=== PATIENT | female | born 1955 | race Two or more races ===

== ENCOUNTER 2017-12-07 13:37 | Emergency (ER) | payer MEDICARE, MEDICAID ==
[~2017-12-07] VITALS: Ht 175.3 cm; Wt 90.7 kg
[~2017-12-07 13:37] MED LIST: ADVAIR; ALBUPOW26; CLOP75TA28 PO; ENAL-3 PO; FLUO-125; GABA400C11 PO; GLIP-115 PO; IBUP800T24 PO; LEVAAER4 IN; METF-370 PO; NOR7.5T PO; PREMARIN; SIMV-8 PO; [UNRECOGNIZED DRUG - CODE] SC
[2017-12-07 13:58] VITALS: BP 126/69
[2017-12-07] MEDS ORDERED: LIDOCAINE 1% (LOCAL ANESTH.) PF 5ml SDV ONE (15:24)
[2017-12-07] MEDS ORDERED: LIDOCAINE 1% HCL (LOCAL ANESTH.) INJ 20ML MDV IJ ONE (15:30)
[2017-12-07] MEDS ORDERED: TETANUS-DIPTH-ACEL PERTUSSIS 0.5ML SYRG IM ONE (15:45)
== END 2017-12-07 16:20 | disposition home or self-care (01) ==
LOC: ER 13:37
DX: S01.81XA Laceration without foreign body of other part of head, initial encounter (principal); S00.83XA Contusion of other part of head, initial encounter; I12.9 Hypertensive chronic kidney disease with stage 1 through stage 4 chronic kidney disease, or unspecified chronic kidney disease; E11.22 Type 2 diabetes mellitus with diabetic chronic kidney disease; N18.9 Chronic kidney disease, unspecified; J44.9 Chronic obstructive pulmonary disease, unspecified; E78.5 Hyperlipidemia, unspecified; Z95.0 Presence of cardiac pacemaker; Z98.61 Coronary angioplasty status; Z79.899 Other long term (current) drug therapy; Z91.041 Radiographic dye allergy status; Z90.710 Acquired absence of both cervix and uterus; W01.0XXA Fall on same level from slipping, tripping and stumbling without subsequent striking against object, initial encounter; Y93.89 Activity, other specified; Y99.8 Other external cause status; Y92.89 Other specified places as the place of occurrence of the external cause
CPT/HCPCS: 12013; 70450; 90471; 90715

== ENCOUNTER 2019-01-08 20:41 | Emergency (ER) | payer MEDICARE, MEDICAID ==
[~2019-01-08] VITALS: Ht 175.3 cm; Wt 72.6 kg
[~2019-01-08 20:41] MED LIST changes: -ENAL-3 PO; +ENAL10TA2 PO; -GLIP-115 PO; +GLIP5TAB12 PO
[2019-01-08 21:42] LABS: Basophils # (auto) 0.1 uL; Basophils % (auto) 1.1 % (0.0-2.0); Eosinophils # (auto) 0.1 uL; Hematocrit 41.8 % (36.0-46.0); Lymphocytes # (auto) 2.6 uL; Mean Corpuscular Hgb Conc. 33.5 g/dL (32.0-36.0); Mean Corpuscular Volume 83.5 fL (80.0-100.0); Monocytes # (auto) 0.6 uL; Neutrophils # (auto) 5.2 uL; Neutrophils % (auto) 60.9 % (37.0-80.0); Platelet Count (auto) 309 10^3/uL (140-450); Red Blood Cells 5.01 10^6/uL (4.0-5.20); Red Cell Distribution Width 15.2 % (11.8-14.3); White Blood Cell 8.5 10^3/uL (4.4-10.8)
[2019-01-08 21:54] LABS: Albumin 3.8 g/dL (3.4-5.0); Calcium 9.2 mg/dL (8.5-10.1); Potassium 3.7 mmol/L (3.5-5.1)
[2019-01-08 21:57] LABS: BUN/Creatinine Ratio 11.2; Bilirubin, Total 0.4 mg/dL (0.2-1.0); Total Protein 7.5 g/dL (6.4-8.2)
[2019-01-09 06:42] LABS: Urine Bacteria MANY /hpf (None Seen); Urine Blood 1+ /uL (Negative); Urine Specific Gravity 1.013 (1.001-1.035); Urine WBC 106 /hpf (0 - 5)
[2019-01-09] MEDS ORDERED: CEFTRIAXONE SODIUM 2 GM in D5W 5% 50 ML IV ONE (07:00)
[2019-01-09] MEDS ORDERED: SODIUM CHLORIDE 0.9% 1,000 ML IV ONE (07:00)
[2019-01-09 09:32] VITALS: BP 140/77
== END 2019-01-09 09:32 | disposition home or self-care (01) ==
LOC: ER 20:44
DX: N39.0 Urinary tract infection, site not specified (principal); I12.9 Hypertensive chronic kidney disease with stage 1 through stage 4 chronic kidney disease, or unspecified chronic kidney disease; E11.22 Type 2 diabetes mellitus with diabetic chronic kidney disease; N18.9 Chronic kidney disease, unspecified; J44.9 Chronic obstructive pulmonary disease, unspecified; R41.0 Disorientation, unspecified; E78.5 Hyperlipidemia, unspecified; Z90.710 Acquired absence of both cervix and uterus; Z95.0 Presence of cardiac pacemaker; Z98.61 Coronary angioplasty status; Z79.899 Other long term (current) drug therapy
CPT/HCPCS: 36415; 70450; 80053; 81001; 84443; 85025; 93005; 96365; 99284; J0696; J7030; J7060

== ENCOUNTER 2022-07-14 10:24 | Emergency (ER) | payer MEDICARE, MEDICAID ==
[~2022-07-14] VITALS: Ht 172.7 cm; Wt 100.0 kg
[~2022-07-14 10:24] MED LIST changes: +ENAL10TA13 PO; -ENAL10TA2 PO; -IBUP800T24 PO; +IBUP800T27 PO
[2022-07-14] MEDS ORDERED: IBUP800T27 PO (13:39)
[2022-07-14] MEDS ORDERED: METH750T22 PO (13:39)
[2022-07-14] MEDS ORDERED: ACETAMINOPHEN 500 MG TAB PO ONE (13:45)
[2022-07-14 13:55] VITALS: BP 142/81
== END 2022-07-14 13:56 | disposition home or self-care (01) ==
LOC: ER 10:24
DX: S16.1XXA Strain of muscle, fascia and tendon at neck level, initial encounter (principal); S39.012A Strain of muscle, fascia and tendon of lower back, initial encounter; I12.9 Hypertensive chronic kidney disease with stage 1 through stage 4 chronic kidney disease, or unspecified chronic kidney disease; E11.22 Type 2 diabetes mellitus with diabetic chronic kidney disease; N18.9 Chronic kidney disease, unspecified; E78.5 Hyperlipidemia, unspecified; I25.10 Atherosclerotic heart disease of native coronary artery without angina pectoris; J44.9 Chronic obstructive pulmonary disease, unspecified; Z90.710 Acquired absence of both cervix and uterus; Z95.0 Presence of cardiac pacemaker; Z79.1 Long term (current) use of non-steroidal anti-inflammatories (NSAID); Z79.899 Other long term (current) drug therapy; Z79.01 Long term (current) use of anticoagulants; Z91.041 Radiographic dye allergy status; W18.39XA Other fall on same level, initial encounter; Y93.89 Activity, other specified; Y92.89 Other specified places as the place of occurrence of the external cause; Y99.8 Other external cause status
CPT/HCPCS: 72040; 72100

== ENCOUNTER 2023-01-28 14:24 | Emergency (ER) | payer MEDICARE, MEDICAID ==
[~2023-01-28] VITALS: Ht 172.7 cm; Wt 93.2 kg
[~2023-01-28 14:24] MED LIST changes: -ENAL10TA13 PO; +ENAL1TAB47 PO; +GABA-1251 PO; -GABA400C11 PO; +IBUP-1456 PO; -IBUP800T27 PO; +METH-1182 PO; -SIMV-8 PO; +SIMV20TA20 PO
[2023-01-28 15:36] LABS: Basophils # (auto) 0.1 10 ^3/uL (0-0.2); Basophils % (auto) 0.9 % (0.0-2.0); Eosinophils # (auto) 0 10 ^3/uL (0-0.8); Eosinophils % (auto) 0.2 % (0.0-7.0); Hematocrit 43.3 % (36.0-46.0); Hemoglobin 14.3 g/dL (12.2-16.2); Lymphocytes # (auto) 1.9 10 ^3/uL (0.4-5.4); Lymphocytes % (auto) 20.6 % (10.0-50.0); Mean Corpuscular Hemoglobin 28.2 pg (28.0-32.0); Mean Corpuscular Volume 85.3 fL (80.0-100.0); Monocytes # (auto) 0.5 10 ^3/uL (0-1.3); Monocytes % (auto) 5.4 % (0.0-12.0); Neutrophils # (auto) 6.8 10 ^3/uL (1.6-8.6); Neutrophils % (auto) 72.9 % (37.0-80.0); Red Blood Cells 5.08 10^6/uL (4.0-5.20); Red Cell Distribution Width 15.1 % (11.8-14.3); White Blood Cell 9.3 10^3/uL (4.4-10.8)
[2023-01-28 15:48] LABS: Albumin 4.7 g/dL (3.2-4.8); Alkaline Phosphatase 104 U/L (46-116); Anion Gap 9 (5-15); Aspartate Aminotransferase 11 U/L (13-40); BUN/Creatinine Ratio 9.5 (10.0-20.0); Bilirubin, Total 0.5 mg/dL (0.2-1.0); Blood Urea Nitrogen 10 mg/dL (9-23); Calcium 9.7 mg/dL (8.7-10.4); Carbon Dioxide 24 mmol/L (20-30); Chloride 106 mmol/L (98-107); Glucose 199 mg/dL (74-106); Potassium 3.7 mmol/L (3.5-5.1); Sodium 139 mmol/L (136-145); Total Protein 7.4 g/dL (5.7-8.2)
[2023-01-28 15:53] LABS: Alanine Aminotransferase 9 U/L (7-40)
[2023-01-28 16:34] LABS: Urine Bacteria NONE SEEN /hpf (None Seen); Urine Blood Negative /uL (Negative); Urine Clarity HAZY (Clear); Urine Color Yellow (Yellow); Urine Mucus FEW (None Seen); Urine Protein, UAD 1+ (Negative); Urine WBC 10 /hpf (0 - 5)
[2023-01-28 21:30] VITALS: PULSE 67; RESP 13; O2SAT 97
[2023-01-28] MEDS ORDERED: ONDANSETRON ODT 4 MG TAB PO ONE (23:30)
[2023-01-28] MEDS ORDERED: HYDROcodone-ACET 10/325MG TAB PO ONE (23:30)
[2023-01-29 00:30] VITALS: BP 106/64; PULSE 60; RESP 16; TEMP 98.2; O2SAT 99
[2023-01-29] MEDS ORDERED: NITR-87 PO (03:15)
== END 2023-01-29 03:41 | disposition home or self-care (01) ==
LOC: ER 14:24
DX: N39.0 Urinary tract infection, site not specified (principal); R10.12 Left upper quadrant pain; E11.65 Type 2 diabetes mellitus with hyperglycemia; I13.0 Hypertensive heart and chronic kidney disease with heart failure and stage 1 through stage 4 chronic kidney disease, or unspecified chronic kidney disease; E11.22 Type 2 diabetes mellitus with diabetic chronic kidney disease; N18.9 Chronic kidney disease, unspecified; I50.9 Heart failure, unspecified; E78.5 Hyperlipidemia, unspecified; J44.9 Chronic obstructive pulmonary disease, unspecified; I25.10 Atherosclerotic heart disease of native coronary artery without angina pectoris; Z95.0 Presence of cardiac pacemaker; Z90.710 Acquired absence of both cervix and uterus; Z79.899 Other long term (current) drug therapy; Z79.1 Long term (current) use of non-steroidal anti-inflammatories (NSAID); Z91.041 Radiographic dye allergy status
CPT/HCPCS: 36415; 74176; 80053; 81001; 83605; 83690; 85025; 93005; 99284; Q0162

== ENCOUNTER 2023-05-07 17:48 | Emergency (ER) | payer MEDICARE, MEDICAID ==
[~2023-05-07] VITALS: Ht 172.7 cm; Wt 85.8 kg
[~2023-05-07 17:48] MED LIST changes: +NITR-87 PO
[2023-05-08 01:05] LABS: Basophils # (auto) 0.1 10 ^3/uL (0-0.2); Eosinophils # (auto) 0.1 10 ^3/uL (0-0.8); Eosinophils % (auto) 1.5 % (0.0-7.0); Hemoglobin 13.4 g/dL (12.2-16.2); Lymphocytes # (auto) 2.2 10 ^3/uL (0.4-5.4); Monocytes # (auto) 0.5 10 ^3/uL (0-1.3); Nucleated Red Blood Cells % 0.1 %
[2023-05-08 01:06] LABS: Basophils % (auto) 0.8 % (0.0-2.0); Lymphocytes % (auto) 30.4 % (10.0-50.0); Mean Corpuscular Hemoglobin 26.9 pg (28.0-32.0); Mean Corpuscular Hgb Conc. 32.6 g/dL (32.0-36.0); Mean Corpuscular Volume 82.4 fL (80.0-100.0); Neutrophils # (auto) 4.4 10 ^3/uL (1.6-8.6); Neutrophils % (auto) 60.3 % (37.0-80.0); Red Blood Cells 4.98 10^6/uL (4.0-5.20); Red Cell Distribution Width 16.4 % (11.8-14.3); White Blood Cell 7.3 10^3/uL (4.4-10.8)
[2023-05-08 01:14] LABS: Chloride 106 mmol/L (98-107); Potassium 3.4 mmol/L (3.5-5.1); Sodium 138 mmol/L (136-145)
[2023-05-08 01:15] LABS: Anion Gap 9 (5-15); Carbon Dioxide 23 mmol/L (20-30)
[2023-05-08 01:16] LABS: Calcium 9.2 mg/dL (8.7-10.4)
[2023-05-08 01:20] LABS: Glucose 136 mg/dL (74-106)
[2023-05-08 01:21] LABS: BUN/Creatinine Ratio 7.9 (10.0-20.0); Blood Urea Nitrogen 8 mg/dL (9-23); Lipase 30 U/L (12-53)
[2023-05-08] MEDS ORDERED: MORPHINE SULFATE INJ 2 MG/ml SYRG IM ONE (01:45)
[2023-05-08] MEDS ORDERED: ONDANSETRON ODT 4 MG TAB PO ONE (01:45)
[2023-05-08 05:09] LABS: Albumin 4.6 g/dL (3.2-4.8); Alkaline Phosphatase 84 U/L (46-116); Aspartate Aminotransferase 24 U/L (13-40); Bilirubin, Total 0.4 mg/dL (0.2-1.0); Total Protein 7.1 g/dL (5.7-8.2)
[2023-05-08 05:10] LABS: Alanine Aminotransferase < 9 U/L (7-40)
[2023-05-08] MEDS ORDERED: MAGNSOL PO (05:32)
[2023-05-08] MEDS ORDERED: ZOFR4T PO (05:37)
[2023-05-08 07:46] VITALS: BP 129/92; PULSE 94; RESP 18; TEMP 97.9; O2SAT 97
== END 2023-05-08 07:52 | disposition home or self-care (01) ==
LOC: ER 17:48
DX: K59.00 Constipation, unspecified (principal); M54.50 Low back pain, unspecified; K43.9 Ventral hernia without obstruction or gangrene; M25.551 Pain in right hip
CPT/HCPCS: 36415; 72100; 73502; 74176; 80048; 82040; 82247; 83690; 84075; 84155; 84450; 84460; 85025; 96372; 99285; J2270; Q0162

== ENCOUNTER 2023-07-27 18:37 | Emergency (ER) | payer MEDICARE, MEDICAID ==
[~2023-07-27] VITALS: Ht 172.7 cm; Wt 86.0 kg
[~2023-07-27 18:37] MED LIST changes: -GLIP5TAB12 PO; +GLIP5TAB21 PO; +MAGNSOL PO; +ZOFR4T PO
[2023-07-27] MEDS ORDERED: ACE3T PO (21:44)
[2023-07-27 21:49] VITALS: BP 111/81; PULSE 70; RESP 16; TEMP 98.2; O2SAT 98
[2023-07-27] MEDS: KETOROLAC TROMETH 60MG/2ML VIAL IM ONE (22:00)
== END 2023-07-28 00:44 | disposition home or self-care (01) ==
LOC: ER 18:37
DX: S70.11XA Contusion of right thigh, initial encounter (principal); M54.41 Lumbago with sciatica, right side; Z91.041 Radiographic dye allergy status; W22.8XXA Striking against or struck by other objects, initial encounter; Y93.89 Activity, other specified; Y92.89 Other specified places as the place of occurrence of the external cause; Y99.8 Other external cause status
CPT/HCPCS: 72100; 73552; 96372; 99284; J1885

== ENCOUNTER 2023-08-16 13:00 | Emergency (ER) | payer MEDICARE, MEDICAID ==
[~2023-08-16] VITALS: Ht 172.7 cm; Wt 79.5 kg
[~2023-08-16 13:00] MED LIST changes: +ACE3T PO
[2023-08-16 14:17] LABS: Basophils # (auto) 0 10 ^3/uL (0-0.2); Basophils % (auto) 0.1 % (0.0-2.0); Eosinophils # (auto) 0 10 ^3/uL (0-0.8); Hematocrit 37.5 % (36.0-46.0); Hemoglobin 12.2 g/dL (12.2-16.2); Lymphocytes # (auto) 1.4 10 ^3/uL (0.4-5.4); Lymphocytes % (auto) 13.6 % (10.0-50.0); Mean Corpuscular Hemoglobin 27.2 pg (28.0-32.0); Mean Corpuscular Hgb Conc. 32.4 g/dL (32.0-36.0); Monocytes # (auto) 0.6 10 ^3/uL (0-1.3); Monocytes % (auto) 5.9 % (0.0-12.0); Neutrophils # (auto) 8.3 10 ^3/uL (1.6-8.6); Neutrophils % (auto) 80.4 % (37.0-80.0); Red Blood Cells 4.47 10^6/uL (4.0-5.20); Red Cell Distribution Width 16.8 % (11.8-14.3); White Blood Cell 10.4 10^3/uL (4.4-10.8)
[2023-08-16 14:37] LABS: Albumin 4.3 g/dL (3.2-4.8); Alkaline Phosphatase 82 U/L (46-116); Anion Gap 6 (5-15); Aspartate Aminotransferase 20 U/L (13-40); BUN/Creatinine Ratio 12.4 (10.0-20.0); Blood Urea Nitrogen 14 mg/dL (9-23); Calcium 9.7 mg/dL (8.5-10.1); Carbon Dioxide 24 mmol/L (20-30); Chloride 105 mmol/L (98-107); Glucose 140 mg/dL (74-106); Potassium 4.3 mmol/L (3.5-5.1); Sodium 135 mmol/L (136-145)
[2023-08-16 14:38] LABS: Bilirubin, Total 0.5 mg/dL (0.2-1.0); Total Protein 6.5 g/dL (5.7-8.2)
[2023-08-16 14:53] LABS: Alanine Aminotransferase < 9 U/L (7-40)
[2023-08-16 14:59] VITALS: PULSE 66; RESP 15; O2SAT 95
[2023-08-16] MEDS: ACETAMINOPHEN 325 MG TAB PO ONE (15:30)
[2023-08-16 16:24] LABS: Urine Bacteria FEW /hpf (None Seen); Urine Blood Negative /uL (Negative); Urine Clarity Clear (Clear); Urine Color Colorless (Yellow); Urine Protein, UAD Negative (Negative); Urine Specific Gravity 1.004 (1.001-1.035); Urine Urobilinogen Normal (Negative); Urine WBC <1 /hpf (0 - 5); Urine pH 6.5 (5.0-9.0)
[2023-08-16 17:06] VITALS: BP 152/85; PULSE 61; RESP 12; O2SAT 97
== END 2023-08-16 18:06 | disposition home or self-care (01) ==
LOC: ER 13:00 → EDBD 13:00 → ER 18:06
DX: R55 Syncope and collapse (principal); R07.89 Other chest pain; I11.0 Hypertensive heart disease with heart failure; I50.9 Heart failure, unspecified; I25.10 Atherosclerotic heart disease of native coronary artery without angina pectoris; J44.9 Chronic obstructive pulmonary disease, unspecified; E11.9 Type 2 diabetes mellitus without complications; Z90.710 Acquired absence of both cervix and uterus; Z95.0 Presence of cardiac pacemaker; Z79.1 Long term (current) use of non-steroidal anti-inflammatories (NSAID); Z79.01 Long term (current) use of anticoagulants; Z79.899 Other long term (current) drug therapy; Z91.041 Radiographic dye allergy status
CPT/HCPCS: 36415; 70450; 71045; 80053; 81001; 84484; 85025; 93005

== ENCOUNTER 2024-02-12 11:08 | Inpatient (IN) | payer MEDICARE, MEDICAID ==
[~2024-02-12] VITALS: Ht 172.7 cm; Wt 83.4 kg
[2024-02-12 11:46] LABS: Basophils # (auto) 0 10 ^3/uL (0-0.2); Basophils % (auto) 0.8 % (0.0-2.0); Eosinophils # (auto) 0.1 10 ^3/uL (0-0.8); Eosinophils % (auto) 2.5 % (0.0-7.0); Hematocrit 41.1 % (36.0-46.0); Hemoglobin 13.5 g/dL (12.2-16.2); Lymphocytes # (auto) 1.5 10 ^3/uL (0.4-5.4); Lymphocytes % (auto) 27.9 % (10.0-50.0); Mean Corpuscular Hemoglobin 27.7 pg (28.0-32.0); Mean Corpuscular Hgb Conc. 32.8 g/dL (32.0-36.0); Mean Corpuscular Volume 84.5 fL (80.0-100.0); Monocytes # (auto) 0.3 10 ^3/uL (0-1.3); Monocytes % (auto) 5.9 % (0.0-12.0); Neutrophils # (auto) 3.3 10 ^3/uL (1.6-8.6); Neutrophils % (auto) 62.9 % (37.0-80.0); Nucleated Red Blood Cells % 0.1 %; Platelet Count (auto) 219 10^3/uL (140-450); Red Blood Cells 4.87 10^6/uL (4.0-5.20); Red Cell Distribution Width 16.6 % (11.8-14.3); White Blood Cell 5.3 10^3/uL (4.4-10.8)
[2024-02-12 12:05] LABS: INR 1.07 (0.9-1.15); Partial Thromboplastin Time 25.5 SEC (24.5-34.5); Prothrombin Time 11.3 sec (9.3-11.8)
[2024-02-12 12:14] LABS: Alanine Aminotransferase 11 U/L (7-40); Alkaline Phosphatase 96 U/L (46-116); Anion Gap 9 (5-15); Aspartate Aminotransferase 19 U/L (13-40); BUN/Creatinine Ratio 13.2 (10.0-20.0); Blood Urea Nitrogen 14 mg/dL (9-23); Calcium 9.5 mg/dL (8.7-10.4); Carbon Dioxide 23 mmol/L (20-31); Chloride 106 mmol/L (98-107); Glucose 135 mg/dL (74-106); Magnesium 1.9 mg/dL (1.6-2.6); Potassium 3.9 mmol/L (3.5-5.1); Sodium 138 mmol/L (136-145)
[2024-02-12 12:15] LABS: Bilirubin, Total 0.5 mg/dL (0.2-1.0); Total Protein 6.2 g/dL (5.7-8.2)
[2024-02-12 17:19] LABS: Urine Bacteria FEW /hpf (None Seen); Urine Blood Negative /uL (Negative); Urine Clarity Turbid (Clear); Urine Color Yellow (Yellow); Urine Mucus FEW (None Seen); Urine Protein, UAD TRACE (Negative); Urine Specific Gravity 1.023 (1.001-1.035); Urine Urobilinogen Normal (Negative); Urine WBC 78 /hpf (0 - 5)
[2024-02-12] MEDS: cefTRIAXone 1GM/50ML D5W 50 ML IV ONE (20:46)
[2024-02-12 21:13] VITALS: RESP 16; O2SAT 96
[2024-02-12] MEDS ORDERED: MORPHINE SULFATE INJ 2 MG/ml SYRG IV PRN (22:45)
[2024-02-12] MEDS ORDERED: NITROGLYCERIN 0.4 MG SL TAB SL PRN (22:45)
[2024-02-12] MEDS: ENOXAPARIN SOD 40 MG/0.4 ML SYRINGE SC SCH (23:15)
[2024-02-12] MEDS: MORPHINE SULFATE INJ 2 MG/ml SYRG IV PRN (23:22)
[2024-02-13] VITALS (8 sets, daily range): BP systolic 101–128; BP diastolic 56–74; PULSE 12–80; RESP 12–18; TEMP 98.1–98.7; O2SAT 92–100
[2024-02-13] MEDS: MELATONIN 5 MG TAB PO ONE (02:00)
[2024-02-13 05:30] LABS: Basophils # (auto) 0 10 ^3/uL (0-0.2); Basophils % (auto) 0.6 % (0.0-2.0); Eosinophils # (auto) 0.1 10 ^3/uL (0-0.8); Eosinophils % (auto) 1.4 % (0.0-7.0); Hematocrit 40.2 % (36.0-46.0); Hemoglobin 12.9 g/dL (12.2-16.2); Lymphocytes # (auto) 2.5 10 ^3/uL (0.4-5.4); Lymphocytes % (auto) 33.3 % (10.0-50.0); Mean Corpuscular Hemoglobin 27.3 pg (28.0-32.0); Mean Corpuscular Hgb Conc. 32.1 g/dL (32.0-36.0); Mean Corpuscular Volume 84.9 fL (80.0-100.0); Monocytes # (auto) 0.5 10 ^3/uL (0-1.3); Monocytes % (auto) 6.8 % (0.0-12.0); Neutrophils # (auto) 4.3 10 ^3/uL (1.6-8.6); Neutrophils % (auto) 57.9 % (37.0-80.0); Platelet Count (auto) 239 10^3/uL (140-450); Red Blood Cells 4.73 10^6/uL (4.0-5.20); Red Cell Distribution Width 16.6 % (11.8-14.3); White Blood Cell 7.5 10^3/uL (4.4-10.8)
[2024-02-13 05:40] LABS: Alanine Aminotransferase 11 U/L (7-40); Albumin 4.4 g/dL (3.2-4.8); Alkaline Phosphatase 88 U/L (46-116); Anion Gap 7 (5-15); Aspartate Aminotransferase 18 U/L (13-40); BUN/Creatinine Ratio 15.8 (10.0-20.0); Bilirubin, Total 0.4 mg/dL (0.2-1.0); Blood Urea Nitrogen 15 mg/dL (9-23); Calcium 9.5 mg/dL (8.7-10.4); Carbon Dioxide 25 mmol/L (20-31); Chloride 105 mmol/L (98-107); Glucose 98 mg/dL (74-106); Potassium 3.8 mmol/L (3.5-5.1); Sodium 137 mmol/L (136-145); Total Protein 6.5 g/dL (5.7-8.2)
[2024-02-13 06:25] LABS: INR 1.08 (0.9-1.15); Partial Thromboplastin Time 30.4 SEC (24.5-34.5); Prothrombin Time 11.4 sec (9.3-11.8)
[2024-02-13] MEDS: SODIUM CHLOR 0.9% PF (SALINE LOCK) 10ML VIAL/SYR IV SCH (08:53)
[2024-02-13] MEDS: GABAPENTIN 400 MG CAP PO SCH (08:53)
[2024-02-13] MEDS: MAGNESIUM CITRATE SOLUTION 300 ML BTL PO SCH (10:00)
[2024-02-13] MEDS: CLOPIDOGREL BISULFATE 75 MG TAB PO SCH (10:01)
[2024-02-13] MEDS: ENALAPRIL MALEATE 10 MG TAB PO SCH (10:01)
[2024-02-13] MEDS: ONDANSETRON HCL 4 MG/2 ML VIAL IV PRN (10:59)
[2024-02-13 14:40] LABS: Triglycerides 113 mg/dL (< 150)
[2024-02-13 14:41] LABS: LDL Cholesterol 53 mg/dL (< 100)
[2024-02-13 14:42] LABS: Cholesterol 124 mg/dL (< 200); HDL Cholesterol 56 mg/dL (40-59)
[2024-02-13 15:30] LABS: Rapid Influenza A Negative (Negative); Rapid Influenza B Negative (Negative)
[2024-02-13 15:31] LABS: COVID19 ANTIGEN SOFIA FIA NEGATIVE (NEGATIVE)
[2024-02-13] MEDS: cefTRIAXone 1GM/50ML D5W 50 ML IV SCH (17:24)
[2024-02-13] MEDS: ATORVASTATIN 20 MG TAB PO SCH (21:55)
[2024-02-13] MEDS: ERGOCALCIFEROL 50,000 UNIT(1.25MG) CAP PO SCH (22:18)
[2024-02-13] MEDS: CYANOCOBALAMIN (B-12) 1000 MCG/1 ML VIAL IM ONE (22:20)
[2024-02-14] VITALS (17 sets, daily range): BP systolic 77–109; BP diastolic 43–61; PULSE 59–75; RESP 12–61; TEMP 97.9–98.4; O2SAT 92–100
[2024-02-14 07:26] LABS: Chloride 107 mmol/L (98-107); Potassium 4.4 mmol/L (3.5-5.1); Sodium 139 mmol/L (136-145)
[2024-02-14 07:27] LABS: Anion Gap 9 (5-15); Basophils # (auto) 0 10 ^3/uL (0-0.2); Basophils % (auto) 0.5 % (0.0-2.0); Calcium 9.7 mg/dL (8.7-10.4); Carbon Dioxide 23 mmol/L (20-31); Eosinophils # (auto) 0.2 10 ^3/uL (0-0.8); Eosinophils % (auto) 1.9 % (0.0-7.0); Hematocrit 40.6 % (36.0-46.0); Hemoglobin 13.1 g/dL (12.2-16.2); Lymphocytes # (auto) 1.6 10 ^3/uL (0.4-5.4); Lymphocytes % (auto) 19.7 % (10.0-50.0); Mean Corpuscular Hemoglobin 27.7 pg (28.0-32.0); Mean Corpuscular Hgb Conc. 32.2 g/dL (32.0-36.0); Monocytes # (auto) 0.7 10 ^3/uL (0-1.3); Neutrophils # (auto) 5.8 10 ^3/uL (1.6-8.6); Neutrophils % (auto) 69.9 % (37.0-80.0); Platelet Count (auto) 226 10^3/uL (140-450); Red Blood Cells 4.72 10^6/uL (4.0-5.20); Red Cell Distribution Width 16.4 % (11.8-14.3); White Blood Cell 8.3 10^3/uL (4.4-10.8)
[2024-02-14 07:32] LABS: Blood Urea Nitrogen 12 mg/dL (9-23); Glucose 107 mg/dL (74-106)
[2024-02-14 07:47] LABS: INR 1.05 (0.9-1.15); Prothrombin Time 11.1 sec (9.3-11.8)
[2024-02-14] MEDS: IODIXANOL 320MG/ML 100ML BTL IV ONE ×2 (07:51→10:32)
[2024-02-14] MEDS: ANGIOMAX 250 MG VIAL IV ONE (08:22)
[2024-02-14] MEDS: SODIUM CHL 0.9% 0 ML ONE (08:22)
[2024-02-14] MEDS: VERAPAMIL 2.5MG/ML INJ 2ML VIAL IV ONE (08:22)
[2024-02-14] MEDS: LIDOCAINE 2%HCL (LOCAL ANESTH.) INJ 20ML MDV ONE (08:22)
[2024-02-14] MEDS: HEPARIN SODIUM (PORCINE) 5000 UNITS/ML 1ML VIAL ONE ×2 (08:23→09:04)
[2024-02-14] MEDS: fentaNYL CITRATE 100 MCG/2 ML VL ONE (08:49)
[2024-02-14] MEDS: MIDAZOLAM HCL 2MG/2ML 2ml VIAL (1mg/ml) ONE (08:49)
[2024-02-14] MEDS: diphenhdrAMINE HCL 50 MG/1 ML VL ONE (08:59)
[2024-02-14] MEDS: FAMOTIDINE (10MG/ML) 2ML VL IV ONE (08:59)
[2024-02-14] MEDS: methylPREDNISolone SOD SUCC 125 MG/2 ML VL ONE (08:59)
[2024-02-14] MEDS ORDERED: PATIENTS OWN MEDICATION (Simvastatin 40 MG) PO SCH (10:00)
[2024-02-14] MEDS: ACETAMINOPHEN 325 MG TAB PO PRN (10:43)
[2024-02-14] MEDS: cefTRIAXone 1GM/50ML D5W 50 ML IV SCH (20:00)
[2024-02-15] VITALS (20 sets, daily range): BP systolic 86–120; BP diastolic 52–59; PULSE 56–82; RESP 16–20; TEMP 97.7–98.2; O2SAT 93–100
[2024-02-15] MEDS: IPRATROPIUM BROM 0.5 MG/2.5ML INH SOL NEB SCH (02:01)
[2024-02-15] MEDS: ALBUTEROL SULF 2.5 MG/0.5ML(0.5%) NEB SOLN NEB SCH (02:01)
[2024-02-15 06:56] LABS: Alanine Aminotransferase 10 U/L (7-40); Albumin 3.8 g/dL (3.2-4.8); Alkaline Phosphatase 70 U/L (46-116); Anion Gap 7 (5-15); Aspartate Aminotransferase 11 U/L (13-40); BUN/Creatinine Ratio 14.7 (10.0-20.0); Blood Urea Nitrogen 17 mg/dL (9-23); Carbon Dioxide 25 mmol/L (20-31); Chloride 108 mmol/L (98-107); Glucose 158 mg/dL (74-106); Potassium 4.9 mmol/L (3.5-5.1); Sodium 140 mmol/L (136-145)
[2024-02-15 06:57] LABS: Bilirubin, Total 0.2 mg/dL (0.2-1.0)
[2024-02-15] MEDS: SODIUM CHLORIDE 0.9% 500 ML IV ONE (13:45)
[2024-02-15] MEDS: HYDROcodone-ACET 5/325MG TAB PO PRN (14:28)
[2024-02-15] MEDS ORDERED: CEPH500C PO (15:30)
[2024-02-15] MEDS ORDERED: ATOR40TA52 PO (15:30)
[2024-02-16] VITALS (9 sets, daily range): BP systolic 96–114; BP diastolic 47–69; PULSE 60–79; RESP 16–20; TEMP 97.6–98.2; O2SAT 95–100
== END 2024-02-16 12:30 | disposition home or self-care (01) | DRG 286 ==
LOC: ER 11:08 → EDBD 11:08 → EDUNIT# 11:08 → TELE 22:33 → TELE-EAST 02-13 16:35
PROVIDERS: ADMIT Internal Medicine; ATTEND Internal Medicine
PROC: 4A023N7 Measurement of Cardiac Sampling and Pressure, Left Heart, Percutaneous Approach (ICD-10-PCS; principal; 2024-02-14)
PROC: B211YZZ Fluoroscopy of Multiple Coronary Arteries using Other Contrast (ICD-10-PCS; 2024-02-14)
PROC: 4B02XSZ Measurement of Cardiac Pacemaker, External Approach (ICD-10-PCS; 2024-02-14)
PROC: B44FZZZ Ultrasonography of Right Lower Extremity Arteries (ICD-10-PCS; 2024-02-14)
DX: I11.0 Hypertensive heart disease with heart failure (principal); I50.33 Acute on chronic diastolic (congestive) heart failure; I25.110 Atherosclerotic heart disease of native coronary artery with unstable angina pectoris; J44.9 Chronic obstructive pulmonary disease, unspecified; Z20.822 Contact with and (suspected) exposure to COVID-19; E78.5 Hyperlipidemia, unspecified; E66.9 Obesity, unspecified; N30.90 Cystitis, unspecified without hematuria; I45.10 Unspecified right bundle-branch block; E11.9 Type 2 diabetes mellitus without complications; E55.9 Vitamin D deficiency, unspecified; E53.8 Deficiency of other specified B group vitamins; R00.1 Bradycardia, unspecified; Z79.4 Long term (current) use of insulin; Z99.81 Dependence on supplemental oxygen; Z90.710 Acquired absence of both cervix and uterus; Z95.0 Presence of cardiac pacemaker; Z82.49 Family history of ischemic heart disease and other diseases of the circulatory system; Z83.3 Family history of diabetes mellitus; Z68.28 Body mass index [BMI] 28.0-28.9, adult
CPT/HCPCS: 36415; 71045; 80048; 80053; 80061; 81001; 82306; 82607; 83036; 83735; 83880; 84443; 84484; 85025; 85610; 85730; 86850; 86900; 86901; 87081; 87426; 87804; 93005; 93306; 93458; 94640; 96365; 99152; 99291; C1894; G0378; J2250; J2405; J3490; Q9967

== ENCOUNTER 2024-03-01 18:18 | Inpatient (IN) | payer MEDICARE, MEDICAID ==
[~2024-03-01] VITALS: Ht 172.7 cm; Wt 76.0 kg
[~2024-03-01 18:18] MED LIST changes: +CEPH500C PO
--- NOTE | 2024-03-01 18:54 | ED.PDOC ---
History of Present Illness HPI Comments 69 y/o F, with a Hx of CAD, CHF, COPD, DM, HLD, HTN, PTCA, pacemaker, hysterectomy, current ventral hernia, and small bowel obstruction Sx?, is BIBA for c/o abdominal pain, nausea, and constipation for 3 weeks. Patient is a poor historian and is reported to have had symptoms being constant since initial unpr ovoked onset. Patient, at time of evaluation, states on pain radiating upwards towards her sternal chest area and rates overall pain being a 10/10. Patient denies any recent stress, injuries, sick contact, travel, spoiled food, or substance use/exposure. Denies having any vomiting, diarrhea, urinary symptoms, fever, chills, or other associated symptoms or modifiers at this time. Chief Complaint: Abdominal Pain Time Seen by MD: 18:25 Primary Care Provider: nola Reviewed Notes: Nurses Notes, Third Rail Installer Notes, Medications, Allergies Allergies: Coded Allergies: Iodinated Contrast Media (Verified Allergy, Unknown, 11/24/13) Home Meds Active Scripts Cephalexin Monohydrate (Cephalexin) 500 Mg Cap, 1 CAP PO TID for 5 Days, #30 CAP Prov:SALOMÓN CARY RESIDENT 02/15/24 Acetaminophen W/ Codeine (Tylenol W/Cod #3) 1 Tab Tb, 1 TAB PO Q8HP PRN, #10 TAB Prov:GEORGETTE CHRISTINE PAC 07/27/23 Ondansetron Odt 4MG Tab (ZOFRAN PO) 4 Mg Tb, 4 MG PO Q8HPRN, #14 TAB 0 Refills ODT TAB-DISSOLVE IN MOUTH, THEN SWALLOW Prov:HUBER ANAYA 05/08/23 Magnesium Citrate (Magnesium Citrate) 1.745 Gm/30 Ml Mariela, 150 ML PO DAILY for 2 Days, #1 BOTTLE 0 Refills Prov:HUBER ANAYA 05/08/23 Nitrofurantoin Monohydrate Mac (Macrobid) 100 Mg Cap, 100 MG PO BID for 5 Days, #10 CAP Prov:FAHAD BAKER DO 01/29/23 Methocarbamol (Methocarbamol) 750 Mg Tab, 750 MG PO BID, #20 TAB Prov:CIRILO HEREDIA 07/14/22 Ibuprofen (Ibuprofen) 800 Mg Tab, 1 TAB PO TID, #30 TAB Prov:CIRILO HEREDIA 07/14/22 Reported Medications [Advair] No Conflict Check 09/22/13 Clopidogrel Bisulfate (Plavix) 75 Mg Tab, 75 MG PO, TAB 09/22/13 Simvastatin (Simvastatin) 20 Mg Tab, 40 MG PO DAILY for 30 Days 09/22/13 Metformin Hydrochloride (Metformin Hcl) 500 Mg Tab, 500 MG PO DAILY for 30 Days, MG 09/22/13 Levalbuterol Tartrate (Xopenex Hfa) Aer, 1 IN PRN 04/06/11 Exenatide (Byetta) 10 Mcg Inj, 10 MCG SC BIDAC 04/06/11 Albuterol (Albuterol) Pow 04/06/11 Fluoxetine Hcl (Fluoxetine Hcl) 20 Mg Cap, 2 CAP DAILY 04/06/11 Enalapril Maleate (Enalapril Maleate) 10 Mg Tab, 10 MG PO DAILY 04/06/11 Gabapentin (Gabapentin) 400 Mg Cap, 400 MG PO TID 04/06/11 Hydrocodone-Acetaminophen (Amberson 7.5/325MG) 1 Tab Tb, 7.5 MG PO TID 04/06/11 Glipizide (Glipizide) 5 Mg Tab, 5 MG PO DAILY 04/06/11 [Premarin] No Conflict Check, 0.3 MG DAILY 04/06/11 Information Source: Patient, Emergency Med Personnel Mode of Arrival: EMS Severity: Moderate Timing: Hours Duration: Since onset Prehospital treatment: 12 Lead EKG, Senior Unix Administrator Past Medical History PAST MEDICAL HISTORY: Asthma, CAD, CHF, COPD, DM, High Lipids, HTN Past Medical History (Other): current ventral hernia Surgical History: Hysterectomy, Pacemaker, PTCA Surgical History (Other): small bowel obstruction Sx? JEWELRY DEPARTMENT SUPERVISOR History: No Pertinent JEWELRY DEPARTMENT SUPERVISOR History Family History Family History: Unknown Social History Smoker: Non-Smoker Alcohol: Rarely Drugs: Denies Drug Use Lives In: Home Constitutional: denies: chills, diaphoresis, fatigue, fever, malaise, sweats, weakness, others EENTM: denies: blurred vision, double vision, ear bleeding, ear discharge, ear drainage, ear pain, ear ringing, eye pain, eye redness, hearing loss, mouth pain, mouth swelling, nasal discharge, nose bleeding, nose congestion, nose pain, photophobia, tearing, throat pain, throat swelling, voice changes, others Respiratory: denies: cough, hemoptysis, orthopnea, SOB at rest, shortness of breath, SOB with excertion, stridor, wheezing, others Cardiovascular: denies: chest pain, dizzy spells, diaphoresis, Dyspnea on exertion, edema, irregular heart beat, left arm pain, lightheadedness, pa lpitations, PND, syncope, others Gastrointestinal: reports: abdominal pain, constipated, nausea; denies: abdomen distended, blood streaked bowels, diarrhea, dysphagia, difficulty swallowing, hematemesis, melena, poor appetite, poor fluid intake, rectal bleeding, rectal pain, vomiting, others Genitourinary: denies: abnormal vagina bleeding, burning, dyspareunia, dysuria, flank pain, frequency, hematuria, incontinence, pain, , vagina discharge, urgency, others Neurological: denies: dizziness, fainting, headache, left sided numbness, left sided weakness, numbness, paresthesia, pre-existing deficit, right sided numbness, right sided weakness, seizure, speech problems, tingling, tremors, weakness, others Musculoskeletal: denies: back pain, gout, joint pain, joint swelling, muscle pain, muscle stiffness, neck pain, others Integumetry: denies: bruises, change in color, change in hair/nails, dryness, laceration, lesions, lumps, rash, wounds, others Allergic/Immunocompromised: denies: Difficulty Healing, Frequent Infections, Hives, Itching, others Hematologic/Lymphatic: denies: anemia, blood clots, easy bleeding, easy bruising, swollen glands, others Endocrine: denies: excessive hunger, excessive sweating, excessive thirst, excessive urination, flushing, intolerance to cold, intolerance to heat, unexplained weight gain, unexplained weight loss, others Psychiatric: denies: anxiety, bipolar disorder, depression, hopeless, panic disorder, schizophrenia, sleepless, suicidal, others All Other Systems: Reviewed and Negative Physical Exam General Appearance: Moderate Distress HEENT: Normal ENT Inspection, Pharynx Normal, TMs Normal Neck: Full Range of Motion, Non-Tender, Normal, Normal Inspection Respiratory: Chest Non-Tender, Lungs Clear, No Accessory Muscle Use, No Res piratory Distress, Normal Breath Sounds Cardiovascular: No Edema, No JVD, No Murmur, No Gallop, Normal Peripheral Pulses, Regular Rate/Rhythm Breast Exam: Deferred Gastrointestinal: No Organomegaly, No Pulsatile Mass, Normal Bowel Sounds, Soft, Other (Midline scar with massThe scar hernia) Genitalia: Deferred Pelvic: Deferred Rectal: Deferred Extremities: No calf tenderness, Normal capillary refill, Normal inspection, Normal range of motion, Non-tender, No pedal edema Musculoskeletal : Apperance: Normal Neurologic: Alert, transcribing machine operator II-XII nml as Tested, No Motor Deficits, Normal Affect, Normal Mood, No Sensory Deficits Cerebellar Function: Normal Reflexes: Normal Skin: Dry, Normal Color, Warm Peripheral Pulses: 3+ Radial (R), 3+ Radial (L) Lymphatic: No Adenopathy Was a procedure done? Was a procedure done?: No Differential Dx Considerations may include: gastritis, gastroenteritis, diverticulitis, pancreatitis, cholecystitis, cholelithiasis, ovarian cysts, incarcerated hernia vs strangulated hernia, acute abdomen X-Ray, Labs, Meds, VS Vital Signs Date Time Temp Pulse Resp B/P (MAP) Pulse Ox O2 Delivery O2 Flow Rate FiO2 03/01/24 22:00 97.9 74 18 124/57 (79) 100 97.9 03/01/24 21:30 74 18 124/57 03/01/24 21:15 97.9 81 18 96/70 (79) 100 97.9 03/01/24 21:00 78 17 126/76 03/01/24 20:35 98.1 78 17 126/76 (93) 98 98.1 03/01/24 20:30 Room Air* 0 21 03/01/24 18:29 97.3 70 20 131/73 (92) 100 Lab Test 03/01/24 19:10 Range/Units White Blood Count 5.4 4.4-10.8 10^3/uL Red Blood Count 4.48 4.0-5.20 10^6/uL Hemoglobin 12.3 12.2-16.2 g/dL Hematocrit 38.3 36.0-46.0 % Mean Corpuscular Volume 85.5 80.0-100.0 fL Mean Corpuscular Hemoglobin 27.6 L 28.0-32.0 pg Mean Corpuscular Hemoglobin Concent 32.3 32.0-36.0 g/dL Red Cell Distribution Width 16.4 H 11.8-14.3 % Platelet Count 258 140-450 10^3/uL Mean Platelet Volume 7.1 6.9-10.8 fL Neutrophils (%) (Auto) 57.5 37.0-80.0 % Lymphocytes (%) (Auto) 32.4 10.0-50.0 % Monocytes (%) (Auto) 7.8 0.0-12.0 % Eosinophils (%) (Auto) 1.7 0.0-7.0 % Basophils (%) (Auto) 0.6 0.0-2.0 % Neutrophils # (Auto) 3.1 1.6-8.6 10 ^3/uL Lymphocytes # (Auto) 1.8 0.4-5.4 10 ^3/uL Monocytes # (Auto) 0.4 0-1.3 10 ^3/uL Eosinophils # (Auto) 0.1 0-0.8 10 ^3/uL Basophils # (Auto) 0 0-0.2 10 ^3/uL Nucleated Red Blood Cells 0.1 % Sodium Level 140 136-145 mmol/L Potassium Level 3.5 3.5-5.1 mmol/L Chloride Level 108 H 98-107 mmol/L Carbon Dioxide Level 24 20-31 mmol/L Anion Gap 8 5-15 Blood Urea Nitrogen 8 L 9-23 mg/dL Creatinine 1.02 0.550-1.02 mg/dL Glomerular Filtration Rate Calc 59 >90 mL/min BUN/Creatinine Ratio 7.8 L 10.0-20.0 Serum Glucose 107 H 74-106 mg/dL Calcium Level 9.0 8.7-10.4 mg/dL Lipase 31 12-53 U/L Current Medications Medications (Trade) Dose Ordered Sig/Albert Route Start Time Stop Time Status Last Admin Ondansetron HCl (Zofran) 4 mg ONCE ONCE IV 03/01/24 18:45 03/01/24 18:46 DC 03/01/24 21:00 Sodium Chloride 1,000 ml @ 1,000 mls/hr Q1H ONCE IVB 03/01/24 18:45 03/01/24 19:44 DC 03/01/24 21:00 Morphine Sulfate 4 mg ONCE ONCE IV 03/01/24 18:45 03/01/24 18:46 DC 03/01/24 21:00 [facility] [id number] [place] [id number] Ph: [phone] DIAGNOSTIC IMAGING Diagnostic Imaging Report : [id number] Signed PATIENT: TEDDY BLACK ACCT: [id number] UNIT: [id number] : 1955 LOC: ER ROOM / BED: / AGE / SEX: 69 / F ADM STATUS: REG ER SERVICE 1831 ORDERING PHYSICIAN: JAMES BUENROSTRO MD PROCEDURE(s): ABPL - CT AB PEL WO CON-NO ORAL OR IV REASON: sbo ORDER NUMBER(s): [id number], ACCESSION NUMBER(s): [id number] Exam: CT CT AB PEL WO CON-NO ORAL OR IV History: sbo Comparison Study: None available at time of dictation. TECHNIQUE: Multidetector CT of the abdomen was performed from lung bases to pubic symphysis. Imaging was performed without IV contrast. Axial, coronal and sagittal multiplanar reformats were obtained from the axial data set by the technologist. Radiation Dose Information: CT Dose: CTDI volume is 12.59 mGy. Dose-length product is 677.56 mGy*cm FINDINGS: Evaluation of solid organs is limited due to lack of intravenous contrast use. Findings: Lung Bases: No acute or significant lung base finding. Normal heart size. No pleural or pericardial effusion. Liver: The liver is normal in size. No focal lesions. Gallbladder and Biliary Tree: Unremarkable Spleen: Unremarkable Pancreas: The pancreas is grossly normal in appearance. Adrenal Glands: Unremarkable Kidneys: Kidneys are grossly normal without calculi or hydronephrosis. Bladder: Grossly unremarkable for degree of distention. Bowel: The stomach is grossly normal in appearance. Small bowel and colon are normal in caliber and distribution. The appendix is not visualized; however, no secondary findings of acute appendicitis identified. Ascites: Absent Lymphadenopathy: No mesenteric, retroperitoneal or periportal lymphadenopathy. Abdominal Wall and Mesentery: Broad-based umbilical hernia containing bowel not significantly changed from prior CT of the abdomen and pelvis of May 08. Vasculature: The visualized abdominal aorta is normal in size and caliber. Evaluation of abdominal and pelvic vessels is limited due to lack of intravenous contrast. Pelvic Organs: Unremarkable Musculoskeletal: No aggressive focal bony lesions, acute fractures or dislocation. Soft tissues: Unremarkable IMPRESSION: 1. No findings of small-bowel obstruction. No findings to suggest colonic obstruction. 2. Stable ventral hernia unchanged from May 08, 2023 3. Stable postop changes with pedicle screws and rods in place at L4-L5 and S1 Radiation optimization: All CT scans at this facility use at least one of these dose optimization techniques: automated exposure control mA and/or kV adjustment per patient size (includes targeted exams where dose is matched to clinical indication) or iterative reconstruction. ATED BY: YOSEPH BARROSO Jr., DO DICTATED DATE/TIME: 03/01/241943 SIGNED BY: YOSEPH BARROSO Jr., SIGNED DATE/TIME: 03/01/241943 CC: Patient alert. Complaining of abdominal discomfort. Does have a mass in mid abdomen. Ventral hernia. Vitals stable. Answering questions. Establish intravenous access. Was given fluids. Was given pain medication. CT scan of the abdomen reviewed does not show any acute process. Reviewed her previous visit. Explained to the patient. Time of 1ST Reevaluation: 18:55 Reevaluation 1ST: Unchanged Patient Education/Counseling: Diagnosis, Treatment Family Education/Counseling: No Family Present Departure 1 Departure Time of Disposition: 19:00 Impression: Primary Impression: Acute abdominal pain Additional Impression: Ventral hernia Qualified Codes: K43.9 - Ventral hernia without obstruction or gangrene Disposition: ADMITTED INPATIENT Admit to: Med Surg Condition: Guarded Critical Care Note Critical Care Time?: No Stability Stability form required: No Heart Score Heart Score: Heart Score Response (Comments) Value History N/A 0 EKG N/A 0 Age N/A 0 Risk Factors N/A 0 Troponin N/A 0 Total 0 I personally scribed for JAMES BUENROSTRO MD ([email or web address]) on 03/01/24 at 18:54. Electronically submitted by Guy Agarwal ([email or web address]). I personally scribed for JAMES BUENROSTRO MD ([email or web address]) on 03/01/24 at 19:56. Electronically submitted by Guy Agarwal ([email or web address]). JAMES BUENROSTRO MD Mar 01, 2024 18:54
[2024-03-01 19:47] LABS: Basophils # (auto) 0 10 ^3/uL (0-0.2); Basophils % (auto) 0.6 % (0.0-2.0); Eosinophils # (auto) 0.1 10 ^3/uL (0-0.8); Eosinophils % (auto) 1.7 % (0.0-7.0); Hematocrit 38.3 % (36.0-46.0); Hemoglobin 12.3 g/dL (12.2-16.2); Lymphocytes # (auto) 1.8 10 ^3/uL (0.4-5.4); Lymphocytes % (auto) 32.4 % (10.0-50.0); Mean Corpuscular Hemoglobin 27.6 pg (28.0-32.0); Mean Corpuscular Hgb Conc. 32.3 g/dL (32.0-36.0); Mean Corpuscular Volume 85.5 fL (80.0-100.0); Monocytes # (auto) 0.4 10 ^3/uL (0-1.3); Monocytes % (auto) 7.8 % (0.0-12.0); Neutrophils # (auto) 3.1 10 ^3/uL (1.6-8.6); Neutrophils % (auto) 57.5 % (37.0-80.0); Nucleated Red Blood Cells % 0.1 %; Platelet Count (auto) 258 10^3/uL (140-450); Red Blood Cells 4.48 10^6/uL (4.0-5.20); Red Cell Distribution Width 16.4 % (11.8-14.3); White Blood Cell 5.4 10^3/uL (4.4-10.8)
--- NOTE | 2024-03-01 19:47 | DVH ---
Exam: CT CT AB PEL WO CON-NO ORAL OR IV History: sbo Comparison Study: None available at time of dictation. TECHNIQUE: Multidetector CT of the abdomen was performed from lung bases to pubic symphysis. Imaging was performed without IV contrast. Axial, coronal and sagittal multiplanar reformats were obtained fr om the axial data set by the technologist. Radiation Dose Information: CT Dose: CTDI volume is 12.59 mGy. Dose-length product is 677.56 mGy*cm FINDINGS: Evaluation of solid organs is limited due to lack of intravenous contrast use. Findings: Lung Bases: No acute or significant lung base finding. Normal heart size. No pleural or pericardial effusion. Liver: The liver is normal in size. No focal lesions. Gallbladder and Biliary Tree: Unremarkable Spleen: Unremarkable Pancreas: The pancreas is grossly normal in appearance. Adrenal Glands: Unremarkable Kidneys: Kidneys are grossly normal without calculi or hydronephrosis. Bladder: Grossly unremarkable for degree of distention. Bowel: The stomach is grossly normal in appearance. Small bowel and colon are normal in caliber and d istribution. The appendix is not visualized; however, no secondary findings of acute appendicitis id entified. Ascites: Absent Lymphadenopathy: No mesenteric, retroperitoneal or periportal lymphadenopathy. Abdominal Wall and Mesentery: Broad-based umbilical hernia containing bowel not significantly changed from prior CT of the abdomen and pelvis of May 08, 2023. Vasculature: The visualized abdominal aorta is normal in size and caliber. Evaluation of abdominal a nd pelvic vessels is limited due to lack of intravenous contrast. Pelvic Organs: Unremarkable Musculoskeletal: No aggressive focal bony lesions, acute fractures or dislocation. Soft tissues: Unremarkable IMPRESSION: 1. No findings of small-bowel obstruction. No findings to suggest colonic obstruction. 2. Stable ventral hernia unchanged from May 08, 2023 3. Stable postop changes with pedicle screws and rods in place at L4-L5 and S1 Radiation optimization: All CT scans at this facility use at least one of these dose optimization te chniques: automated exposure control mA and/or kV adjustment per patient size (includes targeted exa ms where dose is matched to clinical indication) or iterative reconstruction.
[2024-03-01 19:48] LABS: Anion Gap 8 (5-15); Carbon Dioxide 24 mmol/L (20-31); Chloride 108 mmol/L (98-107); Potassium 3.5 mmol/L (3.5-5.1); Sodium 140 mmol/L (136-145)
[2024-03-01 19:54] LABS: BUN/Creatinine Ratio 7.8 (10.0-20.0); Blood Urea Nitrogen 8 mg/dL (9-23); Glucose 107 mg/dL (74-106); Lipase 31 U/L (12-53)
[2024-03-01] MEDS: SODIUM CHLORIDE 0.9% 1,000 ML IVB ONE (21:00)
[2024-03-01] MEDS: ONDANSETRON HCL 4 MG/2 ML VIAL IV ONE (21:00)
[2024-03-01] MEDS: MORPHINE SULFATE 4 MG/ML SYR/VIAL IV ONE (21:00)
[2024-03-01 21:15] VITALS: BP 96/70; PULSE 81; RESP 18; TEMP 97.9; O2SAT 100
[2024-03-01 21:20] VITALS: PULSE 81; RESP 18; O2SAT 100
[2024-03-01 22:00] VITALS: BP 124/57; PULSE 74; RESP 18; TEMP 97.9; O2SAT 100
[2024-03-02] VITALS (10 sets, daily range): BP systolic 111–133; BP diastolic 52–69; PULSE 56–84; RESP 17–18; TEMP 97.8–98.7; O2SAT 94–100
[2024-03-02] MEDS: ONDANSETRON HCL 4 MG/2 ML VIAL IV ONE (00:14)
[2024-03-02] MEDS: HYDROcodone-ACET 10/325MG TAB PO ONE (02:14)
[2024-03-02] MEDS: SODIUM CHLORIDE 0.9% 1,000 ML IV ONE (04:49)
[2024-03-02] MEDS: METOCLOPRAMIDE HCL 5MG/ml INJ 2ml VIAL IV ONE (07:05)
[2024-03-02 09:39] LABS: Urine Bacteria None Seen /hpf (None Seen)
[2024-03-02 09:44] LABS: Urine Blood Negative /uL (Negative); Urine Clarity Clear (Clear); Urine Color Light-Yellow (Yellow); Urine Protein, UAD Negative (Negative); Urine Specific Gravity 1.019 (1.001-1.035); Urine Urobilinogen Normal (Negative); Urine WBC <1 /hpf (0 - 5)
[2024-03-02] MEDS ORDERED: CEPH250C PO (11:43)
[2024-03-02] MEDS ORDERED: APIX5TAB PO (11:43)
[2024-03-02] MEDS ORDERED: CETI10CA PO (11:43)
[2024-03-02] MEDS ORDERED: CHOL20007 PO (11:43)
[2024-03-02] MEDS ORDERED: FLUT1SPR5 (11:43)
[2024-03-02] MEDS ORDERED: EXEN2INJ SC (11:43)
[2024-03-02] MEDS ORDERED: ESCI20TA PO (11:43)
[2024-03-02] MEDS ORDERED: CYAN100088 PO (11:43)
[2024-03-02] MEDS ORDERED: NITROGLYCERIN 0.4 MG SL TAB SL PRN (12:00)
[2024-03-02] MEDS ORDERED: DOCUSATE SOD 100 MG CAP PO PRN (12:00)
[2024-03-02] MEDS ORDERED: LACTULOSE 20Gm/30ML SOLN PO PRN (12:00)
[2024-03-02] MEDS: InsuLIN REG 1unit/0.01ml Soln (100units/ml) SC SCH (12:00)
[2024-03-02] MEDS ORDERED: MORPHINE SULFATE INJ 2 MG/ml SYRG IV PRN (12:00)
[2024-03-02] MEDS ORDERED: DEXTROSE (50%) 50ML SYRG IV PRN (12:00)
--- NOTE | 2024-03-02 12:31 | DVHHP2 ---
History of Present Illness Reason for Visit: Abdominal Pain History of Present Illness Alejandra Baldwin is a 69-year-old female with past medical history of CAD, hypertension, CHF, COPD, and diabetes, who came in with complaints of abdominal pain. Patient states she came in because she has not had a bowel movement for 7 days. She states she went to her primary care provider who prescribed her laxatives that she took without any relief. She has a history of small bowel obstruction that required surgical intervention about 3 years ago. Patient also has a ventral hernia that she states she did not know about and has started protruding more. However the hernia is present on previous CT scans. Cardiovascular: AFIB, CAD, CHF, HTN Pulmonary: COPD Endocrine: Diabetes Past Surgical History: (x 2, pacemaker), Hysterectomy, Other (SBO) Smoke: No ALCOHOL: none Drugs: None Lives: with Family Domestic Violence: Neg Review of Systems Constitutional: No: Fever, Chills, Sweats, Weakness, Malaise, Other Eyes: No: Pain, Vision change, Conjunctivae inflammation, Eyelid inflammation, Other, Redness ENT: No: Ear pain, Ear discharge, Nose pain, Nose discharge, Nose congestion, Mouth pain, Mouth swelling, Throat pain, Throat swelling, Other Respiratory: No: Cough, Dry, Shortness of breath, SOB with excertion, Wheezing, Hemoptysis, Pleuritic Pain, Sputum, Wheezing, Other Cardiovascular: No: Chest Pain, Palpitations, Orthopnea, Paroxysmal Noc. Dyspnea, Edema, Lt Headedness, Other Gastrointestinal: Nausea, Abdominal Pain, Constipation; No: Vomiting, Diarrhea, Melena, Hematochezia, Other Genitourinary: No Dysuria, No Frequency, No Incontinence, No Hematuria, No Retention, No Other Musculoskeletal: No: other, neck pain, shoulder pain, arm pain, back pain, hand pain, leg pain, foot pain Skin: No: Rash, Lesions, Jaundice, Bruising, Other Neurological: No: Weakness, Numbness, Incoordination, Change in speech, Confusion, Seizures, Other Allergies: Coded Allergies: Iodinated Contrast Media (Verified Allergy, Unknown, 11/24/13) Medications Current Medications Medications Dose Ordered Sig/Albert Route Start Time Stop Time Status Last Admin Dose Admin Sodium Chloride 1,000 ml @ 60 mls/hr [id number] IV 03/02/24 12:00 UNV Ondansetron HCl 4 mg Q4HP PRN IV 03/02/24 12:00 UNV Docusate Sodium 100 mg BIDPRN PRN PO 03/02/24 12:00 UNV Acetaminophen 650 mg Q6HP PRN PO 03/02/24 12:00 UNV Morphine Sulfate 2 mg Q4HPRN PRN IV 03/02/24 12:00 UNV Nitroglycerin 0.4 mg Q5MINP PRN SL 03/02/24 12:00 UNV Morphine Sulfate 2 mg Q30M PRN IV 03/02/24 12:00 UNV Diagnostic Test (Pha) 1 strip Q6HR 03/02/24 12:00 UNV Insulin Human Regular Q6HR SC 03/02/24 12:00 UNV Dextrose 50 ml UD PRN IV 03/02/24 12:00 UNV Metoclopramide HCl 10 mg Q6HR IV 03/02/24 12:00 UNV Lactulose 30 ml Q6HPRN PRN PO 03/02/24 12:00 UNV Exam Vital Signs Vital Signs Date Time Temp Pulse Resp B/P (MAP) Pulse Ox O2 Delivery O2 Flow Rate FiO2 03/02/24 10:10 98.1 76 111/52 (71) 97 98.1 03/02/24 08:18 18 03/02/24 08:00 Room Air* 0 21 Labs/Xrays Labs Test 03/02/24 09:00 03/01/24 19:10 Range/Units Urine Color Light-yellow Yellow Urine Clarity Clear Clear Urine pH 6.0 5.0-9.0 Urine Specific [place] 1.019 1.001-1.035 Urine Protein Negative Negative Urine Ketones Negative Negative Urine Blood Negative Negative /uL Urine Nitrite Negative Negative Urine Bilirubin Negative Negative Urine Urobilinogen Normal Negative mg/dL Urine Leukocyte Esterase Negative Negative /uL Urine RBC None seen 0 - 4 /hpf Urine WBC <1 0 - 5 /hpf Urine Squamous Epithelial Cells None seen <5 /hpf Urine Bacteria None seen None Seen /hpf Urine Glucose Normal Normal mg/dL White Blood Count 5.4 4.4-10.8 10^3/uL Red Blood Count 4.48 4.0-5.20 10^6/uL Hemoglobin 12.3 12.2-16.2 g/dL Hematocrit 38.3 36.0-46.0 % Mean Corpuscular Volume 85.5 80.0-100.0 fL Mean Corpuscular Hemoglobin 27.6 L 28.0-32.0 pg Mean Corpuscular Hemoglobin Concent 32.3 32.0-36.0 g/dL Red Cell Distribution Width 16.4 H 11.8-14.3 % Platelet Count 258 140-450 10^3/uL Mean Platelet Volume 7.1 6.9-10.8 fL Neutrophils (%) (Auto) 57.5 37.0-80.0 % Lymphocytes (%) (Auto) 32.4 10.0-50.0 % Monocytes (%) (Auto) 7.8 0.0-12.0 % Eosinophils (%) (Auto) 1.7 0.0-7.0 % Basophils (%) (Auto) 0.6 0.0-2.0 % Neutrophils # (Auto) 3.1 1.6-8.6 10 ^3/uL Lymphocytes # (Auto) 1.8 0.4-5.4 10 ^3/uL Monocytes # (Auto) 0.4 0-1.3 10 ^3/uL Eosinophils # (Auto) 0.1 0-0.8 10 ^3/uL Basophils # (Auto) 0 0-0.2 10 ^3/uL Nucleated Red Blood Cells 0.1 % Sodium Level 140 136-145 mmol/L Potassium Level 3.5 3.5-5.1 mmol/L Chloride Level 108 H 98-107 mmol/L Carbon Dioxide Level 24 20-31 mmol/L Anion Gap 8 5-15 Blood Urea Nitrogen 8 L 9-23 mg/dL Creatinine 1.02 0.550-1.02 mg/dL Glomerular Filtration Rate Calc 59 >90 mL/min BUN/Creatinine Ratio 7.8 L 10.0-20.0 Serum Glucose 107 H 74-106 mg/dL Calcium Level 9.0 8.7-10.4 mg/dL Lipase 31 12-53 U/L Exam: CT CT AB PEL WO CON-NO ORAL OR IV FINDINGS: Evaluation of solid organs is limited due to lack of intravenous contrast use. Findings: Lung Bases: No acute or significant lung base finding. Normal heart size. No pleural or pericardial effusion. Liver: The liver is normal in size. No focal lesions. Gallbladder and Biliary Tree: Unremarkable Spleen: Unremarkable Pancreas: The pancreas is grossly normal in appearance. Adrenal Glands: Unremarkable Kidneys: Kidneys are grossly normal without calculi or hydronephrosis. Bladder: Grossly unremarkable for degree of distention. Bowel: The stomach is grossly normal in appearance. Small bowel and colon are normal in caliber and distribution. The appendix is not visualized; however, no secondary findings of acute appendicitis identified. Ascites: Absent Lymphadenopathy: No mesenteric, retroperitoneal or periportal lymphadenopathy. Abdominal Wall and Mesentery: Broad-based umbilical hernia containing bowel not significantly changed from prior CT of the abdomen and pelvis of May 08, 2023. Vasculature: The visualized abdominal aorta is normal in size and caliber. Evaluation of abdominal and pelvic vessels is limited due to lack of intravenous contrast. Pelvic Organs: Unremarkable Musculoskeletal: No aggressive focal bony lesions, acute fractures or dislocati on. Soft tissues: Unremarkable IMPRESSION: 1. No findings of small-bowel obstruction. No findings to suggest colonic obstr uction. 2. Stable ventral hernia unchanged from May 08, 2023 3. Stable postop changes with pedicle screws and rods in place at L4-L5 and S1 Assessment/Plan Assessment/Plan Assessment: Constipation, acute, Ventral Hernia, Diabetes, COPD, CHF, CAD, Plan: Admit to Tele, GI Consult, NPO except medications, IV hydration, IV antiemetics, Fleets enema, PO Lactulose, Pain management, Home medications reconciled, Plan discussed with: Patient My Orders Orders - JUVENCIO ESTEVEZ SALES SERVICE PROMOTER Procedure Category Date Status Time Admit ADMIT 03/02/24 Transmitted 11:53 Code Status CODE 03/02/24 Transmitted 11:53 Sodium Chloride 0.9% PHA 03/02/24 Logged 12:00 Ondansetron Hcl PHA 03/02/24 Logged (Zofran) 12:00 Docusate Sodium PHA 03/02/24 Logged Capsule (Colace 12:00 Complete Blood Count LAB 03/03/24 Verified 04:00 Comprehensive LAB 03/03/24 Verified Metabolic Panel 04:00 Npo (Nothing By DIET 03/02/24 Transmitted Mouth) Diet Lunch Condition: Serious GONZALES 03/02/24 In Process 11:53 Acetaminophen Tablet PHA 03/02/24 Logged (Tylenol Tablet) 12:00 Morphine Sulfate PHA 03/02/24 Logged Injection 12:00 Nitroglycerin PHA 03/02/24 Logged Sublingual (Ntrostat 12:00 Morphine Sulfate PHA 03/02/24 Logged Injection 12:00 Stat Ekg For Chest [facility] 03/02/24 In Process Pain 11:53 Notify Of Changes [facility] 03/02/24 In Process From Base 11:53 Rating Specialist For [facility] 03/02/24 In Process 24 Hours 11:53 Emergency Dysrhythmia [facility] 03/02/24 In Process Protocol 11:53 Rhythm Strips Once [facility] 03/02/24 In Process Every Shift 11:53 Oxygen By Nasal RT 03/02/24 Transmitted Cannula 11:53 Glucose Blood PHA 03/02/24 Logged (Accu-Chek Comfort 12:00 Insulin R (Human) PHA 03/02/24 Logged (Insulin R) 12:00 Dextrose 50% Syringe PHA 03/02/24 Logged 12:00 Metoclopramide PHA 03/02/24 Logged Injection (Reglan 12:00 Lactulose Oral PHA 03/02/24 Logged 12:00 Lactulose Oral PHA 03/02/24 Logged 12:00 Fleet Enema Adult PHA 03/02/24 Logged 12:00 * Gi Dvh Stock Car Driver CONS 03/02/24 Transmitted 11:53 Date of Service: Mar 02, 2024 Billing Provider: JUVENCIO ESTEVEZ Common Visit Codes: [id number] INP/OBS CARE (MOD) JUVENCIO ESTEVEZ Mar 02, 2024 12:31
[2024-03-02] MEDS: SODIUM CHLORIDE 0.9% 1,000 ML IV SCH (12:34)
[2024-03-02] MEDS: ONDANSETRON HCL 4 MG/2 ML VIAL IV PRN (12:35)
[2024-03-02] MEDS: LACTULOSE 20Gm/30ML SOLN PO ONE (12:36)
[2024-03-02] MEDS: ACCU-CHEK COMFORT CURVE STRIP VI SCH (12:36)
[2024-03-02] MEDS: MORPHINE SULFATE INJ 2 MG/ml SYRG IV PRN (12:36)
[2024-03-02] MEDS: METOCLOPRAMIDE HCL 5MG/ml INJ 2ml VIAL IV SCH (13:30)
[2024-03-02] MEDS: FLEET ENEMA(ADULT) 135 ML PR ONE (15:21)
[2024-03-03] VITALS (8 sets, daily range): BP systolic 99–135; BP diastolic 55–71; PULSE 58–80; RESP 17–19; TEMP 98–99.1; O2SAT 92–100
[2024-03-03 06:46] LABS: Basophils # (auto) 0 10 ^3/uL (0-0.2); Basophils % (auto) 0.7 % (0.0-2.0); Eosinophils # (auto) 0.1 10 ^3/uL (0-0.8); Eosinophils % (auto) 2.9 % (0.0-7.0); Hematocrit 35.8 % (36.0-46.0); Lymphocytes # (auto) 1.6 10 ^3/uL (0.4-5.4); Lymphocytes % (auto) 32.6 % (10.0-50.0); Mean Corpuscular Hemoglobin 28.3 pg (28.0-32.0); Mean Corpuscular Hgb Conc. 33.6 g/dL (32.0-36.0); Mean Corpuscular Volume 84.4 fL (80.0-100.0); Monocytes # (auto) 0.3 10 ^3/uL (0-1.3); Monocytes % (auto) 6.8 % (0.0-12.0); Neutrophils # (auto) 2.8 10 ^3/uL (1.6-8.6); Nucleated Red Blood Cells % 0.2 %; Platelet Count (auto) 232 10^3/uL (140-450); Red Blood Cells 4.24 10^6/uL (4.0-5.20); Red Cell Distribution Width 16.2 % (11.8-14.3)
[2024-03-03 07:20] LABS: Alanine Aminotransferase 11 U/L (7-40); Alkaline Phosphatase 73 U/L (46-116); Anion Gap 8 (5-15); BUN/Creatinine Ratio 5.6 (10.0-20.0); Blood Urea Nitrogen < 5 mg/dL (9-23); Carbon Dioxide 21 mmol/L (20-31); Chloride 110 mmol/L (98-107); Glucose 94 mg/dL (74-106); Potassium 3.9 mmol/L (3.5-5.1); Sodium 139 mmol/L (136-145)
[2024-03-03 07:21] LABS: Albumin 3.5 g/dL (3.2-4.8); Aspartate Aminotransferase 14 U/L (13-40)
[2024-03-03 07:22] LABS: Bilirubin, Total 0.6 mg/dL (0.2-1.0); Total Protein 5.3 g/dL (5.7-8.2)
[2024-03-03] MEDS ORDERED: SENNA 8.6 MG TAB PO PRN (15:00)
--- NOTE | 2024-03-03 15:04 | DVHPN2 ---
Assessment/Plan Assessment/Plan Progress note Subjective 69-year-old female with ventral hernia admitted for severe constipation. Patient was taking Dulcolax and MiraLax as outpatient by her primary care however still have no bowel movements. Patient had to do manual disimpaction on last bowel movement 7 days ago. Objective Physical exam Alert, oriented x3 PERRLA No JVD Clear breath sounds bilaterally S1-S2 regular rate and rhythm no murmur Abdomen slightly distended, mildly tender, no guarding no rebound Moving all four extremities No lower extremity edema Lab Within normal limits Imaging CT abdomen no SBO, ventral hernia stable Assessment and plan Severe constipation COPD CAD CHF Ventral hernia AFib on Eliquis We will give Fleet enema Continue with MiraLax and senna after bowel movements If remain constipated, might need GI to evaluate for colon obstruction Pain management Continue with Eliquis Continue home medication Albuterol and ipratropium nebulizer p.r.n. Delirium precaution Diet liquid DVT prophylaxis on Eliquis Plan discussed with: Patient My Orders Orders - ESTUARDO LY MD Procedure Category Date Status Time Fleet Enema If In ORDERS 03/03/24 Transmitted Early Labor 14:24 Date of Service: Mar 03, 2024 Billing Provider: ESTUARDO LY MD Common Visit Codes: [id number] INP/OBS CARE(HIGH) ESTUARDO LY MD Mar 03, 2024 15:04
--- NOTE | 2024-03-03 17:33 | DVHINCON2 ---
Date of service: Mar 03, [address] Boyer Reason for Consultation Abdominal pain constipation History of Present Illness This 69-year-old female with a history of coronary artery disease hypertension congestive heart failure COPD diabetes etc. came to the emergency room with complaints of abdominal pain in both lower quadrants of the lesser epigastrium. Patient also has got complaints of constipation. He was prescribed some laxatives but without any relief patient has history of small-bowel obstruction for which he had surgery by Dr. Moraes about three years ago. Patient also has got complaints of hence hernia. No gross GI bleeding Past Medical History Coronary artery disease hypertension atrial fibrillation congestive Past Surgical History History of hysterectomy small-bowel obstruction surgery Family History: Family history: Cardiovascular disease G8 MOTHER G8 FATHER Family history: Diabetes mellitus G8 MOTHER G8 FATHER Family History Unremarkable Social History Denies smoking or drinking Allergies: Coded Allergies: Iodinated Contrast Media (Verified Allergy, Unknown, 11/24/13) Home Meds Active Scripts Cephalexin Monohydrate (Cephalexin) 500 Mg Cap, 1 CAP PO TID for 5 Days, #30 CAP Prov:SALOMÓN CARY 02/15/24 Magnesium Citrate (Magnesium Citrate) 1.745 Gm/30 Ml Mariela, 150 ML PO DAILY for 2 Days, #1 BOTTLE 0 Refills Prov:HUBER ANAYA 05/08/23 Methocarbamol (Methocarbamol) 750 Mg Tab, 750 MG PO BID, #20 TAB Prov:CIRILO HEREDIA 07/14/22 Ibuprofen (Ibuprofen) 800 Mg Tab, 1 TAB PO TID, #30 TAB Prov:CIRILO HEREDIA 07/14/22 Reported Medications Escitalopram Oxalate (Lexapro) 20 Mg Tab, 1 TAB PO DAILY, TAB 03/02/24 Cetirizine Hcl (Zyrtec Allergy) 10 Mg Cap, 10 MG PO DAILY, CAP 03/02/24 Exenatide (Bydureon Bcise) 2 Mg/0.85 Ml Inj, 2 MG SC, INJ 03/02/24 Apixaban Base (ELIQUIS) 5 Mg Tab, 5 MG PO BID, TAB 03/02/24 Cholecalciferol (VITAMIN D3) 2,000 Unit Tab, 1 TAB PO DAILY, TAB 03/02/24 Cyanocobalamin (Vitamin B-12) 1,000 Mcg Tab, 1000 MCG PO DAILY, TAB 03/02/24 Fluticasone Propionate (Nasal) (Flonase Allergy Relief) 50 Mcg/Act Spr, 50 MCG NA DAILY, SPRAY 03/02/24 Cephalexin (KEFLEX CAPSULE) 250 Mg Cp, 500 MG PO DAILY, CAP 03/02/24 [Advair] No Conflict Check 09/22/13 Clopidogrel Bisulfate (Plavix) 75 Mg Tab, 75 MG PO, TAB 09/22/13 Simvastatin (Simvastatin) 20 Mg Tab, 40 MG PO DAILY for 30 Days 09/22/13 Metformin Hydrochloride (Metformin Hcl) 500 Mg Tab, 500 MG PO DAILY for 30 Days, MG 09/22/13 Levalbuterol Tartrate (Xopenex Hfa) Aer, 1 IN PRN 04/06/11 Exenatide (Byetta) 10 Mcg Inj, 10 MCG SC BIDAC 04/06/11 Albuterol (Albuterol) Pow 04/06/11 Fluoxetine Hcl (Fluoxetine Hcl) 20 Mg Cap, 2 CAP DAILY 04/06/11 Enalapril Maleate (Enalapril Maleate) 10 Mg Tab, 10 MG PO DAILY 04/06/11 Gabapentin (Gabapentin) 400 Mg Cap, 400 MG PO TID 04/06/11 Hydrocodone-Acetaminophen ([place] 7.5/325MG) 1 Tab Tb, 7.5 MG PO TID 04/06/11 Glipizide (Glipizide) 5 Mg Tab, 5 MG PO DAILY 04/06/11 [Premarin] No Conflict Check, 0.3 MG DAILY 04/06/11 Discontinued Scripts Acetaminophen W/ Codeine (Tylenol W/Cod #3) 1 Tab Tb, 1 TAB PO Q8HP PRN, #10 TAB Prov:GEORGETTE CHRISTINE PAC 07/27/23 Ondansetron Odt 4MG Tab (ZOFRAN PO) 4 Mg Tb, 4 MG PO Q8HPRN, #14 TAB 0 Refills ODT TAB-DISSOLVE IN MOUTH, THEN SWALLOW Prov:HUBER ANAYA 05/08/23 Nitrofurantoin Monohydrate Mac (Macrobid) 100 Mg Cap, 100 MG PO BID for 5 Days, #10 CAP Prov:FAHAD BAKER DO 01/29/23 Current Medications Current Medications Medications (Trade) Dose Ordered Sig/Albert Route PRN Reason Start Time Stop Time Status Last Admin Sennosides (Senokot Tablet) 17.2 mg QHSP PRN PO FOR CONSTIPATION 03/03/24 15:00 Polyethylene Glycol (Miralax 17GM Powder) 17 gm DAILY PO 03/04/24 10:00 Review of Systems Noncontributory Vital Signs Vital Signs Date Time Temp Pulse Resp B/P (MAP) Pulse Ox O2 Delivery O2 Flow Rate FiO2 03/03/24 13:51 70 16 114/70 03/03/24 13:00 98.3 98 98.3 03/03/24 08:00 Room Air* 0 21 Physical Exam Originally built and nourished female in no acute distress vital stable HEENT examination no pallor no icterus neck was supple no lymphadenopathy no thyromegaly chest was bilaterally symmetrical lungs are clear abdomen is soft has some fullness in the epigastrium there is a ventral hernia no rigidity no guarding no masses bowel sounds are normal extremities reveal no edema no varicosities no clubbing labs were essentially all four CT scan showed small ventral hernia unchanged from May 04, 2023 no evidence of any small-bowel obstruction Labs/Diagnostic Data Labs Test 03/03/24 13:24 03/03/24 05:43 03/02/24 09:00 03/01/24 19:10 Range/Units POC Glucose 92 70-106 mg/dl White Blood Count 5.0 4.4-10.8 10^3/uL Red Blood Count 4.24 4.0-5.20 10^6/uL Hemoglobin 12.0 L 12.2-16.2 g/dL Hematocrit 35.8 L 36.0-46.0 % Mean Corpuscular Volume 84.4 80.0-100.0 fL Mean Corpuscular Hemoglobin 28.3 28.0-32.0 pg Mean Corpuscular Hemoglobin Concent 33.6 32.0-36.0 g/dL Red Cell Distribution Width 16.2 H 11.8-14.3 % Platelet Count 232 140-450 10^3/uL Mean Platelet Volume 7.0 6.9-10.8 fL Neutrophils (%) (Auto) 57.0 37.0-80.0 % Lymphocytes (%) (Auto) 32.6 10.0-50.0 % Monocytes (%) (Auto) 6.8 0.0-12.0 % Eosinophils (%) (Auto) 2.9 0.0-7.0 % Basophils (%) (Auto) 0.7 0.0-2.0 % Neutrophils # (Auto) 2.8 1.6-8.6 10 ^3/uL Lymphocytes # (Auto) 1.6 0.4-5.4 10 ^3/uL Monocytes # (Auto) 0.3 0-1.3 10 ^3/uL Eosinophils # (Auto) 0.1 0-0.8 10 ^3/uL Basophils # (Auto) 0 0-0.2 10 ^3/uL Nucleated Red Blood Cells 0.2 % Sodium Level 139 136-145 mmol/L Potassium Level 3.9 3.5-5.1 mmol/L Chloride Level 110 H 98-107 mmol/L Carbon Dioxide Level 21 20-31 mmol/L Anion Gap 8 5-15 Blood Urea Nitrogen < 5 L 9-23 mg/dL Creatinine 0.90 0.550-1.02 mg/dL Glomerular Filtration Rate Calc 69 >90 mL/min BUN/Creatinine Ratio 5.6 L 10.0-20.0 Serum Glucose 94 74-106 mg/dL Calcium Level 9.0 8.7-10.4 mg/dL Total Bilirubin 0.6 0.2-1.0 mg/dL Aspartate Amino Transferase (AST) 14 13-40 U/L Alanine Aminotransferase (ALT) 11 7-40 U/L Alkaline Phosphatase 73 46-116 U/L Total Protein 5.3 L 5.7-8.2 g/dL Albumin 3.5 3.2-4.8 g/dL Urine Color Light-yellow Yellow Urine Clarity Clear Clear Urine pH 6.0 5.0-9.0 Urine Specific [place] 1.019 1.001-1.035 Urine Protein Negative Negative Urine Ketones Negative Negative Urine Blood Negative Negative /uL Urine Nitrite Negative Negative Urine Bilirubin Negative Negative Urine Urobilinogen Normal Negative mg/dL Urine Leukocyte Esterase Negative Negative /uL Urine RBC None seen 0 - 4 /hpf Urine WBC <1 0 - 5 /hpf Urine Squamous Epithelial Cells None seen <5 /hpf Urine Bacteria None seen None Seen /hpf Urine Glucose Normal Normal mg/dL Lipase 31 12-53 U/L Assessment 69-year-old feeds history of surrounding artery disease hypertension congestive heart failure COPD with a history of hysterectomy and small bowel obstruction admitted with the complaints of abdominal pain in the midabdomen in the epigastric area pushing has history of small-bowel obstruction that required surgery. CT scan showed no for small-bowel obstruction. Physical examination is unremarkable except for some internal hernia and some mild Nonspecific tenderness in the epigastrium labs are unremarkable Decompression as possible adhesions possible IBS with constipation Plan/Recommendation We will recommend treat symptomatically stool softeners small frequent meals and PPIs and see the response Symptoms persist may need further evaluations including endoscopic evaluation and other workup as necessary Thank you Dr. Lee Plan discussed with: Patient ADIA LEE MD Mar 03, 2024 17:33
[2024-03-03] MEDS: ONDANSETRON HCL 4 MG/2 ML VIAL IV PRN (21:42)
[2024-03-04] VITALS (8 sets, daily range): BP systolic 101–129; BP diastolic 52–69; PULSE 60–85; RESP 17–20; TEMP 98.4–100.9; O2SAT 94–99
[2024-03-04] MEDS: ACETAMINOPHEN 325 MG TAB PO PRN (00:50)
[2024-03-04 06:10] LABS: Chloride 112 mmol/L (98-107); Potassium 3.7 mmol/L (3.5-5.1); Sodium 142 mmol/L (136-145)
[2024-03-04 06:11] LABS: Anion Gap 6 (5-15); Carbon Dioxide 24 mmol/L (20-31)
[2024-03-04 06:12] LABS: Calcium 8.7 mg/dL (8.7-10.4)
[2024-03-04 06:16] LABS: BUN/Creatinine Ratio 5.6 (10.0-20.0); Blood Urea Nitrogen 5 mg/dL (9-23); Glucose 100 mg/dL (74-106)
[2024-03-04] MEDS: POLYETHYLENE GLYCOL 17 GM PWDR PO SCH (10:06)
--- NOTE | 2024-03-04 11:40 | CONS ---
Pharmacy Clinical Information: From CQM Application Heart Failure Fallout Report, BaldwinAlejandra rosenberg is a 69 year old female with PMH of CAD, HTN, CHF, COPD, DM, Afib. Her home medications include simvastatin 20 mg PO QD. Consider restarting home simvastatin if patient is able to tolerate PO meds since LFTs are WNL. ALEX GOLDEN PHARMACIST Mar 04, 2024 11:40
[2024-03-04] MEDS: GOLYTELY 4L KIT PO ONE (17:00)
--- NOTE | 2024-03-04 19:40 | DVHPN2 ---
Assessment/Plan Assessment/Plan Progress note Subjective 69-year-old female with ventral hernia admitted for severe constipation. Patient was taking Dulcolax and MiraLax as outpatient by her primary care however still have no bowel movements. Patient had to do manual disimpaction on last bowel movement 7 days ago. Patient is seen by me during rounds Still no BM after senna, miralax and fleet enema. Seen by GI, will discuss need for scope if golytely does not work Objective Physical exam Alert, oriented x3 PERRLA No JVD Clear breath sounds bilaterally S1-S2 regular rate and rhythm no murmur Abdomen slightly distended, mildly tender, no guarding no rebound Moving all four extremities No lower extremity edema Lab Within normal limits Imaging CT abdomen no SBO, ventral hernia stable Assessment and plan Severe constipation COPD CAD CHF Ventral hernia AFib on Eliquis given enema will add golytely Continue with MiraLax and senna after bowel movements If remain constipated, might need GI to evaluate for colon obstruction Pain management Continue with Eliquis Continue home medication Albuterol and ipratropium nebulizer p.r.n. GI consult appreciated Delirium precaution Diet liquid DVT prophylaxis on Eliquis Plan discussed with: Patient Date of Service: Mar 04, 2024 Billing Provider: ESTUARDO LY MD Common Visit Codes: [id number] INP/OBS CARE(HIGH) ESTUARDO LY MD Mar 04, 2024 19:40
--- NOTE | 2024-03-04 21:38 | DVHPN2 ---
Progress Note - Dictate Date Seen: Mar 04, 2024 Medical Necessity Reason Pt with a Central, PICC or Fol: No Subjective Patient with complaints of abdominal pain hernias constipation not responding to stool softeners vital signs Vital Sign Date Time Temp Pulse Resp B/P (MAP) Pulse Ox O2 Delivery O2 Flow Rate FiO2 03/04/24 21:00 100.9 84 20 129/65 (86) 94 100.9 03/04/24 08:00 Room Air* 0 21 Total Intake and Output 03/03/24 03/03/24 03/04/24 15:00 23:00 07:00 Intake Total 120 ml 400 ml Balance 120 ml 400 ml medications Current Medications Medications Dose Ordered Sig/Albert Route Start Time Stop Time Status Last Admin Dose Admin Sodium Chloride 1,000 ml @ 60 mls/hr [id number] IV 03/02/24 12:00 03/04/24 14:08 60 MLS/HR Docusate Sodium 100 mg BIDPRN PRN PO 03/02/24 12:00 Acetaminophen 650 mg Q6HP PRN PO 03/02/24 12:00 03/04/24 00:50 650 MG Morphine Sulfate 2 mg Q4HPRN PRN IV 03/02/24 12:00 03/04/24 14:07 2 MG Diagnostic Test (Pha) 1 strip Q6HR 03/02/24 12:00 03/04/24 17:38 1 STRIP Insulin Human Regular Q6HR SC 03/02/24 12:00 Dextrose 50 ml UD PRN IV 03/02/24 12:00 Metoclopramide HCl 10 mg Q6HR IV 03/02/24 12:00 03/04/24 14:07 10 MG Sennosides 17.2 mg QHSP PRN PO 03/03/24 15:00 Polyethylene Glycol 17 gm DAILY PO 03/04/24 10:00 03/04/24 10:06 17 GM Ondansetron HCl 4 mg Q4HPRN PRN IV 03/03/24 21:30 03/04/24 10:05 4 MG objective Abdomen is soft but fullness in the epigastrium and both lower quadrants no rigidity or guarding mild tenderness laboratory and microbiology Laboratory Tests 03/04/24 05:35 03/03/24 05:43 Test 03/04/24 05:35 Range/Units Serum Glucose 100 74-106 mg/dL Problem List Abdominal pain constipation Assessment/Plan 69-year-old feeds history of surrounding artery disease hypertension congestive heart failure COPD with a history of hysterectomy and small bowel obstruction admitted with the complaints of abdominal pain in the midabdomen in the epigastric area pushing has history of small-bowel obstruction that required surgery. CT scan showed no for small-bowel obstruction. Physical examination is unremarkable except for some internal hernia and some mild Nonspecific tenderness in the epigastrium labs are unremarkable Decompression as possible adhesions possible IBS with constipation Patient had a colon is of quite a few years ago which was apparently unremarkable but nothing recently Because of the persistent abdominal discomfort as well as constipation we will recommend to try with GoLYTELY and possibly a colonoscopy to ensure there is no other pathology to worry about for the symptoms Thank you Dr. Lee Plan discussed with: Patient ADIA LEE MD Mar 04, 2024 21:38
[2024-03-05] VITALS (9 sets, daily range): BP systolic 69–126; BP diastolic 43–61; PULSE 58–90; RESP 16–19; TEMP 98.4–102.2; O2SAT 92–98
--- NOTE | 2024-03-05 14:46 | DVHPN2 ---
Assessment/Plan Assessment/Plan Progress note Subjective 69-year-old female with ventral hernia admitted for severe constipation. Patient was taking Dulcolax and MiraLax as outpatient by her primary care however still have no bowel movements. Patient had to do manual disimpaction on last bowel movement 7 days ago. Patient is seen by me during rounds Small volume of bowel movement after GoLYTELY, discussed with GI, patient had breakfast today so we will do colonoscopy tomorrow Objective Physical exam Alert, oriented x3 PERRLA No JVD Clear breath sounds bilaterally S1-S2 regular rate and rhythm no murmur Abdomen slightly distended, mildly tender, no guarding no rebound Moving all four extremities No lower extremity edema Lab Within normal limits Imaging CT abdomen no SBO, ventral hernia stable Assessment and plan Severe constipation COPD CAD CHF Ventral hernia AFib on Eliquis given enema Small volume of bowel movement after GoLYTELY, still with abdominal discomfort Continue with MiraLax and senna after bowel movements Plan with GI for colonoscopy tomorrow Pain management Continue with Eliquis Continue home medication Albuterol and ipratropium nebulizer p.r.n. GI consult appreciated Delirium precaution Diet NPO midnight DVT prophylaxis on Eliquis Plan discussed with: Patient Date of Service: Mar 05, 2024 Billing Provider: ESTUARDO LY MD Common Visit Codes: [id number] INP/OBS CARE(HIGH) ESTUARDO LY MD Mar 05, 2024 14:46
[2024-03-05] MEDS: GOLYTELY 4L KIT PO ONE (17:07)
[2024-03-05] MEDS: FLEET ENEMA(ADULT) 135 ML PR ONE (20:30)
--- NOTE | 2024-03-05 21:51 | DVHPN2 ---
Progress Note - Dictate Date Seen: Mar 05, 2024 Medical Necessity Reason Pt with a Central, PICC or Fol: No Subjective Patient with complaints of abdominal pain hernias constipation not responding to stool softeners No nausea no vomiting GoLYTELY last night did not have much effect for some mild stools but not clear yet We will need further cleaning before colonoscopy can be done because of the severe constipation vital signs Vital Sign Date Time Temp Pulse Resp B/P (MAP) Pulse Ox O2 Delivery O2 Flow Rate FiO2 03/05/24 21:00 100.1 58 16 69/43 (52) 92 100.1 03/05/24 08:00 Room Air* 0 21 Total Intake and Output 03/04/24 03/04/24 03/05/24 14:59 22:59 06:59 Intake Total 325 ml 965 ml Balance 325 ml 965 ml medications Current Medications Medications Dose Ordered Sig/Albert Route Start Time Stop Time Status Last Admin Dose Admin Sodium Chloride 1,000 ml @ 60 mls/hr [id number] IV 03/02/24 12:00 03/05/24 06:10 60 MLS/HR Docusate Sodium 100 mg BIDPRN PRN PO 03/02/24 12:00 Acetaminophen 650 mg Q6HP PRN PO 03/02/24 12:00 03/05/24 18:34 650 MG Morphine Sulfate 2 mg Q4HPRN PRN IV 03/02/24 12:00 03/05/24 16:47 2 MG Diagnostic Test (Pha) 1 strip Q6HR 03/02/24 12:00 03/05/24 17:02 1 STRIP Insulin Human Regular Q6HR SC 03/02/24 12:00 Dextrose 50 ml UD PRN IV 03/02/24 12:00 Metoclopramide HCl 10 mg Q6HR IV 03/02/24 12:00 03/05/24 18:34 10 MG Sennosides 17.2 mg QHSP PRN PO 03/03/24 15:00 Polyethylene Glycol 17 gm DAILY PO 03/04/24 10:00 03/04/24 10:06 17 GM Ondansetron HCl 4 mg Q4HPRN PRN IV 03/03/24 21:30 03/04/24 10:05 4 MG objective Abdomen is soft but fullness in the epigastrium and both lower quadrants no rigidity or guarding mild tenderness Getting GoLYTELY for further cleaning stains patient has got severe constipation and difficult to clean laboratory and microbiology Laboratory Tests 03/04/24 05:35 03/03/24 05:43 Test 03/04/24 05:35 Range/Units Serum Glucose 100 74-106 mg/dL Problem List Abdominal pain constipation Assessment/Plan 69-year-old feeds history of surrounding artery disease hypertension congestive heart failure COPD with a history of hysterectomy and small bowel obstruction admitted with the complaints of abdominal pain in the midabdomen in the epigastric area pushing has history of small-bowel obstruction that required surgery. CT scan showed no for small-bowel obstruction. Physical examination is unremarkable except for some internal hernia and some mild Nonspecific tenderness in the epigastrium labs are unremarkable Decompression as possible adhesions possible IBS with constipation Patient had a colon is of quite a few years ago which was apparently unremarkable but nothing recently Because of the persistent abdominal discomfort as well as constipation we will recommend to try with GoLYTELY and possibly a colonoscopy to ensure there is no other pathology to worry about for the symptoms Patient could not be cleaned properly with 1 gal of GoLYTELY last night We will continue with clear liquids and further cleaning today and then arrange to have the colonoscopy done tomorrow if the bowel prep is successful Plan discussed with: Patient ADIA SCHWARTZ MD Mar 05, 2024 21:51
[2024-03-06] VITALS (9 sets, daily range): BP systolic 104–175; BP diastolic 48–79; PULSE 60–82; RESP 16–21; TEMP 97.7–100.5; O2SAT 93–100
[2024-03-06] MEDS: FLEET ENEMA(ADULT) 135 ML PR ONE ×2 (06:15→09:33)
[2024-03-06] MEDS ORDERED: MIDAZOLAM HCL 5 MG/ML-1ML VIAL ONE (09:40)
[2024-03-06] MEDS ORDERED: fentaNYL CITRATE 100 MCG/2 ML VL ONE (09:41)
[2024-03-06 10:14] LABS: Basophils # (auto) 0 10 ^3/uL (0-0.2); Basophils % (auto) 0.9 % (0.0-2.0); Eosinophils # (auto) 0 10 ^3/uL (0-0.8); Hematocrit 36.5 % (36.0-46.0); Lymphocytes # (auto) 0.7 10 ^3/uL (0.4-5.4); Lymphocytes % (auto) 21.9 % (10.0-50.0); Mean Corpuscular Hemoglobin 27.5 pg (28.0-32.0); Mean Corpuscular Hgb Conc. 32.8 g/dL (32.0-36.0); Mean Corpuscular Volume 83.8 fL (80.0-100.0); Monocytes # (auto) 0.5 10 ^3/uL (0-1.3); Monocytes % (auto) 14.6 % (0.0-12.0); Neutrophils # (auto) 1.9 10 ^3/uL (1.6-8.6); Neutrophils % (auto) 62.6 % (37.0-80.0); Platelet Count (auto) 194 10^3/uL (140-450); Red Blood Cells 4.35 10^6/uL (4.0-5.20); Red Cell Distribution Width 16.3 % (11.8-14.3); White Blood Cell 3.1 10^3/uL (4.4-10.8)
--- NOTE | 2024-03-06 10:20 | ECG ---
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
--- NOTE | 2024-03-06 10:20 | DVH ---
CHEST RADIOGRAPH Indication: PRE OP, pain Technique: Single frontal view of the chest was obtained Comparison: XY CHEST PORTABLE on DOS: 02/12/24, XY CHEST PORTABLE on DOS: 08/16/23 FINDINGS: Lines and Tubes: Left sided pacemaker. Lungs: No focal consolidation. Pleura: No effusion. No pneumothorax. Cardiomediastinal contours: Unremarkable Bones: No acute osseous abnormality. IMPRESSION: No acute cardiopulmonary disease.
[2024-03-06 10:47] LABS: INR 1.15 (0.9-1.15); Partial Thromboplastin Time 33.9 SEC (24.5-34.5); Prothrombin Time 12.1 sec (9.3-11.8)
[2024-03-06] MEDS: MIDAZOLAM HCL 5 MG/ML-1ML VIAL IV ONE (14:07)
--- NOTE | 2024-03-06 14:54 | DVHOP2 ---
Operative Report DATE OF PROCEDURE: 03/06/24 INDICATIONS FOR THE PROCEDURE: Abdominal pain severe constipation history of multiple surgeries in the stomach with hernias of the abdominal wall PROCEDURE PERFORMED: Colonoscopy and biopsy POSTOPERATIVE DIAGNOSIS: Extremely tortuous colon with a redundant sigmoid and severe tortuosity of the right colon especially the hepatic flexure and splenic flexure and sigmoid INFORMED CONSENT: The risks and benefits and alternatives were explained to the patient and informed consent was obtained. PROCEDURE IN DETAIL: The patient was kept NPO after midnight. Sedation was given with 75 mcg of fentanyl 5 mg Versed and 25 mg of Benadryl Olympus colonoscope was passed through the rectum all the way up to cecum. Cecum, ascending colon, hepatic flexure, transverse colon, splenic flexure, descending colon, and sigmoid colon were all visualized and the findings were as follows: Findings: The colon was extremely tortuous especially the sigmoid and splenic flexure and and hepatic flexure and ascending colon Very redundant sigmoid colon This some scattered stool particles which were cleaned out as much as possible and grossly no big lesions seen No strictures or mass lesions seen Mild erythematous streaks in the sigmoid suggestive of mild sigmoiditis No ulcers no mass lesions no evidence of any colitis In the rectum the internal hemorrhoids seen without any gross bleeding Patient tolerated the procedure extremely well post vital signs stable ENDOSCOPIC IMPRESSION: Extremely tortuous colon with a redundant sigmoid colon Mild sigmoiditis Internal hemorrhoids SUGGESTIONS: Aggressive treatment with fiber diet fiber supplements If problems with constipation etc. persist may have to look into surgical intervention as necessary to help with the redundancy and tortuosity of the colon Thank you ADIA Conti MD Mar 06, 2024 14:54
--- NOTE | 2024-03-06 20:55 | DVHPN2 ---
Assessment/Plan Assessment/Plan Progress note Subjective 69-year-old female with ventral hernia admitted for severe constipation. Patient was taking Dulcolax and MiraLax as outpatient by her primary care however still have no bowel movements. Patient had to do manual disimpaction on last bowel movement 7 days ago. Patient is seen by me during rounds Per GI more bowelprep and for colonoscopy today Objective Physical exam Alert, oriented x3 PERRLA No JVD Clear breath sounds bilaterally S1-S2 regular rate and rhythm no murmur Abdomen slightly distended, mildly tender, no guarding no rebound Moving all four extremities No lower extremity edema Lab Within normal limits Imaging CT abdomen no SBO, ventral hernia stable Assessment and plan Severe constipation COPD CAD CHF Ventral hernia AFib on Eliquis given enema Small volume of bowel movement after GoLYTELY, still with abdominal discomfort Continue with MiraLax and senna after bowel movements Plan with GI for colonoscopy tomorrow Pain management Continue with Eliquis Continue home medication Albuterol and ipratropium nebulizer p.r.n. GI consult appreciated Delirium precaution Diet NPO midnight DVT prophylaxis on Eliquis Plan discussed with: Patient My Orders Orders - ESTUARDO LY MD Procedure Category Date Status Time Chest Xray 1 View XY 03/06/24 Resulted 08:55 Date of Service: Mar 06, 2024 Billing Provider: ESTUARDO LY MD Common Visit Codes: [id number] INP/OBS CARE(HIGH) ESTUARDO LY MD Mar 06, 2024 20:55
[2024-03-07] VITALS (9 sets, daily range): BP systolic 98–140; BP diastolic 51–82; PULSE 58–85; RESP 14–20; TEMP 97.5–97.9; O2SAT 14–98
[2024-03-07] MEDS ORDERED: POLY335015 PO (09:25)
[2024-03-07] MEDS ORDERED: SENN-105 PO (09:25)
[2024-03-07] MEDS ORDERED: PSYL58.632 PO (09:25)
[2024-03-07] MEDS ORDERED: [UNRECOGNIZED DRUG - CODE] XX (09:29)
[2024-03-07] MEDS: HYDROcodone-ACET 7.5/325MG TAB PO PRN (12:41)
== END 2024-03-07 19:10 | disposition home or self-care (01) | DRG 392 ==
LOC: EDUNIT# 18:18 → ER 18:18 → EDBD 18:18 → TELE 03-02 11:53 → TELE-E-ADS 03-02 14:22
PROVIDERS: ADMIT Nurse Practitioner Family; ATTEND Student in an Organized Health Care Education/Training Program
PROC: 0DBE8ZX Excision of Large Intestine, Via Natural or Artificial Opening Endoscopic, Diagnostic (ICD-10-PCS; principal; 2024-03-06 13:59)
DX: K58.1 Irritable bowel syndrome with constipation (principal); K43.9 Ventral hernia without obstruction or gangrene; I25.10 Atherosclerotic heart disease of native coronary artery without angina pectoris; I11.0 Hypertensive heart disease with heart failure; E11.9 Type 2 diabetes mellitus without complications; I50.9 Heart failure, unspecified; J44.89 Other specified chronic obstructive pulmonary disease; I48.91 Unspecified atrial fibrillation; K64.8 Other hemorrhoids; E78.5 Hyperlipidemia, unspecified; Z91.041 Radiographic dye allergy status; Z90.710 Acquired absence of both cervix and uterus; Z79.01 Long term (current) use of anticoagulants; Z83.3 Family history of diabetes mellitus; Z82.49 Family history of ischemic heart disease and other diseases of the circulatory system; Z79.84 Long term (current) use of oral hypoglycemic drugs; Z79.899 Other long term (current) drug therapy
CPT/HCPCS: 36415; 45380; 71045; 74176; 80048; 80053; 81001; 82962; 83690; 85025; 85610; 85730; 93005; 96361; 96374; 96375; G0378; J2250; J2405

== ENCOUNTER 2024-04-24 09:59 | Emergency (ER) | payer MEDICARE, MEDICAID ==
[~2024-04-24] VITALS: Ht 172.7 cm; Wt 80.0 kg
[~2024-04-24 09:59] MED LIST changes: -ACE3T PO; +APIX5TAB PO; -CEPH500C PO; +CETI10CA PO; +CHOL20007 PO; +CYAN100088 PO; +ESCI20TA PO; +EXEN2INJ SC; +FLUT1SPR5; -NITR-87 PO; +POLY335015 PO; +PSYL58.632 PO; +SENN-105 PO; -ZOFR4T PO; +[UNRECOGNIZED DRUG - CODE] XX
[2024-04-24 10:28] VITALS: TEMP 98.1
[2024-04-24] MEDS: ONDANSETRON HCL 4 MG/2 ML VIAL IV ONE (10:30)
[2024-04-24] MEDS: MORPHINE SULFATE INJ 2 MG/ml SYRG IV ONE (10:33)
[2024-04-24 10:36] VITALS: PULSE 77; RESP 20; O2SAT 100
--- NOTE | 2024-04-24 10:47 | ED.PDOC ---
History of Present Illness HPI Comments 69F BIBA w/ prior Hx of ventral hernia, which al may be associated to the c/c of ABD pain. Pt reports that last night she was having ABD pain and N/ before she went to bed and when she woke up this morning, she looked down to see a Ventral Hernia. PMHx of Asthma, CAD, CHF, COPD, DM, High Lipids and HTN. SHx of Pacemaker, Hysterectomy and PTCA. Denies chills, fever, /V, SOB, CP or other associated symptom's, modifiers, or recent injuries or sick contact at this time. Chief Complaint: Abdominal Pain Time Seen by MD: 10:15 Primary Care Provider: LICHA Reviewed Notes: Nurses Notes, Mexican Food Cook Notes, Medications, Allergies Allergies: Coded Allergies: Iodinated Contrast Media (Verified Allergy, Unknown, 11/24/13) Home Meds Active Scripts Elastic Bandages & Supports (ABDOMINAL BINDER/ELASTIC/) Elast Sm Mis, SM XX ONCE, #1 Prov:ESTUARDO LY MD 03/07/24 Psyllium (Metamucil Fiber) 51.7 % Jack, 51.7 % PO BID for 30 Days, #60 PACK Prov:ESTUARDO LY MD 03/07/24 Polyethylene Glycol 3350 (Miralax) 17 Gm Pow, 17 GM PO DAILY PRN for 30 Days, #30 POW Prov:ESTUARDO LY MD 03/07/24 Senna (Senna) 8.6 Mg Tab, 8.6 MG PO HS for 30 Days, #30 TAB Prov:ESTUARDO LY MD 03/07/24 Magnesium Citrate (Magnesium Citrate) 1.745 Gm/30 Ml Mariela, 150 ML PO DAILY for 2 Days, #1 BOTTLE 0 Refills Prov:HUBER ANAYA 05/08/23 Methocarbamol (Methocarbamol) 750 Mg Tab, 750 MG PO BID, #20 TAB Prov:CIRILO HEREDIA 07/14/22 Ibuprofen (Ibuprofen) 800 Mg Tab, 1 TAB PO TID, #30 TAB Prov:CIRILO HEREDIA 07/14/22 Reported Medications Escitalopram Oxalate (Lexapro) 20 Mg Tab, 1 TAB PO DAILY, TAB 03/02/24 Cetirizine Hcl (Zyrtec Allergy) 10 Mg Cap, 10 MG PO DAILY, CAP 03/02/24 Exenatide (Bydureon Bcise) 2 Mg/0.85 Ml Inj, 2 MG SC, INJ 03/02/24 Apixaban Base (ELIQUIS) 5 Mg Tab, 5 MG PO BID, TAB 03/02/24 Cholecalciferol (VITAMIN D3) 2,000 Unit Tab, 1 TAB PO DAILY, TAB 03/02/24 Cyanocobalamin (Vitamin B-12) 1,000 Mcg Tab, 1000 MCG PO DAILY, TAB 03/02/24 Fluticasone Propionate (Nasal) (Flonase Allergy Relief) 50 Mcg/Act Spr, 50 MCG NA DAILY, SPRAY 03/02/24 [Advair] No Conflict Check 09/22/13 Clopidogrel Bisulfate (Plavix) 75 Mg Tab, 75 MG PO, TAB 09/22/13 Simvastatin (Simvastatin) 20 Mg Tab, 40 MG PO DAILY for 30 Days 09/22/13 Metformin Hydrochloride (Metformin Hcl) 500 Mg Tab, 500 MG PO DAILY for 30 Days, MG 09/22/13 Levalbuterol Tartrate (Xopenex Hfa) Aer, 1 IN PRN 04/06/11 Exenatide (Byetta) 10 Mcg Inj, 10 MCG SC BIDAC 04/06/11 Albuterol (Albuterol) Pow 04/06/11 Fluoxetine Hcl (Fluoxetine Hcl) 20 Mg Cap, 2 CAP DAILY 04/06/11 Enalapril Maleate (Enalapril Maleate) 10 Mg Tab, 10 MG PO DAILY 04/06/11 Gabapentin (Gabapentin) 400 Mg Cap, 400 MG PO TID 04/06/11 Hydrocodone-Acetaminophen (Equality 7.5/325MG) 1 Tab Tb, 7.5 MG PO TID 04/06/11 Glipizide (Glipizide) 5 Mg Tab, 5 MG PO DAILY 04/06/11 [Premarin] No Conflict Check, 0.3 MG DAILY 04/06/11 Information Source: Patient, Emergency Med Personnel Mode of Arrival: EMS Severity: Moderate Timing: Hours Duration: Since onset, Hours Prehospital treatment: None Past Medical History PAST MEDICAL HISTORY: Asthma, CAD, CHF, COPD, DM, High Lipids, HTN Past Medical History (Other): Current Ventral Hernia Surgical History: Hysterectomy, Pacemaker, PTCA ABRASIVE BAND WINDER History: No Pertinent ABRASIVE BAND WINDER History Family History Family History: Unknown Social History Smoker: Non-Smoker Alcohol: Denies ETOH Use Drugs: Denies Drug Use Lives In: Home Constitutional: reports: others (Ventral Hernia); denies: chills, diaphoresis, fatigue, fever, malaise, sweats, weakness EENTM: denies: blurred vision, double vision, ear bleeding, ear discharge, ear drainage, ear pain, ear ringing, eye pain, eye redness, hearing loss, mouth pain, mouth swelling, nasal discharge, nose bleeding, nose congestion, nose pain, photophobia, tearing, throat pain, throat swelling, voice changes, others Respiratory: denies: cough, hemoptysis, orthopnea, SOB at rest, shortness of breath, SOB with excertion, stridor, wheezing, others Cardiovascular: denies: chest pain, dizzy spells, diaphoresis, Dyspnea on exertion, edema, irregular heart beat, left arm pain, lightheadedness, palpitations, PND, syncope, others Gastrointestinal: denies: abdomen distended, abdominal pain, blood streaked bowels, constipated, diarrhea, dysphagia, difficulty swallowing, hematemesis, melena, nausea, poor appetite, poor fluid intake, rectal bleeding, rectal pain, vomiting, others Genitourinary: denies: abnormal vagina bleeding, burning, dyspareunia, dysuria, flank pain, frequency, hematuria, incontinence, pain, , vagina discharge, urgency, others Neurological: denies: dizziness, fainting, headache, left sided numbness, left sided weakness, numbness, paresthesia, pre-existing deficit, right sided numbness, right sided weakness, seizure, speech problems, tingling, tremors, weakness, others Musculoskeletal: denies: back pain, gout, joint pain, joint swelling, muscle pain, muscle stiffness, neck pain, others Integumetry: denies: bruises, change in color, change in hair/nails, dryness, laceration, lesions, lumps, rash, wounds, others Allergic/Immunocompromised: denies: Difficulty Healing, Frequent Infections, Hives, Itching, others Hematologic/Lymphatic: denies: anemia, blood clots, easy bleeding, easy bruising, swollen glands, others Endocrine: denies: excessive hunger, excessive sweating, excessive thirst, excessive urination, flushing, intolerance to cold, intolerance to heat, unexplained weight gain, unexplained weight loss, others Psychiatric: denies: anxiety, bipolar disorder, depression, hopeless, panic disorder, schizophrenia, sleepless, suicidal, others All Other Systems: Reviewed and Negative Physical Exam Exam Comments No discoloration and tenderness to the ventral hernia General Appearance: No Apparent Distress, Normal HEENT: Normal ENT Inspection, Pharynx Normal, TMs Normal Neck: Full Range of Motion, Non-Tender, Normal, Normal Inspection Respiratory: Chest Non-Tender, Lungs Clear, No Accessory Muscle Use, No Respi ratory Distress, Normal Breath Sounds Cardiovascular: No Edema, No JVD, No Murmur, No Gallop, Normal Peripheral Pulses, Regular Rate/Rhythm Breast Exam: Deferred Gastrointestinal: No Organomegaly, Non Tender, No Pulsatile Mass, Normal Bowel Sounds, Soft Genitalia: Deferred Pelvic: Deferred Rectal: Deferred Extremities: No calf tenderness, Normal capillary refill, Normal inspection, Normal range of motion, Non-tender, No pedal edema Musculoskeletal : Apperance: Normal Neurologic: Alert, automatic bandsaw tender II-XII nml as Tested, No Motor Deficits, Normal Affect, Normal Mood, No Sensory Deficits Cerebellar Function: Normal Reflexes: Normal Skin: Dry, Normal Color, Warm Lymphatic: No Adenopathy Was a procedure done? Was a procedure done?: No Differential Dx Considerations may include: sbo, incarcerated abdominal hernia, strangulated hernia, colitis, gastritis, constipation, ischemic colitis X-Ray, Labs, Meds, VS Vital Signs Date Time Temp Pulse Resp B/P (MAP) Pulse Ox O2 Delivery O2 Flow Rate FiO2 04/24/24 11:25 75 15 103/66 (78) 97 04/24/24 11:24 75 15 103/66 04/24/24 10:36 77 20 100 Room Air* 0 21 04/24/24 10:33 78 17 125/75 04/24/24 10:28 98.1 78 16 125/75 (92) 99 98.1 04/24/24 10:15 98.2 98 18 106/73 (84) 99 04/24/24 10:08 72 Lab Test 04/24/24 10:44 Range/Units White Blood Count 6.3 4.4-10.8 10^3/uL Red Blood Count 4.82 4.0-5.20 10^6/uL Hemoglobin 13.6 12.2-16.2 g/dL Hematocrit 39.9 36.0-46.0 % Mean Corpuscular Volume 82.8 80.0-100.0 fL Mean Corpuscular Hemoglobin 28.2 28.0-32.0 pg Mean Corpuscular Hemoglobin Concent 34.1 32.0-36.0 g/dL Red Cell Distribution Width 16.9 H 11.8-14.3 % Platelet Count 323 140-450 10^3/uL Mean Platelet Volume 7.0 6.9-10.8 fL Neutrophils (%) (Auto) 64.7 37.0-80.0 % Lymphocytes (%) (Auto) 25.6 10.0-50.0 % Monocytes (%) (Auto) 8.0 0.0-12.0 % Eosinophils (%) (Auto) 0.8 0.0-7.0 % Basophils (%) (Auto) 0.9 0.0-2.0 % Neutrophils # (Auto) 4.1 1.6-8.6 10 ^3/uL Lymphocytes # (Auto) 1.6 0.4-5.4 10 ^3/uL Monocytes # (Auto) 0.5 0-1.3 10 ^3/uL Eosinophils # (Auto) 0.1 0-0.8 10 ^3/uL Basophils # (Auto) 0.1 0-0.2 10 ^3/uL Nucleated Red Blood Cells 0.0 % Sodium Level 138 136-145 mmol/L Potassium Level 4.3 3.5-5.1 mmol/L Chloride Level 106 98-107 mmol/L Carbon Dioxide Level 24 20-31 mmol/L Anion Gap 8 5-15 Blood Urea Nitrogen 12 9-23 mg/dL Creatinine 1.12 H 0.550-1.02 mg/dL Glomerular Filtration Rate Calc 53 >90 mL/min BUN/Creatinine Ratio 10.7 10.0-20.0 Serum Glucose 134 H 74-106 mg/dL Calcium Level 10.1 8.7-10.4 mg/dL Current Medications Medications (Trade) Dose Ordered Sig/Albert Route Start Time Stop Time Status Last Admin Morphine Sulfate 2 mg ONCE ONCE IV 04/24/24 10:30 04/24/24 10:31 DC 04/24/24 10:33 Ondansetron HCl (Zofran) 4 mg ONCE ONCE IV 04/24/24 10:30 04/24/24 10:31 DC 04/24/24 10:30 Time of 1ST Reevaluation: 10:45 Reevaluation 1ST: Unchanged Time of 2ND Reevaluation: 12:03 Reevaluation 2ND: Improved Patient Education/Counseling: Diagnosis, Treatment, Prognosis, Need For Follow Up Family Education/Counseling: No Family Present Additional Information - I reviewed the following notes from patient's past medical encounters:03/02/24 - The following tests were ordered, and results were reviewed by me: Labs, PHA, CT - Additional information was gathered from interviewing the following independent Historian: EMT - I reviewed and agreed with the following test results read by other provider: CT - I discussed treatments and results with medical personnel pt does not have sbo or incarcerated or strangulated herniation, nor any acute process. she has a ventral hernia with fatty tissue within only. she is stable for discharge Departure 1 Departure Time of Disposition: 12:05 Impression: Primary Impression: Ventral hernia Disposition: 01 HOME / SELF CARE / HOMELESS Condition: Good e-Prescriptions Docusate Sodium (Colace) 100 Mg Cap 1 CAP PO BID for 3 Days, #30 CAP Prov: VILLA FROST MD 04/24/24 Hydrocodone-Acetaminophen (Hydrocodone Bitartrate/AC 5-325 mg) 1 Tab Tab 1 TAB PO Q12HP PRN for 2 Days, #4 TAB Prov: VILLA FROST MD 04/24/24 Discharged With: Self Critical Care Note Critical Care Time?: No Stability Stability form required: No I personally scribed for VILLA FROST MD ([email or web address]) on 04/24/24 at 10:47. Electronically submitted by Valeriy Machuca ([email or web address]). VILLA FROST MD Apr 24, 2024 10:47
--- NOTE | 2024-04-24 11:17 | DVH ---
CT ABDOMEN AND PELVIS WITHOUT CONTRAST CLINICAL HISTORY: VENTRAL HERNIA- R/O INCARCERATION TECHNIQUE: Multiple contiguous axial images of the abdomen and pelvis without intravenous contrast. The images were reformatted degenerate coronal and sagittal reconstructions. All CT scans at this medical facility are performed using dose modulation techniques as appropriate t o a performed exam including the following:Automated exposure control was utilized; adjustment of the MA and/or KV according to patient size; and use of iterative reconstruction technique. Radiation Dose Information: CT Dose: CTDI volume is 14 mGy. Dose-length product is 70 11 mGy*cm Comparison: CT CT AB PEL WO CON-NO ORAL OR IV on DOS: 03/01/24, CT CT AB PEL WO CON-NO ORAL OR IV on DOS: 05/08/23 FINDINGS: Evaluation of the abdomen and pelvis is limited without intravenous contrast. The right kidney is surgically absent. The left kidney appears within normal limits without evidence of nephrolithiasis or hydronephrosis. There is a 1.4 cm hypodense nodule in the superior spleen whic h may represent a cyst or hemangioma. The gallbladder is distended without obvious gallstones. There are gastric postsurgical changes. The liver, pancreas, adrenal glands, appear within normal limits. There is no gross evidence of abdominal lymphadenopathy. There is no free fluid or free air. There is redemonstration of a broad neck ventral hernia containing intra-abdominal fat and large magda l loops. The small and large bowel loops demonstrate normal caliber without evidence of bowel obstruc tion. There is moderate amount of stool in the colon. There are small bowel anastomotic sutures seen in the lower abdomen. The abdominal aorta and IVC appear within normal limits. The bladder appears unremarkable for the degree of distention. Uterus is surgically absent.. There i s no gross evidence of a pelvic mass. There is no free fluid collection. Lung bases are clear. There is no acute osseous abnormality. There are postsurgical changes in the lower lumbar spine with hardware fusion from the L4 to the S1 level. IMPRESSION: 1. There is no acute process in the abdomen and pelvis. There is no evidence of bowel obstruction. 2. Redemonstration of a broad neck ventral hernia containing intra-abdominal fat and large bowel loop s. 3. 1.4 cm hypodense nodule in the superior spleen may represent a cyst or hemangioma. 4. Distended gallbladder without obvious gallstones. 5. Right nephrectomy. HS:Y
[2024-04-24 11:25] VITALS: BP 103/66; PULSE 75; RESP 15; O2SAT 97
[2024-04-24 11:27] LABS: Basophils # (auto) 0.1 10 ^3/uL (0-0.2); Basophils % (auto) 0.9 % (0.0-2.0); Eosinophils # (auto) 0.1 10 ^3/uL (0-0.8); Eosinophils % (auto) 0.8 % (0.0-7.0); Hematocrit 39.9 % (36.0-46.0); Hemoglobin 13.6 g/dL (12.2-16.2); Lymphocytes # (auto) 1.6 10 ^3/uL (0.4-5.4); Lymphocytes % (auto) 25.6 % (10.0-50.0); Mean Corpuscular Hemoglobin 28.2 pg (28.0-32.0); Mean Corpuscular Hgb Conc. 34.1 g/dL (32.0-36.0); Mean Corpuscular Volume 82.8 fL (80.0-100.0); Monocytes # (auto) 0.5 10 ^3/uL (0-1.3); Neutrophils # (auto) 4.1 10 ^3/uL (1.6-8.6); Neutrophils % (auto) 64.7 % (37.0-80.0); Platelet Count (auto) 323 10^3/uL (140-450); Red Blood Cells 4.82 10^6/uL (4.0-5.20); Red Cell Distribution Width 16.9 % (11.8-14.3); White Blood Cell 6.3 10^3/uL (4.4-10.8)
[2024-04-24 11:31] LABS: Chloride 106 mmol/L (98-107); Potassium 4.3 mmol/L (3.5-5.1); Sodium 138 mmol/L (136-145)
[2024-04-24 11:32] LABS: Anion Gap 8 (5-15); Calcium 10.1 mg/dL (8.7-10.4); Carbon Dioxide 24 mmol/L (20-31)
[2024-04-24 11:37] LABS: BUN/Creatinine Ratio 10.7 (10.0-20.0); Blood Urea Nitrogen 12 mg/dL (9-23)
[2024-04-24 11:45] LABS: Glucose 134 mg/dL (74-106)
[2024-04-24] MEDS ORDERED: HYDR-4902 PO (12:06)
[2024-04-24] MEDS ORDERED: DOCU-94 PO (12:06)
--- NOTE | 2024-04-24 18:49 | ECG ---
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
== END 2024-04-24 10:15 | disposition home or self-care (01) ==
LOC: EDBD 09:59 → ER 09:59
DX: K43.9 Ventral hernia without obstruction or gangrene (principal); I11.0 Hypertensive heart disease with heart failure; I50.9 Heart failure, unspecified; E11.9 Type 2 diabetes mellitus without complications; I25.10 Atherosclerotic heart disease of native coronary artery without angina pectoris; I45.10 Unspecified right bundle-branch block; J44.9 Chronic obstructive pulmonary disease, unspecified; Z90.710 Acquired absence of both cervix and uterus; Z95.0 Presence of cardiac pacemaker; Z79.01 Long term (current) use of anticoagulants; Z79.1 Long term (current) use of non-steroidal anti-inflammatories (NSAID); Z79.51 Long term (current) use of inhaled steroids; Z79.84 Long term (current) use of oral hypoglycemic drugs; Z79.85 Long-term (current) use of injectable non-insulin antidiabetic drugs; Z79.899 Other long term (current) drug therapy; Z90.5 Acquired absence of kidney; Z91.041 Radiographic dye allergy status
CPT/HCPCS: 36415; 74176; 80048; 85025; 93005; 96374; 96375; 99285; J2270; J2405

== ENCOUNTER 2024-06-24 14:12 | Inpatient (IN) | payer MEDICARE, MEDICAID ==
[~2024-06-24] VITALS: Ht 172.7 cm; Wt 80.4 kg
[~2024-06-24 14:12] MED LIST changes: +DOCU-94 PO; +HYDR-4902 PO
[2024-06-24 14:39] LABS: Basophils # (auto) 0 10 ^3/uL (0-0.2); Eosinophils # (auto) 0.1 10 ^3/uL (0-0.8); Hemoglobin 12.3 g/dL (12.2-16.2); Lymphocytes # (auto) 1.5 10 ^3/uL (0.4-5.4); Monocytes # (auto) 0.4 10 ^3/uL (0-1.3); White Blood Cell 6.1 10^3/uL (4.4-10.8)
[2024-06-24 14:40] LABS: Basophils % (auto) 0.8 % (0.0-2.0); Eosinophils % (auto) 1.4 % (0.0-7.0); Hematocrit 37.9 % (36.0-46.0); Lymphocytes % (auto) 25.2 % (10.0-50.0); Mean Corpuscular Hemoglobin 26.9 pg (28.0-32.0); Mean Corpuscular Hgb Conc. 32.4 g/dL (32.0-36.0); Monocytes % (auto) 5.9 % (0.0-12.0); Neutrophils # (auto) 4.1 10 ^3/uL (1.6-8.6); Neutrophils % (auto) 66.7 % (37.0-80.0); Platelet Count (auto) 284 10^3/uL (140-450); Red Blood Cells 4.57 10^6/uL (4.0-5.20); Red Cell Distribution Width 15.9 % (11.8-14.3)
[2024-06-24 14:43] LABS: Anion Gap 7 (5-15); Carbon Dioxide 25 mmol/L (20-31); Chloride 105 mmol/L (98-107); Potassium 4.4 mmol/L (3.5-5.1); Sodium 137 mmol/L (136-145)
[2024-06-24 14:44] LABS: Calcium 9.4 mg/dL (8.7-10.4)
--- NOTE | 2024-06-24 14:48 | ED.PDOC ---
History of Present Illness HPI Comments 69-year-old female presents with a chief complaint of chest pain since 0700 this morning with associated abdomen pain, nausea, and vomiting. Patient reports that her pain is localized to her left chest wall, radiates down into her abdomen, describes as sharp/stabbing pain. Patient reports that she has had a bowel blockage before in the past and that she is worried it may be another one. Patient denies passing gas or stool. Patient denies SOB, headache, or rectal bleeding. No other symptoms or modifying factors present at this time. Chief Complaint: Chest Pain Time Seen by MD: 14:41 Primary Care Provider: LICHA Reviewed Notes: Medications, Allergies Allergies: Coded Allergies: Iodinated Contrast Media (Verified Allergy, Unknown, 11/24/13) Home Meds Active Scripts Docusate Sodium (Colace) 100 Mg Cap, 1 CAP PO BID for 3 Days, #30 CAP Prov:VILLA FROST MD 04/24/24 Hydrocodone-Acetaminophen (Hydrocodone Bitartrate/AC 5-325 mg) 1 Tab Tab, 1 TAB PO Q12HP PRN for 2 Days, #4 TAB Prov:VILLA FROST MD 04/24/24 Elastic Bandages & Supports (ABDOMINAL BINDER/ELASTIC/) Elast Sm Mis, SM XX ONCE, #1 Prov:ESTUARDO LY MD 03/07/24 Psyllium (Metamucil Fiber) 51.7 % Jack, 51.7 % PO BID for 30 Days, #60 PACK Prov:ESTUARDO LY MD 03/07/24 Polyethylene Glycol 3350 (Miralax) 17 Gm Pow, 17 GM PO DAILY PRN for 30 Days, #30 POW Prov:ESTUARDO LY MD 03/07/24 Senna (Senna) 8.6 Mg Tab, 8.6 MG PO HS for 30 Days, #30 TAB Prov:ESTUARDO LY MD 03/07/24 Magnesium Citrate (Magnesium Citrate) 1.745 Gm/30 Ml Mariela, 150 ML PO DAILY for 2 Days, #1 BOTTLE 0 Refills Prov:HUBER ANAYA 05/08/23 Methocarbamol (Methocarbamol) 750 Mg Tab, 750 MG PO BID, #20 TAB Prov:CIRILO HEREDIA 07/14/22 Ibuprofen (Ibuprofen) 800 Mg Tab, 1 TAB PO TID, #30 TAB Prov:YANCIRILO Olvera 07/14/22 Reported Medications Escitalopram Oxalate (Lexapro) 20 Mg Tab, 1 TAB PO DAILY, TAB 03/02/24 Cetirizine Hcl (Zyrtec Allergy) 10 Mg Cap, 10 MG PO DAILY, CAP 03/02/24 Exenatide (Bydureon Bcise) 2 Mg/0.85 Ml Inj, 2 MG SC, INJ 03/02/24 Apixaban Base (ELIQUIS) 5 Mg Tab, 5 MG PO BID, TAB 03/02/24 Cholecalciferol (VITAMIN D3) 2,000 Unit Tab, 1 TAB PO DAILY, TAB 03/02/24 Cyanocobalamin (Vitamin B-12) 1,000 Mcg Tab, 1000 MCG PO DAILY, TAB 03/02/24 Fluticasone Propionate (Nasal) (Flonase Allergy Relief) 50 Mcg/Act Spr, 50 MCG NA DAILY, SPRAY 03/02/24 [Advair] No Conflict Check 09/22/13 Clopidogrel Bisulfate (Plavix) 75 Mg Tab, 75 MG PO, TAB 09/22/13 Simvastatin (Simvastatin) 20 Mg Tab, 40 MG PO DAILY for 30 Days 09/22/13 Metformin Hydrochloride (Metformin Hcl) 500 Mg Tab, 500 MG PO DAILY for 30 Days, MG 09/22/13 Levalbuterol Tartrate (Xopenex Hfa) Aer, 1 IN PRN 04/06/11 Exenatide (Byetta) 10 Mcg Inj, 10 MCG SC BIDAC 04/06/11 Albuterol (Albuterol) Pow 04/06/11 Fluoxetine Hcl (Fluoxetine Hcl) 20 Mg Cap, 2 CAP DAILY 04/06/11 Enalapril Maleate (Enalapril Maleate) 10 Mg Tab, 10 MG PO DAILY 04/06/11 Gabapentin (Gabapentin) 400 Mg Cap, 400 MG PO TID 04/06/11 Hydrocodone-Acetaminophen ([place] 7.5/325MG) 1 Tab Tb, 7.5 MG PO TID 04/06/11 Glipizide (Glipizide) 5 Mg Tab, 5 MG PO DAILY 04/06/11 [Premarin] No Conflict Check, 0.3 MG DAILY 04/06/11 Information Source: Patient Mode of Arrival: Ambulatory Severity: Moderate Timing: Hours Duration: Since onset Prehospital treatment: None Past Medical History PAST MEDICAL HISTORY: Asthma, CAD, CHF, COPD, DM, High Lipids, HTN Surgical History: Hysterectomy, Pacemaker, PTCA 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 History Family History Family History: Unknown Social History Smoker: Non-Smoker Alcohol: Denies ETOH Use Drugs: Denies Drug Use Lives In: Home Constitutional: denies: chills, diaphoresis, fatigue, fever, malaise, sweats, weakness, others EENTM: denies: blurred vision, double vision, ear bleeding, ear discharge, ear drainage, ear pain, ear ringing, eye pain, eye redness, hearing loss, mouth pain, mouth swelling, nasal discharge, nose bleeding, nose congestion, nose pain, photophobia, tearing, throat pain, throat swelling, voice changes, others Respiratory: denies: cough, hemoptysis, orthopnea, SOB at rest, shortness of breath, SOB with excertion, stridor, wheezing, others Cardiovascular: reports: chest pain; denies: dizzy spells, diaphoresis, Dyspnea on exertion, edema, irregular heart beat, left arm pain, lightheadedness, palpitations, PND, syncope, others Gastrointestinal: reports: abdominal pain, nausea, vomiting; denies: abdomen distended, blood streaked bowels, constipated, diarrhea, dysphagia, difficulty swallowing, hematemesis, melena, poor appetite, poor fluid intake, rectal bleeding, rectal pain, others Genitourinary: denies: abnormal vagina bleeding, burning, dyspareunia, dysuria, flank pain, frequency, hematuria, incontinence, pain, , vagina discharge, urgency, others Neurological: denies: dizziness, fainting, headache, left sided numbness, left sided weakness, numbness, paresthesia, pre-existing deficit, right sided numbness, right sided weakness, seizure, speech problems, tingling, tremors, weakness, others Musculoskeletal: denies: back pain, gout, joint pain, joint swelling, muscle pain, muscle stiffness, neck pain, others Integumetry: denies: bruises, change in color, change in hair/nails, dryness, laceration, lesions, lumps, rash, wounds, others Allergic/Immunocompromised: denies: Difficulty Healing, Frequent Infections, Hives, Itching, others Hematologic/Lymphatic: denies: anemia, blood clots, easy bleeding, easy bruising, swollen glands, others Endocrine: denies: excessive hunger, excessive sweating, excessive thirst, excessive urination, flushing, intolerance to cold, intolerance to heat, unexplained weight gain, unexplained weight loss, others Psychiatric: denies: anxiety, bipolar disorder, depression, hopeless, panic disorder, schizophrenia, sleepless, suicidal, others All Other Systems: Reviewed and Negative Physical Exam General Appearance: No Apparent Distress, Normal HEENT: Normal ENT Inspection, Pharynx Normal, TMs Normal Neck: Full Range of Motion, Non-Tender, Normal, Normal Inspection Respiratory: Chest Non-Tender, Lungs Clear, No Accessory Muscle Use, No Respiratory Distress, Normal Breath Sounds Cardiovascular: No Edema, No JVD, No Murmur, No Gallop, Normal Peripheral Pulses, Regular Rate/Rhythm Breast Exam: Deferred Gastrointestinal: No Organomegaly, Non Tender, No Pulsatile Mass, Normal Bowel Sounds, Soft, Other (WELL HEALED SCAR FROM PRIOR ABDOMEN SURGERY) Genitalia: Deferred Pelvic: Deferred Rectal: Deferred Extremities: No calf tenderness, Normal capillary refill, Normal inspection, Normal range of motion, Non-tender, No pedal edema Musculoskeletal : Apperance: Normal Neurologic: Alert, burglar alarm installer II-XII nml as Tested, No Motor Deficits, Normal Affect, Normal Mood, No Sensory Deficits Cerebellar Function: Normal Reflexes: Normal Skin: Dry, Normal Color, Warm Lymphatic: No Adenopathy Was a procedure done? Was a procedure done?: No Differential Dx Considerations may include: ACS, CVA, viral syndrome, pneumonia X-Ray, Labs, Meds, VS Vital Signs Date Time Temp Pulse Resp B/P (MAP) Pulse Ox O2 Delivery O2 Flow Rate FiO2 06/24/24 15:20 64 06/24/24 15:16 74 20 98 Room Air* 0 21 06/24/24 14:20 78 06/24/24 14:15 97.4 77 18 136/65 (88) 97 Lab Test 06/24/24 15:38 06/24/24 14:23 Range/Units Troponin I High Sensitivity 5 6 </=34 ng/L White Blood Count 6.1 4.4-10.8 10^3/uL Red Blood Count 4.57 4.0-5.20 10^6/uL Hemoglobin 12.3 12.2-16.2 g/dL Hematocrit 37.9 36.0-46.0 % Mean Corpuscular Volume 83.0 80.0-100.0 fL Mean Corpuscular Hemoglobin 26.9 L 28.0-32.0 pg Mean Corpuscular Hemoglobin Concent 32.4 32.0-36.0 g/dL Red Cell Distribution Width 15.9 H 11.8-14.3 % Platelet Count 284 140-450 10^3/uL Mean Platelet Volume 6.7 L 6.9-10.8 fL Neutrophils (%) (Auto) 66.7 37.0-80.0 % Lymphocytes (%) (Auto) 25.2 10.0-50.0 % Monocytes (%) (Auto) 5.9 0.0-12.0 % Eosinophils (%) (Auto) 1.4 0.0-7.0 % Basophils (%) (Auto) 0.8 0.0-2.0 % Neutrophils # (Auto) 4.1 1.6-8.6 10 ^3/uL Lymphocytes # (Auto) 1.5 0.4-5.4 10 ^3/uL Monocytes # (Auto) 0.4 0-1.3 10 ^3/uL Eosinophils # (Auto) 0.1 0-0.8 10 ^3/uL Basophils # (Auto) 0 0-0.2 10 ^3/uL Nucleated Red Blood Cells 0.0 % Sodium Level 137 136-145 mmol/L Potassium Level 4.4 3.5-5.1 mmol/L Chloride Level 105 98-107 mmol/L Carbon Dioxide Level 25 20-31 mmol/L Anion Gap 7 5-15 Blood Urea Nitrogen 10 9-23 mg/dL Creatinine 1.10 H 0.550-1.02 mg/dL Glomerular Filtration Rate Calc 54 >90 mL/min BUN/Creatinine Ratio 9.1 L 10.0-20.0 Serum Glucose 178 H 74-106 mg/dL Calcium Level 9.4 8.7-10.4 mg/dL Time of 1ST Reevaluation: 15:11 Reevaluation 1ST: Unchanged Patient Education/Counseling: Diagnosis, Treatment Family Education/Counseling: Diagnosis, Treatment Departure 1 Departure Time of Disposition: 16:26 (Patient presented with chest pain that was concerning for possible STEMI, ACS, PE, Pneumonia, Muscle Strain, COPD, Dissection. Data: 1. I ordered and reviewed the result of at least 3 labs including a CBC, BMP, and Troponin. 2. I independently interpreted the following tests: EKG which shows sinus arrhythmia and Chest X-ray which shows benign chest.Risk:This patient has a high risk of morbidity due to further diagnostic testing or treatment and may suffer from an acute cardiac or respiratory disorder. Workup reveals concern for ACS and patient should be admitted for further workup and possible expert consultation. ) Impression: Primary Impression: Acute chest pain Additional Impression: Constipation Qualified Codes: K59.00 - Constipation, unspecified Disposition: ADMITTED INPATIENT Admit to: Med Surg Condition: Serious Critical Care Note Critical Care Time?: Yes Critical care comment: Acute chest pain Authorized and Performed by: Brittaney Nolasco MD Total critical care time: Approximately 38 minutes Due to a high probability of clinically significant, life threatening de terioration, the patient required my highest level of preparedness to intervene emergently and I personally spent this critical care time directly and personally managing the patient. This critical care time included obtaining a history; examining the patient; pulse oximetry; ordering and review of studies; arranging urgent treatment with development of a management plan; evaluation of patient's response to treatment; frequent reassessment; and, discussions with other providers. This critical care time was performed to assess and manage the high probability of imminent, life-threatening deterioration that could result in multi-organ failure. It was exclusive of separately billable procedures and treating other patients and teaching time. Please see my other sections and the rest of the note for further information on patient assessment and treatment. Stability Stability form required: No I personally scribed for BRITTANEY NOLASCO MD ([email or web address]) on 06/24/24 at 14:48. Electronically submitted by Joshua Taylor ([email or web address]). BRITTANEY NOLASCO MD Jun 24, 2024 14:48
[2024-06-24 14:49] LABS: BUN/Creatinine Ratio 9.1 (10.0-20.0); Blood Urea Nitrogen 10 mg/dL (9-23); Glucose 178 mg/dL (74-106)
--- NOTE | 2024-06-24 15:04 | DVH ---
EXAM: XY CHEST PORTABLE Indication: cp Technique: Single frontal view of the chest was obtained Comparison: XY CHEST XRAY 1 VIEW on DOS: 03/06/24, XY CHEST PORTABLE on DOS: 02/12/24, XY CHEST BALBIR BLE on DOS: 08/16/23 FINDINGS: Lines and Tubes: Cardiac pacemaker projects over left chest wall. Lungs: No focal consolidation. Pleura: No effusion. No pneumothorax. Cardiomediastinal contours: Unremarkable Bones: No acute osseous abnormality. IMPRESSION: No acute cardiopulmonary disease.
[2024-06-24 15:16] VITALS: PULSE 74; RESP 20; O2SAT 98
--- NOTE | 2024-06-24 15:25 | DVH ---
CT ABDOMEN AND PELVIS WITHOUT CONTRAST CLINICAL HISTORY: abdominal pain TECHNIQUE: Multiple contiguous axial images of the abdomen and pelvis without intravenous contrast. T he images were reformatted degenerate coronal and sagittal reconstructions. All CT scans at this medical facility are performed using dose modulation techniques as appropriate t o a performed exam including the following:Automated exposure control was utilized; adjustment of the MA and/or KV according to patient size; and use of iterative reconstruction technique. Radiation Dose Information: CT Dose: CTDI volume is 10.42 mGy. Dose-length product is 531.1 mGy*cm Comparison: CT CT AB PEL WO CON-NO ORAL OR IV on DOS: 04/24/24, CT CT AB PEL WO CON-NO ORAL OR IV on D OS: 03/01/24 FINDINGS: Evaluation of the abdomen and pelvis is limited without intravenous contrast. Right kidney is surgically absent. Left kidney appears within normal limits without evidence of neph rolithiasis or hydronephrosis. There is a 0.8 cm hypodense nodule in the spleen which appears smaller in size in comparison prior st udy and probably represents a cyst. The gallbladder is distended without evidence of gallstone. The liver, delete the pancreas, adrenal glands, appear within normal limits. There is no gross evidence of abdominal lymphadenopathy. There is no free fluid or free air. There is redemonstration of a broad neck ventral hernia containing fat and large bowel loops. Redemonstrated are gastric postsurgical changes. Also again seen are small bowel anastomotic sutures in the lower abdomen. The small and large bowel loops demonstrate normal caliber. There is moderate amount of stool intermixed with barium in the colon. The abdominal aorta and IVC appear within normal limits. The bladder appears unremarkable for the degree of distention. Uterus is surgically absent.. There i s no gross evidence of a pelvic mass. There is no free fluid collection. Lung bases are clear. There is no acute osseous abnormality. There is again fusion hardware in the lower lumbar spine. IMPRESSION: 1. There is no acute process in the abdomen and pelvis. 2. There is moderate amount of stool intermixed with barium in the colon. 3. Redemonstration of a broad neck ventral hernia containing intra-abdominal fat and large bowel loop s. There is no evidence of bowel obstruction. 4. 0.8 cm hypodense nodule in the spleen is smaller in size in comparison prior study and likely repr esents a cyst. 5. Right nephrectomy. HS:Y
[2024-06-24] MEDS: ONDANSETRON HCL 4 MG/2 ML VIAL IV ONE (16:50)
[2024-06-24] MEDS: MORPHINE SULFATE 4 MG/ML SYR/VIAL IV ONE (16:50)
[2024-06-24] MEDS: SODIUM CHLORIDE 0.9% 1,000 ML IV ONE (16:55)
--- NOTE | 2024-06-24 18:26 | ECG ---
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
[2024-06-24] MEDS ORDERED: ONDANSETRON HCL 4 MG/2 ML VIAL IV PRN (18:30)
[2024-06-24] MEDS ORDERED: NITROGLYCERIN 0.4 MG SL TAB SL PRN (18:30)
--- NOTE | 2024-06-24 18:34 | DVHHP2 ---
Admitting Diagnosis: Chest pain History of Present Illness 69-year-old female presents with a chief complaint of chest pain since 0700 this morning with associated abdomen pain, nausea, and vomiting. Patient reports that her pain is localized to her left chest wall, radiates down into her abdomen, describes as sharp/stabbing pain. Patient reports that she has had a bowel blockage before in the past and that she is worried it may be another one. Patient denies passing gas or stool. Patient denies SOB, headache, or rectal bleeding. No other symptoms or modifying factors present at this time. 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 History Family History Family History: Unknown Social History Smoker: Non-Smoker Alcohol: Denies ETOH Use Drugs: Denies Drug Use Lives In: Home Patient Family History: Family history: Cardiovascular disease G8 MOTHER G8 FATHER Family history: Diabetes mellitus G8 MOTHER G8 FATHER Allergies: Coded Allergies: Iodinated Contrast Media (Verified Allergy, Unknown, 11/24/13) Home Meds Active Scripts Docusate Sodium (Colace) 100 Mg Cap, 1 CAP PO BID for 3 Days, #30 CAP Prov:VILLA FROST MD 04/24/24 Hydrocodone-Acetaminophen (Hydrocodone Bitartrate/AC 5-325 mg) 1 Tab Tab, 1 TAB PO Q12HP PRN for 2 Days, #4 TAB Prov:VILLA FROST MD 04/24/24 Elastic Bandages & Supports (ABDOMINAL BINDER/ELASTIC/) Elast Sm Mis, SM XX ON CE, #1 Prov:ESTUARDO LY MD 03/07/24 Psyllium (Metamucil Fiber) 51.7 % Jack, 51.7 % PO BID for 30 Days, #60 PACK Prov:ESTUARDO LY MD 03/07/24 Polyethylene Glycol 3350 (Miralax) 17 Gm Pow, 17 GM PO DAILY PRN for 30 Days, #30 POW Prov:ESTUARDO LY MD 03/07/24 Senna (Senna) 8.6 Mg Tab, 8.6 MG PO HS for 30 Days, #30 TAB Prov:ESTUARDO LY MD 03/07/24 Magnesium Citrate (Magnesium Citrate) 1.745 Gm/30 Ml Mariela, 150 ML PO DAILY for 2 Days, #1 BOTTLE 0 Refills Prov:HUBER ANAYA PA 05/08/23 Methocarbamol (Methocarbamol) 750 Mg Tab, 750 MG PO BID, #20 TAB Prov:CIRILO HEREDIA PA 07/14/22 Ibuprofen (Ibuprofen) 800 Mg Tab, 1 TAB PO TID, #30 TAB Prov:CIRILO HEREDIA 07/14/22 Reported Medications Escitalopram Oxalate (Lexapro) 20 Mg Tab, 1 TAB PO DAILY, TAB 03/02/24 Cetirizine Hcl (Zyrtec Allergy) 10 Mg Cap, 10 MG PO DAILY, CAP 03/02/24 Exenatide (Bydureon Bcise) 2 Mg/0.85 Ml Inj, 2 MG SC, INJ 03/02/24 Apixaban Base (ELIQUIS) 5 Mg Tab, 5 MG PO BID, TAB 03/02/24 Cholecalciferol (VITAMIN D3) 2,000 Unit Tab, 1 TAB PO DAILY, TAB 03/02/24 Cyanocobalamin (Vitamin B-12) 1,000 Mcg Tab, 1000 MCG PO DAILY, TAB 03/02/24 Fluticasone Propionate (Nasal) (Flonase Allergy Relief) 50 Mcg/Act Spr, 50 MCG NA DAILY, SPRAY 03/02/24 [Advair] No Conflict Check 09/22/13 Clopidogrel Bisulfate (Plavix) 75 Mg Tab, 75 MG PO, TAB 09/22/13 Simvastatin (Simvastatin) 20 Mg Tab, 40 MG PO DAILY for 30 Days 09/22/13 Metformin Hydrochloride (Metformin Hcl) 500 Mg Tab, 500 MG PO DAILY for 30 Days, MG 09/22/13 Levalbuterol Tartrate (Xopenex Hfa) Aer, 1 IN PRN 04/06/11 Exenatide (Byetta) 10 Mcg Inj, 10 MCG SC BIDAC 04/06/11 Albuterol (Albuterol) Pow 04/06/11 Fluoxetine Hcl (Fluoxetine Hcl) 20 Mg Cap, 2 CAP DAILY 04/06/11 Enalapril Maleate (Enalapril Maleate) 10 Mg Tab, 10 MG PO DAILY 04/06/11 Gabapentin (Gabapentin) 400 Mg Cap, 400 MG PO TID 04/06/11 Hydrocodone-Acetaminophen ([place] 7.5/325MG) 1 Tab Tb, 7.5 MG PO TID 04/06/11 Glipizide (Glipizide) 5 Mg Tab, 5 MG PO DAILY 04/06/11 [Premarin] No Conflict Check, 0.3 MG DAILY 04/06/11 Vital Signs Vital Signs Date Time Temp Pulse Resp B/P (MAP) Pulse Ox O2 Delivery O2 Flow Rate FiO2 06/24/24 16:56 98.2 81 18 137/81 (99) 99 98.2 06/24/24 15:16 Room Air* 0 21 Physical Exam Generally 69 years old woman, well nourished well developed. No apparent distress HEENT-atraumatic normocephalic Heart-regular rate and rhythm Lungs clear to auscultate Abdomen soft nontender nondistended Musculoskeletal-no edema cyanosis Neuro-AO x3, no focal deficits Results Labs Test 06/24/24 17:15 06/24/24 14:23 Range/Units Troponin I High Sensitivity 5 </=34 ng/L White Blood Count 6.1 4.4-10.8 10^3/uL Red Blood Count 4.57 4.0-5.20 10^6/uL Hemoglobin 12.3 12.2-16.2 g/dL Hematocrit 37.9 36.0-46.0 % Mean Corpuscular Volume 83.0 80.0-100.0 fL Mean Corpuscular Hemoglobin 26.9 L 28.0-32.0 pg Mean Corpuscular Hemoglobin Concent 32.4 32.0-36.0 g/dL Red Cell Distribution Width 15.9 H 11.8-14.3 % Platelet Count 284 140-450 10^3/uL Mean Platelet Volume 6.7 L 6.9-10.8 fL Neutrophils (%) (Auto) 66.7 37.0-80.0 % Lymphocytes (%) (Auto) 25.2 10.0-50.0 % Monocytes (%) (Auto) 5.9 0.0-12.0 % Eosinophils (%) (Auto) 1.4 0.0-7.0 % Basophils (%) (Auto) 0.8 0.0-2.0 % Neutrophils # (Auto) 4.1 1.6-8.6 10 ^3/uL Lymphocytes # (Auto) 1.5 0.4-5.4 10 ^3/uL Monocytes # (Auto) 0.4 0-1.3 10 ^3/uL Eosinophils # (Auto) 0.1 0-0.8 10 ^3/uL Basophils # (Auto) 0 0-0.2 10 ^3/uL Nucleated Red Blood Cells 0.0 % Sodium Level 137 136-145 mmol/L Potassium Level 4.4 3.5-5.1 mmol/L Chloride Level 105 98-107 mmol/L Carbon Dioxide Level 25 20-31 mmol/L Anion Gap 7 5-15 Blood Urea Nitrogen 10 9-23 mg/dL Creatinine 1.10 H 0.550-1.02 mg/dL Glomerular Filtration Rate Calc 54 >90 mL/min BUN/Creatinine Ratio 9.1 L 10.0-20.0 Serum Glucose 178 H 74-106 mg/dL Calcium Level 9.4 8.7-10.4 mg/dL Primary Diagnosis Chest pain rule out ACS Constipation Plan Troponin negative x3 EKG shows Sinus rhythm Intermittent chest pain Check echo of the heart Cardiology consult Resume home meds Full code Lovenox for DVT prophylaxis PPI for GI prophylaxis Cardiac diet Plan discussed with: Patient Problems List: (1) Acute chest pain Status: Acute Date of Service: Jun 24, 2024 Billing Provider: DARRON ALVAREZ MD Common Visit Codes: [id number] INP/OBS CARE (HIGH) DARRON ALVAREZ MD Jun 24, 2024 18:33
--- NOTE | 2024-06-24 18:52 | ECG ---
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
[2024-06-24] MEDS: SENNA 8.6 MG TAB PO SCH (19:58)
[2024-06-24] MEDS: DOCUSATE SOD 100 MG CAP PO SCH (19:59)
[2024-06-24] MEDS: POLYETHYLENE GLYCOL 17 GM PWDR PO SCH (19:59)
[2024-06-24 20:09] LABS: Urine Bacteria None Seen /hpf (None Seen)
[2024-06-24 20:14] LABS: Urine Blood Negative /uL (Negative); Urine Clarity Clear (Clear); Urine Color Light-Yellow (Yellow); Urine Protein, UAD Negative (Negative); Urine Specific Gravity 1.015 (1.001-1.035); Urine Squamous Epithelial Cell FEW /hpf (<5); Urine Urobilinogen Normal (Negative); Urine WBC 1 /HPF (0-5)
[2024-06-24] MEDS: ACETAMINOPHEN 325 MG TAB PO PRN (20:23)
[2024-06-24] MEDS ORDERED: APIXABAN 5 MG TAB PO SCH (22:00)
[2024-06-24] MEDS: SODIUM CHLOR 0.9% PF (SALINE LOCK) 10ML VIAL/SYR IV SCH (22:06)
[2024-06-24] MEDS: ATORVASTATIN 20 MG TAB PO SCH (22:15)
[2024-06-24] MEDS: GABAPENTIN 400 MG CAP PO SCH (22:15)
[2024-06-24] MEDS: APIXABAN 5 MG TAB PO ONE (22:37)
[2024-06-24 23:53] VITALS: PULSE 61; RESP 18; O2SAT 97
[2024-06-25] VITALS (10 sets, daily range): BP systolic 99–133; BP diastolic 53–72; PULSE 56–71; RESP 15–19; TEMP 87.7–99; O2SAT 96–100
[2024-06-25] MEDS: MORPHINE SULFATE INJ 2 MG/ml SYRG IV PRN ×2 (02:11→08:46)
[2024-06-25 08:13] LABS: Basophils # (auto) 0.1 10 ^3/uL (0-0.2); Basophils % (auto) 1.2 % (0.0-2.0); Eosinophils # (auto) 0.2 10 ^3/uL (0-0.8); Eosinophils % (auto) 3.7 % (0.0-7.0); Hematocrit 32.1 % (36.0-46.0); Hemoglobin 10.7 g/dL (12.2-16.2); Lymphocytes # (auto) 1.6 10 ^3/uL (0.4-5.4); Lymphocytes % (auto) 27.4 % (10.0-50.0); Mean Corpuscular Hemoglobin 27.6 pg (28.0-32.0); Mean Corpuscular Hgb Conc. 33.3 g/dL (32.0-36.0); Mean Corpuscular Volume 82.8 fL (80.0-100.0); Monocytes # (auto) 0.5 10 ^3/uL (0-1.3); Monocytes % (auto) 8.4 % (0.0-12.0); Neutrophils # (auto) 3.5 10 ^3/uL (1.6-8.6); Neutrophils % (auto) 59.3 % (37.0-80.0); Nucleated Red Blood Cells % 0.1 %; Platelet Count (auto) 260 10^3/uL (140-450); Red Blood Cells 3.88 10^6/uL (4.0-5.20); Red Cell Distribution Width 15.7 % (11.8-14.3); White Blood Cell 5.9 10^3/uL (4.4-10.8)
[2024-06-25 08:38] LABS: Alkaline Phosphatase 97 U/L (46-116); Anion Gap 8 (5-15); BUN/Creatinine Ratio 8.5 (10.0-20.0); Calcium 9.2 mg/dL (8.7-10.4); Carbon Dioxide 22 mmol/L (20-31); Chloride 106 mmol/L (98-107); Potassium 4.4 mmol/L (3.5-5.1); Sodium 136 mmol/L (136-145)
[2024-06-25 08:39] LABS: Albumin 3.9 g/dL (3.2-4.8); Aspartate Aminotransferase 14 U/L (13-40)
[2024-06-25 08:44] LABS: Alanine Aminotransferase < 9 U/L (7-40); Bilirubin, Total 0.2 mg/dL (0.2-1.0); Blood Urea Nitrogen 8 mg/dL (9-23); Glucose 110 mg/dL (74-106)
[2024-06-25] MEDS: CLOPIDOGREL BISULFATE 75 MG TAB PO SCH (08:44)
[2024-06-25] MEDS: FLUoxetine HCL 20 MG CAP PO SCH (08:44)
[2024-06-25] MEDS: ENALAPRIL MALEATE 10 MG TAB PO SCH (08:45)
[2024-06-25] MEDS: FLUTICASONE PROP NASAL SPR 0.05 % (50MCG) 16GM SCH (08:45)
[2024-06-25] MEDS ORDERED: ENOXAPARIN SOD 40 MG/0.4 ML SYRINGE SC SCH (10:00)
--- NOTE | 2024-06-25 10:43 | DVHINCON2 ---
ROB CHOUDHARY [facility] 06/25/24 1043: Date Seen: Jun 25, 2024 Referring Physician MD Cipriano Reason for Consultation Chest pain, rule out ACS History of Present Illness This is a 69-year-old female patient who presents to emergency room with chief complaint of chest pain. The patient reports that the chest pain began approximately three days ago. She describes it as unprovoked, intermittent, pressure-like in nature, midsternal with radiation to epigastic area. Associated symptoms include lightheadedness. She denies any aggravating or alleviating factors. Initial twelve lead electrocardiogram reveals an atrial paced rhythm with underlying sinus rhythm and associated right bundle branch block. Significant past medical history includes symptomatic bradycardia status post dual-chamber pacemaker implantation in 2010 status post ventricular lead replacement in 2019, hypertension, dyslipidemia, type 2 diabetes mellitus, peripheral neuropathy, history of CVA (on Plavix), COPD, and obesity. 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 Of note, the patient underwent a coronary angiogram with left heart catheterization on 02/14/2024 in which no significant coronary artery disease was noted at that time. Past Medical History Past medical history reviewed. No other significant than mentioned above. Past Surgical History Dual-chamber pacemaker implantation, 2010 Pacemaker left ventricular lead replacement, 2019 Back surgery Unspecified stomach surgery Hysterectomy Family History: Family history: Cardiovascular disease G8 MOTHER G8 FATHER Family history: Diabetes mellitus G8 MOTHER G8 FATHER Family History Family history reviewed. Social History Denies the use of tobacco, alcohol or illicit drugs. Allergies: Coded Allergies: Iodinated Contrast Media (Verified Allergy, Unknown, 11/24/13) Home Meds Active Scripts Docusate Sodium (Colace) 100 Mg Cap, 1 CAP PO BID for 3 Days, #30 CAP Prov:VILLA FROST MD 04/24/24 Hydrocodone-Acetaminophen (Hydrocodone Bitartrate/AC 5-325 mg) 1 Tab Tab, 1 TAB PO Q12HP PRN for 2 Days, #4 TAB Prov:VILLA FROST MD 04/24/24 Elastic Bandages & Supports (ABDOMINAL BINDER/ELASTIC/) Elast Sm Mis, SM XX ONCE, #1 Prov:ESTUARDO LY MD 03/07/24 Psyllium (Metamucil Fiber) 51.7 % Jack, 51.7 % PO BID for 30 Days, #60 PACK Prov:ESTUARDO LY MD 03/07/24 Polyethylene Glycol 3350 (Miralax) 17 Gm Pow, 17 GM PO DAILY PRN for 30 Days, #30 POW Prov:ESTUARDO LY MD 03/07/24 Senna (Senna) 8.6 Mg Tab, 8.6 MG PO HS for 30 Days, #30 TAB Prov:ESTUARDO LY MD 03/07/24 Magnesium Citrate (Magnesium Citrate) 1.745 Gm/30 Ml Mariela, 150 ML PO DAILY for 2 Days, #1 BOTTLE 0 Refills Prov:HUBER ANAYA 05/08/23 Methocarbamol (Methocarbamol) 750 Mg Tab, 750 MG PO BID, #20 TAB Prov:CIRILO HEREDIA 07/14/22 Ibuprofen (Ibuprofen) 800 Mg Tab, 1 TAB PO TID, #30 TAB Prov:CIRILO HEREDIA 07/14/22 Reported Medications Escitalopram Oxalate (Lexapro) 20 Mg Tab, 1 TAB PO DAILY, TAB 03/02/24 Cetirizine Hcl (Zyrtec Allergy) 10 Mg Cap, 10 MG PO DAILY, CAP 03/02/24 Exenatide (Bydureon Bcise) 2 Mg/0.85 Ml Inj, 2 MG SC, INJ 03/02/24 Apixaban Base (ELIQUIS) 5 Mg Tab, 5 MG PO BID, TAB 03/02/24 Cholecalciferol (VITAMIN D3) 2,000 Unit Tab, 1 TAB PO DAILY, TAB 03/02/24 Cyanocobalamin (Vitamin B-12) 1,000 Mcg Tab, 1000 MCG PO DAILY, TAB 03/02/24 Fluticasone Propionate (Nasal) (Flonase Allergy Relief) 50 Mcg/Act Spr, 50 MCG NA DAILY, SPRAY 03/02/24 [Advair] No Conflict Check 09/22/13 Clopidogrel Bisulfate (Plavix) 75 Mg Tab, 75 MG PO, TAB 09/22/13 Simvastatin (Simvastatin) 20 Mg Tab, 40 MG PO DAILY for 30 Days 09/22/13 Metformin Hydrochloride (Metformin Hcl) 500 Mg Tab, 500 MG PO DAILY for 30 Days, MG 09/22/13 Levalbuterol Tartrate (Xopenex Hfa) Aer, 1 IN PRN 12/23/11 Exenatide (Byetta) 10 Mcg Inj, 10 MCG SC BIDAC 04/06/11 Albuterol (Albuterol) Pow 04/06/11 Fluoxetine Hcl (Fluoxetine Hcl) 20 Mg Cap, 2 CAP DAILY 04/06/11 Enalapril Maleate (Enalapril Maleate) 10 Mg Tab, 10 MG PO DAILY 04/06/11 Gabapentin (Gabapentin) 400 Mg Cap, 400 MG PO TID 04/06/11 Hydrocodone-Acetaminophen ([place]ull 7.5/325MG) 1 Tab Tb, 7.5 MG PO TID 04/06/11 Glipizide (Glipizide) 5 Mg Tab, 5 MG PO DAILY 04/06/11 [Premarin] No Conflict Check, 0.3 MG DAILY 04/06/11 Home Meds Home medications reviewed. Current Medications Current Medications Medications (Trade) Dose Ordered Sig/Albert Route PRN Reason Start Time Stop Time Status Last Admin Sennosides (Senokot Tablet) 17.2 mg DAILY PO 06/24/24 18:30 06/25/24 08:43 Docusate Sodium (Colace Capsule) 100 mg DAILY PO 06/24/24 18:30 06/25/24 08:43 Polyethylene Glycol (Miralax 17GM Powder) 17 gm DAILY PO 06/24/24 18:30 06/24/24 19:59 Sodium Chloride (Saline Lock Ns) 10 ml Q8HR IV 06/24/24 22:00 06/25/24 06:19 Acetaminophen (Tylenol Tablet) 650 mg Q6HP PRN PO PAIN SCALE 1-3 OR TEMP>100.4 06/24/24 18:30 06/24/24 20:23 Ondansetron HCl (Zofran) 4 mg Q4HP PRN IV NAUSEA / VOMITING 06/24/24 18:30 Morphine Sulfate 2 mg Q4HPRN PRN IV SEVERE PAIN (7-10 PAIN SCALE) 06/24/24 18:30 06/25/24 08:46 Enoxaparin Sodium (Lovenox) 40 mg DAILY SC 06/25/24 10:00 06/24/24 22:35 DC Nitroglycerin (Ntrostat Sublingual) 0.4 mg Q5MINP PRN SL FOR CHEST PAIN 06/24/24 18:30 Morphine Sulfate 2 mg Q30M PRN IV FOR CHEST PAIN 06/24/24 18:30 06/25/24 02:11 Apixaban (Eliquis) 5 mg BID PO 06/24/24 22:00 Hold Clopidogrel Bisulfate (Plavix) 75 mg DAILY PO 06/25/24 10:00 06/25/24 08:44 Enalapril Maleate (Vasotec Tablet) 10 mg DAILY PO 06/25/24 10:00 06/25/24 08:45 Fluoxetine HCl (PROzac CAPSULE) 20 mg DAILY PO 06/25/24 10:00 06/25/24 08:44 Fluticasone Propionate (Flonase Barton) 50 mcg DAILY NA 06/25/24 10:00 Gabapentin (Neurontin Capsule) 400 mg TID PO 06/24/24 22:00 06/25/24 05:51 Atorvastatin Calcium (Lipitor) 20 mg HS PO 06/24/24 22:00 06/24/24 22:15 Review of Systems Constitutional: No symptom reported Ears, Nose, & Throat: No symptom reported Eyes: No symptom reported Neurological: No symptoms reported Pulmonary/Respiratory: No symptoms reported Cardiovascular: Chest pain Gastrointestinal: No symptom reported Genitourinary: No symptom reported Musculoskeletal: No symptom reported Skin: No symptom reported Psychiatric: No symptom reported Endocrine: No symptom reported Hematologic/Lymphatic: No symptom reported Vital Signs Vital Signs Date Time Temp Pulse Resp B/P (MAP) Pulse Ox O2 Delivery O2 Flow Rate FiO2 06/25/24 09:16 68 16 110/66 06/25/24 09:00 98.6 100 98.6 06/25/24 08:00 Room Air* 0 21 Physical Exam General Appearance: Cooperative. Well-developed. Well-nourished. No acute distress. Pulmonary/Respiratory: Clear, bilateral breaths sounds. Cardiovascular/Chest: Regular rate and rhythm. Peripheral Pulses: 2+ Radial (R). 2+ Radial (L). 2+ Pedal (R). 2+ Pedal (L) Abdominal Exam: Normal bowel sounds. Ankle Exam: Negative ankle edema Lower extremities: Negative lower extremity edema Neuro/Mental Status: A/OX4, coherent. Thoughts/Psych: Normal thought pattern. Appropriate mood and affect. Good judgment and insight. Appearance: No acute distress. Skin Exam: Normal inspection. Normal color. Warm and dry. Labs/Diagnostic Data Labs Test 06/25/24 07:54 06/24/24 20:00 06/24/24 17:15 Range/Units White Blood Count 5.9 4.4-10.8 10^3/uL Red Blood Count 3.88 L 4.0-5.20 10^6/uL Hemoglobin 10.7 L 12.2-16.2 g/dL Hematocrit 32.1 #L 36.0-46.0 % Mean Corpuscular Volume 82.8 80.0-100.0 fL Mean Corpuscular Hemoglobin 27.6 L 28.0-32.0 pg Mean Corpuscular Hemoglobin Concent 33.3 32.0-36.0 g/dL Red Cell Distribution Width 15.7 H 11.8-14.3 % Platelet Count 260 140-450 10^3/uL Mean Platelet Volume 6.8 L 6.9-10.8 fL Neutrophils (%) (Auto) 59.3 37.0-80.0 % Lymphocytes (%) (Auto) 27.4 10.0-50.0 % Monocytes (%) (Auto) 8.4 0.0-12.0 % Eosinophils (%) (Auto) 3.7 0.0-7.0 % Basophils (%) (Auto) 1.2 0.0-2.0 % Neutrophils # (Auto) 3.5 1.6-8.6 10 ^3/uL Lymphocytes # (Auto) 1.6 0.4-5.4 10 ^3/uL Monocytes # (Auto) 0.5 0-1.3 10 ^3/uL Eosinophils # (Auto) 0.2 0-0.8 10 ^3/uL Basophils # (Auto) 0.1 0-0.2 10 ^3/uL Nucleated Red Blood Cells 0.1 % Sodium Level 136 136-145 mmol/L Potassium Level 4.4 3.5-5.1 mmol/L Chloride Level 106 98-107 mmol/L Carbon Dioxide Level 22 20-31 mmol/L Anion Gap 8 5-15 Blood Urea Nitrogen 8 L 9-23 mg/dL Creatinine 0.94 0.550-1.02 mg/dL Glomerular Filtration Rate Calc 65 >90 mL/min BUN/Creatinine Ratio 8.5 L 10.0-20.0 Serum Glucose 110 H 74-106 mg/dL Calcium Level 9.2 8.7-10.4 mg/dL Total Bilirubin 0.2 0.2-1.0 mg/dL Aspartate Amino Transferase (AST) 14 13-40 U/L Alanine Aminotransferase (ALT) < 9 7-40 U/L Alkaline Phosphatase 97 46-116 U/L Total Protein 6.0 5.7-8.2 g/dL Albumin 3.9 3.2-4.8 g/dL Urine Color Light-yellow Yellow Urine Clarity Clear Clear Urine pH 6.0 5.0-9.0 Urine Specific [place] 1.015 1.001-1.035 Urine Protein Negative Negative Urine Ketones Negative Negative Urine Blood Negative Negative /uL Urine Nitrite Negative Negative Urine Bilirubin Negative Negative Urine Urobilinogen Normal Negative mg/dL Urine Leukocyte Esterase 1+ Negative /uL Urine RBC 1 0 - 4 /hpf Urine Microscopic WBC 1 0-5 /HPF Urine Squamous Epithelial Cells Few <5 /hpf Urine Bacteria None seen None Seen /hpf Urine Glucose Normal Normal mg/dL Troponin I High Sensitivity 5 </=34 ng/L Assessment Chest pain, possibly microvascular versus noncardiac Preprocedural cardiovascular examination Presence of dual-chamber pacemaker (Biotronik) Insulin-dependent diabetes mellitus Hypertension Dyslipidemia History of CVA (on Plavix) COPD Obesity Plan/Recommendation We will continue with the following plan/recommendations (Dr. Gallegos): Patient seen and examined at bedside with . A transthoracic echocardiogram reveals EF 65-70% with normal wall motion. The patient recently underwent a coronary angiogram with left heart catheterization on 02/14/2024 in which no significant coronary artery disease was noted. Patient's presentation likely microvascular versus noncardiac. We will initiate the patient on Imdur. The patient has also been noted to have a ventral hernia at this time for which the surgical team is planning to do a hernia repair. Revised cardiac risk index (Cipriano criteria): 1 point (6.0% risk of major cardiac event). There is no underlying history of congestive heart failure or coronary artery disease. The patient has a good functional capacity. Per Cardiology standpoint, the patient is at an acceptable risk for moderate risk surgery. There is no additional cardiac workup indicated prior to surgery. Thank you for allowing us to care for this patient. Please call with any questions or concerns. Critical care time spent: 42 minutes This medical document was created using an electronic medical record system with voice recognition software and computerized dictation system. Although this document has been carefully reviewed, there might still be some phonetic and typographical errors. Occasional wrong-word or ``sound-alike substitutions may have occurred due to the inherent limitations of voice recognition software. These areas are purely typographical due to imperfections of the software programs and do not reflect any compromise in the patient's medical care. Please read the chart carefully and recognize, using context, where these substitutions have occurred. Plan discussed with: Patient NYHA Physical activity limitations: NA Date of Service: Jun 25, 2024 Billing Provider: ROB CHOUDHARY Cardiology Common Codes: 64775-[id number] INP/OBS CARE (High) Cardiology Consultation Codes: [id number] CONSULT <45MIN NOÉ GALLEGOS 06/25/242152: Date Seen: Jun 25, 2024 Family History: Family history: Cardiovascular disease G8 MOTHER G8 FATHER Family history: Diabetes mellitus G8 MOTHER G8 FATHER Allergies: Coded Allergies: Iodinated Contrast Media (Verified Allergy, Unknown, 11/24/13) Home Meds Active Scripts Docusate Sodium (Colace) 100 Mg Cap, 1 CAP PO BID for 3 Days, #30 CAP Prov:VILLA FROST MD 04/24/24 Hydrocodone-Acetaminophen (Hydrocodone Bitartrate/AC 5-325 mg) 1 Tab Tab, 1 TAB PO Q12HP PRN for 2 Days, #4 TAB Prov:VILLA FROST MD 04/24/24 Elastic Bandages & Supports (ABDOMINAL BINDER/ELASTIC/) Elast Sm Mis, SM XX ONCE, #1 Prov:ESTUARDO LY MD 03/07/24 Psyllium (Metamucil Fiber) 51.7 % Jack, 51.7 % PO BID for 30 Days, #60 PACK Prov:ESTUARDO LY MD 03/07/24 Polyethylene Glycol 3350 (Miralax) 17 Gm Pow, 17 GM PO DAILY PRN for 30 Days, #30 POW Prov:ESTUARDO LY MD 03/07/24 Senna (Senna) 8.6 Mg Tab, 8.6 MG PO HS for 30 Days, #30 TAB Prov:ESTUARDO LY MD 03/07/24 Magnesium Citrate (Magnesium Citrate) 1.745 Gm/30 Ml Mariela, 150 ML PO DAILY for 2 Days, #1 BOTTLE 0 Refills Prov:HUBER ANAYA 05/08/23 Methocarbamol (Methocarbamol) 750 Mg Tab, 750 MG PO BID, #20 TAB Prov:CIRILO HEREDIA PA 07/14/22 Ibuprofen (Ibuprofen) 800 Mg Tab, 1 TAB PO TID, #30 TAB Prov:CIRILO HEREDIA PA 07/14/22 Reported Medications Escitalopram Oxalate (Lexapro) 20 Mg Tab, 1 TAB PO DAILY, TAB 03/02/24 Cetirizine Hcl (Zyrtec Allergy) 10 Mg Cap, 10 MG PO DAILY, CAP 03/02/24 Exenatide (Bydureon Bcise) 2 Mg/0.85 Ml Inj, 2 MG SC, INJ 03/02/24 Apixaban Base (ELIQUIS) 5 Mg Tab, 5 MG PO BID, TAB 03/02/24 Cholecalciferol (VITAMIN D3) 2,000 Unit Tab, 1 TAB PO DAILY, TAB 03/02/24 Cyanocobalamin (Vitamin B-12) 1,000 Mcg Tab, 1000 MCG PO DAILY, TAB 03/02/24 Fluticasone Propionate (Nasal) (Flonase Allergy Relief) 50 Mcg/Act Spr, 50 MCG NA DAILY, SPRAY 03/02/24 [Advair] No Conflict Check 09/22/13 Clopidogrel Bisulfate (Plavix) 75 Mg Tab, 75 MG PO, TAB 09/22/13 Simvastatin (Simvastatin) 20 Mg Tab, 40 MG PO DAILY for 30 Days 09/22/13 Metformin Hydrochloride (Metformin Hcl) 500 Mg Tab, 500 MG PO DAILY for 30 Days, MG 09/22/13 Levalbuterol Tartrate (Xopenex Hfa) Aer, 1 IN PRN 04/06/11 Exenatide (Byetta) 10 Mcg Inj, 10 MCG SC BIDAC 04/06/11 Albuterol (Albuterol) Pow 04/06/11 Fluoxetine Hcl (Fluoxetine Hcl) 20 Mg Cap, 2 CAP DAILY 04/06/11 Enalapril Maleate (Enalapril Maleate) 10 Mg Tab, 10 MG PO DAILY 04/06/11 Gabapentin (Gabapentin) 400 Mg Cap, 400 MG PO TID 04/06/11 Hydrocodone-Acetaminophen (Hull 7.5/325MG) 1 Tab Tb, 7.5 MG PO TID 04/06/11 Glipizide (Glipizide) 5 Mg Tab, 5 MG PO DAILY 04/06/11 [Premarin] No Conflict Check, 0.3 MG DAILY 04/06/11 Plan/Recommendation The patient was seen and examined with Rob Choudhary NP. I agree with her Assessment and Plan which was formulated with me. Plan discussed with: Patient Date of Service: Jun 25, 2024 Billing Provider: NOÉ GALLEGOS DO Cardiology Common Codes: [id number] INP/OBS CARE (High) ROB CHOUDHARY Jun 25, 2024 10:43 NOÉ GALLEGOS DO Jun 25, 2024 21:53
--- NOTE | 2024-06-25 12:18 | DVHPN2 ---
Reviewed: Care Plan, H&P, Labs, Medications, Previous Orders, Radiology Changes from previous H/P or p: No Changes Objective Vitals Vital Signs Date Time Temp Pulse Resp B/P (MAP) Pulse Ox O2 Delivery O2 Flow Rate FiO2 06/25/24 09:16 68 16 110/66 06/25/24 09:00 98.6 100 98.6 06/25/24 08:00 Room Air* 0 21 Medications Current Medications Medications Dose Ordered Sig/Albert Route Start Time Stop Time Status Last Admin Dose Admin Sennosides 17.2 mg DAILY PO 06/24/24 18:30 06/25/24 08:43 17.2 MG Docusate Sodium 100 mg DAILY PO 06/24/24 18:30 06/25/24 08:43 100 MG Polyethylene Glycol 17 gm DAILY PO 06/24/24 18:30 06/24/24 19:59 17 GM Sodium Chloride 10 ml Q8HR IV 06/24/24 22:00 06/25/24 06:19 10 ML Acetaminophen 650 mg Q6HP PRN PO 06/24/24 18:30 06/24/24 20:23 650 MG Ondansetron HCl 4 mg Q4HP PRN IV 06/24/24 18:30 Morphine Sulfate 2 mg Q4HPRN PRN IV 06/24/24 18:30 06/25/24 08:46 2 MG Nitroglycerin 0.4 mg Q5MINP PRN SL 06/24/24 18:30 Morphine Sulfate 2 mg Q30M PRN IV 06/24/24 18:30 06/25/24 02:11 2 MG Apixaban 5 mg BID PO 06/24/24 22:00 Hold Clopidogrel Bisulfate 75 mg DAILY PO 06/25/24 10:00 06/25/24 08:44 75 MG Enalapril Maleate 10 mg DAILY PO 06/25/24 10:00 06/25/24 08:45 10 MG Fluoxetine HCl 20 mg DAILY PO 06/25/24 10:00 06/25/24 08:44 20 MG Fluticasone Propionate 50 mcg DAILY NA 06/25/24 10:00 Gabapentin 400 mg TID PO 06/24/24 22:00 06/25/24 05:51 400 MG Atorvastatin Calcium 20 mg HS PO 06/24/24 22:00 06/24/24 22:15 20 MG Laboratory Results Laboratory Tests 06/25/24 07:54 Chemistry Test 06/24/24 14:23 06/25/24 07:54 Calcium Level 9.4 mg/dL (8.7-10.4) 9.2 mg/dL (8.7-10.4) Albumin 3.9 g/dL (3.2-4.8) Total Protein 6.0 g/dL (5.7-8.2) LFT Test 06/25/24 07:54 Alanine Aminotransferase (ALT) < 9 U/L (7-40) Alkaline Phosphatase 97 U/L (46-116) Aspartate Amino Transferase (AST) 14 U/L (13-40) Total Bilirubin 0.2 mg/dL (0.2-1.0) Urinalysis Test 06/24/24 20:00 Urine Color Light-yellow (Yellow) Urine Clarity Clear (Clear) Urine pH 6.0 (5.0-9.0) Urine Specific [place] 1.015 (1.001-1.035) Urine Protein Negative (Negative) Urine Ketones Negative (Negative) Urine Blood Negative /uL (Negative) Urine Nitrite Negative (Negative) Urine Bilirubin Negative (Negative) Urine Urobilinogen Normal mg/dL (Negative) Urine Leukocyte Esterase 1+ /uL (Negative) Urine RBC 1 /hpf (0 - 4) Urine Microscopic WBC 1 /HPF (0-5) Urine Squamous Epithelial Cells Few /hpf (<5) Urine Bacteria None seen /hpf (None Seen) Urine Glucose Normal mg/dL (Normal) Labs and/or images reviewed: Labs reviewed by me, Image(s) reviewed by me Assessment/Plan Assessment/Plan Chest pain Rule out structural heart disease Presence of dual-chamber pacemaker for symptomatic bradycardia 2010 Insulin-dependent diabetes mellitus Hypertension Dyslipidemia COPD Obesity Abdominal pain with the Ventral hernia: Consult For Surgeon Dr. Espinoza Peripheral neuropathy Plan discussed with: Patient Date of Service: Jun 25, 2024 Billing Provider: ISAMAR ANDERSON MD Common Visit Codes: [id number] INP/OBS CARE(HIGH) ISAMAR ANDERSON MD Jun 25, 2024 12:18
--- NOTE | 2024-06-25 14:19 | DVHINCON2 ---
Date of service: Jun 25, 2024 History of Present Illness 69-year-old female with a history of COPD, coronary artery disease, bradycardia status post pacemaker admitted secondary to chest pain and abdominal pain associated with nausea and vomiting. Past Medical History Asthma, CAD, CHF, COPD, DM, High Lipids, HTN Past Surgical History Expiratory laparotomy with bowel resection secondary to small bowel obstruction proximally five years ago. Hysterectomy. Pacemaker placement. Family History: Family history: Cardiovascular disease G8 MOTHER G8 FATHER Family history: Diabetes mellitus G8 MOTHER G8 FATHER Family History Noncontributory Social History Denies alcohol, tobacco, IV drug use Allergies: Coded Allergies: Iodinated Contrast Media (Verified Allergy, Unknown, 11/24/13) Home Meds Active Scripts Docusate Sodium (Colace) 100 Mg Cap, 1 CAP PO BID for 3 Days, #30 CAP Prov:VILLA FROST MD 04/24/24 Hydrocodone-Acetaminophen (Hydrocodone Bitartrate/AC 5-325 mg) 1 Tab Tab, 1 TAB PO Q12HP PRN for 2 Days, #4 TAB Prov:VILLA FROST MD 04/24/24 Elastic Bandages & Supports (ABDOMINAL BINDER/ELASTIC/) Elast Sm Mis, SM XX ONCE, #1 Prov:ESTUARDO LY MD 03/07/24 Psyllium (Metamucil Fiber) 51.7 % Jack, 51.7 % PO BID for 30 Days, #60 PACK Prov:ESTUARDO LY MD 03/07/24 Polyethylene Glycol 3350 (Miralax) 17 Gm Pow, 17 GM PO DAILY PRN for 30 Days, #30 POW Prov:ESTUARDO LY MD 03/07/24 Senna (Senna) 8.6 Mg Tab, 8.6 MG PO HS for 30 Days, #30 TAB Prov:ESTUARDO LY MD 03/07/24 Magnesium Citrate (Magnesium Citrate) 1.745 Gm/30 Ml Mariela, 150 ML PO DAILY for 2 Days, #1 BOTTLE 0 Refills Prov:HUBER ANAYA 05/08/23 Methocarbamol (Methocarbamol) 750 Mg Tab, 750 MG PO BID, #20 TAB Prov:CIRILO HEREDIA 07/14/22 Ibuprofen (Ibuprofen) 800 Mg Tab, 1 TAB PO TID, #30 TAB Prov:CIRILO HEREDIA 07/14/22 Reported Medications Escitalopram Oxalate (Lexapro) 20 Mg Tab, 1 TAB PO DAILY, TAB 03/02/24 Cetirizine Hcl (Zyrtec Allergy) 10 Mg Cap, 10 MG PO DAILY, CAP 03/02/24 Exenatide (Bydureon Bcise) 2 Mg/0.85 Ml Inj, 2 MG SC, INJ 03/02/24 Apixaban Base (ELIQUIS) 5 Mg Tab, 5 MG PO BID, TAB 03/02/24 Cholecalciferol (VITAMIN D3) 2,000 Unit Tab, 1 TAB PO DAILY, TAB 03/02/24 Cyanocobalamin (Vitamin B-12) 1,000 Mcg Tab, 1000 MCG PO DAILY, TAB 03/02/24 Fluticasone Propionate (Nasal) (Flonase Allergy Relief) 50 Mcg/Act Spr, 50 MCG NA DAILY, SPRAY 03/02/24 [Advair] No Conflict Check 09/22/13 Clopidogrel Bisulfate (Plavix) 75 Mg Tab, 75 MG PO, TAB 09/22/13 Simvastatin (Simvastatin) 20 Mg Tab, 40 MG PO DAILY for 30 Days 09/22/13 Metformin Hydrochloride (Metformin Hcl) 500 Mg Tab, 500 MG PO DAILY for 30 Days, MG 09/22/13 Levalbuterol Tartrate (Xopenex Hfa) Aer, 1 IN PRN 04/06/11 Exenatide (Byetta) 10 Mcg Inj, 10 MCG SC BIDAC 04/06/11 Albuterol (Albuterol) Pow 04/06/11 Fluoxetine Hcl (Fluoxetine Hcl) 20 Mg Cap, 2 CAP DAILY 04/06/11 Enalapril Maleate (Enalapril Maleate) 10 Mg Tab, 10 MG PO DAILY 04/06/11 Gabapentin (Gabapentin) 400 Mg Cap, 400 MG PO TID 04/06/11 Hydrocodone-Acetaminophen ([place] 7.5/325MG) 1 Tab Tb, 7.5 MG PO TID 04/06/11 Glipizide (Glipizide) 5 Mg Tab, 5 MG PO DAILY 04/06/11 [Premarin] No Conflict Check, 0.3 MG DAILY 04/06/11 Current Medications Current Medications Medications (Trade) Dose Ordered Sig/Albert Route PRN Reason Start Time Stop Time Status Last Admin Sennosides (Senokot Tablet) 17.2 mg DAILY PO 3/12/25 18:30 06/25/24 08:43 Docusate Sodium (Colace Capsule) 100 mg DAILY PO 06/24/24 18:30 06/25/24 08:43 Polyethylene Glycol (Miralax 17GM Powder) 17 gm DAILY PO 06/24/24 18:30 06/24/24 19:59 Sodium Chloride (Saline Lock Ns) 10 ml Q8HR IV 06/24/24 22:00 06/25/24 13:49 Acetaminophen (Tylenol Tablet) 650 mg Q6HP PRN PO PAIN SCALE 1-3 OR TEMP>100.4 06/24/24 18:30 06/24/24 20:23 Ondansetron HCl (Zofran) 4 mg Q4HP PRN IV NAUSEA / VOMITING 06/24/24 18:30 Morphine Sulfate 2 mg Q4HPRN PRN IV SEVERE PAIN (7-10 PAIN SCALE) 06/24/24 18:30 06/25/24 14:06 Enoxaparin Sodium (Lovenox) 40 mg DAILY SC 06/25/24 10:00 06/24/24 22:35 DC Nitroglycerin (Ntrostat Sublingual) 0.4 mg Q5MINP PRN SL FOR CHEST PAIN 06/24/24 18:30 Morphine Sulfate 2 mg Q30M PRN IV FOR CHEST PAIN 06/24/24 18:30 06/25/24 02:11 Apixaban (Eliquis) 5 mg BID PO 06/24/24 22:00 Hold Clopidogrel Bisulfate (Plavix) 75 mg DAILY PO 06/25/24 10:00 06/25/24 08:44 Enalapril Maleate (Vasotec Tablet) 10 mg DAILY PO 06/25/24 10:00 06/25/24 08:45 Fluoxetine HCl (PROzac CAPSULE) 20 mg DAILY PO 06/25/24 10:00 06/25/24 08:44 Fluticasone Propionate (Flonase [place]) 50 mcg DAILY NA 06/25/24 10:00 Gabapentin (Neurontin Capsule) 400 mg TID PO 06/24/24 22:00 06/25/24 05:51 Atorvastatin Calcium (Lipitor) 20 mg HS PO 06/24/24 22:00 06/24/24 22:15 Vital Signs Vital Signs Date Time Temp Pulse Resp B/P (MAP) Pulse Ox O2 Delivery O2 Flow Rate FiO2 06/25/24 14:06 78 18 128/68 06/25/24 13:00 98.2 100 98.2 06/25/24 08:00 Room Air* 0 21 Physical Exam GEN: Age-appropriate female in no acute distress. Alert. HEENT: Normocephalic atraumatic. Moist mucous membranes. Anicteric sclerae. CV: RRR Respiratory: CTAB ABD: There is a large midline incisional scar with an incarcerated incisional hernia with minimal diffuse tenderness to palpation. Nondistended. CT of the abdomen and pelvis: There is a broad neck ventral hernia containing intra-abdominal fat and large bowel loops without evidence of bowel obstruction. Labs/Diagnostic Data Labs Test 06/25/24 07:54 06/24/24 20:00 06/24/24 17:15 Range/Units White Blood Count 5.9 4.4-10.8 10^3/uL Red Blood Count 3.88 L 4.0-5.20 10^6/uL Hemoglobin 10.7 L 12.2-16.2 g/dL Hematocrit 32.1 #L 36.0-46.0 % Mean Corpuscular Volume 82.8 80.0-100.0 fL Mean Corpuscular Hemoglobin 27.6 L 28.0-32.0 pg Mean Corpuscular Hemoglobin Concent 33.3 32.0-36.0 g/dL Red Cell Distribution Width 15.7 H 11.8-14.3 % Platelet Count 260 140-450 10^3/uL Mean Platelet Volume 6.8 L 6.9-10.8 fL Neutrophils (%) (Auto) 59.3 37.0-80.0 % Lymphocytes (%) (Auto) 27.4 10.0-50.0 % Monocytes (%) (Auto) 8.4 0.0-12.0 % Eosinophils (%) (Auto) 3.7 0.0-7.0 % Basophils (%) (Auto) 1.2 0.0-2.0 % Neutrophils # (Auto) 3.5 1.6-8.6 10 ^3/uL Lymphocytes # (Auto) 1.6 0.4-5.4 10 ^3/uL Monocytes # (Auto) 0.5 0-1.3 10 ^3/uL Eosinophils # (Auto) 0.2 0-0.8 10 ^3/uL Basophils # (Auto) 0.1 0-0.2 10 ^3/uL Nucleated Red Blood Cells 0.1 % Sodium Level 136 136-145 mmol/L Potassium Level 4.4 3.5-5.1 mmol/L Chloride Level 106 98-107 mmol/L Carbon Dioxide Level 22 20-31 mmol/L Anion Gap 8 5-15 Blood Urea Nitrogen 8 L 9-23 mg/dL Creatinine 0.94 0.550-1.02 mg/dL Glomerular Filtration Rate Calc 65 >90 mL/min BUN/Creatinine Ratio 8.5 L 10.0-20.0 Serum Glucose 110 H 74-106 mg/dL Calcium Level 9.2 8.7-10.4 mg/dL Total Bilirubin 0.2 0.2-1.0 mg/dL Aspartate Amino Transferase (AST) 14 13-40 U/L Alanine Aminotransferase (ALT) < 9 7-40 U/L Alkaline Phosphatase 97 46-116 U/L Total Protein 6.0 5.7-8.2 g/dL Albumin 3.9 3.2-4.8 g/dL Urine Color Light-yellow Yellow Urine Clarity Clear Clear Urine pH 6.0 5.0-9.0 Urine Specific [place] 1.015 1.001-1.035 Urine Protein Negative Negative Urine Ketones Negative Negative Urine Blood Negative Negative /uL Urine Nitrite Negative Negative Urine Bilirubin Negative Negative Urine Urobilinogen Normal Negative mg/dL Urine Leukocyte Esterase 1+ Negative /uL Urine RBC 1 0 - 4 /hpf Urine Microscopic WBC 1 0-5 /HPF Urine Squamous Epithelial Cells Few <5 /hpf Urine Bacteria None seen None Seen /hpf Urine Glucose Normal Normal mg/dL Troponin I High Sensitivity 5 </=34 ng/L Assessment 1. Incisional ventral hernia without bowel obstruction 2. Significant cardiac history Plan/Recommendation 1. Discussed patient's diagnosis of a ventral hernia repair that may be causing the pain. However this does not explain her symptoms of nausea and vomiting as it does not show any signs of bowel obstruction. If the patient wishes to proceed with the hernia repair, she will need a cardiac clearance and Plavix and Eliquis needs to be held for possible surgery on Saturday if the patient wishes to proceed with it. Informed consent: The surgery and its risks including but not limited to infection, bleeding requiring possible blood transfusion with the risk of hepatitis or HIV infection, possible perioperative ID or stroke, possibility that the nausea and vomiting may still persist even after the hernia repair were explained to the patient and her . All questions were answered to their satisfaction. They expressed verbal understanding and wished to think about the surgery prior to making their final decision. Plan discussed with: Patient, Spouse VIVIEN STARKEY MD Jun 25, 2024 14:19
--- NOTE | 2024-06-25 18:17 | DVHSR ---
APPROVED REPORT EXAM: LIMITED Two-dimensional and M-mode echocardiogram. Blood Pressure: 122/57 mmHg INDICATION Evaluate Cardiac function RISK FACTORS Height: 5'8", Weight: 150 DIMENSIONS LVDd4.7 (3.8-5.7cm)LA (2D) (1.9-4.0cm)Aortic Root (2.0-3.7cm) LVDs2.8 (2.5-4.0cm)LA (MM) (1.9-4.0cm)Aortic Cusp Exc (1.5-2.0cm) EF (%) 72.0 (55-70%)Rt. Atrium (1.9-4.0cm)Asc. Aorta cm IVSd0.7 (0.7-1.1cm)RV (D) (1.8-2.4cm) PWd0.9 (0.7-1.1cm) Mitral Valve MitralMitral Stenosis E/A ratio0.02D MVAcm2 Conclusion Normal LV size and systolic function. LVEF 65-70%. Normal wall motion.
[2024-06-26] VITALS (8 sets, daily range): BP systolic 91–110; BP diastolic 52–63; PULSE 58–77; RESP 15–18; TEMP 98.2–98.8; O2SAT 95–100
[2024-06-26 06:22] LABS: Basophils # (auto) 0 10 ^3/uL (0-0.2); Basophils % (auto) 0.7 % (0.0-2.0); Eosinophils # (auto) 0.1 10 ^3/uL (0-0.8); Eosinophils % (auto) 2.2 % (0.0-7.0); Hematocrit 33.5 % (36.0-46.0); Hemoglobin 11.1 g/dL (12.2-16.2); Lymphocytes # (auto) 1.8 10 ^3/uL (0.4-5.4); Lymphocytes % (auto) 27.8 % (10.0-50.0); Mean Corpuscular Hgb Conc. 33.1 g/dL (32.0-36.0); Mean Corpuscular Volume 81.7 fL (80.0-100.0); Monocytes # (auto) 0.5 10 ^3/uL (0-1.3); Monocytes % (auto) 7.6 % (0.0-12.0); Neutrophils # (auto) 4.1 10 ^3/uL (1.6-8.6); Neutrophils % (auto) 61.7 % (37.0-80.0); Platelet Count (auto) 284 10^3/uL (140-450); Red Cell Distribution Width 15.6 % (11.8-14.3); White Blood Cell 6.6 10^3/uL (4.4-10.8)
[2024-06-26 06:37] LABS: Albumin 3.8 g/dL (3.2-4.8); Alkaline Phosphatase 87 U/L (46-116); Anion Gap 5 (5-15); Aspartate Aminotransferase 16 U/L (13-40); BUN/Creatinine Ratio 8.3 (10.0-20.0); Blood Urea Nitrogen 9 mg/dL (9-23); Calcium 9.2 mg/dL (8.7-10.4); Carbon Dioxide 26 mmol/L (20-31); Chloride 105 mmol/L (98-107); Potassium 4.6 mmol/L (3.5-5.1); Sodium 136 mmol/L (136-145); Total Protein 5.9 g/dL (5.7-8.2)
[2024-06-26 06:38] LABS: Bilirubin, Total 0.5 mg/dL (0.2-1.0)
[2024-06-26 06:40] LABS: Alanine Aminotransferase < 9 U/L (7-40); Glucose 113 mg/dL (74-106)
[2024-06-26] MEDS: ISOSORBIDE MONONITRATE ER 60 MG TAB PO SCH (09:45)
--- NOTE | 2024-06-26 11:41 | DVHPN2 ---
Reviewed: Care Plan, H&P, Labs, Medications, Previous Orders, Radiology Changes from previous H/P or p: No Changes Objective Vitals Vital Signs Date Time Temp Pulse Resp B/P (MAP) Pulse Ox O2 Delivery O2 Flow Rate FiO2 06/26/24 09:45 96/52 06/26/24 08:50 98.4 63 16 100 98.4 06/25/24 20:00 Room Air* 0 21 Intake/Output Intake and Output 06/26/24 07:00 Intake Total 1350 ml Balance 1350 ml Intake Oral 1350 ml # Voids 7 # Bowel Movements 2 Medications Current Medications Medications Dose Ordered Sig/Albert Route Start Time Stop Time Status Last Admin Dose Admin Sennosides 17.2 mg DAILY PO 06/24/24 18:30 06/26/24 09:47 17.2 MG Docusate Sodium 100 mg DAILY PO 06/24/24 18:30 06/26/24 09:47 100 MG Polyethylene Glycol 17 gm DAILY PO 06/24/24 18:30 06/24/24 19:59 17 GM Sodium Chloride 10 ml Q8HR IV 06/24/24 22:00 06/26/24 09:48 10 ML Acetaminophen 650 mg Q6HP PRN PO 06/24/24 18:30 06/25/24 21:33 650 MG Ondansetron HCl 4 mg Q4HP PRN IV 06/24/24 18:30 Morphine Sulfate 2 mg Q4HPRN PRN IV 06/24/24 18:30 06/25/24 14:06 2 MG Nitroglycerin 0.4 mg Q5MINP PRN SL 06/24/24 18:30 Morphine Sulfate 2 mg Q30M PRN IV 06/24/24 18:30 06/25/24 02:11 2 MG Apixaban 5 mg BID PO 06/24/24 22:00 Hold Fluoxetine HCl 20 mg DAILY PO 06/25/24 10:00 06/26/24 09:47 20 MG Fluticasone Propionate 50 mcg DAILY NA 06/25/24 10:00 Gabapentin 400 mg TID PO 06/24/24 22:00 06/26/24 06:49 400 MG Atorvastatin Calcium 20 mg HS PO 06/24/24 22:00 06/25/24 21:24 20 MG Isosorbide Mononitrate 30 mg DAILY PO 06/26/24 10:00 Laboratory Results Laboratory Tests 06/26/24 06:05 Chemistry Test 06/26/24 06:05 Albumin 3.8 g/dL (3.2-4.8) Calcium Level 9.2 mg/dL (8.7-10.4) Total Protein 5.9 g/dL (5.7-8.2) LFT Test 06/26/24 06:05 Alanine Aminotransferase (ALT) < 9 U/L (7-40) Alkaline Phosphatase 87 U/L (46-116) Aspartate Amino Transferase (AST) 16 U/L (13-40) Total Bilirubin 0.5 mg/dL (0.2-1.0) Urinalysis Test 06/24/24 20:00 Urine Color Light-yellow (Yellow) Urine Clarity Clear (Clear) Urine pH 6.0 (5.0-9.0) Urine Specific [place] 1.015 (1.001-1.035) Urine Protein Negative (Negative) Urine Ketones Negative (Negative) Urine Blood Negative /uL (Negative) Urine Nitrite Negative (Negative) Urine Bilirubin Negative (Negative) Urine Urobilinogen Normal mg/dL (Negative) Urine Leukocyte Esterase 1+ /uL (Negative) Urine RBC 1 /hpf (0 - 4) Urine Microscopic WBC 1 /HPF (0-5) Urine Squamous Epithelial Cells Few /hpf (<5) Urine Bacteria None seen /hpf (None Seen) Urine Glucose Normal mg/dL (Normal) Labs and/or images reviewed: Labs reviewed by me, Image(s) reviewed by me Assessment/Plan Assessment/Plan Chest pain possibly microvascular disease, cardiology cleared for ventral hernia surgery Rule out structural heart disease Presence of dual-chamber pacemaker for symptomatic bradycardia 2010 Insulin-dependent diabetes mellitus Hypertension Dyslipidemia History of CVA on Plavix COPD Obesity Abdominal pain with the Ventral hernia: Consult For Surgeon Dr. Espinoza Peripheral neuropathy Will DC Plavix in preparation for surgery Plan discussed with: Patient My Orders Orders - ISAMAR ANDERSON MD Procedure Category Date Status Time * Surgical Consult CONS 06/25/24 Transmitted Date of Service: Jun 26, 2024 Billing Provider: ISAMAR ANDERSON MD Common Visit Codes: [id number] INP/OBS CARE(HIGH) ISAMRA ANDERSON MD Jun 26, 2024 11:41
--- NOTE | 2024-06-26 13:41 | DVHPN2 ---
Progress Note - Dictate Date Seen: Jun 26, 2024 Medical Necessity Reason Pt with a Central, PICC or Fol: No Subjective E: no major events o/n. still c/o abd pain. now wants surgery. vital signs Vital Sign Date Time Temp Pulse Resp B/P (MAP) Pulse Ox O2 Delivery O2 Flow Rate FiO2 06/26/24 13:29 66 16 97/53 06/26/24 08:50 98.4 100 98.4 06/25/24 20:00 Room Air* 0 21 Total Intake and Output 06/25/24 06/25/24 06/26/24 15:00 23:00 07:00 Intake Total 950 ml 400 ml Balance 950 ml 400 ml medications Current Medications Medications Dose Ordered Sig/Albert Route Start Time Stop Time Status Last Admin Dose Admin Sennosides 17.2 mg DAILY PO 06/24/24 18:30 06/26/24 09:47 17.2 MG Docusate Sodium 100 mg DAILY PO 06/24/24 18:30 06/26/24 09:47 100 MG Polyethylene Glycol 17 gm DAILY PO 06/24/24 18:30 06/24/24 19:59 17 GM Sodium Chloride 10 ml Q8HR IV 06/24/24 22:00 06/26/24 09:48 10 ML Acetaminophen 650 mg Q6HP PRN PO 06/24/24 18:30 06/25/24 21:33 650 MG Ondansetron HCl 4 mg Q4HP PRN IV 06/24/24 18:30 Morphine Sulfate 2 mg Q4HPRN PRN IV 06/24/24 18:30 06/26/24 13:29 2 MG Nitroglycerin 0.4 mg Q5MINP PRN SL 06/24/24 18:30 Morphine Sulfate 2 mg Q30M PRN IV 06/24/24 18:30 06/25/24 02:11 2 MG Fluoxetine HCl 20 mg DAILY PO 06/25/24 10:00 06/26/24 09:47 20 MG Fluticasone Propionate 50 mcg DAILY NA 06/25/24 10:00 Gabapentin 400 mg TID PO 06/24/24 22:00 06/26/24 06:49 400 MG Atorvastatin Calcium 20 mg HS PO 06/24/24 22:00 06/25/24 21:24 20 MG Isosorbide Mononitrate 30 mg DAILY PO 06/26/24 10:00 objective GEN: NAD ABD: hernia unchanged. TTP. laboratory and microbiology Laboratory Tests 06/26/24 06:05 Test 06/26/24 06:05 Range/Units Serum Glucose 113 H 74-106 mg/dL Assessment/Plan A: 1. Incisional incarcerated ventral hernia without bowel obstruction 2. Significant cardiac history P: 1. hold eliquis/plavix. 2. hernia repair on Sat. 3. needs cardiac clearance. Plan discussed with: Patient VIVIEN STARKEY MD Jun 26, 2024 13:41
[2024-06-27] VITALS (8 sets, daily range): BP systolic 92–97; BP diastolic 45–58; PULSE 60–68; RESP 16–20; TEMP 97.4–98.6; O2SAT 94–100
[2024-06-27 06:54] LABS: Eosinophils # (auto) 0.1 10 ^3/uL (0-0.8); Eosinophils % (auto) 1.2 % (0.0-7.0); Hematocrit 35.2 % (36.0-46.0); Hemoglobin 11.5 g/dL (12.2-16.2); Mean Corpuscular Hemoglobin 26.9 pg (28.0-32.0); Monocytes # (auto) 0.5 10 ^3/uL (0-1.3); White Blood Cell 6.5 10^3/uL (4.4-10.8)
[2024-06-27 06:56] LABS: Basophils # (auto) 0 10 ^3/uL (0-0.2); Basophils % (auto) 0.7 % (0.0-2.0); Lymphocytes # (auto) 2.3 10 ^3/uL (0.4-5.4); Mean Corpuscular Hgb Conc. 32.8 g/dL (32.0-36.0); Monocytes % (auto) 8.4 % (0.0-12.0); Neutrophils # (auto) 3.5 10 ^3/uL (1.6-8.6); Neutrophils % (auto) 54.7 % (37.0-80.0); Platelet Count (auto) 288 10^3/uL (140-450); Red Blood Cells 4.29 10^6/uL (4.0-5.20); Red Cell Distribution Width 15.2 % (11.8-14.3)
[2024-06-27 07:15] LABS: Alkaline Phosphatase 88 U/L (46-116); Anion Gap 7 (5-15); BUN/Creatinine Ratio 10.7 (10.0-20.0); Blood Urea Nitrogen 11 mg/dL (9-23); Calcium 9.3 mg/dL (8.7-10.4); Carbon Dioxide 25 mmol/L (20-31); Chloride 104 mmol/L (98-107); Glucose 103 mg/dL (74-106); Potassium 4.1 mmol/L (3.5-5.1); Sodium 136 mmol/L (136-145); Total Protein 6.2 g/dL (5.7-8.2)
[2024-06-27 07:16] LABS: Aspartate Aminotransferase 15 U/L (13-40); Bilirubin, Total 0.5 mg/dL (0.2-1.0)
[2024-06-27 07:21] LABS: Alanine Aminotransferase < 9 U/L (7-40)
--- NOTE | 2024-06-27 10:47 | DVHPN2 ---
Reviewed: Care Plan, H&P, Labs, Medications, Previous Orders, Radiology Changes from previous H/P or p: No Changes Objective Vitals Vital Signs Date Time Temp Pulse Resp B/P (MAP) Pulse Ox O2 Delivery O2 Flow Rate FiO2 06/27/24 10:21 100/51 06/27/24 09:00 97.5 68 20 98 97.5 06/26/24 20:00 Room Air* 0 21 Intake/Output Intake and Output 06/27/24 07:00 Intake Total 1852 ml Balance 1852 ml Intake Oral 1852 ml # Voids 8 Medications Current Medications Medications Dose Ordered Sig/Albert Route Start Time Stop Time Status Last Admin Dose Admin Sennosides 17.2 mg DAILY PO 06/24/24 18:30 06/27/24 10:20 17.2 MG Docusate Sodium 100 mg DAILY PO 06/24/24 18:30 06/27/24 10:21 100 MG Polyethylene Glycol 17 gm DAILY PO 06/24/24 18:30 06/27/24 10:20 17 GM Sodium Chloride 10 ml Q8HR IV 06/24/24 22:00 06/27/24 05:27 10 ML Acetaminophen 650 mg Q6HP PRN PO 06/24/24 18:30 06/27/24 10:20 650 MG Ondansetron HCl 4 mg Q4HP PRN IV 06/24/24 18:30 Morphine Sulfate 2 mg Q4HPRN PRN IV 06/24/24 18:30 06/27/24 05:29 2 MG Nitroglycerin 0.4 mg Q5MINP PRN SL 06/24/24 18:30 Morphine Sulfate 2 mg Q30M PRN IV 06/24/24 18:30 06/25/24 02:11 2 MG Fluoxetine HCl 20 mg DAILY PO 06/25/24 10:00 06/27/24 10:21 20 MG Fluticasone Propionate 50 mcg DAILY NA 06/25/24 10:00 Gabapentin 400 mg TID PO 06/24/24 22:00 06/27/24 05:16 400 MG Atorvastatin Calcium 20 mg HS PO 06/24/24 22:00 06/26/24 21:03 20 MG Isosorbide Mononitrate 30 mg DAILY PO 06/26/24 10:00 06/27/24 10:21 30 MG Laboratory Results Laboratory Tests 06/27/24 05:14 Chemistry Test 06/27/24 05:14 Albumin 4.0 g/dL (3.2-4.8) Calcium Level 9.3 mg/dL (8.7-10.4) Total Protein 6.2 g/dL (5.7-8.2) LFT Test 06/27/24 05:14 Alanine Aminotransferase (ALT) < 9 U/L (7-40) Alkaline Phosphatase 88 U/L (46-116) Aspartate Amino Transferase (AST) 15 U/L (13-40) Total Bilirubin 0.5 mg/dL (0.2-1.0) Urinalysis Test 06/24/24 20:00 Urine Color Light-yellow (Yellow) Urine Clarity Clear (Clear) Urine pH 6.0 (5.0-9.0) Urine Specific [place] 1.015 (1.001-1.035) Urine Protein Negative (Negative) Urine Ketones Negative (Negative) Urine Blood Negative /uL (Negative) Urine Nitrite Negative (Negative) Urine Bilirubin Negative (Negative) Urine Urobilinogen Normal mg/dL (Negative) Urine Leukocyte Esterase 1+ /uL (Negative) Urine RBC 1 /hpf (0 - 4) Urine Microscopic WBC 1 /HPF (0-5) Urine Squamous Epithelial Cells Few /hpf (<5) Urine Bacteria None seen /hpf (None Seen) Urine Glucose Normal mg/dL (Normal) Labs and/or images reviewed: Labs reviewed by me, Image(s) reviewed by me Assessment/Plan Assessment/Plan Chest pain possibly microvascular disease, cardiology cleared for ventral hernia surgery Rule out structural heart disease Presence of dual-chamber pacemaker for symptomatic bradycardia 2010 Insulin-dependent diabetes mellitus Hypertension Dyslipidemia History of CVA on Plavix COPD Obesity Abdominal pain with the Ventral hernia: Consult For Surgeon Dr. Espinoza patient getting surgery Saturday Peripheral neuropathy Will DC Plavix in preparation for surgery Plan discussed with: Patient Date of Service: Jun 27, 2024 Billing Provider: ISAMAR ANDERSON MD Common Visit Codes: [id number] INP/OBS CARE(HIGH) ISAMAR ANDERSON MD Jun 27, 2024 10:47
[2024-06-27] MEDS: HYDROcodone-ACET 5/325MG TAB PO PRN (13:32)
[2024-06-27] MEDS: SODIUM CHLORIDE 0.9% 1,000 ML IV SCH (14:11)
--- NOTE | 2024-06-27 18:29 | DVHPN2 ---
Progress Note - Dictate Date Seen: Jun 27, 2024 Medical Necessity Reason Pt with a Central, PICC or Fol: No Subjective E: no major events o/n. still c/o abd pain. still wants surgery. vital signs Vital Sign Date Time Temp Pulse Resp B/P (MAP) Pulse Ox O2 Delivery O2 Flow Rate FiO2 06/27/24 17:00 97.4 63 20 92/51 (65) 96 97.4 06/27/24 08:00 Nasal Cannula* 2 28 Total Intake and Output 06/26/24 06/26/24 06/27/24 15:00 23:00 07:00 Intake Total 1252 ml 600 ml Balance 1252 ml 600 ml medications Current Medications Medications Dose Ordered Sig/Albert Route Start Time Stop Time Status Last Admin Dose Admin Sennosides 17.2 mg DAILY PO 06/24/24 18:30 06/27/24 10:20 17.2 MG Docusate Sodium 100 mg DAILY PO 06/24/24 18:30 06/27/24 10:21 100 MG Polyethylene Glycol 17 gm DAILY PO 06/24/24 18:30 06/27/24 10:20 17 GM Sodium Chloride 10 ml Q8HR IV 06/24/24 22:00 06/27/24 14:11 10 ML Acetaminophen 650 mg Q6HP PRN PO 06/24/24 18:30 06/27/24 10:20 650 MG Ondansetron HCl 4 mg Q4HP PRN IV 06/24/24 18:30 Nitroglycerin 0.4 mg Q5MINP PRN SL 06/24/24 18:30 Morphine Sulfate 2 mg Q30M PRN IV 06/24/24 18:30 06/25/24 02:11 2 MG Fluoxetine HCl 20 mg DAILY PO 06/25/24 10:00 06/27/24 10:21 20 MG Fluticasone Propionate 50 mcg DAILY NA 06/25/24 10:00 Gabapentin 400 mg TID PO 06/24/24 22:00 06/27/24 14:11 400 MG Atorvastatin Calcium 20 mg HS PO 06/24/24 22:00 06/26/24 21:03 20 MG Isosorbide Mononitrate 30 mg DAILY PO 06/26/24 10:00 06/27/24 10:21 30 MG Sodium Chloride 1,000 ml @ 100 mls/hr Q10H IV 06/27/24 11:00 06/27/24 14:11 100 MLS/HR Acetaminophen/ Hydrocodone Bitart 1 tab Q4HPRN PRN PO 06/27/24 11:00 06/27/24 17:19 1 TAB objective GEN: NAD ABD: hernia unchanged. TTP. laboratory and microbiology Laboratory Tests 06/27/24 05:14 Test 06/27/24 05:14 Range/Units Serum Glucose 103 74-106 mg/dL Assessment/Plan A: 1. Incisional incarcerated ventral hernia without bowel obstruction 2. cleared by cardiology. mod risk P: 1. hold eliquis/plavix. 2. hernia repair on Sat. Plan discussed with: Patient, Spouse VIVIEN STARKEY MD Jun 27, 2024 18:29
[2024-06-28] VITALS (7 sets, daily range): BP systolic 97–149; BP diastolic 7–69; PULSE 57–70; RESP 16–18; TEMP 97.3–98.4; O2SAT 95–100
[2024-06-28 07:54] LABS: Basophils # (auto) 0 10 ^3/uL (0-0.2); Basophils % (auto) 0.8 % (0.0-2.0); Eosinophils # (auto) 0.1 10 ^3/uL (0-0.8); Hemoglobin 10.7 g/dL (12.2-16.2); Lymphocytes # (auto) 1.8 10 ^3/uL (0.4-5.4); Monocytes # (auto) 0.5 10 ^3/uL (0-1.3); Neutrophils # (auto) 3.1 10 ^3/uL (1.6-8.6); Nucleated Red Blood Cells % 0.1 %
[2024-06-28 07:57] LABS: Eosinophils % (auto) 1.8 % (0.0-7.0); Lymphocytes % (auto) 32.3 % (10.0-50.0); Mean Corpuscular Hemoglobin 26.7 pg (28.0-32.0); Mean Corpuscular Hgb Conc. 32.3 g/dL (32.0-36.0); Mean Corpuscular Volume 82.7 fL (80.0-100.0); Monocytes % (auto) 8.9 % (0.0-12.0); Neutrophils % (auto) 56.2 % (37.0-80.0); Platelet Count (auto) 261 10^3/uL (140-450); Red Blood Cells 3.99 10^6/uL (4.0-5.20); White Blood Cell 5.4 10^3/uL (4.4-10.8)
[2024-06-28 08:39] LABS: Albumin 3.7 g/dL (3.2-4.8); Alkaline Phosphatase 77 U/L (46-116); Anion Gap 5 (5-15); BUN/Creatinine Ratio 9.7 (10.0-20.0); Blood Urea Nitrogen 9 mg/dL (9-23); Calcium 9.1 mg/dL (8.7-10.4); Carbon Dioxide 26 mmol/L (20-31); Chloride 107 mmol/L (98-107); Potassium 4.6 mmol/L (3.5-5.1); Sodium 138 mmol/L (136-145)
[2024-06-28 08:42] LABS: Alanine Aminotransferase < 9 U/L (7-40); Aspartate Aminotransferase 11 U/L (13-40); Bilirubin, Total 0.3 mg/dL (0.2-1.0); Glucose 114 mg/dL (74-106); Total Protein 5.6 g/dL (5.7-8.2)
--- NOTE | 2024-06-28 12:01 | DVHPN2 ---
Reviewed: Care Plan, H&P, Labs, Medications, Previous Orders, Radiology Changes from previous H/P or p: No Changes Objective Vitals Vital Signs Date Time Temp Pulse Resp B/P (MAP) Pulse Ox O2 Delivery O2 Flow Rate FiO2 06/28/24 09:44 96/49 06/28/24 08:00 97.8 61 18 96 97.8 06/27/24 20:00 Room Air* 0 21 Intake/Output Intake and Output 06/28/24 07:00 Intake Total 1600 ml Output Total 0 ml Balance 1600 ml Intake Oral 1600 ml Output Stool Total 0 ml # Voids 8 # Bowel Movements 1 Medications Current Medications Medications Dose Ordered Sig/Albert Route Start Time Stop Time Status Last Admin Dose Admin Sennosides 17.2 mg DAILY PO 06/24/24 18:30 06/28/24 09:30 17.2 MG Docusate Sodium 100 mg DAILY PO 06/24/24 18:30 06/28/24 09:34 100 MG Polyethylene Glycol 17 gm DAILY PO 06/24/24 18:30 06/28/24 09:30 17 GM Sodium Chloride 10 ml Q8HR IV 06/24/24 22:00 06/28/24 05:27 10 ML Acetaminophen 650 mg Q6HP PRN PO 06/24/24 18:30 06/27/24 10:20 650 MG Ondansetron HCl 4 mg Q4HP PRN IV 06/24/24 18:30 Nitroglycerin 0.4 mg Q5MINP PRN SL 06/24/24 18:30 Morphine Sulfate 2 mg Q30M PRN IV 06/24/24 18:30 06/25/24 02:11 2 MG Fluoxetine HCl 20 mg DAILY PO 06/25/24 10:00 06/28/24 09:34 20 MG Fluticasone Propionate 50 mcg DAILY NA 06/25/24 10:00 Gabapentin 400 mg TID PO 06/24/24 22:00 06/28/24 05:35 400 MG Atorvastatin Calcium 20 mg HS PO 06/24/24 22:00 06/27/24 21:08 20 MG Isosorbide Mononitrate 30 mg DAILY PO 06/26/24 10:00 06/27/24 10:21 30 MG Sodium Chloride 1,000 ml @ 100 mls/hr Q10H IV 06/27/24 11:00 06/28/24 07:09 100 MLS/HR Acetaminophen/ Hydrocodone Bitart 1 tab Q4HPRN PRN PO 06/27/24 11:00 06/28/24 09:34 1 TAB Laboratory Results Laboratory Tests 06/28/24 06:55 Chemistry Test 06/28/24 06:55 Albumin 3.7 g/dL (3.2-4.8) Calcium Level 9.1 mg/dL (8.7-10.4) Total Protein 5.6 g/dL (5.7-8.2) L LFT Test 06/28/24 06:55 Alanine Aminotransferase (ALT) < 9 U/L (7-40) Alkaline Phosphatase 77 U/L (46-116) Aspartate Amino Transferase (AST) 11 U/L (13-40) L Total Bilirubin 0.3 mg/dL (0.2-1.0) Urinalysis Test 06/24/24 20:00 Urine Color Light-yellow (Yellow) Urine Clarity Clear (Clear) Urine pH 6.0 (5.0-9.0) Urine Specific [place] 1.015 (1.001-1.035) Urine Protein Negative (Negative) Urine Ketones Negative (Negative) Urine Blood Negative /uL (Negative) Urine Nitrite Negative (Negative) Urine Bilirubin Negative (Negative) Urine Urobilinogen Normal mg/dL (Negative) Urine Leukocyte Esterase 1+ /uL (Negative) Urine RBC 1 /hpf (0 - 4) Urine Microscopic WBC 1 /HPF (0-5) Urine Squamous Epithelial Cells Few /hpf (<5) Urine Bacteria None seen /hpf (None Seen) Urine Glucose Normal mg/dL (Normal) Labs and/or images reviewed: Labs reviewed by me, Image(s) reviewed by me Assessment/Plan Assessment/Plan Chest pain possibly microvascular disease, cardiology cleared for ventral hernia surgery Rule out structural heart disease Presence of dual-chamber pacemaker for symptomatic bradycardia 2010 Insulin-dependent diabetes mellitus Hypertension Dyslipidemia History of CVA on Plavix COPD Obesity Abdominal pain with the Ventral hernia: Consult For Surgeon Dr. Espinoza patient getting surgery Saturday Peripheral neuropathy Will DC Plavix in preparation for surgery Plan discussed with: Patient Date of Service: Jun 28, 2024 Billing Provider: ISAMAR ANDERSON MD Common Visit Codes: [id number] INP/OBS CARE(HIGH) ISAMAR ANDERSON MD Jun 28, 2024 12:01
[2024-06-29] VITALS (7 sets, daily range): BP systolic 95–117; BP diastolic 52–65; PULSE 60–64; RESP 13–19; TEMP 97.8–98.5; O2SAT 96–100
[2024-06-29] MEDS ORDERED: PROPOFOL 10 MG/ML 20 ML IV ONE (06:35)
[2024-06-29] MEDS ORDERED: ROCURONIUM 10MG/ML 10ML VIAL IV ONE (06:35)
[2024-06-29] MEDS ORDERED: LIDOCAINE 2%HCL (LOCAL ANESTH.) INJ 20ML MDV ONE (06:35)
[2024-06-29] MEDS ORDERED: PHENYLEPHRINE HCL 10 MG/ML VL ONE (06:35)
[2024-06-29 07:14] LABS: Basophils # (auto) 0.1 10 ^3/uL (0-0.2); Basophils % (auto) 0.9 % (0.0-2.0); Eosinophils # (auto) 0.1 10 ^3/uL (0-0.8); Eosinophils % (auto) 1.5 % (0.0-7.0); Hematocrit 33.4 % (36.0-46.0); INR 1.03 (0.9-1.15); Lymphocytes # (auto) 1.6 10 ^3/uL (0.4-5.4); Lymphocytes % (auto) 26.5 % (10.0-50.0); Mean Corpuscular Hemoglobin 27.3 pg (28.0-32.0); Mean Corpuscular Volume 82.7 fL (80.0-100.0); Monocytes # (auto) 0.5 10 ^3/uL (0-1.3); Monocytes % (auto) 8.1 % (0.0-12.0); Neutrophils # (auto) 3.9 10 ^3/uL (1.6-8.6); Partial Thromboplastin Time 28.3 SEC (24.5-34.5); Platelet Count (auto) 292 10^3/uL (140-450); Prothrombin Time 10.9 sec (9.3-11.8); Red Blood Cells 4.04 10^6/uL (4.0-5.20); Red Cell Distribution Width 15.1 % (11.8-14.3); White Blood Cell 6.2 10^3/uL (4.4-10.8)
[2024-06-29] MEDS ORDERED: ESMOLOL HCL 10 ML IV ONE (07:25)
[2024-06-29 07:28] LABS: Alanine Aminotransferase < 9 U/L (7-40); Albumin 3.8 g/dL (3.2-4.8); Alkaline Phosphatase 79 U/L (46-116); Anion Gap 8 (5-15); Aspartate Aminotransferase 13 U/L (13-40); BUN/Creatinine Ratio 7.8 (10.0-20.0); Bilirubin, Total 0.4 mg/dL (0.2-1.0); Blood Urea Nitrogen 7 mg/dL (9-23); Calcium 9.4 mg/dL (8.7-10.4); Carbon Dioxide 24 mmol/L (20-31); Chloride 107 mmol/L (98-107); Glucose 110 mg/dL (74-106); Potassium 3.9 mmol/L (3.5-5.1); Sodium 139 mmol/L (136-145)
[2024-06-29] MEDS ORDERED: MORPHINE SULFATE 4 MG/ML SYR/VIAL IV PRN (08:15)
[2024-06-29] MEDS ORDERED: hydrALAZINE HCL 20 MG/ML VL IV PRN (08:15)
[2024-06-29] MEDS: METOCLOPRAMIDE HCL 5MG/ml INJ 2ml VIAL IV ONE (08:15)
[2024-06-29] MEDS ORDERED: ePHEDrine SULFATE 50 MG/ML AMP IV PRN (08:15)
[2024-06-29] MEDS: ONDANSETRON HCL 4 MG/2 ML VIAL IV ONE (08:15)
[2024-06-29] MEDS ORDERED: fentaNYL CITRATE 100 MCG/2 ML VL IV PRN (08:15)
[2024-06-29] MEDS ORDERED: fentaNYL CITRATE 100 MCG/2 ML VL ONE (08:19)
[2024-06-29] MEDS ORDERED: MIDAZOLAM HCL 2MG/2ML 2ml VIAL (1mg/ml) ONE (08:19)
[2024-06-29] MEDS ORDERED: DexAMETHasone SOD PHOS 10MG/1ML VIAL INJ ONE ×3 (08:47→09:06)
[2024-06-29] MEDS: ceFAZolin 1GM/50ML 100 ML IV ONE (09:04)
[2024-06-29] MEDS ORDERED: ONDANSETRON HCL 4 MG/2 ML VIAL ONE (09:06)
[2024-06-29] MEDS ORDERED: KETOROLAC TROMETH 30 MG/ML 1ML VIAL ONE (10:10)
[2024-06-29] MEDS ORDERED: SUGAMMADEX 200mg/2ml Vial (100MG/ML) IV ONE (10:11)
[2024-06-29] MEDS ORDERED: HYDROmorphone HCL 2 MG/ML VL/or syr ONE (10:38)
[2024-06-29] MEDS: LIDOCAINE W/ EPINEPHRINE 1% 20ML VIAL ONE (11:00)
[2024-06-29] MEDS: HYDROmorphone HCL 2 MG/ML VL/or syr ONE (11:11)
[2024-06-29] MEDS: ROPIVACAINE 0.5% (5MG/ML) 20ML AMPULE IJ ONE (11:25)
--- NOTE | 2024-06-29 11:46 | DVH ---
Date: 06/29/2024 11:25 AM Examination: XY KUB ABDOMEN SINGLE VIEW History: SURGERY, pain Comparison: None TECHNIQUE: Frontal views of the abdomen was obtained. FINDINGS/IMPRESSION: Bowel gas pattern is unremarkable. No radiopaque surgical instruments visualized. Surgical drain is visualized in the abdomen. Surgical skin cecy are visualized. Partially visualized enteric tube tip projects over the expected region of the stomach. Lung base is collimated from field of view.
[2024-06-29] MEDS: HYDROmorphone HCL 2 MG/ML VL/or syr IV PRN ×2 (12:09→17:35)
[2024-06-29] MEDS: ACCU-CHEK COMFORT CURVE STRIP VI ONE (12:57)
--- NOTE | 2024-06-29 13:07 | DVHPN2 ---
Reviewed: Care Plan, H&P, Labs, Medications, Previous Orders, Radiology Changes from previous H/P or p: No Changes Objective Vitals Vital Signs Date Time Temp Pulse Resp B/P (MAP) Pulse Ox O2 Delivery O2 Flow Rate FiO2 06/29/24 12:50 Nasal Cannula 2.0 06/29/24 12:40 60 11 108/49 (68) 99 06/29/24 11:55 97.6 97.6 06/29/24 08:00 21 Intake/Output Intake and Output 06/29/24 07:00 Intake Total 2370 ml Balance 2370 ml Intake Oral 1370 ml IV Total 1000 ml # Voids 6 # Bowel Movements 5 Medications Current Medications Medications Dose Ordered Sig/Albert Route Start Time Stop Time Status Last Admin Dose Admin Sennosides 17.2 mg DAILY PO 06/24/24 18:30 06/28/24 09:30 17.2 MG Docusate Sodium 100 mg DAILY PO 06/24/24 18:30 06/28/24 09:34 100 MG Polyethylene Glycol 17 gm DAILY PO 06/24/24 18:30 06/28/24 09:30 17 GM Sodium Chloride 10 ml Q8HR IV 06/24/24 22:00 06/29/24 05:42 10 ML Acetaminophen 650 mg Q6HP PRN PO 06/24/24 18:30 06/27/24 10:20 650 MG Ondansetron HCl 4 mg Q4HP PRN IV 06/24/24 18:30 Nitroglycerin 0.4 mg Q5MINP PRN SL 06/24/24 18:30 Morphine Sulfate 2 mg Q30M PRN IV 06/24/24 18:30 06/25/24 02:11 2 MG Fluoxetine HCl 20 mg DAILY PO 06/25/24 10:00 06/28/24 09:34 20 MG Fluticasone Propionate 50 mcg DAILY NA 06/25/24 10:00 Gabapentin 400 mg TID PO 06/24/24 22:00 06/28/24 21:55 400 MG Atorvastatin Calcium 20 mg HS PO 06/24/24 22:00 06/28/24 21:55 20 MG Isosorbide Mononitrate 30 mg DAILY PO 06/26/24 10:00 06/27/24 10:21 30 MG Sodium Chloride 1,000 ml @ 100 mls/hr Q10H IV 06/27/24 11:00 06/29/24 04:58 100 MLS/HR Acetaminophen/ Hydrocodone Bitart 1 tab Q4HPRN PRN PO 06/27/24 11:00 06/29/24 04:56 1 TAB Laboratory Results Laboratory Tests 06/29/24 05:33 Chemistry Test 06/29/24 05:33 Albumin 3.8 g/dL (3.2-4.8) Calcium Level 9.4 mg/dL (8.7-10.4) Total Protein 6.0 g/dL (5.7-8.2) Coagulation Test 06/29/24 05:33 Prothrombin Time 10.9 sec (9.3-11.8) Prothrombin Time INR 1.03 (0.9-1.15) Activated Partial Thromboplast Time 28.3 SEC (24.5-34.5) LFT Test 06/29/24 05:33 Alanine Aminotransferase (ALT) < 9 U/L (7-40) Alkaline Phosphatase 79 U/L (46-116) Aspartate Amino Transferase (AST) 13 U/L (13-40) Total Bilirubin 0.4 mg/dL (0.2-1.0) Urinalysis Test 06/24/24 20:00 Urine Color Light-yellow (Yellow) Urine Clarity Clear (Clear) Urine pH 6.0 (5.0-9.0) Urine Specific [place] 1.015 (1.001-1.035) Urine Protein Negative (Negative) Urine Ketones Negative (Negative) Urine Blood Negative /uL (Negative) Urine Nitrite Negative (Negative) Urine Bilirubin Negative (Negative) Urine Urobilinogen Normal mg/dL (Negative) Urine Leukocyte Esterase 1+ /uL (Negative) Urine RBC 1 /hpf (0 - 4) Urine Microscopic WBC 1 /HPF (0-5) Urine Squamous Epithelial Cells Few /hpf (<5) Urine Bacteria None seen /hpf (None Seen) Urine Glucose Normal mg/dL (Normal) Labs and/or images reviewed: Labs reviewed by me, Image(s) reviewed by me Assessment/Plan Assessment/Plan Chest pain possibly microvascular disease, cardiology cleared for ventral hernia surgery Rule out structural heart disease Presence of dual-chamber pacemaker for symptomatic bradycardia 2010 Insulin-dependent diabetes mellitus Hypertension Dyslipidemia History of CVA on Plavix COPD Obesity Abdominal pain with the Ventral hernia: Status post hernia repair by Dr. Espinoza on 06/29/2024 Plan discussed with: Patient Date of Service: Jun 29, 2024 Billing Provider: ISAMAR ANDERSON MD Common Visit Codes: [id number] INP/OBS CARE(HIGH) ISAMAR ANDERSON MD Jun 29, 2024 13:07
--- NOTE | 2024-06-29 14:40 | ECG ---
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
--- NOTE | 2024-06-29 14:44 | DVHOP2 ---
Operative Report - 2 Report Details Date: 06/29/24 Preop Diagnosis: 1. Incarcerated incisional hernia with bowel involvement. Postop Diagnosis: 1. Same Surgeon: Vivien Espinoza MD E Commerce Manager: None Anesthesiologist: Ismael Garza CRNA Anesthesia: General, Local Drains: 15 Dutch Earnest drain Implant: Symbotex 15 cm mesh Consent: The surgery and its risks including but not limited to infection, bleeding requiring possible blood transfusion with the risk of hepatitis or HIV infection, possible hernia recurrence, possible bowel injury, possible MN or CVA were explained to the patient and her . All questions were answered to their satisfaction. The patient expressed verbal understanding and wished to proceed with the surgery. Complications: None Estimated Blood Loss: 100 mL Fluids: 1200 mL Findings: Rectus diastasis in the superior edge with a 10 cm fascial defect with very retracted fascial edges. Name of Procedure Performed Incision hernia repair with mesh Procedure Details Procedure Details: After induction of general anesthesia, a Acuna catheter was placed by the OR nursing staff. Patient's abdomen was then prepped and draped in standard surgical fashion. A midline incision was made over the previous incisional scar where the hernia was relocated. Incision extended through the soft tissue immediately down to the hernia sac which was opened revealing portion of the colon in the hernia sac. This was released from the fascial edges and reduced back into the abdominal cavity. The hernia sac was then excised sent off to pathology. The fascial defect measuring roughly 10 cm in size. The inferior edge was then loosen up the the fascial edges were brought together making the fascial defect slightly smaller using interrupted 1. Ethibond sutures. Patient had a moderate-sized diastasis recti of the upper portion of the fascial defect. A 15 cm Symbotex mesh which was the largest mesh to be had at at the time of surgery was used for the repair. This was 1st soaked in Ancef irrigation placing underneath the fascia and secured to the underside of the fascia using 1. Ethibond sutures circumferentially. A 2nd layer of 0 Vicryl sutures were used to reinforce the edge of the fascia to the mesh circumferentially as well. Surgical site was irrigated with Ancef irrigation and a 15 Dutch Earnest drain was placed on top of the mesh and brought out through a separate stab incision in the right lower quadrant and secured to the skin using 3-0 nylon sutures. Overlying soft tissue was reapproximated using interrupted 2-0 Vicryl sutures and skin incision was then closed using cecy. Surgical sites were cleaned and dried dressings were applied. Sponge, needle, instrument count at the end of the case were reported to be correct by the nursing staff. The patient ronda ated procedure well and was awakened, extubated and transferred to recovery in stable condition. Specimen: Hernia sac Condition Stable Disposition Still a Patient VIVIEN ESPINOZA MD Jun 29, 2024 14:44
[2024-06-29] MEDS: ceFAZolin 1GM/50ML 50 ML IV SCH (21:43)
[2024-06-30] VITALS (8 sets, daily range): BP systolic 102–135; BP diastolic 46–62; PULSE 50–74; RESP 16–20; TEMP 98–98.9; O2SAT 92–98
[2024-06-30 06:24] LABS: Basophils # (auto) 0 10 ^3/uL (0-0.2); Basophils % (auto) 0.2 % (0.0-2.0); Eosinophils # (auto) 0 10 ^3/uL (0-0.8); Hemoglobin 10.6 g/dL (12.2-16.2); Lymphocytes # (auto) 1.4 10 ^3/uL (0.4-5.4); Mean Corpuscular Hemoglobin 26.5 pg (28.0-32.0); Mean Corpuscular Hgb Conc. 32.2 g/dL (32.0-36.0); Mean Corpuscular Volume 82.5 fL (80.0-100.0)
[2024-06-30 06:28] LABS: Lymphocytes % (auto) 11.5 % (10.0-50.0); Neutrophils # (auto) 9.6 10 ^3/uL (1.6-8.6); Neutrophils % (auto) 80.3 % (37.0-80.0); Platelet Count (auto) 291 10^3/uL (140-450); Red Cell Distribution Width 15.1 % (11.8-14.3); White Blood Cell 11.9 10^3/uL (4.4-10.8)
[2024-06-30 06:31] LABS: Anion Gap 10 (5-15); Calcium 9.3 mg/dL (8.7-10.4); Carbon Dioxide 23 mmol/L (20-31); Chloride 106 mmol/L (98-107); Potassium 3.8 mmol/L (3.5-5.1); Sodium 139 mmol/L (136-145)
[2024-06-30 06:37] LABS: BUN/Creatinine Ratio 12.5 (10.0-20.0); Blood Urea Nitrogen 12 mg/dL (9-23)
[2024-06-30 06:38] LABS: Glucose 122 mg/dL (74-106)
--- NOTE | 2024-06-30 07:47 | DVHPN2 ---
Progress Note - Dictate Date Seen: Jun 30, 2024 Medical Necessity Reason Pt with a Central, PICC or Fol: No Subjective E: no major events o/n. c/o abd pain. vital signs Vital Sign Date Time Temp Pulse Resp B/P (MAP) Pulse Ox O2 Delivery O2 Flow Rate FiO2 06/30/24 05:00 98.4 65 16 107/46 (66) 98.4 06/30/24 01:00 98 06/29/24 20:00 Room Air* 0 21 Total Intake and Output 06/29/24 06/29/24 06/30/24 15:00 23:00 07:00 Intake Total 200 ml 300 ml 100 ml Output Total 340 ml 375 ml Balance -140 ml 300 ml -275 ml medications Current Medications Medications Dose Ordered Sig/Albert Route Start Time Stop Time Status Last Admin Dose Admin Sennosides 17.2 mg DAILY PO 06/24/24 18:30 06/28/24 09:30 17.2 MG Docusate Sodium 100 mg DAILY PO 06/24/24 18:30 06/28/24 09:34 100 MG Polyethylene Glycol 17 gm DAILY PO 06/24/24 18:30 06/28/24 09:30 17 GM Sodium Chloride 10 ml Q8HR IV 06/24/24 22:00 06/30/24 05:46 10 ML Acetaminophen 650 mg Q6HP PRN PO 06/24/24 18:30 06/27/24 10:20 650 MG Ondansetron HCl 4 mg Q4HP PRN IV 06/24/24 18:30 Nitroglycerin 0.4 mg Q5MINP PRN SL 06/24/24 18:30 Morphine Sulfate 2 mg Q30M PRN IV 06/24/24 18:30 06/25/24 02:11 2 MG Fluoxetine HCl 20 mg DAILY PO 06/25/24 10:00 06/28/24 09:34 20 MG Fluticasone Propionate 50 mcg DAILY NA 06/25/24 10:00 Gabapentin 400 mg TID PO 06/24/24 22:00 06/28/24 21:55 400 MG Atorvastatin Calcium 20 mg HS PO 06/24/24 22:00 06/28/24 21:55 20 MG Isosorbide Mononitrate 30 mg DAILY PO 06/26/24 10:00 06/27/24 10:21 30 MG Sodium Chloride 1,000 ml @ 100 mls/hr Q10H IV 06/27/24 11:00 06/30/24 02:00 100 MLS/HR Cefazolin Sodium 50 ml @ 100 mls/hr Q8HR IV 06/29/24 22:00 06/30/24 05:45 100 MLS/HR Hydromorphone HCl 1 mg Q4HPRN PRN IV 06/29/24 17:00 06/30/24 02:24 1 MG objective GEN: NAD ABD: surgical dressing clean and dry. SIERRA 20 mL laboratory and microbiology Laboratory Tests 06/30/24 05:31 Test 06/30/24 05:31 Range/Units Serum Glucose 122 H 74-106 mg/dL Assessment/Plan A: 1. s/p incisional hernia repair with mesh POD #1 P: 1. cont curr tx 2. PT eval tomorrow. Dietary Evaluation Review Comments: 1) Add 60g CCHO restriction to cardiac diet order 2) Continue to promote adequate PO intake 3) Collect HbA1c 4) F/u with cardiology Expected Outcomes/Goals: 1) appetite and labs to improve 2) f/u in 3-5 days Plan discussed with: Patient VIVIEN STARKEY MD Jun 30, 2024 07:47
--- NOTE | 2024-06-30 13:01 | DVHPN2 ---
Reviewed: Care Plan, H&P, Labs, Medications, Previous Orders, Radiology Changes from previous H/P or p: No Changes Objective Vitals Vital Signs Date Time Temp Pulse Resp B/P (MAP) Pulse Ox O2 Delivery O2 Flow Rate FiO2 06/30/24 09:00 98.1 74 20 124/62 (82) 94 98.1 06/29/24 20:00 Room Air* 0 21 Intake/Output Intake and Output 06/30/24 07:00 Intake Total 600 ml Output Total 740 ml Balance -140 ml Intake Oral 200 ml IV Total 400 ml Output Urine Total 675 ml Drainage Total 65 ml Medications Current Medications Medications Dose Ordered Sig/Albert Route Start Time Stop Time Status Last Admin Dose Admin Sennosides 17.2 mg DAILY PO 06/24/24 18:30 06/28/24 09:30 17.2 MG Docusate Sodium 100 mg DAILY PO 06/24/24 18:30 06/28/24 09:34 100 MG Polyethylene Glycol 17 gm DAILY PO 06/24/24 18:30 06/28/24 09:30 17 GM Sodium Chloride 10 ml Q8HR IV 06/24/24 22:00 06/30/24 05:46 10 ML Acetaminophen 650 mg Q6HP PRN PO 06/24/24 18:30 06/27/24 10:20 650 MG Ondansetron HCl 4 mg Q4HP PRN IV 06/24/24 18:30 Nitroglycerin 0.4 mg Q5MINP PRN SL 06/24/24 18:30 Morphine Sulfate 2 mg Q30M PRN IV 06/24/24 18:30 06/25/24 02:11 2 MG Fluoxetine HCl 20 mg DAILY PO 06/25/24 10:00 06/28/24 09:34 20 MG Fluticasone Propionate 50 mcg DAILY NA 06/25/24 10:00 Gabapentin 400 mg TID PO 06/24/24 22:00 06/28/24 21:55 400 MG Atorvastatin Calcium 20 mg HS PO 06/24/24 22:00 06/28/24 21:55 20 MG Isosorbide Mononitrate 30 mg DAILY PO 06/26/24 10:00 06/27/24 10:21 30 MG Sodium Chloride 1,000 ml @ 100 mls/hr Q10H IV 06/27/24 11:00 06/30/24 02:00 100 MLS/HR Cefazolin Sodium 50 ml @ 100 mls/hr Q8HR IV 06/29/24 22:00 06/30/24 05:45 100 MLS/HR Hydromorphone HCl 1 mg Q4HPRN PRN IV 06/29/24 17:00 06/30/24 07:48 1 MG Laboratory Results Laboratory Tests 06/30/24 05:31 Chemistry Test 06/30/24 05:31 Calcium Level 9.3 mg/dL (8.7-10.4) Urinalysis Test 06/24/24 20:00 Urine Color Light-yellow (Yellow) Urine Clarity Clear (Clear) Urine pH 6.0 (5.0-9.0) Urine Specific [place] 1.015 (1.001-1.035) Urine Protein Negative (Negative) Urine Ketones Negative (Negative) Urine Blood Negative /uL (Negative) Urine Nitrite Negative (Negative) Urine Bilirubin Negative (Negative) Urine Urobilinogen Normal mg/dL (Negative) Urine Leukocyte Esterase 1+ /uL (Negative) Urine RBC 1 /hpf (0 - 4) Urine Microscopic WBC 1 /HPF (0-5) Urine Squamous Epithelial Cells Few /hpf (<5) Urine Bacteria None seen /hpf (None Seen) Urine Glucose Normal mg/dL (Normal) Labs and/or images reviewed: Labs reviewed by me, Image(s) reviewed by me Assessment/Plan Assessment/Plan Incision hernia status post repair with mesh by Dr Espinoza Chest pain possibly microvascular disease, Rule out structural heart disease Presence of dual-chamber pacemaker for symptomatic bradycardia 2010 Insulin-dependent diabetes mellitus Hypertension Dyslipidemia History of CVA on Plavix COPD Obesity Harish [phone] at bedside Plan discussed with: Patient My Orders Orders - ISAMAR ANDERSON MD Procedure Category Date Status Time Hydromorphone PHA 06/29/24 In Process Injection (Dilaudid 17:00 Date of Service: Jun 30, 2024 Billing Provider: ISAMAR ANDERSON MD Common Visit Codes: [id number] INP/OBS CARE(HIGH) ISAMAR ANDERSON MD Jun 30, 2024 13:01
--- NOTE | 2024-06-30 14:12 | DVH ---
EXAM: XY CHEST XRAY 1 VIEW Indication: NG tube placement Technique: Single frontal view of the chest was obtained Comparison: XY CHEST PORTABLE on DOS: 06/24/24, XY CHEST XRAY 1 VIEW on DOS: 03/06/24, XY CHEST PORTAB LE on DOS: 02/12/24, XY CHEST PORTABLE on DOS: 08/16/23 FINDINGS: Lines and Tubes: Cardiac pacemaker projects over left chest wall. Enteric tube tip projects over the expected region of the stomach. Lungs: No focal consolidation. Pleura: No effusion. No pneumothorax. Cardiomediastinal contours: The upper thorax is collimated from field of view. Bones: No acute osseous abnormality. IMPRESSION: Enteric tube in appropriate position.
[2024-07-01] VITALS (7 sets, daily range): BP systolic 111–148; BP diastolic 48–72; PULSE 60–68; RESP 16–18; TEMP 98–98.4; O2SAT 95–100
--- NOTE | 2024-07-01 03:14 | DVH ---
Examination: HWOCT CLINICAL INDICATION: ALOC. COMPARISON: None. CONTRAST USED: None. TECHNIQUE: The examination was performed obtaining 5 mm slices without contrast. CT scan done accor ding to ALARA (As Low as Reasonably Achievable). Multiplanar reconstructions were obtained. FINDINGS: SUPRATENTORIAL BRAIN: Cerebral Hemispheres: Mild age-related degenerative change with prominent sulci and basilar cisterns. Diffuse hypoattenuation in the deep periventricular white matter and in the jang radiata sequela of chronic microvascular ischemic disease. There is no midline shift or mass effect, intra or extra-axial fluid collections or hemorrhage. No acute abnormality in the basal ganglia. POSTERIOR FOSSA: The brainstem is normal and the visualized cerebellar hemispheres are unremarkable. VENTRICULAR SYSTEM: The ventricular system is normal in size. There is no evidence of hydrocephalus o r transependymal flow of cerebrospinal fluid. SKULL BASE AND PARASELLAR REGION: The skull base is normal with no parasellar masses or abnormalities identified. Atherosclerotic calcification of the vertebral arteries and cavernous portion of bilate ral internal carotid arteries. CALVARIUM AND SCALP REGION: No abnormality is seen. PARANASAL SINUSES: Deviated nasal septum towards left. Partially visualized mucosal polyp in the le ft maxillary sinus. Remainder of the paranasal sinuses and mastoid air cells are clear. Nasogastric tube is identified in the nasopharynx. IMPRESSION: 1. Age-related degenerative change. Changes of chronic microvascular ischemic disease. 2. No acute intracranial abnormality or mass lesion. Early changes of stroke may not be detected on CT scan, if strong clinical suspicion then suggest MRI with diffusion-weighted imaging. Electronically Signed 07/01/2024 03:13 Ace King
[2024-07-01 08:11] LABS: Basophils # (auto) 0 10 ^3/uL (0-0.2); Basophils % (auto) 0.5 % (0.0-2.0); Eosinophils # (auto) 0 10 ^3/uL (0-0.8); Eosinophils % (auto) 0.3 % (0.0-7.0); Hematocrit 30.2 % (36.0-46.0); Hemoglobin 9.9 g/dL (12.2-16.2); Lymphocytes # (auto) 1.3 10 ^3/uL (0.4-5.4); Lymphocytes % (auto) 15.3 % (10.0-50.0); Mean Corpuscular Hgb Conc. 32.9 g/dL (32.0-36.0); Mean Corpuscular Volume 82.3 fL (80.0-100.0); Monocytes # (auto) 0.6 10 ^3/uL (0-1.3); Monocytes % (auto) 7.5 % (0.0-12.0); Neutrophils # (auto) 6.5 10 ^3/uL (1.6-8.6); Neutrophils % (auto) 76.4 % (37.0-80.0); Platelet Count (auto) 289 10^3/uL (140-450); Red Blood Cells 3.68 10^6/uL (4.0-5.20); Red Cell Distribution Width 15.3 % (11.8-14.3); White Blood Cell 8.5 10^3/uL (4.4-10.8)
[2024-07-01 08:12] LABS: Anion Gap 9 (5-15); Carbon Dioxide 22 mmol/L (20-31); Chloride 106 mmol/L (98-107); Potassium 4.1 mmol/L (3.5-5.1); Sodium 137 mmol/L (136-145)
[2024-07-01 08:13] LABS: Calcium 9.1 mg/dL (8.7-10.4)
[2024-07-01 08:18] LABS: BUN/Creatinine Ratio 12.2 (10.0-20.0); Blood Urea Nitrogen 10 mg/dL (9-23)
[2024-07-01 08:32] LABS: Glucose 128 mg/dL (74-106)
--- NOTE | 2024-07-01 11:34 | DVHPN2 ---
Reviewed: Care Plan, H&P, Labs, Medications, Previous Orders, Radiology Changes from previous H/P or p: No Changes Objective Vitals Vital Signs Date Time Temp Pulse Resp B/P (MAP) Pulse Ox O2 Delivery O2 Flow Rate FiO2 07/01/24 05:38 63 17 132/66 07/01/24 05:00 98.0 97 98.0 06/30/24 20:00 Room Air* 0 21 Intake/Output Intake and Output 07/01/24 07:00 Intake Total 250 ml Output Total 1350 ml Balance -1100 ml Intake Oral 0 ml IV Total 250 ml Output Urine Total 1350 ml Medications Current Medications Medications Dose Ordered Sig/Albert Route Start Time Stop Time Status Last Admin Dose Admin Sennosides 17.2 mg DAILY PO 06/24/24 18:30 06/28/24 09:30 17.2 MG Docusate Sodium 100 mg DAILY PO 06/24/24 18:30 06/28/24 09:34 100 MG Polyethylene Glycol 17 gm DAILY PO 06/24/24 18:30 06/28/24 09:30 17 GM Sodium Chloride 10 ml Q8HR IV 06/24/24 22:00 07/01/24 05:08 10 ML Acetaminophen 650 mg Q6HP PRN PO 06/24/24 18:30 06/27/24 10:20 650 MG Ondansetron HCl 4 mg Q4HP PRN IV 06/24/24 18:30 Nitroglycerin 0.4 mg Q5MINP PRN SL 06/24/24 18:30 Morphine Sulfate 2 mg Q30M PRN IV 06/24/24 18:30 06/25/24 02:11 2 MG Fluoxetine HCl 20 mg DAILY PO 06/25/24 10:00 06/28/24 09:34 20 MG Fluticasone Propionate 50 mcg DAILY NA 06/25/24 10:00 Gabapentin 400 mg TID PO 06/24/24 22:00 06/28/24 21:55 400 MG Atorvastatin Calcium 20 mg HS PO 06/24/24 22:00 06/28/24 21:55 20 MG Isosorbide Mononitrate 30 mg DAILY PO 06/26/24 10:00 06/27/24 10:21 30 MG Sodium Chloride 1,000 ml @ 100 mls/hr Q10H IV 06/27/24 11:00 07/01/24 04:47 100 MLS/HR Cefazolin Sodium 50 ml @ 100 mls/hr Q8HR IV 06/29/24 22:00 07/01/24 05:07 100 MLS/HR Hydromorphone HCl 1 mg Q4HPRN PRN IV 06/29/24 17:00 07/01/24 05:08 1 MG Laboratory Results Laboratory Tests 07/01/24 07:19 Chemistry Test 07/01/24 07:19 Calcium Level 9.1 mg/dL (8.7-10.4) Urinalysis Test 06/24/24 20:00 Urine Color Light-yellow (Yellow) Urine Clarity Clear (Clear) Urine pH 6.0 (5.0-9.0) Urine Specific [place] 1.015 (1.001-1.035) Urine Protein Negative (Negative) Urine Ketones Negative (Negative) Urine Blood Negative /uL (Negative) Urine Nitrite Negative (Negative) Urine Bilirubin Negative (Negative) Urine Urobilinogen Normal mg/dL (Negative) Urine Leukocyte Esterase 1+ /uL (Negative) Urine RBC 1 /hpf (0 - 4) Urine Microscopic WBC 1 /HPF (0-5) Urine Squamous Epithelial Cells Few /hpf (<5) Urine Bacteria None seen /hpf (None Seen) Urine Glucose Normal mg/dL (Normal) Labs and/or images reviewed: Labs reviewed by me, Image(s) reviewed by me Assessment/Plan Assessment/Plan Incisional hernia status post repair with mesh by Dr Espinoza Chest pain possibly microvascular disease, Rule out structural heart disease Presence of dual-chamber pacemaker for symptomatic bradycardia 2010 Insulin-dependent diabetes mellitus Hypertension Depression On Prozac and Lexapro Dyslipidemia History of CVA on Plavix COPD Obesity Harish [phone] at bedside Patient is agitated confused and aggressive and making accusations paranoid, non cooperative with the medication management: Tele psych consult placed MICHELLE Mari at bed side. Plan discussed with: Patient My Orders Orders - ISAMAR ANDERSON MD Procedure Category Date Status Time Chest Xray 1 View XY 06/30/24 Resulted 13:39 Date of Service: Jul 01, 2024 Billing Provider: ISAMAR ANDERSON MD Common Visit Codes: [id number] INP/OBS CARE(HIGH) ISAMAR ANDERSON MD Jul 01, 2024 11:34
[2024-07-02] VITALS (9 sets, daily range): BP systolic 91–141; BP diastolic 50–81; PULSE 62–74; RESP 17–19; TEMP 97.7–98.4; O2SAT 95–98
--- NOTE | 2024-07-02 12:52 | DVHPN2 ---
Progress Note - Dictate Date Seen: Jul 02, 2024 Medical Necessity Reason Pt with a Central, PICC or Fol: No Subjective E: no major events o/n. no complaints. denies abd pain. reports flatus. NGT has been off suction o/n. vital signs Vital Sign Date Time Temp Pulse Resp B/P (MAP) Pulse Ox O2 Delivery O2 Flow Rate FiO2 07/02/24 10:00 141/76 07/02/24 05:02 98.4 64 17 98 98.4 07/01/24 20:00 Room Air* 0 21 Total Intake and Output 07/01/24 07/01/24 07/02/24 14:59 22:59 06:59 Intake Total 0 ml 100 ml Output Total 1200 ml 950 ml Balance -1200 ml -850 ml medications Current Medications Medications Dose Ordered Sig/Albert Route Start Time Stop Time Status Last Admin Dose Admin Sennosides 17.2 mg DAILY PO 06/24/24 18:30 06/28/24 09:30 17.2 MG Docusate Sodium 100 mg DAILY PO 06/24/24 18:30 06/28/24 09:34 100 MG Polyethylene Glycol 17 gm DAILY PO 06/24/24 18:30 06/28/24 09:30 17 GM Sodium Chloride 10 ml Q8HR IV 06/24/24 22:00 07/02/24 06:31 10 ML Acetaminophen 650 mg Q6HP PRN PO 06/24/24 18:30 06/27/24 10:20 650 MG Ondansetron HCl 4 mg Q4HP PRN IV 06/24/24 18:30 Nitroglycerin 0.4 mg Q5MINP PRN SL 06/24/24 18:30 Morphine Sulfate 2 mg Q30M PRN IV 06/24/24 18:30 06/25/24 02:11 2 MG Fluoxetine HCl 20 mg DAILY PO 06/25/24 10:00 07/02/24 09:59 20 MG Fluticasone Propionate 50 mcg DAILY NA 06/25/24 10:00 Gabapentin 400 mg TID PO 06/24/24 22:00 06/28/24 21:55 400 MG Atorvastatin Calcium 20 mg HS PO 06/24/24 22:00 06/28/24 21:55 20 MG Isosorbide Mononitrate 30 mg DAILY PO 06/26/24 10:00 07/02/24 10:00 30 MG Sodium Chloride 1,000 ml @ 100 mls/hr Q10H IV 06/27/24 11:00 07/02/24 01:00 100 MLS/HR Cefazolin Sodium 50 ml @ 100 mls/hr Q8HR IV 06/29/24 22:00 07/02/24 06:00 100 MLS/HR Hydromorphone HCl 1 mg Q4HPRN PRN IV 06/29/24 17:00 07/01/24 23:26 1 MG objective GEN: NAD ABD: surgical incision clean and dry. SIERRA scant output. laboratory and microbiology Laboratory Tests 07/01/24 07:19 Test 07/01/24 07:19 Range/Units Serum Glucose 128 H 74-106 mg/dL Assessment/Plan A: 1. s/p incisional hernia repair with mesh POD #3 doing well. P: 1. dc NGT and guzman 2. clear liquid diet 3. PT eval. Dietary Evaluation Review Comments: 1) Add 60g CCHO restriction to cardiac diet order 2) Continue to promote adequate PO intake 3) Collect HbA1c 4) F/u with cardiology Expected Outcomes/Goals: 1) appetite and labs to improve 2) f/u in 3-5 days Plan discussed with: Patient VIVIEN STARKEY MD Jul 02, 2024 12:52
--- NOTE | 2024-07-02 13:02 | DVHPN2 ---
Reviewed: Care Plan, H&P, Labs, Medications, Previous Orders, Radiology Changes from previous H/P or p: No Changes Objective Vitals Vital Signs Date Time Temp Pulse Resp B/P (MAP) Pulse Ox O2 Delivery O2 Flow Rate FiO2 07/02/24 10:00 141/76 07/02/24 05:02 98.4 64 17 98 98.4 07/01/24 20:00 Room Air* 0 21 Intake/Output Intake and Output 07/02/24 07:00 Intake Total 100 ml Output Total 2150 ml Balance -2050 ml Intake Oral 0 ml IV Total 100 ml Output Urine Total 2150 ml Medications Current Medications Medications Dose Ordered Sig/Albert Route Start Time Stop Time Status Last Admin Dose Admin Sennosides 17.2 mg DAILY PO 06/24/24 18:30 06/28/24 09:30 17.2 MG Docusate Sodium 100 mg DAILY PO 06/24/24 18:30 06/28/24 09:34 100 MG Polyethylene Glycol 17 gm DAILY PO 06/24/24 18:30 06/28/24 09:30 17 GM Sodium Chloride 10 ml Q8HR IV 06/24/24 22:00 07/02/24 06:31 10 ML Acetaminophen 650 mg Q6HP PRN PO 06/24/24 18:30 06/27/24 10:20 650 MG Ondansetron HCl 4 mg Q4HP PRN IV 06/24/24 18:30 Nitroglycerin 0.4 mg Q5MINP PRN SL 06/24/24 18:30 Morphine Sulfate 2 mg Q30M PRN IV 06/24/24 18:30 06/25/24 02:11 2 MG Fluoxetine HCl 20 mg DAILY PO 06/25/24 10:00 07/02/24 09:59 20 MG Fluticasone Propionate 50 mcg DAILY NA 06/25/24 10:00 Gabapentin 400 mg TID PO 06/24/24 22:00 06/28/24 21:55 400 MG Atorvastatin Calcium 20 mg HS PO 06/24/24 22:00 06/28/24 21:55 20 MG Isosorbide Mononitrate 30 mg DAILY PO 06/26/24 10:00 07/02/24 10:00 30 MG Hydromorphone HCl 1 mg Q4HPRN PRN IV 06/29/24 17:00 07/01/24 23:26 1 MG Sodium Chloride 1,000 ml @ 50 mls/hr Q20H IV 07/02/24 13:00 UNV Laboratory Results Laboratory Tests 07/01/24 07:19 Urinalysis Test 06/24/24 20:00 Urine Color Light-yellow (Yellow) Urine Clarity Clear (Clear) Urine pH 6.0 (5.0-9.0) Urine Specific [place] 1.015 (1.001-1.035) Urine Protein Negative (Negative) Urine Ketones Negative (Negative) Urine Blood Negative /uL (Negative) Urine Nitrite Negative (Negative) Urine Bilirubin Negative (Negative) Urine Urobilinogen Normal mg/dL (Negative) Urine Leukocyte Esterase 1+ /uL (Negative) Urine RBC 1 /hpf (0 - 4) Urine Microscopic WBC 1 /HPF (0-5) Urine Squamous Epithelial Cells Few /hpf (<5) Urine Bacteria None seen /hpf (None Seen) Urine Glucose Normal mg/dL (Normal) Labs and/or images reviewed: Labs reviewed by me, Image(s) reviewed by me Assessment/Plan Assessment/Plan Incisional hernia status post repair with mesh by Dr Olga Espinoza advised to remove the Acuna and NG liquid diet and physical therapy Chest pain possibly microvascular disease, Rule out structural heart disease Presence of dual-chamber pacemaker for symptomatic bradycardia 2010 Insulin-dependent diabetes mellitus Hypertension Depression On Prozac and Lexapro Dyslipidemia History of CVA on Plavix COPD Obesity Harish [phone] at bedside Patient is behaving normally today, tele psych consult canceled MICHELLE Escobar at bed side. Plan discussed with: Patient Date of Service: Jul 02, 2024 Billing Provider: ISAMAR ANDERSON MD Common Visit Codes: [id number] INP/OBS CARE(HIGH) ISAMAR ANDERSON MD Jul 02, 2024 13:02
[2024-07-02] MEDS: SODIUM CHLORIDE 0.9% 1,000 ML IV SCH (14:49)
[2024-07-03] VITALS (8 sets, daily range): BP systolic 92–131; BP diastolic 45–64; PULSE 60–69; RESP 18–19; TEMP 97.3–98.2; O2SAT 93–100
--- NOTE | 2024-07-03 11:15 | DVHPN2 ---
Reviewed: Care Plan, H&P, Labs, Medications, Previous Orders, Radiology Changes from previous H/P or p: No Changes Objective Vitals Vital Signs Date Time Temp Pulse Resp B/P (MAP) Pulse Ox O2 Delivery O2 Flow Rate FiO2 07/03/24 09:45 68 18 110/56 07/03/24 08:55 97.3 100 97.3 07/03/24 08:00 Room Air* 0 21 Intake/Output Intake and Output 07/03/24 07:00 Intake Total 830 ml Output Total 500 ml Balance 330 ml Intake Oral 580 ml IV Total 250 ml Output Urine Total 500 ml # Voids 3 Medications Current Medications Medications Dose Ordered Sig/Albert Route Start Time Stop Time Status Last Admin Dose Admin Sennosides 17.2 mg DAILY PO 06/24/24 18:30 07/03/24 08:58 17.2 MG Docusate Sodium 100 mg DAILY PO 06/24/24 18:30 07/03/24 08:58 100 MG Polyethylene Glycol 17 gm DAILY PO 06/24/24 18:30 07/03/24 08:57 17 GM Sodium Chloride 10 ml Q8HR IV 06/24/24 22:00 07/03/24 06:23 10 ML Acetaminophen 650 mg Q6HP PRN PO 06/24/24 18:30 06/27/24 10:20 650 MG Ondansetron HCl 4 mg Q4HP PRN IV 06/24/24 18:30 Nitroglycerin 0.4 mg Q5MINP PRN SL 06/24/24 18:30 Morphine Sulfate 2 mg Q30M PRN IV 06/24/24 18:30 06/25/24 02:11 2 MG Fluoxetine HCl 20 mg DAILY PO 06/25/24 10:00 07/03/24 08:58 20 MG Fluticasone Propionate 50 mcg DAILY NA 06/25/24 10:00 Gabapentin 400 mg TID PO 06/24/24 22:00 07/03/24 06:23 400 MG Atorvastatin Calcium 20 mg HS PO 06/24/24 22:00 07/02/24 21:45 20 MG Isosorbide Mononitrate 30 mg DAILY PO 06/26/24 10:00 07/03/24 08:58 30 MG Hydromorphone HCl 1 mg Q4HPRN PRN IV 06/29/24 17:00 07/03/24 09:00 1 MG Sodium Chloride 1,000 ml @ 50 mls/hr Q20H IV 07/02/24 13:00 07/03/24 09:04 50 MLS/HR Laboratory Results Laboratory Tests 07/01/24 07:19 Urinalysis Test 06/24/24 20:00 Urine Color Light-yellow (Yellow) Urine Clarity Clear (Clear) Urine pH 6.0 (5.0-9.0) Urine Specific [place] 1.015 (1.001-1.035) Urine Protein Negative (Negative) Urine Ketones Negative (Negative) Urine Blood Negative /uL (Negative) Urine Nitrite Negative (Negative) Urine Bilirubin Negative (Negative) Urine Urobilinogen Normal mg/dL (Negative) Urine Leukocyte Esterase 1+ /uL (Negative) Urine RBC 1 /hpf (0 - 4) Urine Microscopic WBC 1 /HPF (0-5) Urine Squamous Epithelial Cells Few /hpf (<5) Urine Bacteria None seen /hpf (None Seen) Urine Glucose Normal mg/dL (Normal) Labs and/or images reviewed: Labs reviewed by me, Image(s) reviewed by me Assessment/Plan Assessment/Plan Incisional hernia status post repair with mesh by Dr Olga Espinoza advised to remove the Acuna and NG liquid diet and physical therapy Chest pain possibly microvascular disease, Postop psychosis resolved Rule out structural heart disease Presence of dual-chamber pacemaker for symptomatic bradycardia 2010 Insulin-dependent diabetes mellitus Hypertension Depression On Prozac and Lexapro Dyslipidemia History of CVA on Plavix COPD Obesity Harish [phone] at bedside Patient does not have bowel movement yet, lactulose Physical therapy ordered MICHELLE Merritt at bed side. Plan discussed with: Patient My Orders Orders - ISAMAR ANDERSON MD Procedure Category Date Status Time Pt Request For Service PT 07/02/24 Logged 13:02 Complete Blood Count LAB 07/03/24 Logged 11:03 Comprehensive LAB 07/03/24 Logged Metabolic Panel 11:03 Date of Service: Jul 03, 2024 Billing Provider: ISAMAR ANDERSON MD Common Visit Codes: [id number] INP/OBS CARE(HIGH) ISAMAR ANDERSON MD Jul 03, 2024 11:15
[2024-07-03 12:14] LABS: Basophils # (auto) 0 10 ^3/uL (0-0.2); Basophils % (auto) 0.7 % (0.0-2.0); Eosinophils # (auto) 0.3 10 ^3/uL (0-0.8); Eosinophils % (auto) 4.3 % (0.0-7.0); Hematocrit 31.9 % (36.0-46.0); Hemoglobin 10.5 g/dL (12.2-16.2); Lymphocytes # (auto) 1.6 10 ^3/uL (0.4-5.4); Lymphocytes % (auto) 22.9 % (10.0-50.0); Mean Corpuscular Hgb Conc. 32.8 g/dL (32.0-36.0); Mean Corpuscular Volume 82.1 fL (80.0-100.0); Monocytes # (auto) 0.5 10 ^3/uL (0-1.3); Monocytes % (auto) 7.5 % (0.0-12.0); Neutrophils # (auto) 4.5 10 ^3/uL (1.6-8.6); Neutrophils % (auto) 64.6 % (37.0-80.0); Nucleated Red Blood Cells % 0.1 %; Platelet Count (auto) 305 10^3/uL (140-450); Red Blood Cells 3.88 10^6/uL (4.0-5.20); Red Cell Distribution Width 15.1 % (11.8-14.3)
[2024-07-03 12:32] LABS: Albumin 3.9 g/dL (3.2-4.8); Alkaline Phosphatase 68 U/L (46-116); Anion Gap 7 (5-15); Aspartate Aminotransferase 15 U/L (13-40); BUN/Creatinine Ratio 7.4 (10.0-20.0); Bilirubin, Total 0.4 mg/dL (0.2-1.0); Calcium 9.2 mg/dL (8.7-10.4); Carbon Dioxide 25 mmol/L (20-31); Chloride 103 mmol/L (98-107); Potassium 3.9 mmol/L (3.5-5.1); Total Protein 5.9 g/dL (5.7-8.2)
[2024-07-03 12:35] LABS: Alanine Aminotransferase < 9 U/L (7-40); Blood Urea Nitrogen 6 mg/dL (9-23); Glucose 153 mg/dL (74-106); Sodium 135 mmol/L (136-145)
[2024-07-03] MEDS: LACTULOSE 20Gm/30ML SOLN PO ONE (13:02)
[2024-07-03] MEDS: ZOLPIDEM TARTRATE 5 MG TAB PO PRN (21:30)
[2024-07-04 01:00] VITALS: BP 98/56; PULSE 62; RESP 18; TEMP 97.8; O2SAT 97
[2024-07-04 04:47] VITALS: BP 101/59; PULSE 60; RESP 16; TEMP 97.6; O2SAT 98
[2024-07-04 08:00] VITALS: PULSE 60; PULSE 62; RESP 18
[2024-07-04 09:00] VITALS: BP 107/57; PULSE 62; RESP 16; TEMP 97.7; O2SAT 97
--- NOTE | 2024-07-04 10:31 | DVHPN2 ---
Reviewed: Care Plan, H&P, Labs, Medications, Previous Orders, Radiology Changes from previous H/P or p: No Changes Objective Vitals Vital Signs Date Time Temp Pulse Resp B/P (MAP) Pulse Ox O2 Delivery O2 Flow Rate FiO2 07/04/24 09:54 107/62 07/04/24 04:47 97.6 60 16 98 97.6 07/03/24 20:00 Room Air* 0 21 Intake/Output Intake and Output 07/04/24 07:00 Intake Total 1850 ml Output Total 1 ml Balance 1849 ml Intake Oral 500 ml IV Total 1350 ml Stool Total 1 ml # Voids 3 Medications Current Medications Medications Dose Ordered Sig/Albert Route Start Time Stop Time Status Last Admin Dose Admin Sennosides 17.2 mg DAILY PO 06/24/24 18:30 07/04/24 09:54 17.2 MG Docusate Sodium 100 mg DAILY PO 06/24/24 18:30 07/04/24 09:54 100 MG Polyethylene Glycol 17 gm DAILY PO 06/24/24 18:30 07/04/24 09:52 17 GM Sodium Chloride 10 ml Q8HR IV 06/24/24 22:00 07/04/24 05:46 10 ML Acetaminophen 650 mg Q6HP PRN PO 06/24/24 18:30 07/03/24 21:29 650 MG Ondansetron HCl 4 mg Q4HP PRN IV 06/24/24 18:30 Nitroglycerin 0.4 mg Q5MINP PRN SL 06/24/24 18:30 Morphine Sulfate 2 mg Q30M PRN IV 06/24/24 18:30 06/25/24 02:11 2 MG Fluoxetine HCl 20 mg DAILY PO 06/25/24 10:00 07/04/24 09:55 20 MG Fluticasone Propionate 50 mcg DAILY NA 06/25/24 10:00 Gabapentin 400 mg TID PO 06/24/24 22:00 07/04/24 05:46 400 MG Atorvastatin Calcium 20 mg HS PO 06/24/24 22:00 07/03/24 21:28 20 MG Isosorbide Mononitrate 30 mg DAILY PO 06/26/24 10:00 07/04/24 09:54 30 MG Hydromorphone HCl 1 mg Q4HPRN PRN IV 06/29/24 17:00 07/03/24 22:21 1 MG Sodium Chloride 1,000 ml @ 50 mls/hr Q20H IV 07/02/24 13:00 07/04/24 05:47 50 MLS/HR Zolpidem Tartrate 10 mg HSPRN PRN PO 07/03/24 11:30 07/03/24 21:30 10 MG Laboratory Results Laboratory Tests 07/03/24 11:55 Chemistry Test 07/03/24 11:55 Albumin 3.9 g/dL (3.2-4.8) Calcium Level 9.2 mg/dL (8.7-10.4) Total Protein 5.9 g/dL (5.7-8.2) LFT Test 07/03/24 11:55 Alanine Aminotransferase (ALT) < 9 U/L (7-40) Alkaline Phosphatase 68 U/L (46-116) Aspartate Amino Transferase (AST) 15 U/L (13-40) Total Bilirubin 0.4 mg/dL (0.2-1.0) Urinalysis Test 06/24/24 20:00 Urine Color Light-yellow (Yellow) Urine Clarity Clear (Clear) Urine pH 6.0 (5.0-9.0) Urine Specific [place] 1.015 (1.001-1.035) Urine Protein Negative (Negative) Urine Ketones Negative (Negative) Urine Blood Negative /uL (Negative) Urine Nitrite Negative (Negative) Urine Bilirubin Negative (Negative) Urine Urobilinogen Normal mg/dL (Negative) Urine Leukocyte Esterase 1+ /uL (Negative) Urine RBC 1 /hpf (0 - 4) Urine Microscopic WBC 1 /HPF (0-5) Urine Squamous Epithelial Cells Few /hpf (<5) Urine Bacteria None seen /hpf (None Seen) Urine Glucose Normal mg/dL (Normal) Labs and/or images reviewed: Labs reviewed by me, Image(s) reviewed by me Assessment/Plan Assessment/Plan Incisional hernia status post repair with mesh by Dr Olga Espinoza Chest pain possibly microvascular disease, Postop psychosis resolved Rule out structural heart disease Presence of dual-chamber pacemaker for symptomatic bradycardia placed in 2010 Insulin-dependent diabetes mellitus Hypertension Depression On Prozac and Lexapro Dyslipidemia History of CVA on Plavix COPD Obesity Harish [phone] at bedside Patient being discharged to senior living facility for rehab Plan discussed with: Patient My Orders Orders - ISAMAR ANDERSON MD Procedure Category Date Status Time Zolpidem Tartrate PHA 07[facility]03[facility]24 [facility] 11:30 Date of Service: Jul 04, 2024 Billing Provider: ISAMAR ANDERSON MD Common Visit Codes: [id number] INP/OBS CARE(HIGH) ISAMAR ANDERSON MD Jul 04, 2024 10:31
--- NOTE | 2024-07-04 10:41 | DVHDS2 ---
Discharge Summary Date of Admission Jun 24, 2024 at 18:17 Date of Discharge: Jul 04, 2024 Admitting Diagnosis Abdominal pain Wounds: Incisional hernia repair Labs/Diagnostic Data: Laboratory Results Test 07/03/24 11:55 06/29/24 12:57 06/29/24 05:33 06/24/24 20:00 White Blood Count 7.0 10^3/uL (4.4-10.8) Red Blood Count 3.88 10^6/uL (4.0-5.20) Hemoglobin 10.5 g/dL (12.2-16.2) Hematocrit 31.9 % (36.0-46.0) Mean Corpuscular Volume 82.1 fL (80.0-100.0) Mean Corpuscular Hemoglobin 27.0 pg (28.0-32.0) Mean Corpuscular Hemoglobin Concent 32.8 g/dL (32.0-36.0) Red Cell Distribution Width 15.1 % (11.8-14.3) Platelet Count 305 10^3/uL (140-450) Mean Platelet Volume 6.8 fL (6.9-10.8) Neutrophils (%) (Auto) 64.6 % (37.0-80.0) Lymphocytes (%) (Auto) 22.9 % (10.0-50.0) Monocytes (%) (Auto) 7.5 % (0.0-12.0) Eosinophils (%) (Auto) 4.3 % (0.0-7.0) Basophils (%) (Auto) 0.7 % (0.0-2.0) Neutrophils # (Auto) 4.5 10 ^3/uL (1.6-8.6) Lymphocytes # (Auto) 1.6 10 ^3/uL (0.4-5.4) Monocytes # (Auto) 0.5 10 ^3/uL (0-1.3) Eosinophils # (Auto) 0.3 10 ^3/uL (0-0.8) Basophils # (Auto) 0 10 ^3/uL (0-0.2) Nucleated Red Blood Cells 0.1 % Sodium Level 135 mmol/L (136-145) Potassium Level 3.9 mmol/L (3.5-5.1) Chloride Level 103 mmol/L (98-107) Carbon Dioxide Level 25 mmol/L (20-31) Anion Gap 7 (5-15) Blood Urea Nitrogen 6 mg/dL (9-23) Creatinine 0.81 mg/dL (0.550-1.02) Glomerular Filtration Rate Calc 78 mL/min (>90) BUN/Creatinine Ratio 7.4 (10.0-20.0) Serum Glucose 153 mg/dL (74-106) Calcium Level 9.2 mg/dL (8.7-10.4) Total Bilirubin 0.4 mg/dL (0.2-1.0) Aspartate Amino Transferase (AST) 15 U/L (13-40) Alanine Aminotransferase (ALT) < 9 U/L (7-40) Alkaline Phosphatase 68 U/L (46-116) Total Protein 5.9 g/dL (5.7-8.2) Albumin 3.9 g/dL (3.2-4.8) POC Glucose 148 mg/dl (70-106) Prothrombin Time 10.9 sec (9.3-11.8) Prothrombin Time INR 1.03 (0.9-1.15) Activated Partial Thromboplast Time 28.3 SEC (24.5-34.5) Urine Color Light-yellow (Yellow) Urine Clarity Clear (Clear) Urine pH 6.0 (5.0-9.0) Urine Specific [place] 1.015 (1.001-1.035) Urine Protein Negative (Negative) Urine Ketones Negative (Negative) Urine Blood Negative /uL (Negative) Urine Nitrite Negative (Negative) Urine Bilirubin Negative (Negative) Urine Urobilinogen Normal mg/dL (Negative) Urine Leukocyte Esterase 1+ /uL (Negative) Urine RBC 1 /hpf (0 - 4) Urine Microscopic WBC 1 /HPF (0-5) Urine Squamous Epithelial Cells Few /hpf (<5) Urine Bacteria None seen /hpf (None Seen) Urine Glucose Normal mg/dL (Normal) Test 06/24/24 17:15 Troponin I High Sensitivity 5 ng/L (</=34) Other Laboratory Tests 07/03/24 11:55 Brief Hx & Hospital Course: Year-old female with a history of diabetes hypertension depression hypercholesterolemia CVA COPD obesity came in for abdominal pain with nausea found to have incisional hernia underwent repair with a mesh by Dr. Espinoza. Postop course showed patient has had postop psychosis on postop day two which has since resolved. Comorbid conditions appropriately managed. Patient is being [facility] for rehab and physical therapy plan is acceptable to the patient and her melanie patient had constipation which has been relieved with lactulose. Patient is tolerating regular diet. Discharge NG tube was removed Acuna was removed she was SIER[place] done with the approximately less than 10 mL of fluid draining which will be removed as an outpatient cleared for discharge by surgeon Dr. Espinoza. Consults/Reason for consult Surgeon Dr. Espinoza Operations or Procedures Repair of incisional hernia with mesh Condition at Discharge: Fair Final Diagnosis/Problems List Incisional hernia status post repair with mesh by Dr Olga Espinoza Chest pain possibly microvascular disease, Postop psychosis resolved Rule out structural heart disease Presence of dual-chamber pacemaker for symptomatic bradycardia placed in 2010 Insulin-dependent diabetes mellitus Hypertension Depression On Prozac and Lexapro Dyslipidemia History of CVA on Plavix COPD Obesity Discharge Disposition: [facility] Facility Discharge Instruct/Medications Diet: Cardiac 2g Na,low cholest Activity: Light activity Follow Up/Referral: Follow up With the retirement Medications: see list 39 (Time taken for discharge summary 39 minutes) Discharge Statement: "Patient was advised to return to the ER or call 911 if any headaches, dizziness, shortness of breath, chest pain, abdominal pain, bleeding, fevers, or worsening of medical condition. Patient was counseled about treatment plan, medications, possible side effects, patientverbalized understanding. All questions were answered to the best of my ability. This discharge took greater then 30 minutes in planning, reviewing documentation, counseling the patient, and discussing with other team members." ASSESSMENT ASSESSMENT Hospital Course Improved Assessment Incisional hernia status post repair with mesh by Dr Olga Espinoza Chest pain possibly microvascular disease, Postop psychosis resolved Rule out structural heart disease Presence of dual-chamber pacemaker for symptomatic bradycardia placed in 2010 Insulin-dependent diabetes mellitus Hypertension Depression On Prozac and Lexapro Dyslipidemia History of CVA on Plavix COPD Obesity Date of Service: Jul 04, 2024 Billing Provider: ISAMAR ANDERSON MD Common Visit Codes: [id number] DISCH DAY >30min ISAMAR ANDERSON MD Jul 04, 2024 10:41
[2024-07-04 13:00] VITALS: BP 110/60; PULSE 60; RESP 18; TEMP 97.5; O2SAT 98
== END 2024-07-04 14:25 | DRG 354 ==
LOC: ER 14:12 → OVERFLOW 18:17 → TELE-WESTW 18:32
PROVIDERS: ADMIT Family Medicine; ATTEND Family Medicine
PROC: 0DH67UZ Insertion of Feeding Device into Stomach, Via Natural or Artificial Opening (ICD-10-PCS; 2024-06-29)
PROC: 0WUF0JZ Supplement Abdominal Wall with Synthetic Substitute, Open Approach (ICD-10-PCS; principal; 2024-06-29 09:04)
PROC: 05HB33Z Insertion of Infusion Device into Right Basilic Vein, Percutaneous Approach (ICD-10-PCS; 2024-06-30)
PROC: B54MZZA Ultrasonography of Right Upper Extremity Veins, Guidance (ICD-10-PCS; 2024-06-30)
DX: K43.2 Incisional hernia without obstruction or gangrene (principal); K43.6 Other and unspecified ventral hernia with obstruction, without gangrene; K59.00 Constipation, unspecified; E66.9 Obesity, unspecified; E78.5 Hyperlipidemia, unspecified; E11.40 Type 2 diabetes mellitus with diabetic neuropathy, unspecified; J44.9 Chronic obstructive pulmonary disease, unspecified; M62.08 Separation of muscle (nontraumatic), other site; I45.10 Unspecified right bundle-branch block; F29 Unspecified psychosis not due to a substance or known physiological condition; F32.A Depression, unspecified; R00.1 Bradycardia, unspecified; I50.9 Heart failure, unspecified; I11.0 Hypertensive heart disease with heart failure; I25.10 Atherosclerotic heart disease of native coronary artery without angina pectoris; E78.00 Pure hypercholesterolemia, unspecified; Z91.041 Radiographic dye allergy status; Z79.1 Long term (current) use of non-steroidal anti-inflammatories (NSAID); Z79.891 Long term (current) use of opiate analgesic; Z79.899 Other long term (current) drug therapy; Z79.01 Long term (current) use of anticoagulants; Z79.84 Long term (current) use of oral hypoglycemic drugs; Z90.710 Acquired absence of both cervix and uterus; Z95.0 Presence of cardiac pacemaker; Z83.3 Family history of diabetes mellitus; Z82.49 Family history of ischemic heart disease and other diseases of the circulatory system; Z86.73 Personal history of transient ischemic attack (TIA), and cerebral infarction without residual deficits; Z79.4 Long term (current) use of insulin; Z68.22 Body mass index [BMI] 22.0-22.9, adult
CPT/HCPCS: 36415; 70450; 71045; 74018; 74176; 80048; 80053; 81001; 82962; 84484; 85025; 85610; 85730; 86850; 86900; 86901; 93005; 93306; 96361; 96374; 96375; 97110; 97116; 97163; 99291; G0378; J1100; J1885; J2250; J2405; J2704

== ENCOUNTER 2024-10-06 21:30 | Emergency (ER) | payer MEDICARE, MEDICAID ==
[~2024-10-06] VITALS: Ht 172.7 cm; Wt 70.3 kg
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
[2024-10-07] MEDS: ONDANSETRON HCL 4 MG/2 ML VIAL IV ONE (00:54)
[2024-10-07] MEDS: MORPHINE SULFATE 4 MG/ML SYR/VIAL IV ONE (00:55)
[2024-10-07 01:32] VITALS: BP 135/62; PULSE 60; RESP 18; TEMP 98.2; O2SAT 99
== END 2024-10-07 02:18 | disposition home or self-care (01) ==
LOC: EDBD 21:30 → ER 21:30
DX: S50.12XA Contusion of left forearm, initial encounter (principal); S50.811A Abrasion of right forearm, initial encounter; R10.31 Right lower quadrant pain; M25.511 Pain in right shoulder; E11.9 Type 2 diabetes mellitus without complications; I11.0 Hypertensive heart disease with heart failure; I50.9 Heart failure, unspecified; J44.9 Chronic obstructive pulmonary disease, unspecified; I25.10 Atherosclerotic heart disease of native coronary artery without angina pectoris; E78.5 Hyperlipidemia, unspecified; Z79.01 Long term (current) use of anticoagulants; Z79.1 Long term (current) use of non-steroidal anti-inflammatories (NSAID); Z79.51 Long term (current) use of inhaled steroids; Z79.84 Long term (current) use of oral hypoglycemic drugs; Z79.85 Long-term (current) use of injectable non-insulin antidiabetic drugs; Z79.899 Other long term (current) drug therapy; Z90.710 Acquired absence of both cervix and uterus; Z91.041 Radiographic dye allergy status; Z95.0 Presence of cardiac pacemaker; Y04.8XXA Assault by other bodily force, initial encounter; Y93.89 Activity, other specified; Y92.89 Other specified places as the place of occurrence of the external cause; Y99.8 Other external cause status
CPT/HCPCS: 73030; 74176; 96374; 96375; 99285; J2270; J2405

== ENCOUNTER 2024-10-14 19:09 | Emergency (ER) | payer MEDICARE, MEDICAID ==
[~2024-10-14] VITALS: Ht 172.7 cm; Wt 78.4 kg
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
[2024-10-14 23:29] VITALS: BP 107/55; TEMP 97.7
[2024-10-15 00:57] VITALS: PULSE 63; RESP 20; O2SAT 99
[2024-10-15] MEDS: KETOROLAC TROMETH 30 MG/ML 1ML VIAL IM ONE (01:00)
== END 2024-10-15 00:58 | disposition home or self-care (01) ==
LOC: ER 19:09
DX: R10.31 Right lower quadrant pain (principal); M25.511 Pain in right shoulder; M79.651 Pain in right thigh; M79.18 Myalgia, other site; I11.0 Hypertensive heart disease with heart failure; I50.9 Heart failure, unspecified; I25.10 Atherosclerotic heart disease of native coronary artery without angina pectoris; E11.9 Type 2 diabetes mellitus without complications; Z79.84 Long term (current) use of oral hypoglycemic drugs; Z79.899 Other long term (current) drug therapy; Z90.710 Acquired absence of both cervix and uterus; Z91.041 Radiographic dye allergy status; Z95.0 Presence of cardiac pacemaker; Z98.890 Other specified postprocedural states; Y08.89XA Assault by other specified means, initial encounter; Y93.89 Activity, other specified; Y92.89 Other specified places as the place of occurrence of the external cause; Y99.8 Other external cause status
CPT/HCPCS: 73552; 74176; 96372; 99285; J1885

== ENCOUNTER 2024-10-22 11:29 | Inpatient (IN) | payer MEDICARE, MEDICAID ==
[~2024-10-22] VITALS: Ht 172.7 cm; Wt 61.3 kg
[2024-10-22] VITALS (7 sets, daily range): BP systolic 109–136; BP diastolic 67–77; PULSE 61–65; RESP 15–18; TEMP 97.9–98.9; O2SAT 96–98
--- NOTE | 2024-10-22 11:53 | ED.PDOC ---
HPI (NEURO) HPI Comments HPI: This is a 69 year old female presenting to the ED with chief complaint of left sided twitching. Patient reports that she started to experience twitching to the left side of her face, chest, arm, and leg last night before bed with associated tingling and "pain" to her chest. Patient relays that she took a dose of Nitroglycerin with no relief in her symptoms noted. Patient states that she is currently on Eliquis. Patient is noted to have some slurred speech and mild left sided facial droop. Patient denies any SOB, dizziness, headache, N/V, syncope, or numbness. Initial Vitals BP: HR: 66 RR: O2 Sat: Temp: Past Medical history: HLD, CAD, COPD, DM, CVA, Depression Past Surgical history: Pacemaker, PTCA, Hernia Repair, Hysterectomy Medications: Plavix, Aspirin, Nitroglycerin Social History: Denies smoking, ETOH, and drug use. Allergies: Iodine contrast HPI: Poor Historian. REVIEW OF SYSTEMS: CONSTITUTIONAL: Denies acute: fever, diaphoresis, chills, HEAD: Denies acute: headache, photophobia Eyes: Denies acute: Double vision, vision loss, eye pain, eye discharge. EARS: Denies acute: tinnitus, hearing loss, ear discharge, ear pain, THROAT: Denies acute: sore throat, swelling, difficulty swallowing , pain with swallowing, change in voice. NECK: Denies acute: neck pain, neck swelling, stiff neck. HEART: Denies acute : palpitations, LUNGS: Denies acute: SOB, wheezing, cough, hemoptysis ABDOMEN: Denies acute: abdominal pain, Nausea, Vomiting, diarrhea, melena , hematemesis, hematochezia SKIN: Denies acute: rash, redness, lesions, itchiness. EXTREMITIES: Denies acute: calf pain, tingling, denies pain in extremity. Denies acute: Low back pain. Neuro: Denies acute: focal neurological deficit, motor or sensory focal neurological deficit, seizure like activity, dizziness, change in mental status, loss of bowel or bladder function, cauda equina like symptoms. : Denies acute: dysuria, hematuria, flank pain, increase in urinary frequency. PSYCH: Denies acute: hallucination, suicidal ideation, homicidal ideation. FEMALE: Denies acute: abnormal vaginal bleeding, foul odor, unusual discharge. PHYSICAL EXAM: General: -----mild---acute distress, awake and alert. Head: normocephalic, atraumatic. Neck: supple, trachea is midline, no swelling. Throat: Normal phonation. Eyes:, no erythema, no purulent discharge, no proptosis, no icterus. Heart: regular rate, regular rhythm, no significant murmur appreciated. Lungs: no apparent respiratory distress, Able to speak in full sentences. No wheezing, no rhonchi, no crackles. No stridors Clear to auscultation bilaterally. Abdomen: non tender to palpation, non distended, soft, no guarding, no rebound, + bowel sounds. Neuro: Awake, Alert, oriented to name, self, situation, follows commands GCS=15. Speech is normal. Skin: no petechia, no purpura, no cyanosis, non-pale, not jaundice. Lower extremities: --no - Pitting edema no deformity, no focal swelling, no calf TTP. Makes eye contact. moves all four extremities. Face: no apparent facial droop. Stroke: No pronator drift. 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 CN 2-12 are grossly intact, Pedal pulses are palpable. No nuchal rigidity, Kernig's sign, Brudzinski's sign, no meningeal signs. ED COURSE: DISCLAIMER: This medical document was created using an electronic medical record system with voice recognition software and computerized dictation system. Although this document has been carefully reviewed, there might still be some phonetic and typographical errors. Occasional wrong-word or "sound-alike" substitutions may have occurred due to the inherent limitations of voice recognition software. These areas are purely typographical due to imperfections of the software programs and do not reflect any compromise in the patient's medical care. Please read the chart carefully and recognize, using context, where these substitutions have occurred. Chief Complaint: Chest Pain Time Seen by MD: 11:50 Primary Care Provider: LICHA Reviewed Notes: Medications, Allergies Information Source: Patient Mode of Arrival: Ambulatory Was a procedure done? Was a procedure done?: No X-Ray, Labs, Meds, VS Vital Signs Date Time Temp Pulse Resp B/P (MAP) Pulse Ox O2 Delivery O2 Flow Rate FiO2 10/22/24 12:45 61 10/22/24 12:20 61 15 98 Room Air* 0 21 10/22/24 12:20 98.2 61 15 116/67 (83) 98 98.2 10/22/24 11:30 98.1 70 20 113/86 (95) 99 98.1 Lab Test 10/22/24 12:40 10/22/24 11:52 10/22/24 11:48 Range/Units Troponin I High Sensitivity 5 6 </=34 ng/L White Blood Count 6.6 4.4-10.8 10^3/uL Red Blood Count 5.14 4.0-5.20 10^6/uL Hemoglobin 13.2 12.2-16.2 g/dL Hematocrit 40.3 36.0-46.0 % Mean Corpuscular Volume 78.3 L 80.0-100.0 fL Mean Corpuscular Hemoglobin 25.6 L 28.0-32.0 pg Mean Corpuscular Hemoglobin Concent 32.7 32.0-36.0 g/dL Red Cell Distribution Width 22.3 H 11.8-14.3 % Platelet Count 287 140-450 10^3/uL Mean Platelet Volume 6.9 6.9-10.8 fL Neutrophils (%) (Auto) 63.3 37.0-80.0 % Lymphocytes (%) (Auto) 27.7 10.0-50.0 % Monocytes (%) (Auto) 6.9 0.0-12.0 % Eosinophils (%) (Auto) 1.2 0.0-7.0 % Basophils (%) (Auto) 0.9 0.0-2.0 % Neutrophils # (Auto) 4.2 1.6-8.6 10 ^3/uL Lymphocytes # (Auto) 1.8 0.4-5.4 10 ^3/uL Monocytes # (Auto) 0.5 0-1.3 10 ^3/uL Eosinophils # (Auto) 0.1 0-0.8 10 ^3/uL Basophils # (Auto) 0.1 0-0.2 10 ^3/uL Nucleated Red Blood Cells 0.1 % Prothrombin Time 11.0 9.3-11.8 sec Prothrombin Time INR 1.04 0.9-1.15 Activated Partial Thromboplast Time 21.4 L 24.5-34.5 SEC Sodium Level 141 136-145 mmol/L Potassium Level 3.7 3.5-5.1 mmol/L Chloride Level 109 H 98-107 mmol/L Carbon Dioxide Level 22 20-31 mmol/L Anion Gap 10 5-15 Blood Urea Nitrogen 10 9-23 mg/dL Creatinine 1.17 H 0.550-1.02 mg/dL Glomerular Filtration Rate Calc 50 >90 mL/min BUN/Creatinine Ratio 8.5 L 10.0-20.0 Serum Glucose 209 H 74-106 mg/dL Calcium Level 10.0 8.7-10.4 mg/dL Magnesium Level 1.8 1.6-2.6 mg/dL Total Bilirubin 0.7 0.2-1.0 mg/dL Aspartate Amino Transferase (AST) 22 13-40 U/L Alanine Aminotransferase (ALT) 11 7-40 U/L Alkaline Phosphatase 89 46-116 U/L B-Type Natriuretic Peptide 42.74 0-100 pg/mL Total Protein 6.6 5.7-8.2 g/dL Albumin 4.4 3.2-4.8 g/dL POC Glucose 194 H 70-106 mg/dl Time of 1ST Reevaluation: 12:50 Reevaluation 1ST: Unchanged Time of 2ND Reevaluation: 13:29 (The case was discussed with the neurologist on-call team (HPI, physical exam, labs and diagnostic tests that were available at the time of disposition, ED course, treatment plan) on the phone. They evaluate the patient on tele neuro. They recommended CT a of head and neck and MRI and stroke workup. However patient is allergic to iodine contrast. Dr. Kate. ) Patient Education/Counseling: Diagnosis, Treatment Family Education/Counseling: No Family Present Departure 1 Departure Time of Disposition: 12:10 Impression: Primary Impression: Chest pain Additional Impression: Stroke-like symptoms Discharged With: Self Critical Care Note Critical Care Time?: No Heart Score Heart Score: Heart Score Response (Comments) Value History Moderate Suspicious 1 EKG Normal 0 Age >65 2 Risk Factors >3 or Hx ASHD 2 Total 5 I personally scribed for NAHED STALLWORTH DO ([email or web address]) on 10/22/24 at 11:53. Elect ronically submitted by Demar Carr ([email or web address]). I personally scribed for NAHED STALLWORTH DO ([email or web address]) on 10/22/24 at 11:55. Electr onically submitted by Demar Carr ([email or web address]). NAHED STALLWORTH DO Oct 22, 2024 11:53
--- NOTE | 2024-10-22 12:13 | DVH ---
CHEST RADIOGRAPH Indication: CP Technique: Single frontal view of the chest was obtained COMPARISON: XY CHEST XRAY 1 VIEW on DOS: 06/30/24, XY CHEST PORTABLE on DOS: 06/24/24, XY CHEST XRAY 1 VIEW on DOS: 03/06/24, XY CHEST PORTABLE on DOS: 02/12/24, XY CHEST PORTABLE on DOS: 08/16/23 FINDINGS: Lines and Tubes: Left chest wall pacemaker Lungs: Clear Pleura: No effusion. No pneumothorax. Cardiomediastinal contours: Unremarkable Bones: Unremarkable IMPRESSION: No acute disease.
[2024-10-22 12:14] LABS: Hematocrit 40.3 % (36.0-46.0); Hemoglobin 13.2 g/dL (12.2-16.2); Mean Corpuscular Hemoglobin 25.6 pg (28.0-32.0); Mean Corpuscular Volume 78.3 fL (80.0-100.0); Nucleated Red Blood Cells % 0.1 %
--- NOTE | 2024-10-22 12:14 | DVH ---
CT STROKE CTH INDICATION: L SIDED TWITCHING, CP COMPARISON: CT HEAD WITHOUT CONTRAST on DOS: 07/01/24, CT HEAD WITHOUT CONTRAST on DOS: 08/16/23, HEAD W ITHOUT CONTRAST on DOS: 01/09/19 TECHNIQUE: CT of the head without intravenous contrast. RADIATION DOSE: CTDIvol: 60 mGy, DLP: 1059 mGy*cm FINDINGS: There is no evidence of acute intracranial hemorrhage, extra-axial collection, mass effect, midline s hift, herniation or hydrocephalus. The ventricles, sulci and cisterns are age appropriate. The jaimes -white differentiation is intact. The visualized paranasal sinuses and mastoid air cells are clear. The surrounding soft tissues and osseous structures are unremarkable. IMPRESSION: 1. No evidence of acute intracranial hemorrhage, mass effect or hydrocephalus.
[2024-10-22 12:22] LABS: INR 1.04 (0.9-1.15); Partial Thromboplastin Time 21.4 SEC (24.5-34.5); Prothrombin Time 11.0 sec (9.3-11.8)
[2024-10-22 12:27] LABS: Alanine Aminotransferase 11 U/L (7-40); Albumin 4.4 g/dL (3.2-4.8); Alkaline Phosphatase 89 U/L (46-116); Anion Gap 10 (5-15); BUN/Creatinine Ratio 8.5 (10.0-20.0); Blood Urea Nitrogen 10 mg/dL (9-23); Calcium 10.0 mg/dL (8.7-10.4); Carbon Dioxide 22 mmol/L (20-31); Magnesium 1.8 mg/dL (1.6-2.6); Potassium 3.7 mmol/L (3.5-5.1); Sodium 141 mmol/L (136-145); Total Protein 6.6 g/dL (5.7-8.2)
[2024-10-22 12:28] LABS: Bilirubin, Total 0.7 mg/dL (0.2-1.0)
[2024-10-22 12:29] LABS: Chloride 109 mmol/L (98-107); Glucose 209 mg/dL (74-106)
--- NOTE | 2024-10-22 13:27 | BSKYNEURO ---
[facility] Note # Demographics Consult Type: Acute Stroke Level 2 (4.5-24 hrs) Patient Location: Emergency Room First Name: Alejandra Last Name: Denny Date of : 1955 Age: 69 Gender: Female Facility: [facility] Time of Initial Page (): 10/22/2024 11:57 Time of Return Call (): 10/22/2024 11:57 # HPI History: 69y F who presented with L hemibody symptoms, she is a poor historian and unable to provide further history Last Known Normal: evening prior to arrival # Scores Time of exam and NIHSS (): 10/22/2024 12:27 Level of Consciousness 1a: [0] = Alert; keenly responsive LOC Questions 1b: [1] = Answers one correctly LOC Commands 1c: [0] = Performs both tasks correctly Best Gaze 2: [0] = Normal Visual 3: [0] = No visual loss Facial Palsy 4: [1] = Minor paralysis Motor Arm Left 5a: [1] = Drift Motor Arm Right 5b: [0] = No drift Motor Leg Left 6a: [1] = Drift Motor Leg Right 6b: [0] = No drift Limb Ataxia 7: [0] = Absent Sensory 8: [1] = [id number] sensory loss Best Language 9: [0] = No aphasia Dysarthria 10: [1] = [id number] dysarthria Extinction and Inattention 11: [0] = No abnormality NIHSS Total: 6 # Exam Vitals: vital signs reviewed # Data Time Head CT personally read by me (): 10/22/2024 13:[address]: - per radiologist read # Assessment Impression: L hemibody weakness and numbness # Plan Thrombolytic/Intervention: Possible IA candidate Thrombolytic Exclusion: > 4.5 hours Possible IA Candidate: - CTA pending Modified Calvert Scale (mRS) pre-stroke: [1] = No significant disability despite symptoms; able to carry out all usual duties and activities. Blood Pressure Management: - nicardipine - labetalol Target Blood Pressure: - SBP < 220 - DBP < 120 - Permissive HTN for 24 hrs followed by slowly lowering to normotension with senior care goal of SBP <130 Labs: - hemoglobin A1c - lipid panel - TSH Imaging: (urgency: STAT): - CT Angiogram Head and CT Angiogram Neck AND call back with results if abnormal Imaging: (urgency: routine): - MRI Brain without contrast Diagnostic Test: - echo without bubble study Therapy/Evaluation: - PT/OT evaluation - speech/swallow consultation Medication: - aspirin 81 mg daily - start statin with goal of LDL < 70 DVT Prophylaxis: - SCD - chemical DVT prophylaxis Other: - If patient has any neurological deterioration please call me back immediately - telemetry monitoring - will need event monitor or loop recorder as outpatient if atrial fibrillation not found as inpatient - I have discussed my recommendations with the referring provider Disposition: admit # Logistics Attestation of consult completion: The patient is located at: [facility]. Facility staff participated in the visit. I performed this telemedicine visit from my offsite office utilizing interactive 2 way audio and visual telecommunication technology. Consent: Verbal consent was obtained from the patient and/or family for this encounter. Total time spent in telemedicine encounter: I spent 18 minutes reviewing clinical data and/or imaging, obtaining history, examining the patient, communicating with the onsite care team, and in preparation of this report. # Demographics First Name: Alejandra Last Name: Baldwin Facility: [facility] Electronically signed at 10/22/2024 13:26 ([place] Time) by Trice Devine DO Yes (ER consult) TRICE DEVINE DO Oct 22, 2024 13:27
[2024-10-22] MEDS ORDERED: NITROGLYCERIN 0.4 MG SL TAB SL PRN ×2 (14:45)
[2024-10-22] MEDS ORDERED: ACETAMINOPHEN 325 MG TAB PO PRN (14:45)
[2024-10-22] MEDS ORDERED: DEXTROSE (50%) 50ML SYRG IV PRN (14:45)
[2024-10-22] MEDS ORDERED: MORPHINE SULFATE 4 MG/ML SYR/VIAL IV PRN (14:45)
[2024-10-22] MEDS ORDERED: FERR325T20 PO (14:47)
[2024-10-22] MEDS ORDERED: FURO40TA4 PO (14:47)
--- NOTE | 2024-10-22 14:51 | DVHHP2 ---
History of Present Illness Reason for Visit: Chest pain History of Present Illness Alejandra Baldwin is a 69-year-old female with past medical history of CAD, hypertension, hyperlipidemia, diabetes, COPD, asthma, CHF, hysterectomy, pacemaker, PTCA, neck surgery, back surgery, and abdominal surgery who presents to the ED with chest pain and left-sided tingling. Patient reports that the chest pain is 9/10 stabbing like and intermittent nature. She states that there are no triggering or alleviating factors. Patient also reports yror-[id number]-[id number]-right tingling throughout her body. Upon examination patient is A&O x3, for a moment she forgot where she was at. Patient denies any alcohol use, illicit drug use, and tobacco use. She denies any recent trauma or injury, recent sick contacts, recent travels, recent ingestion of spoiled food, shortness of breath, fever, chills, lightheadedness, weakness, dizziness, urinary symptoms, abdominal pain, nausea, vomiting, or diarrhea. Cardiovascular: CAD, CHF, HTN, hyperipidemia Pulmonary: Asthma, COPD Endocrine: Diabetes Past Surgical History: Hysterectomy, Other (Pacemaker, PTCA, neck surgery, back surgery, and abdominal surgery) Family History: DM, Other (Mom and dad with cardiovascular disease and diabetes) Smoke: No ALCOHOL: none Drugs: None Lives: Alone Domestic Violence: Neg Review of Systems Cardiovascular: Chest Pain Allergies: Coded Allergies: Iodinated Contrast Media (Verified Allergy, Unknown, 11/24/13) Medications Current Medications Medications Dose Ordered Sig/Albert Route Start Time Stop Time Status Last Admin Dose Admin Atorvastatin Calcium 40 mg HS PO 10/22/24 22:00 UNV Morphine Sulfate 2 mg Q30MP PRN IV 10/22/24 14:45 UNV Acetaminophen 650 mg Q6HP PRN PO 10/22/24 14:45 UNV Nitroglycerin 0.4 mg Q5MINP PRN SL 10/22/24 14:45 UNV Ondansetron HCl 4 mg Q4HP PRN IV 10/22/24 14:45 UNV Nitroglycerin 0.4 mg Q5MINP PRN SL 10/22/24 14:45 UNV Morphine Sulfate 2 mg Q30M PRN IV 10/22/24 14:45 UNV Diagnostic Test (Pha) 1 strip ACHS 10/22/24 17:00 UNV Insulin Human Regular ACHS SC 10/22/24 17:00 UNV Dextrose 50 ml UD PRN IV 10/22/24 14:45 UNV Enalapril Maleate 10 mg DAILY PO 10/23/24 10:00 UNV Patient Own Medication 1 tab DAILY PO 10/23/24 10:00 UNV Patient Own Medication 1,000 mcg DAILY PO 10/23/24 10:00 UNV Exam Vital Signs Vital Signs Date Time Temp Pulse Resp B/P (MAP) Pulse Ox O2 Delivery O2 Flow Rate FiO2 10/22/24 14:35 64 10/22/24 12:20 15 98 Room Air* 0 21 10/22/24 12:20 98.2 116/67 (83) 98.2 General Appearance: Alert, Oriented X3, Cooperative, No acute distress HEENT: Atraumatic, PERRLA, EOMI, Mucous membr. moist/pink Respiratory: Clear to auscultation, Normal air movement Cardiovascular: Regular rate, Normal S1, Normal S2, No murmurs Abdominal: Normal bowel sounds, Soft Extremities: No clubbing, No cyanosis, No edema, Normal pulses, No tenderness/swelling Skin: No significant lesion Neuro: Normal speech, Strength at 5/5 X4 ext, Normal tone, Sensation intact Psych/Mental Status: Mental status NL, Mood NL Labs/Xrays Labs Test 10/22/24 14:30 10/22/24 11:52 10/22/24 11:48 Range/Units White Blood Count 6.6 4.4-10.8 10^3/uL Red Blood Count 5.14 4.0-5.20 10^6/uL Hemoglobin 13.2 12.2-16.2 g/dL Hematocrit 40.3 36.0-46.0 % Mean Corpuscular Volume 78.3 L 80.0-100.0 fL Mean Corpuscular Hemoglobin 25.6 L 28.0-32.0 pg Mean Corpuscular Hemoglobin Concent 32.7 32.0-36.0 g/dL Red Cell Distribution Width 22.3 H 11.8-14.3 % Platelet Count 287 140-450 10^3/uL Mean Platelet Volume 6.9 6.9-10.8 fL Neutrophils (%) (Auto) 63.3 37.0-80.0 % Lymphocytes (%) (Auto) 27.7 10.0-50.0 % Monocytes (%) (Auto) 6.9 0.0-12.0 % Eosinophils (%) (Auto) 1.2 0.0-7.0 % Basophils (%) (Auto) 0.9 0.0-2.0 % Neutrophils # (Auto) 4.2 1.6-8.6 10 ^3/uL Lymphocytes # (Auto) 1.8 0.4-5.4 10 ^3/uL Monocytes # (Auto) 0.5 0-1.3 10 ^3/uL Eosinophils # (Auto) 0.1 0-0.8 10 ^3/uL Basophils # (Auto) 0.1 0-0.2 10 ^3/uL Nucleated Red Blood Cells 0.1 % Prothrombin Time 11.0 9.3-11.8 sec Prothrombin Time INR 1.04 0.9-1.15 Activated Partial Thromboplast Time 21.4 L 24.5-34.5 SEC Sodium Level 141 136-145 mmol/L Potassium Level 3.7 3.5-5.1 mmol/L Chloride Level 109 H 98-107 mmol/L Carbon Dioxide Level 22 20-31 mmol/L Anion Gap 10 5-15 Blood Urea Nitrogen 10 9-23 mg/dL Creatinine 1.17 H 0.550-1.02 mg/dL Glomerular Filtration Rate Calc 50 >90 mL/min BUN/Creatinine Ratio 8.5 L 10.0-20.0 Serum Glucose 209 H 74-106 mg/dL Calcium Level 10.0 8.7-10.4 mg/dL Magnesium Level 1.8 1.6-2.6 mg/dL Total Bilirubin 0.7 0.2-1.0 mg/dL Aspartate Amino Transferase (AST) 22 13-40 U/L Alanine Aminotransferase (ALT) 11 7-40 U/L Alkaline Phosphatase 89 46-116 U/L B-Type Natriuretic Peptide 42.74 0-100 pg/mL Total Protein 6.6 5.7-8.2 g/dL Albumin 4.4 3.2-4.8 g/dL POC Glucose 194 H 70-106 mg/dl CT STROKE CTH INDICATION: L SIDED TWITCHING, CP COMPARISON: CT HEAD WITHOUT CONTRAST on DOS: 07/01/24, CT HEAD WITHOUT CONTRAST on DOS: 08/16/23, HEAD WITHOUT CONTRAST on DOS: 01/09/19 TECHNIQUE: CT of the head without intravenous contrast. RADIATION DOSE: CTDIvol: 60 mGy, DLP: 1059 mGy*cm FINDINGS: There is no evidence of acute intracranial hemorrhage, extra-axial collection, mass effect, midline shift, herniation or hydrocephalus. The ventricles, sulci and cisterns are age appropriate. The jaimes-white differentiation is intact. The visualized paranasal sinuses and mastoid air cells are clear. The surrounding soft tissues and osseous structures are unremarkable. IMPRESSION: 1. No evidence of acute intracranial hemorrhage, mass effect or hydrocephalus. CHEST RADIOGRAPH Indication: CP Technique: Single frontal view of the chest was obtained COMPARISON: XY CHEST XRAY 1 VIEW on DOS: 06/30/24, XY CHEST PORTABLE on DOS: 06/24/24, XY CHEST XRAY 1 VIEW on DOS: 03/06/24, XY CHEST PORTABLE on DOS: 02/12/24, XY CHEST PORTABLE on DOS: 08/16/23 FINDINGS: Lines and Tubes: Left chest wall pacemaker Lungs: Clear Pleura: No effusion. No pneumothorax. Cardiomediastinal contours: Unremarkable Bones: Unremarkable IMPRESSION: No acute disease. SEPSIS Sepsis Screen Date sepsis recognized/suspect: Oct 22, 2024 Time Sepsis recognized/suspect: 0 Recent Procedure: No On Antibiotic Therapy: No Respiratory Rate >20: No Heart Rate >90: No Temp<36 C (96.8 F) or >38.3 C: No SBP <90 or MAP <65 mmHG: No New Acute Mental Status Change: No Is the patient on CPAP, BIPAP,: No Physician Orders Electrocardigram (10/22/24 11:43) Electrocardigram (10/22/24 12:43) Electrocardigram (10/22/24 14:43) Rn Placement (10/22/24 ) Stroke Assessment (10/22/24 11:47) Vital Signs .PER UNIT PROTOCOL (10/22/24 11:47) Rn Placement (10/22/24 11:47) Accurate Weight In Kg (10/22/24 11:47) Accucheck (10/22/24 11:47) Ct Head Cva (10/22/24 11:47) Chest Xray 1 View (10/22/24 11:47) * Neurology Consult (10/22/24 11:47) 2 Large Bore Ivs (20mg Or Larg (10/22/24 11:47) Nursing Dysphagia Screen (10/22/24 11:47) Neuro Checks Per Unit Protocol (10/22/24 11:47) Troponin-I Hs (10/22/24 14:47) Accurate Weight In Kg (10/22/24 11:48) Accucheck (10/22/24 11:48) Nursing Dysphagia Screen (10/22/24 11:48) Neuro Checks Per Unit Protocol (10/22/24 11:48) Admit (10/22/24 14:39) Code Status (10/22/24 14:39) Cardiac Diet-2gna,Lofat,Lochol (10/22/24 Dinner) Atorvastatin (Lipitor) (10/22/24 22:00) Morphine Sulfate Injection (10/22/24 14:45) Acetaminophen Tablet (Tylenol Tablet) (10/22/24 14:45) Complete Blood Count (10/23/24 04:00) Basic Metabolic Panel (10/23/24 04:00) Magnesium (10/23/24 04:00) Lipid Panel (10/23/24 04:00) Echo 2d Mode Cardiac Dop (10/22/24 14:39) Nitroglycerin Sublingual (Ntrostat Subli (10/22/24 14:45) Ondansetron Hcl (Zofran) (10/22/24 14:45) Electrocardigram (10/23/24 04:00) Troponin-I Hs (10/22/24 14:39) Cardiac Rehabilitation - Outpa (10/22/24 ) Nitroglycerin Sublingual (Ntrostat Subli (10/22/24 14:45) Morphine Sulfate Injection (10/22/24 14:45) Stat Ekg For Chest Pain (10/22/24 14:39) Notify Md Of Changes From Base (10/22/24 14:39) Oil Spraying Machine Operator For 24 Hours (10/22/24 14:39) Emergency Dysrhythmia Protocol (10/22/24 14:39) Rhythm Strips Once Every Shift (10/22/24 14:39) Oxygen By Nasal Cannula (10/22/24 14:39) Thyroid Stimulating Hormone (10/22/24 14:39) Free T4 (Free Thyroxine) (10/22/24 14:39) Glucose Blood (Accu-Chek Comfort Curve T (10/22/24 17:00) Insulin R (Human) (Insulin R) (10/22/24 17:00) Dextrose 50% Syringe (10/22/24 14:45) Hemoglobin A1c (10/22/24 14:44) Enalapril Tablet (Vasotec Tablet) (10/23/24 10:00) (Nf) Cholecalciferol (Vitamin D3) (10/23/24 10:00) (Nf) Cyanocobalamin (Vitamin B-12) (10/23/24 10:00) Urinalysis (10/22/24 14:47) Drug Screen (10/22/24 14:47) Vital Signs Date Time Temp Pulse Resp B/P (MAP) Pulse Ox O2 Delivery O2 Flow Rate FiO2 10/22/24 14:35 64 10/22/24 12:45 61 10/22/24 12:20 61 15 98 Room Air* 0 21 10/22/24 12:20 98.2 61 15 116/67 (83) 98 98.2 10/22/24 11:30 98.1 70 20 113/86 (95) 99 98.1 Laboratory Tests Test 10/22/24 11:52 White Blood Count 6.6 10^3/uL (4.4-10.8) Assessment/Plan Assessment/Plan Assessment Chest pain rule out ACS Left-sided tingling rule out stroke GERTRUDIS likely due to heart failure Hyperglycemia with diabetes type 2 History of neck surgery History abdominal surgery History of pacemaker History of CAD status post PTCA History of hypertension History of hyperlipidemia History of diabetes History of COPD History of asthma History of CHF Plan Admit to telemetry Strict I&Os Daily weight Chest x-ray noted CT head noted Hemoglobin A1c ISS and Accu-Cheks Neuro checks Troponin noted EKG UA UDS Echo ordered Aspirin + statin TSH Free T4 Lipid panel Diet Home medications reconciled DVT prophylaxis-not indicated patient ambulates PUD prophylaxis-not indicated no history of GERD or GI bleed Discussed plan of care with patient and nurse Rounding team to restart Eliquis and Plavix when Neurology clears [place] [id number] Advanced care planning discussed [id number] Preventive counseling healthy eating habits, physical activity, and regular checkups Plan discussed with: Patient My Orders Orders - HARSHIL RATLIFF FLAT FINISHER Procedure Category Date Status Time Admit ADMIT 10/22/24 Transmitted 14:39 Code Status CODE 10/22/24 Transmitted 14:39 Cardiac DIET 10/22/24 Transmitted Diet-2gna,Lofat,Lochol Dinner Atorvastatin (Lipitor) PHA 10/22/24 Logged 22:00 Morphine Sulfate PHA 10/22/24 Logged Injection 14:45 Acetaminophen Tablet PHA 10/22/24 Logged (Tylenol Tablet) 14:45 Complete Blood Count LAB 10/23/24 Verified 04:00 Basic Metabolic Panel LAB 10/23/24 Verified 04:00 Magnesium LAB 10/23/24 Verified 04:00 Lipid Panel LAB 10/23/24 Verified 04:00 Echo 2d Mode Cardiac US 10/22/24 Logged DOP 14:39 Nitroglycerin PHA 10/22/24 Logged Sublingual (Ntrostat 14:45 Ondansetron Hcl PHA 10/22/24 Logged (Zofran) 14:45 Electrocardigram EKG 10/23/24 Logged 04:00 Troponin-I Hs LAB 10/22/24 Logged 14:39 Cardiac GONZALES 10/22/24 In Process Rehabilitation - Outpa Nitroglycerin PHA 10/22/24 Logged Sublingual (Ntrostat 14:45 Morphine Sulfate PHA 10/22/24 Logged Injection 14:45 Stat Ekg For Chest GONZALES 10/22/24 In Process Pain 14:39 Notify Of Changes [facility] 10/22/24 In Process From Base 14:39 Oil Spraying Machine Operator For GONZALES 10/22/24 In Process 24 Hours 14:39 Emergency Dysrhythmia G[facility]ALES 10/22/24 In Process Protocol 14:39 Rhythm Strips Once [facility] 10/22/24 In Process Every Shift 14:39 Oxygen By Nasal RT 10/22/24 Transmitted Cannula 14:39 Thyroid Stimulating LAB 10/22/24 Logged Hormone 14:39 Free T4 (Free LAB 10/22/24 Logged Thyroxine) 14:39 Glucose Blood PHA 10/22/24 Logged (Accu-Chek Comfort 17:00 Insulin R (Human) PHA 10/22/24 Logged (Insulin R) 17:00 Dextrose 50% Syringe PHA 10/22/24 Logged 14:45 Hemoglobin A1c LAB 10/22/24 Logged 14:44 Enalapril Tablet PHA 10/23/24 Logged (Vasotec Tablet) 10:00 (Nf) Cholecalciferol PHA 10/23/24 Logged (Vitamin D3) 10:00 (Nf) Cyanocobalamin PHA 10/23/24 Logged (Vitamin B-12) 10:00 Urinalysis LAB 10/22/24 Logged 14:47 Drug Screen LAB 10/22/24 Logged 14:47 Date of Service: Oct 22, 2024 Billing Provider: HARSHIL RATLIFF Common Visit Codes: [id number] INP/OBS CARE (HIGH) Secondary Visit Codes: [id number] COUNSELING IND, [id number] CARE PLAN 30 MINUTES HARSHIL RATLIFF Oct 22, 2024 14:51
[2024-10-22] MEDS ORDERED: ALBUTEROL SULF 2.5 MG/0.5ML(0.5%) NEB SOLN NEB PRN (15:15)
[2024-10-22] MEDS ORDERED: IPRATROPIUM BROM 0.5 MG/2.5ML INH SOL NEB PRN (15:15)
[2024-10-22] MEDS: ONDANSETRON HCL 4 MG/2 ML VIAL IV PRN (17:02)
[2024-10-22] MEDS: MORPHINE SULFATE INJ 2 MG/ml SYRG IV PRN (17:03)
[2024-10-22] MEDS: InsuLIN REG 1unit/0.01ml Soln (100units/ml) SC SCH (17:17)
[2024-10-22] MEDS: ACCU-CHEK COMFORT CURVE STRIP VI SCH (17:19)
--- NOTE | 2024-10-22 18:54 | ECG ---
[facility] Test Date: 2024-10-22 Test Time: 11:35:24 Pat Name: TEDDY BLACK Department: ER Room: [facility]1T B Gender: F Draw Tender: ER : 1955 Requested By: NAHED STALLWORTH Order Number: [id number] Reading MD: Ricky Lepe Measurements Intervals [place] Rate: 66 P: 43 [place]: 174 QRS: 9 QRSD: 136 T: 33 QT: 419 QTc: 439 Interpretive Statements Pacemaker spikes or artifacts Sinus rhythm Atrial premature complex Right bundle branch block Electronically Signed On 10-22-2024 19:09:33 PDT by Ricky Lepe Please click the below link to view image of tracing.
[2024-10-22] MEDS: ATORVASTATIN 20 MG TAB PO SCH (21:58)
[2024-10-23] VITALS (8 sets, daily range): BP systolic 102–144; BP diastolic 53–80; PULSE 57–73; RESP 15–20; TEMP 97.7–98.6; O2SAT 98–100
--- NOTE | 2024-10-23 04:23 | ECG ---
[facility] Test Date: 2024-10-22 Test Time: 14:35:17 Pat Name: TEDDY BLACK [facility] F Chuck Wagon Driver: jeanne : 1955 Requested By: NAHED STALLWORTH Order Number: [id number] Reading MD: Ricky Lepe Measurements Intervals [place] Rate: 64 P: 0 [place]: 159 QRS: 16 QRSD: 133 T: 44 QT: 426 QTc: 440 Interpretive Statements Atrial-paced complexes Right bundle branch block Baseline wander in lead(s) III Electronically Signed On 10-26-2024 18:30:47 PDT by Ricky Lepe Please click the below link to view image of tracing.
--- NOTE | 2024-10-23 04:23 | ECG ---
[facility] Test Date: 2024-10-22 Test Time: 12:45:43 Pat Name: TEDDY BLACK Department: ED Room: [facility]1T B Gender: F Baccarat Manager: WAN : 1955 Requested By: NAHED STALLWORTH Order Number: [id number] Reading MD: Ricky Lepe Measurements Intervals [place] Rate: 61 P: 0 PA: 190 QRS: 43 QRSD: 134 T: 26 QT: 426 QTc: 429 Interpretive Statements Atrial-paced rhythm Right bundle branch block Electronically Signed On 10-26-2024 18:30:29 PDT by Ricky Lepe Please click the below link to view image of tracing.
[2024-10-23 08:05] LABS: Anion Gap 7 (5-15); Carbon Dioxide 25 mmol/L (20-31); Potassium 4.3 mmol/L (3.5-5.1); Sodium 141 mmol/L (136-145)
[2024-10-23 08:06] LABS: Calcium 9.7 mg/dL (8.7-10.4)
[2024-10-23 08:10] LABS: Hematocrit 37.7 % (36.0-46.0); Hemoglobin 12.2 g/dL (12.2-16.2); Mean Corpuscular Hemoglobin 25.3 pg (28.0-32.0); Mean Corpuscular Volume 77.9 fL (80.0-100.0); Nucleated Red Blood Cells % 0.0 %
[2024-10-23 08:11] LABS: BUN/Creatinine Ratio 12.1 (10.0-20.0); Blood Urea Nitrogen 13 mg/dL (9-23); Triglycerides 122 mg/dL (< 150)
[2024-10-23 08:12] LABS: Chloride 109 mmol/L (98-107); Glucose 138 mg/dL (74-106); Magnesium 1.8 mg/dL (1.6-2.6)
[2024-10-23 08:13] LABS: Cholesterol 126 mg/dL (< 200); HDL Cholesterol 54 mg/dL (40-59)
[2024-10-23] MEDS: CHOLECALCIFEROL (VITD3) 1,000UNIT=25mCg TAB PO SCH (09:59)
[2024-10-23] MEDS ORDERED: PATIENTS OWN MEDICATION (Cholecalciferol (Vitamin D3) 1 TAB) PO SCH (10:00)
[2024-10-23] MEDS: ENALAPRIL MALEATE 10 MG TAB PO SCH (10:00)
[2024-10-23] MEDS ORDERED: CYANOCOBALAMIN 1000 MCG PO SCH (10:00)
[2024-10-23] MEDS: CYANOCOBALAMIN 500 MCG TAB PO SCH (10:00)
--- NOTE | 2024-10-23 15:41 | DVHPN2 ---
Cardiovascular: Chest Pain Objective Vitals Vital Signs Date Time Temp Pulse Resp B/P (MAP) Pulse Ox O2 Delivery O2 Flow Rate FiO2 10/23/24 13:00 98.6 62 15 114/58 (76) 100 98.6 10/23/24 08:00 Room Air* 0 21 Intake/Output Intake and Output 10/23/24 07:00 Intake Total 1400 ml Output Total 1600 ml Balance -200 ml Intake Oral 1400 ml Output Urine Total 1600 ml Medications Current Medications Medications Dose Ordered Sig/Albert Route Start Time Stop Time Status Last Admin Dose Admin Atorvastatin Calcium 40 mg HS PO 10/22/24 22:00 10/22/24 21:58 40 MG Morphine Sulfate 2 mg Q30MP PRN IV 10/22/24 14:45 Acetaminophen 650 mg Q6HP PRN PO 10/22/24 14:45 Nitroglycerin 0.4 mg Q5MINP PRN SL 10/22/24 14:45 Ondansetron HCl 4 mg Q4HP PRN IV 10/22/24 14:45 Nitroglycerin 0.4 mg Q5MINP PRN SL 10/22/24 14:45 Morphine Sulfate 2 mg Q30M PRN IV 10/22/24 14:45 Diagnostic Test (Pha) 1 strip ACHS 10/22/24 17:00 10/23/24 11:37 1 STRIP Insulin Human Regular ACHS SC 10/22/24 17:00 10/23/24 11:30 2 UNITS Dextrose 50 ml UD PRN IV 10/22/24 14:45 Enalapril Maleate 10 mg DAILY PO 10/23/24 10:00 10/23/24 10:00 10 MG Patient Own Medication 1,000 mcg DAILY PO 10/23/24 10:00 UNV Aspirin 81 mg DAILY PO 10/22/24 15:00 10/23/24 09:59 81 MG Albuterol 2.5 mg Q4HPRN PRN NEB 10/22/24 15:15 Ipratropium [place] 0.5 mg Q4HPRN PRN NEB 10/22/24 15:15 Cholecalciferol 2,000 unit DAILY PO 10/23/24 10:00 10/23/24 09:59 2,000 UNIT Cyanocobalamin 1,000 mcg DAILY PO 10/23/24 10:00 10/23/24 10:00 1,000 MCG Morphine Sulfate 1 mg Q6HP PRN IV 10/22/24 16:15 10/23/24 10:32 1 MG Ondansetron HCl 4 mg Q6HPRN PRN IV 10/22/24 16:15 10/22/24 23:17 4 MG Laboratory Results Laboratory Tests 10/23/24 07:30 Chemistry Test 10/23/24 07:30 Calcium Level 9.7 mg/dL (8.7-10.4) Magnesium Level 1.8 mg/dL (1.6-2.6) Lipid panel Test 10/23/24 07:30 Cholesterol Level 126 mg/dL (< 200) HDL Cholesterol 54 mg/dL (40-59) Triglycerides Level 122 mg/dL (< 150) SUDHA NEUMANN ARBOREAL SCIENTIST Oct 23, 2024 15:41
--- NOTE | 2024-10-23 16:40 | DVH ---
Carotid Duplex Date: 10/23/2024 04:00 PM Clinical History: rule out cva Comparison: None Technique: Duplex Doppler evaluation of the extracranial carotid and vertebral arteries including col or Doppler and spectral/pulsed waveform analysis was performed. Findings: PSV in the right CCA measures 76 cm/s. PSV in the right ICA measures 66 cm/s. The right ICA/CCA ratio is 1.4. PSV in the left CCA measures 90 cm/s. PSV in the left ICA measures 85 cm/s. The left ICA/CCA ratio is 1.0 Both vertebral arteries demonstrate antegrade flow within normal limits. IMPRESSION: 1. No hemodynamically significant stenosis.
[2024-10-23] MEDS: ONDANSETRON HCL 4 MG/2 ML VIAL IV PRN (17:14)
[2024-10-23] MEDS: MORPHINE SULFATE INJ 2 MG/ml SYRG IV PRN (17:16)
--- NOTE | 2024-10-23 18:44 | DVHINCON2 ---
Date of service: Oct 23, [address] Dash Reason for Consultation Left-sided twitching, weakness? History of Present Illness Mr. Baldwin is a 69-year-old right-handed female with a past medical history of diabetes, coronary artery disease, and overweight. She came to the hospital because of left-sided paresthesia and muscle twitching I saw her in 08/2011 for new onset short-living headache, 09/23/13 for headache, 10/05/2015 for stroke She reports that she developed tingling, numbness and muscle twitching in the left face, arm, leg, weakness in the left arm than leg before she came to the hospital, she is doing better now She also had pain in the chest, otherwise she denies chills, fever, coughing or other acute illness His home medication included and she confirmed Eliquis but he does not remember having heart trouble/AFib, blood clot in the leg or lungs I saw on 10/05/15 for left-sided facial weakness and numbness, mild numbness in the left face, and left arm, at that time, her home medication includes daily aspirin 81 mg, Plavix 75 mg and 1 pill Zocor [phone] (called from hospital phone and herself) no answer [phone] Her pharmacy, is closed WBC/HB/PLT/MCV, 10/23/2024: 5.3/12.2/270/77.9 PT/INR aspirin CBC, 10/22/2024: 11/1.04/21.4 BUN/CR, 10/22/2024: 10/1.17 She far, 10/22/2024: 50 HGB A1c, 10/22/2024: 6.5 TG/HDL/LDL/HDL, 10/23/2024: 122/126/50/54 TSH, 10/22/2024: 1.04 Carotid doctor, 10/23/2024: No hemodynamically significant stenosis. CT head, 10/05/15: No intracranial hemorrhage, mass effect or midline shift. CT head, 10/06/15: Unremarkable CT brain without IV contrast CT head, 10/22/2024: No evidence of acute intracranial hemorrhage, mass effect or hydrocephalus Past Medical History Coronary artery disease, heart attack, diabetes, dyslipidemia, hypertension, as thma, COPD, chronic renal disease Past Surgical History Pacemaker implantation (in 2009 or earlier), , and knee surgery. Family History: Family history: Cardiovascular disease G8 MOTHER G8 FATHER Family history: Diabetes mellitus G8 MOTHER G8 FATHER Family History Father had coronary artery disease and his CABG at the age of 50. Diabetes and dyslipidemia also run in the family. Social History The patient is a nonsmoker. She denies history of alcohol or recreational substance abuse. Allergies: Coded Allergies: Iodinated Contrast Media (Verified Allergy, Unknown, 11/24/13) Home Meds Active Scripts Docusate Sodium (Colace) 100 Mg Cap, 1 CAP PO BID for 3 Days, #30 CAP Prov:VILLA FROST MD 04/24/24 Hydrocodone-Acetaminophen (Hydrocodone Bitartrate/AC 5-325 mg) 1 Tab Tab, 1 TAB PO Q12HP PRN for 2 Days, #4 TAB Prov:VILLA FROST MD 04/24/24 Elastic Bandages & Supports (ABDOMINAL BINDER/ELASTIC/) Elast Sm Mis, SM XX ONCE , #1 Prov:ESTUARDO LY MD 03/07/24 Psyllium (Metamucil Fiber) 51.7 % Jack, 51.7 % PO BID for 30 Days, #60 PACK Prov:ESTUARDO LY MD 03/07/24 Polyethylene Glycol 3350 (Miralax) 17 Gm Pow, 17 GM PO DAILY PRN for 30 Days, #30 POW Prov:ESTUARDO LY MD 03/07/24 Senna (Senna) 8.6 Mg Tab, 8.6 MG PO HS for 30 Days, #30 TAB Prov:ESTUARDO LY MD 03/07/24 Magnesium Citrate (Magnesium Citrate) 1.745 Gm/30 Ml Mariela, 150 ML PO DAILY for 2 Days, #1 BOTTLE 0 Refills Prov:HUBER ANAYA 05/08/23 Methocarbamol (Methocarbamol) 750 Mg Tab, 750 MG PO BID, #20 TAB Prov:CIRILO HEREDIA 07/14/22 Ibuprofen (Ibuprofen) 800 Mg Tab, 1 TAB PO TID, #30 TAB Prov:CIRILO HEREDIA 07/14/22 Reported Medications Ferrous Sulfate (Ferosul) 325 Mg Tab, PO 10/22/24 Furosemide (Furosemide) 40 Mg Tab, 1 TAB PO DAILY 10/22/24 Escitalopram Oxalate (Lexapro) 20 Mg Tab, 1 TAB PO DAILY, TAB 03/02/24 Cetirizine Hcl (Zyrtec Allergy) 10 Mg Cap, 10 MG PO DAILY, CAP 03/02/24 Exenatide (Bydureon Bcise) 2 Mg/0.85 Ml Inj, 2 MG SC, INJ 03/02/24 Apixaban Base (ELIQUIS) 5 Mg Tab, 5 MG PO BID, TAB 03/02/24 Cholecalciferol (VITAMIN D3) 2,000 Unit Tab, 1 TAB PO DAILY, TAB 03/02/24 Cyanocobalamin (Vitamin B-12) 1,000 Mcg Tab, 1000 MCG PO DAILY, TAB 03/02/24 Fluticasone Propionate (Nasal) (Flonase Allergy Relief) 50 Mcg/Act Spr, 50 MCG NA DAILY, SPRAY 03/02/24 [Advair] No Conflict Check 09/22/13 Clopidogrel Bisulfate (Plavix) 75 Mg Tab, 75 MG PO, TAB 09/22/13 Simvastatin (Simvastatin) 20 Mg Tab, 40 MG PO DAILY for 30 Days 09/22/13 Levalbuterol Tartrate (Xopenex Hfa) Aer, 1 IN PRN 04/06/11 Exenatide (Byetta) 10 Mcg Inj, 10 MCG SC BIDAC 04/06/11 Albuterol (Albuterol) Pow 04/06/11 Enalapril Maleate (Enalapril Maleate) 10 Mg Tab, 10 MG PO DAILY 04/06/11 Gabapentin (Gabapentin) 400 Mg Cap, 400 MG PO TID 04/06/11 Hydrocodone-Acetaminophen ([place] 7.5/325MG) 1 Tab Tb, 7.5 MG PO TID 04/06/11 Discontinued Reported Medications Metformin Hydrochloride (Metformin Hcl) 500 Mg Tab, 500 MG PO DAILY for 30 Days, MG 09/22/13 Fluoxetine Hcl (Fluoxetine Hcl) 20 Mg Cap, 2 CAP DAILY 04/06/11 Glipizide (Glipizide) 5 Mg Tab, 5 MG PO DAILY 04/06/11 [Premarin] No Conflict Check, 0.3 MG DAILY 04/06/11 Current Medications Current Medications Medications (Trade) Dose Ordered Sig/Albert Route PRN Reason Start Time Stop Time Status Last Admin Atorvastatin Calcium (Lipitor) 40 mg HS PO 10/22/24 22:00 10/22/24 21:58 Enalapril Maleate (Vasotec Tablet) 10 mg DAILY PO 10/23/24 10:00 10/23/24 10:00 Patient Own Medication 1 tab DAILY PO 10/23/24 10:00 10/22/24 15:51 DC Patient Own Medication 1,000 mcg DAILY PO 10/23/24 10:00 UNV Cholecalciferol (Vitamin D3 Tablet) 2,000 unit DAILY PO 10/23/24 10:00 10/23/24 09:59 Cyanocobalamin (Vitamin B-12) 1,000 mcg DAILY PO 10/23/24 10:00 10/23/24 10:00 Review of Systems As above mentioned, the other systems are negative Vital Signs Vital Signs Date Time Temp Pulse Resp B/P (MAP) Pulse Ox O2 Delivery O2 Flow Rate FiO2 10/23/24 17:46 60 15 102/53 10/23/24 17:00 97.7 100 97.7 10/23/24 08:00 Room Air* 0 21 Physical Exam GENERAL EXAM: General: the patient is well developed and nourished. No acute distress. HEENT: Normocephalic, neck is supple, no carotid bruits. No mass. RESPIRATORY: Normal respiratory effort with symmetrical lung expansion. Lungs clear to auscultation. CARDIOVASCULAR: Regular rate and rhythm with no murmurs. S1, S2. ABDOMEN: Soft, nontender, normal bowel sound NEUROLOGICAL: MENTAL STATUS: Awake and alert. Oriented to person, place, time and general circumstances. Able to give personal history. SPEECH, LANGUAGE, HIGHER CORTICAL FUNCTION: no aphasia or dysathria. CRANIAL NERVES: #2: Intact visual nicolas to confrontation. The optic discs were sharp. #3,4,6: Pupils are equal, round and reactive. EOMs full and conjugate. No nystagmus. #5: Facial sensation diminished in the left face. Mandibular strength intact. #7: Facial muscles symmetrical and strength intact. #8: Hearing grossly normal to voice. #9,10: Uvula and soft palate rise in the midline. Swallow and voice are normal. #11: Trapezius and sternomastoid strength intact bilaterally. #12: Tongue midline. No fasciculations or atrophy. SENSATION: Sensation to touch and pinprick is unremarkable MOTOR: Normal tone in the upper and lower extremity. Normal muscle bulk. No fasciculations. No abnormal movements or posturing. Muscle strength of the major groups in the right extremities is 5/5. Muscle strength of the major groups in the left extremities feels 5/5 is drift in the left arm than leg. REFLEXES: Deep tendon reflexes symmetrically diminished. No pathological reflexes. CEREBELLAR/COORDINATION: Finger to nose is normal bilaterally. GAIT/STATION: deferred. Labs/Diagnostic Data Labs Test 10/23/24 18:01 10/23/24 07:30 10/22/24 14:30 10/22/24 11:52 Range/Units POC Glucose 111 H 70-106 mg/dl White Blood Count 5.3 4.4-10.8 10^3/uL Red Blood Count 4.84 4.0-5.20 10^6/uL Hemoglobin 12.2 12.2-16.2 g/dL Hematocrit 37.7 36.0-46.0 % Mean Corpuscular Volume 77.9 L 80.0-100.0 fL Mean Corpuscular Hemoglobin 25.3 L 28.0-32.0 pg Mean Corpuscular Hemoglobin Concent 32.5 32.0-36.0 g/dL Red Cell Distribution Width 22.2 H 11.8-14.3 % Platelet Count 270 140-450 10^3/uL Mean Platelet Volume 6.8 L 6.9-10.8 fL Neutrophils (%) (Auto) 53.1 37.0-80.0 % Lymphocytes (%) (Auto) 34.7 10.0-50.0 % Monocytes (%) (Auto) 8.1 0.0-12.0 % Eosinophils (%) (Auto) 3.3 0.0-7.0 % Basophils (%) (Auto) 0.8 0.0-2.0 % Neutrophils # (Auto) 2.8 1.6-8.6 10 ^3/uL Lymphocytes # (Auto) 1.8 0.4-5.4 10 ^3/uL Monocytes # (Auto) 0.4 0-1.3 10 ^3/uL Eosinophils # (Auto) 0.2 0-0.8 10 ^3/uL Basophils # (Auto) 0 0-0.2 10 ^3/uL Nucleated Red Blood Cells 0.0 % Sodium Level 141 136-145 mmol/L Potassium Level 4.3 3.5-5.1 mmol/L Chloride Level 109 H 98-107 mmol/L Carbon Dioxide Level 25 20-31 mmol/L Anion Gap 7 5-15 Blood Urea Nitrogen 13 9-23 mg/dL Creatinine 1.07 H 0.550-1.02 mg/dL Glomerular Filtration Rate Calc 56 >90 mL/min BUN/Creatinine Ratio 12.1 10.0-20.0 Serum Glucose 138 H 74-106 mg/dL Calcium Level 9.7 8.7-10.4 mg/dL Magnesium Level 1.8 1.6-2.6 mg/dL Triglycerides Level 122 < 150 mg/dL Cholesterol Level 126 < 200 mg/dL LDL Cholesterol 50 < 100 mg/dL HDL Cholesterol 54 40-59 mg/dL Troponin I High Sensitivity 6 </=34 ng/L Prothrombin Time 11.0 9.3-11.8 sec Prothrombin Time INR 1.04 0.9-1.15 Activated Partial Thromboplast Time 21.4 L 24.5-34.5 SEC Hemoglobin A1c 6.5 H <5.7 % A1C Total Bilirubin 0.7 0.2-1.0 mg/dL Aspartate Amino Transferase (AST) 22 13-40 U/L Alanine Aminotransferase (ALT) 11 7-40 U/L Alkaline Phosphatase 89 46-116 U/L B-Type Natriuretic Peptide 42.74 0-100 pg/mL Total Protein 6.6 5.7-8.2 g/dL Albumin 4.4 3.2-4.8 g/dL Thyroid Stimulating Hormone (TSH) 1.04 0.55-4.78 uIU/mL Free Thyroxine (T4) Calculated 1.39 0.89-1.76 ng/dL Assessment Acute left-sided numbness, weakness, muscle twitching, ? stroke ? Seizure, less likely On Eliquis Plan/Recommendation Monitoring, Supportive treatment Telemetry Vitamin B12, folic acid, TSH EEG Carotid Doppler Echocardiogram Follow-up CT scan Aspirin, 81 mg daily, Plavix 75 mg daily for now Lipitor 40 mg daily Will confirm her home medication Plan discussed with: Patient, Other RADHA JAY MD Oct 23, 2024 18:44
[2024-10-23] MEDS: CLOPIDOGREL BISULFATE 75 MG TAB PO ONE (22:13)
[2024-10-24] VITALS (11 sets, daily range): BP systolic 85–103; BP diastolic 55–63; PULSE 58–71; RESP 16–20; TEMP 97.5–98.7; O2SAT 94–100
--- NOTE | 2024-10-24 08:56 | DVH ---
EXAM: CT HEAD WITHOUT CONTRAST INDICATION: cva TECHNIQUE: CT of the head without intravenous contrast. Radiation Dose : 1. Head: CT Dose: CTDI volume is 52.94 mGy. Dose-length product is 848.75 mGy*cm The dose indicators for CT are the volume Computed Tomography (CT) Dose Index (CTDIvol) and the Dose Length Product (DLP), and are measured in units of mGy and mGy-cm, respectively. These indicators are not patient dose, but values generated from the CT scanner acquisition factors. The report includes radiation exposure data for exposures received during this examination. COMPARISON: CT STROKE CTH on DOS: 10/22/24, CT HEAD WITHOUT CONTRAST on DOS: 07/01/24, CT HEAD WITHOUT CONTRAST on DOS: 08/16/23, HEAD WITHOUT CONTRAST on DOS: 01/09/19 FINDINGS: There is no evidence of acute intracranial hemorrhage, extra-axial collection, mass effect, midline s hift, herniation or hydrocephalus. The ventricles, sulci and cisterns are age appropriate. The jaimes-white differentiation is intact. Patchy periventricular and subcortical white matter hypoattenuation is nonspecific but may be related to small vessel ischemic disease. The visualized paranasal sinuses and mastoid air cells are clear. The surrounding soft tissues and osseous structures are unremarkable. IMPRESSION: No acute intracranial abnormality. Radiation optimization: All CT scans at this facility use at least one of these dose optimization geovany hniques: automated exposure control mA and/or kV adjustment per patient size (includes targeted exam s where dose is matched to clinical indication) or iterative reconstruction.
[2024-10-24] MEDS: CLOPIDOGREL BISULFATE 75 MG TAB PO SCH (09:30)
--- NOTE | 2024-10-24 13:57 | DVHPN2 ---
Subjective Continues to report left facial and arm tingling Reviewed: Care Plan, H&P, Labs Changes from previous H/P or p: No Changes General: Per HPI Cardiovascular: Chest Pain Objective Vitals Vital Signs Date Time Temp Pulse Resp B/P (MAP) Pulse Ox O2 Delivery O2 Flow Rate FiO2 10/24/24 12:38 97.5 58 16 100/55 (70) 94 97.5 10/24/24 08:12 Room Air* 0 21 Intake/Output Intake and Output 10/24/24 07:00 Intake Total 1230 ml Output Total 1625 ml Balance -395 ml Intake Oral 1230 ml Output Urine Total 1625 ml # Voids 4 General Appearance: Alert, Oriented X3, Cooperative HEENT: PERRLA Cardiovascular: Normal S1, Normal S2 Abdomen: Normal bowel sounds, Soft Neuro: Normal speech, Normal tone, Sensation intact, Cranial nerves 3-12 NL Skin: Dry, Intact Psych/Mental Status: Mental status NL, Mood NL Medications Current Medications Medications Dose Ordered Sig/Albert Route Start Time Stop Time Status Last Admin Dose Admin Atorvastatin Calcium 40 mg HS PO 10/22/24 22:00 10/23/24 21:08 40 MG Acetaminophen 650 mg Q6HP PRN PO 10/22/24 14:45 Nitroglycerin 0.4 mg Q5MINP PRN SL 10/22/24 14:45 Morphine Sulfate 2 mg Q30M PRN IV 10/22/24 14:45 10/23/24 17:16 2 MG Diagnostic Test (Pha) 1 strip ACHS 10/22/24 17:00 10/24/24 11:42 1 STRIP Insulin Human Regular ACHS SC 10/22/24 17:00 10/24/24 11:45 3 UNITS Dextrose 50 ml UD PRN IV 10/22/24 14:45 Patient Own Medication 1,000 mcg DAILY PO 10/23/24 10:00 UNV Aspirin 81 mg DAILY PO 10/22/24 15:00 10/24/24 09:31 81 MG Albuterol 2.5 mg Q4HPRN PRN NEB 10/22/24 15:15 Ipratropium [place] 0.5 mg Q4HPRN PRN NEB 10/22/24 15:15 Cholecalciferol 2,000 unit DAILY PO 10/23/24 10:00 10/24/24 09:30 2,000 UNIT Cyanocobalamin 1,000 mcg DAILY PO 10/23/24 10:00 10/24/24 09:31 1,000 MCG Morphine Sulfate 1 mg Q6HP PRN IV 10/22/24 16:15 10/24/24 11:42 1 MG Ondansetron HCl 4 mg Q6HPRN PRN IV 10/22/24 16:15 10/23/24 22:14 4 MG Clopidogrel Bisulfate 75 mg DAILY PO 10/24/24 10:00 10/24/24 09:30 75 MG Laboratory Results Laboratory Tests 10/23/24 07:30 Labs and/or images reviewed: Labs reviewed by me, Image(s) reviewed by me Assessment/Plan Assessment/Plan Impression: -Rule out CVA -Primary HTN -Dyslipidemia -Pacemaker implant -DM Plan: -Neurology consult -Unable to perform MRI secondary to PPM -Stop antihypertensives (decreased BP) -Carotid Doppler negative -Repeat CT negative -SS consult for home safety evaluation Total time spent with patient discussing and formulating plan of care: 35 minutes. This medical document was created using an electronic medical record system with [employer] dictation system. Although this document has been carefully reviewed, there may still be some phonetic and typographical errors. These areas are purely typographical due to imperfections of the software programs, and do not reflect any compromise in the patient's medical care. Plan discussed with: Patient, Other (RN) My Orders Orders - SUDHA NEUMANN NP Procedure Category Date Status Time Carotid Duplx W Color US 10/23/24 Resulted DOP 15:40 D/C Acuna GONZALES 10/23/24 In Process 15:40 Ambulate GONZALES 10/24/24 In Process 13:15 Date of Service: Oct 24, 2024 Billing Provider: SUDHA NEUMANN NP Common Visit Codes: [id number] INP/OBS CARE(HIGH) SUDHA NEUMANN NP Oct 24, 2024 13:57
--- NOTE | 2024-10-24 21:03 | DVHPN2 ---
Progress Note - Dictate Date Seen: Oct 24, 2024 Medical Necessity Reason Pt with a Central, PICC or Fol: No Subjective Mr. Baldwin is a 69-year-old right-handed female with a past medical history of diabetes, coronary artery disease, and overweight. She came to the hospital because of left-sided paresthesia and muscle twitching I saw her in 08/2011 for new onset short-living headache, 09/23/13 for headache, 10/05/2015 for stroke I have seen and examined the patient, discussed with her nurse, she is doing fine, no new complaints, she is oriented to person and place, poor historian. No family available for the history Echocardiogram is pending Her pharmacy, is closed WBC/HB/PLT/MCV, 10/23/2024: 5.3/12.2/270/77.9 PT/INR aspirin CBC, 10/22/2024: 11/.04/21.4 BUN/CR, 10/22/2024: 10/.17 She far, 10/22/2024: 50 HGB A1c, 10/22/2024: 6.5 TG/HDL/LDL/HDL, 10/23/2024: 122/126/50/54 TSH, 10/22/2024: 1.04 Carotid doctor, 10/23/2024: No hemodynamically significant stenosis. CT head, 10/05/15: No intracranial hemorrhage, mass effect or midline shift. CT head, 10/06/15: Unremarkable CT brain without IV contrast CT head, 10/22/2024: No evidence of acute intracranial hemorrhage, mass effect or hydrocephalus CT head, 10/23/2024: No acute intracranial abnormality. vital signs Vital Sign Date Time Temp Pulse Resp B/P (MAP) Pulse Ox O2 Delivery O2 Flow Rate FiO2 10/24/24 20:39 67 17 103/60 10/24/24 18:23 100 Room Air 0.0 10/24/24 18:23 21 10/24/24 16:46 97.7 97.7 Total Intake and Output 10/23/24 10/23/24 10/24/24 15:00 23:00 07:00 Intake Total 980 ml 250 ml Output Total 1625 ml Balance -645 ml 250 ml medications Current Medications Medications Dose Ordered Sig/Albert Route Start Time Stop Time Status Last Admin Dose Admin Atorvastatin Calcium 40 mg HS PO 10/22/24 22:00 10/23/24 21:08 40 MG Acetaminophen 650 mg Q6HP PRN PO 10/22/24 14:45 Nitroglycerin 0.4 mg Q5MINP PRN SL 10/22/24 14:45 Morphine Sulfate 2 mg Q30M PRN IV 10/22/24 14:45 10/23/24 17:16 2 MG Diagnostic Test (Pha) 1 strip ACHS 10/22/24 17:00 10/24/24 16:41 1 STRIP Insulin Human Regular ACHS SC 10/22/24 17:00 10/24/24 11:45 3 UNITS Dextrose 50 ml UD PRN IV 10/22/24 14:45 Patient Own Medication 1,000 mcg DAILY PO 10/23/24 10:00 UNV Aspirin 81 mg DAILY PO 10/22/24 15:00 10/24/24 09:31 81 MG Albuterol 2.5 mg Q4HPRN PRN NEB 10/22/24 15:15 Ipratropium [place] 0.5 mg Q4HPRN PRN NEB 10/22/24 15:15 Cholecalciferol 2,000 unit DAILY PO 10/23/24 10:00 10/24/24 09:30 2,000 UNIT Cyanocobalamin 1,000 mcg DAILY PO 10/23/24 10:00 10/24/24 09:31 1,000 MCG Morphine Sulfate 1 mg Q6HP PRN IV 10/22/24 16:15 10/24/24 20:39 1 MG Ondansetron HCl 4 mg Q6HPRN PRN IV 10/22/24 16:15 10/23/24 22:14 4 MG Clopidogrel Bisulfate 75 mg DAILY PO 10/24/24 10:00 10/24/24 09:30 75 MG objective General: the patient is well developed and nourished. No acute distress. MENTAL STATUS: Awake and alert. Oriented to person, place, time and general circumstances. Able to give personal history. SPEECH, LANGUAGE, HIGHER CORTICAL FUNCTION: no aphasia or dysathria. CRANIAL NERVES: Intact visual nicolas to confrontation. The optic discs were sharp. Pupils are equal, round and reactive. EOMs full and conjugate. No nystagmus. Facial sensation diminished in the left face. Mandibular strength intact. Facial muscles symmetrical and strength intact. SENSATION: Sensation to touch and pinprick is unremarkable MOTOR: Normal tone in the upper and lower extremity. Normal muscle bulk. No fasciculations. No abnormal movements or posturing. Muscle strength of the major groups in the right extremities is 5/5. Muscle strength of the major groups in the left extremities feels 5/5 but with questionable drift in the left leg REFLEXES: Deep tendon reflexes symmetrically diminished. No pathological reflexes. CEREBELLAR/COORDINATION: Finger to nose is normal bilaterally. GAIT/STATION: deferred laboratory and microbiology Laboratory Tests 10/23/24 07:30 Test 10/23/24 07:30 Range/Units Serum Glucose 138 H 74-106 mg/dL Problem List Acute left-sided numbness, weakness, muscle twitching, ? stroke ? Seizure, less likely On Eliquis Assessment/Plan Monitoring, Supportive treatment Telemetry Vitamin B12, folic acid, TSH EEG Echocardiogram Aspirin, 81 mg daily, Plavix 75 mg daily for now Lipitor 40 mg daily Will confirm her home medication More recommendation per clinical course Progress: Poor This medical document was created using an electronic medical record system with [employer] dictation system. Although this document has been carefully reviewed, there may still be some phonetic and typographical errors. These areas are purely typographical due to imperfections of the software programs, and do not reflect any compromise in the patient's medical care. Prognosis poor Plan discussed with: Patient, Other Total Time (mins): 35 RADHA JAY MD Oct 24, 2024 21:03
[2024-10-24] MEDS: DOCUSATE SOD 100 MG CAP PO ONE (22:49)
[2024-10-25] VITALS (8 sets, daily range): BP systolic 100–160; BP diastolic 50–70; PULSE 58–71; RESP 17–20; TEMP 98–98.4; O2SAT 96–100
--- NOTE | 2024-10-25 13:30 | DVHDS2 ---
Discharge Summary Date of Admission Oct 22, 2024 at 14:39 Date of Discharge: Oct 25, 2024 Admitting Diagnosis Chest pain Labs/Diagnostic Data: Laboratory Results Test 10/25/24 06:41 10/23/24 07:30 10/22/24 14:30 10/22/24 11:52 POC Glucose 128 mg/dl (70-106) White Blood Count 5.3 10^3/uL (4.4-10.8) Red Blood Count 4.84 10^6/uL (4.0-5.20) Hemoglobin 12.2 g/dL (12.2-16.2) Hematocrit 37.7 % (36.0-46.0) Mean Corpuscular Volume 77.9 fL (80.0-100.0) Mean Corpuscular Hemoglobin 25.3 pg (28.0-32.0) Mean Corpuscular Hemoglobin Concent 32.5 g/dL (32.0-36.0) Red Cell Distribution Width 22.2 % (11.8-14.3) Platelet Count 270 10^3/uL (140-450) Mean Platelet Volume 6.8 fL (6.9-10.8) Neutrophils (%) (Auto) 53.1 % (37.0-80.0) Lymphocytes (%) (Auto) 34.7 % (10.0-50.0) Monocytes (%) (Auto) 8.1 % (0.0-12.0) Eosinophils (%) (Auto) 3.3 % (0.0-7.0) Basophils (%) (Auto) 0.8 % (0.0-2.0) Neutrophils # (Auto) 2.8 10 ^3/uL (1.6-8.6) Lymphocytes # (Auto) 1.8 10 ^3/uL (0.4-5.4) Monocytes # (Auto) 0.4 10 ^3/uL (0-1.3) Eosinophils # (Auto) 0.2 10 ^3/uL (0-0.8) Basophils # (Auto) 0 10 ^3/uL (0-0.2) Nucleated Red Blood Cells 0.0 % Sodium Level 141 mmol/L (136-145) Potassium Level 4.3 mmol/L (3.5-5.1) Chloride Level 109 mmol/L (98-107) Carbon Dioxide Level 25 mmol/L (20-31) Anion Gap 7 (5-15) Blood Urea Nitrogen 13 mg/dL (9-23) Creatinine 1.07 mg/dL (0.550-1.02) Glomerular Filtration Rate Calc 56 mL/min (>90) BUN/Creatinine Ratio 12.1 (10.0-20.0) Serum Glucose 138 mg/dL (74-106) Calcium Level 9.7 mg/dL (8.7-10.4) Magnesium Level 1.8 mg/dL (1.6-2.6) Triglycerides Level 122 mg/dL (< 150) Cholesterol Level 126 mg/dL (< 200) LDL Cholesterol 50 mg/dL (< 100) HDL Cholesterol 54 mg/dL (40-59) Troponin I High Sensitivity 6 ng/L (</=34) Prothrombin Time 11.0 sec (9.3-11.8) Prothrombin Time INR 1.04 (0.9-1.15) Activated Partial Thromboplast Time 21.4 SEC (24.5-34.5) Hemoglobin A1c 6.5 % A1C (<5.7) Total Bilirubin 0.7 mg/dL (0.2-1.0) Aspartate Amino Transferase (AST) 22 U/L (13-40) Alanine Aminotransferase (ALT) 11 U/L (7-40) Alkaline Phosphatase 89 U/L (46-116) B-Type Natriuretic Peptide 42.74 pg/mL (0-100) Total Protein 6.6 g/dL (5.7-8.2) Albumin 4.4 g/dL (3.2-4.8) Thyroid Stimulating Hormone (TSH) 1.04 uIU/mL (0.55-4.78) Free Thyroxine (T4) Calculated 1.39 ng/dL (0.89-1.76) Other Laboratory Tests 10/23/24 07:30 Brief Hx & Hospital Course: History of Present Illness Alejandra Baldwin is a 69-year-old female with past medical history of CAD, hypertension, hyperlipidemia, diabetes, COPD, asthma, CHF, hysterectomy, pacemaker, PTCA, neck surgery, back surgery, and abdominal surgery who presents to the ED with chest pain and left-sided tingling. Patient reports that the chest pain is 9/10 stabbing like and intermittent nature. She states that there are no triggering or alleviating factors. Patient also reports [id number]-[id number]-right tingling throughout her body. Upon examination patient is A&O x3, for a moment she forgot where she was at. Patient denies any alcohol use, illicit drug use, and tobacco use. She denies any recent trauma or injury, recent sick contacts, recent travels, recent ingestion of spoiled food, shortness of breath, fever, chills, lightheadedness, weakness, dizziness, urinary symptoms, abdominal pain, nausea, vomiting, or diarrhea. Consults/Reason for consult Neurology: Rule out CVA Condition at Discharge: Fair Final Diagnosis/Problems List Ruled out CVA, probably TIA Secondary diagnosis: -Primary HTN -Dyslipidemia -Pacemaker implant -DM Discharge Disposition: Home Discharge Instruct/Medications Diet: Cardiac 2g Na,low cholest Activity: No Restrictions, As Tolerated Follow Up/Referral: Follow up PCP in 1-2 weeks Medications: Continue home medication including Eliquis. Scheduled Apixaban Base (Eliquis), 5 MG PO BID, (Reported) Cetirizine Hcl (Zyrtec Allergy), 10 MG PO DAILY, (Reported) Cholecalciferol (Vitamin D3), 1 TAB PO DAILY, (Reported) Cyanocobalamin (Vitamin B-12), 1,000 MCG PO DAILY, (Reported) Docusate Sodium (Colace), 1 CAP PO BID Enalapril Maleate (Enalapril Maleate), 10 MG PO DAILY, (Reported) Escitalopram Oxalate (Lexapro), 1 TAB PO DAILY, (Reported) Exenatide (Byetta), 10 MCG SC BIDAC, (Reported) Fluticasone Propionate (Nasal) (Flonase Allergy Relief), 50 MCG NA DAILY, (Reported) Furosemide (Furosemide), 1 TAB PO DAILY, (Reported) Gabapentin (Gabapentin), 400 MG PO TID, (Reported) Hydrocodone-Acetaminophen ([place] 7.5/325MG), 7.5 MG PO TID, (Reported) Ibuprofen (Ibuprofen), 1 TAB PO TID Levalbuterol Tartrate (Xopenex Hfa), 1 IN PRN, (Reported) Magnesium Citrate (Magnesium Citrate), 150 ML PO DAILY Methocarbamol (Methocarbamol), 750 MG PO BID Psyllium (Metamucil Fiber), 51.7 % PO BID Senna (Senna), 8.6 MG PO HS Simvastatin (Simvastatin), 40 MG PO DAILY, (Reported) Scheduled PRN Hydrocodone-Acetaminophen (Hydrocodone Bitartrate/AC 5-325 mg), 1 TAB PO Q12HP PRN Polyethylene Glycol 3350 (Miralax), 17 GM PO DAILY PRN Miscellaneous Medications Albuterol (Albuterol), (Reported) Clopidogrel Bisulfate (Plavix), 75 MG PO, (Reported) Exenatide (Bydureon Bcise), 2 MG SC, (Reported) Ferrous Sulfate (Ferosul), PO, (Reported) [Advair], (Reported) Discontinued Medications Fluoxetine Hcl (Fluoxetine Hcl), 2 CAP DAILY, (Reported) Glipizide (Glipizide), 5 MG PO DAILY, (Reported) Metformin Hydrochloride (Metformin Hcl), 500 MG PO DAILY, (Reported) [Premarin], 0.3 MG DAILY, (Reported) Durable Medical Equipment Elastic Bandages & Supports (Abdominal Binder/Elastic/), XX ONCE, (DME) 36 Discharge Statement: "Patient was advised to return to the ER or call 911 if any headaches, dizziness, shortness of breath, chest pain, abdominal pain, bleeding, fevers, or worsening of medical condition. Patient was counseled about treatment plan, medications, possible side effects, patientverbalized understanding. All questions were answered to the best of my ability. This discharge took greater then 30 minutes in planning, reviewing documentation, counseling the patient, and discussing with other team members." ASSESSMENT ASSESSMENT Assessment Ruled out CVA, probably TIA Date of Service: Oct 25, 2024 Billing Provider: SUDHA NEUMANN NP Common Visit Codes: 63821-EDY/OBS DISCH DAY >30min SUDHA NEUMANN NP Oct 25, 2024 13:30
--- NOTE | 2024-10-25 13:34 | DVHDS2 ---
Discharge Summary Date of Admission Oct 22, 2024 at 14:39 Date of Discharge: Oct 25, 2024 Admitting Diagnosis Chest pain Labs/Diagnostic Data: Laboratory Results Test 10/25/24 06:41 10/23/24 07:30 10/22/24 14:30 10/22/24 11:52 POC Glucose 128 mg/dl (70-106) White Blood Count 5.3 10^3/uL (4.4-10.8) Red Blood Count 4.84 10^6/uL (4.0-5.20) Hemoglobin 12.2 g/dL (12.2-16.2) Hematocrit 37.7 % (36.0-46.0) Mean Corpuscular Volume 77.9 fL (80.0-100.0) Mean Corpuscular Hemoglobin 25.3 pg (28.0-32.0) Mean Corpuscular Hemoglobin Concent 32.5 g/dL (32.0-36.0) Red Cell Distribution Width 22.2 % (11.8-14.3) Platelet Count 270 10^3/uL (140-450) Mean Platelet Volume 6.8 fL (6.9-10.8) Neutrophils (%) (Auto) 53.1 % (37.0-80.0) Lymphocytes (%) (Auto) 34.7 % (10.0-50.0) Monocytes (%) (Auto) 8.1 % (0.0-12.0) Eosinophils (%) (Auto) 3.3 % (0.0-7.0) Basophils (%) (Auto) 0.8 % (0.0-2.0) Neutrophils # (Auto) 2.8 10 ^3/uL (1.6-8.6) Lymphocytes # (Auto) 1.8 10 ^3/uL (0.4-5.4) Monocytes # (Auto) 0.4 10 ^3/uL (0-1.3) Eosinophils # (Auto) 0.2 10 ^3/uL (0-0.8) Basophils # (Auto) 0 10 ^3/uL (0-0.2) Nucleated Red Blood Cells 0.0 % Sodium Level 141 mmol/L (136-145) Potassium Level 4.3 mmol/L (3.5-5.1) Chloride Level 109 mmol/L (98-107) Carbon Dioxide Level 25 mmol/L (20-31) Anion Gap 7 (5-15) Blood Urea Nitrogen 13 mg/dL (9-23) Creatinine 1.07 mg/dL (0.550-1.02) Glomerular Filtration Rate Calc 56 mL/min (>90) BUN/Creatinine Ratio 12.1 (10.0-20.0) Serum Glucose 138 mg/dL (74-106) Calcium Level 9.7 mg/dL (8.7-10.4) Magnesium Level 1.8 mg/dL (1.6-2.6) Triglycerides Level 122 mg/dL (< 150) Cholesterol Level 126 mg/dL (< 200) LDL Cholesterol 50 mg/dL (< 100) HDL Cholesterol 54 mg/dL (40-59) Troponin I High Sensitivity 6 ng/L (</=34) Prothrombin Time 11.0 sec (9.3-11.8) Prothrombin Time INR 1.04 (0.9-1.15) Activated Partial Thromboplast Time 21.4 SEC (24.5-34.5) Hemoglobin A1c 6.5 % A1C (<5.7) Total Bilirubin 0.7 mg/dL (0.2-1.0) Aspartate Amino Transferase (AST) 22 U/L (13-40) Alanine Aminotransferase (ALT) 11 U/L (7-40) Alkaline Phosphatase 89 U/L (46-116) B-Type Natriuretic Peptide 42.74 pg/mL (0-100) Total Protein 6.6 g/dL (5.7-8.2) Albumin 4.4 g/dL (3.2-4.8) Thyroid Stimulating Hormone (TSH) 1.04 uIU/mL (0.55-4.78) Free Thyroxine (T4) Calculated 1.39 ng/dL (0.89-1.76) Other Laboratory Tests 10/23/24 07:30 Brief Hx & Hospital Course: History of Present Illness Alejandra Baldwin is a 69-year-old female with past medical history of CAD, hypertension, hyperlipidemia, diabetes, COPD, asthma, CHF, hysterectomy, pacemaker, PTCA, neck surgery, back surgery, and abdominal surgery who presents to the ED with chest pain and left-sided tingling. Patient reports that the chest pain is 9/10 stabbing like and intermittent nature. She states that there are no triggering or alleviating factors. Patient also reports ihdy-hefskxy-bsug-right tingling throughout her body. Upon examination patient is A&O x3, for a moment she forgot where she was at. Patient denies any alcohol use, illicit drug use, and tobacco use. She denies any recent trauma or injury, recent sick contacts, recent travels, recent ingestion of spoiled food, shortness of breath, fever, chills, lightheadedness, weakness, dizziness, urinary symptoms, abdominal pain, nausea, vomiting, or diarrhea. Course of hospitalization: EKG unremarkable. Troponins without any elevation x3. CT scan of the head negative acute intracranial pathology. Patient had repeat CT scan two days later which also was negative for any changes. Neurology consultation was obtained. Echocardiogram was requested, which was performed in June of this year, which was unremarkable with normal ejection fraction as well as having no valvular disease. Patient had carotid Doppler study which had no flow-limiting stenosis. Patient was found to be ambulating without any difficulty. Patient will be discharged home and is instructed to follow up with her PCP. At this time she states that she does not who were PCP is, but home medications provided by the patient includes Dr. Lv Fonseca. Patient we will continue anticoagulation with Eliquis this time. All questions answered. Physical examination General: Alert and Oriented x3. No acute distress. Well-nourished. Eyes: EOMI. Anicteric. HENT: Moist mucous membranes. Lungs: Clear to auscultation bilaterally. No accessory muscle use. Cardiovascular: Regular rate and rhythm. No murmur. No JVD. Abdomen: Soft, non-tender and non-distended. No palpable masses. Extremities: No edema. Non-tender. Skin: No rashes or lesions. Warm. Neurologic: No focal neurological deficits. CN II-XII grossly intact, but not individually tested. Psychiatric: Cooperative. Appropriate mood and affect. Total time spent with patient discussing and formulating plan of care: 35 minutes. This medical document was created using an electronic medical record system with [employer] system. Although this document has been carefully reviewed, there may still be some phonetic and typographical errors. These areas are purely typographical due to imperfections of the software programs, and do not reflect any compromise in the patient's medical care. Consults/Reason for consult Neurology: Rule out CVA Condition at Discharge: Fair Final Diagnosis/Problems List Ruled out CVA, probably TIA Secondary diagnosis: -Primary HTN -Dyslipidemia -Pacemaker implant -DM Discharge Disposition: Home Discharge Instruct/Medications Diet: Cardiac 2g Na,low cholest Activity: No Restrictions, As Tolerated Follow Up/Referral: Follow up PCP in 1-2 weeks Medications: Continue home medication including Eliquis. Scheduled Apixaban Base (Eliquis), 5 MG PO BID, (Reported) Cetirizine Hcl (Zyrtec Allergy), 10 MG PO DAILY, (Reported) Cholecalciferol (Vitamin D3), 1 TAB PO DAILY, (Reported) Cyanocobalamin (Vitamin B-12), 1,000 MCG PO DAILY, (Reported) Docusate Sodium (Colace), 1 CAP PO BID Enalapril Maleate (Enalapril Maleate), 10 MG PO DAILY, (Reported) Escitalopram Oxalate (Lexapro), 1 TAB PO DAILY, (Reported) Exenatide (Byetta), 10 MCG SC BIDAC, (Reported) Fluticasone Propionate (Nasal) (Flonase Allergy Relief), 50 MCG NA DAILY, (Reported) Furosemide (Furosemide), 1 TAB PO DAILY, (Reported) Gabapentin (Gabapentin), 400 MG PO TID, (Reported) Hydrocodone-Acetaminophen ([place] 7.5/325MG), 7.5 MG PO TID, (Reported) Ibuprofen (Ibuprofen), 1 TAB PO TID Levalbuterol Tartrate (Xopenex Hfa), 1 IN PRN, (Reported) Magnesium Citrate (Magnesium Citrate), 150 ML PO DAILY Methocarbamol (Methocarbamol), 750 MG PO BID Psyllium (Metamucil Fiber), 51.7 % PO BID Senna (Senna), 8.6 MG PO HS Simvastatin (Simvastatin), 40 MG PO DAILY, (Reported) Scheduled PRN Hydrocodone-Acetaminophen (Hydrocodone Bitartrate/AC 5-325 mg), 1 TAB PO Q12HP PRN Polyethylene Glycol 3350 (Miralax), 17 GM PO DAILY PRN Miscellaneous Medications Albuterol (Albuterol), (Reported) Clopidogrel Bisulfate (Plavix), 75 MG PO, (Reported) Exenatide (Bydureon Bcise), 2 MG SC, (Reported) Ferrous Sulfate (Ferosul), PO, (Reported) [Advair], (Reported) Discontinued Medications Fluoxetine Hcl (Fluoxetine Hcl), 2 CAP DAILY, (Reported) Glipizide (Glipizide), 5 MG PO DAILY, (Reported) Metformin Hydrochloride (Metformin Hcl), 500 MG PO DAILY, (Reported) [Premarin], 0.3 MG DAILY, (Reported) Durable Medical Equipment Elastic Bandages & Supports (Abdominal Binder/Elastic/), XX ONCE, (DME) 36 Discharge Statement: "Patient was advised to return to the ER or call 911 if any headaches, dizziness, shortness of breath, chest pain, abdominal pain, bleeding, fevers, or worsening of medical condition. Patient was counseled about treatment plan, medications, possible side effects, patientverbalized understanding. All questions were answered to the best of my ability. This discharge took greater then 30 minutes in planning, reviewing documentation, counseling the patient, and discussing with other team members." ASSESSMENT ASSESSMENT Assessment Ruled out CVA, probably TIASecondary diagnosis: -Primary TXS-Ygxtrztlwioa-Bjpzsyuxb implant-DM Date of Service: Oct 25, 2024 Billing Provider: SUDHA NEUMANN NP Common Visit Codes: 53895-CKB/OBS DISCH DAY >30min SUDHA NEUMANN NP Oct 25, 2024 13:34
== END 2024-10-25 19:00 | disposition home or self-care (01) | DRG 69 ==
LOC: ER 11:29 → OVERFLOW 14:39 → TELE-EAST 17:43
PROVIDERS: ADMIT Nurse Practitioner Acute Care; ATTEND Nurse Practitioner Acute Care
DX: G45.9 Transient cerebral ischemic attack, unspecified (principal); I13.0 Hypertensive heart and chronic kidney disease with heart failure and stage 1 through stage 4 chronic kidney disease, or unspecified chronic kidney disease; N17.9 Acute kidney failure, unspecified; I25.10 Atherosclerotic heart disease of native coronary artery without angina pectoris; I50.9 Heart failure, unspecified; E78.5 Hyperlipidemia, unspecified; N18.9 Chronic kidney disease, unspecified; J44.89 Other specified chronic obstructive pulmonary disease; E11.65 Type 2 diabetes mellitus with hyperglycemia; F32.A Depression, unspecified; E11.22 Type 2 diabetes mellitus with diabetic chronic kidney disease; Z98.61 Coronary angioplasty status; Z90.710 Acquired absence of both cervix and uterus; Z95.0 Presence of cardiac pacemaker; Z79.899 Other long term (current) drug therapy; Z86.73 Personal history of transient ischemic attack (TIA), and cerebral infarction without residual deficits; Z82.49 Family history of ischemic heart disease and other diseases of the circulatory system; Z83.3 Family history of diabetes mellitus; Z91.041 Radiographic dye allergy status; Z79.01 Long term (current) use of anticoagulants; Z79.1 Long term (current) use of non-steroidal anti-inflammatories (NSAID); Z79.84 Long term (current) use of oral hypoglycemic drugs; I25.2 Old myocardial infarction
CPT/HCPCS: 36415; 70450; 71045; 80048; 80053; 80061; 82607; 82746; 82962; 83036; 83735; 83880; 84439; 84443; 84484; 85025; 85610; 85730; 93005; 93886; 96374; 96375; G0378; J1815; J2405

== ENCOUNTER 2024-11-05 18:58 | Emergency (ER) | payer MEDICARE, MEDICAID ==
[~2024-11-05] VITALS: Ht 162.6 cm; Wt 75.0 kg
[~2024-11-05 18:58] MED LIST changes: +FERR325T20 PO; -FLUO-125; +FURO40TA4 PO; -GLIP5TAB21 PO; -METF-370 PO; -PREMARIN
--- NOTE | 2024-11-05 19:19 | ED.PDOC ---
Psychiatric HPI Comments 69 year old female with a Hx of DM, High Lipids, HTN, and a Pacemaker, but no prior Hx associated to SI was BIBA for the c/c of SI. Pt states that she "wants to end it all", and "doesn't want to be here anymore", but is unclear why. Pt denies any HI, plan or Visual/Auditory Hallucinations at this time. Chief Complaint: Suicidal Time Seen by MD: 19:13 Primary Care Provider: ? Reviewed Notes: Nurses Notes, Medications, Allergies Information Source: Patient Mode of Arrival: EMS Severity: Able to Care for Self Severity of Pain: Mild Severity of Mental Status: Moderate Severity of Symptoms: Moderate Timing: Hours Duration: Since onset, Hours Prehospital treatment: None Presents with: Depression, Anxiety, Unclear Thinking, Suicidal Ideation Ingestion: Unknown Current substance abuse: None Stressors: None History of: Suicidal Attempt Quality: Hopelessness Location: None Location of pain or injury: None Associated signs and symptoms: Depression, Hopeless, Anxiety, Tremors Past Medical History PAST MEDICAL HISTORY: Asthma, CAD, CHF, COPD, DM, High Lipids, HTN Surgical History: Hysterectomy, Pacemaker, [employer] History: 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 Family History Family History: Unknown Social History Smoker: Non-Smoker Alcohol: Denies ETOH Use Drugs: Denies Drug Use Lives In: Home Constitutional: denies: chills, diaphoresis, fatigue, fever, malaise, sweats, weakness, others EENTM: denies: blurred vision, double vision, ear bleeding, ear discharge, ear drainage, ear pain, ear ringing, eye pain, eye redness, hearing loss, mouth pain, mouth swelling, nasal discharge, nose bleeding, nose congestion, nose pain, photophobia, tearing, throat pain, throat swelling, voice changes, others Respiratory: denies: cough, hemoptysis, orthopnea, SOB at rest, shortness of breath, SOB with excertion, stridor, wheezing, others Cardiovascular: denies: chest pain, dizzy spells, diaphoresis, Dyspnea on exertion, edema, irregular heart beat, left arm pain, lightheadedness, palpitations, PND, syncope, others Gastrointestinal: denies: abdomen distended, abdominal pain, blood streaked bowels, constipated, diarrhea, dysphagia, difficulty swallowing, hematemesis, melena, nausea, poor appetite, poor fluid intake, rectal bleeding, rectal pain, vomiting, others Genitourinary: denies: abnormal vagina bleeding, burning, dyspareunia, dysuria, flank pain, frequency, hematuria, incontinence, pain, , vagina discharge, urgency, others Neurological: denies: dizziness, fainting, headache, left sided numbness, left sided weakness, numbness, paresthesia, pre-existing deficit, right sided numbness, right sided weakness, seizure, speech problems, tingling, tremors, weakness, others Musculoskeletal: denies: back pain, gout, joint pain, joint swelling, muscle pain, muscle stiffness, neck pain, others Integumetry: denies: bruises, change in color, change in hair/nails, dryness, laceration, lesions, lumps, rash, wounds, others Allergic/Immunocompromised: denies: Difficulty Healing, Frequent Infections, Hives, Itching, others Hematologic/Lymphatic: denies: anemia, blood clots, easy bleeding, easy bruising, swollen glands, others Endocrine: denies: excessive hunger, excessive sweating, excessive thirst, excessive urination, flushing, intolerance to cold, intolerance to heat, unexplained weight gain, unexplained weight loss, others Psychiatric: reports: suicidal; denies: anxiety, bipolar disorder, depression, hopeless, panic disorder, schizophrenia, sleepless, others All Other Systems: Reviewed and Negative Physical Exam General Appearance: Moderate Distress, Normal, Other (Suicidal) HEENT: Normal ENT Inspection, Pharynx Normal, TMs Normal Neck: Full Range of Motion, Non-Tender, Normal, Normal Inspection Respiratory: Chest Non-Tender, Lungs Clear, No Accessory Muscle Use, No Respiratory Distress, Normal Breath Sounds Cardiovascular: No Edema, No JVD, No Murmur, No Gallop, Normal Peripheral Pulses, Regular Rate/Rhythm Breast Exam: Deferred Gastrointestinal: No Organomegaly, Non Tender, No Pulsatile Mass, Normal Bowel Sounds, Soft Genitalia: Deferred Pelvic: Deferred Rectal: Deferred Extremities: No calf tenderness, Normal capillary refill, Normal inspection, Normal range of motion, Non-tender, No pedal edema Musculoskeletal : Apperance: Normal Neurologic: Alert, No Motor Deficits, Normal Affect, Other (Suicidal) Cerebellar Function: Normal Reflexes: Normal Skin: Dry, Normal Color, Warm Lymphatic: No Adenopathy Was a procedure done? Was a procedure done?: No Psych Differential Dx Psych. Differential Dx: Anxiety, Bipolar Disorder, Depression, Hopeless, Panic Disorder, Schizoprenia, Sleepless, Suicidal OD Differential Dx: Alcohol Abuse, Anxiety, Bipolar Disorder, Conversion Di sorder, Delirium, Depression, Drug Overdose, Intentional, Hallucinations, Homicidal, Personality Disorder, Schizophrenia, Suicidal Attempt, Suicidal Gesture Suicidal Differential Dx: Alcohol Abuse, Anxiety, Conversion Disorder, Depres harsha, Homicidal, Panic Disorder, Schizoprenia, Substance Abuse Intoxication Differential Dx: Delerium Tremens, Hallucinations, Dehydration, Depression, Drug-Induced Psychosis, Electrolyte Imbalance, Encephalitis, Intoxication, Medical Noncompliance, Personality Disorder, Schizophrenia, Substance Abuse Disorder X-Ray, Labs, Meds, VS Vital Signs Date Time Temp Pulse Resp B/P (MAP) Pulse Ox O2 Delivery O2 Flow Rate FiO2 11/05/24 21:11 60 16 100 Room Air 11/05/24 21:11 98.2 60 16 109/63 (78) 100 98.2 11/05/24 18:59 98.4 98 18 136/72 (93) 97 98.4 Lab Test 11/05/24 19:31 Range/Units White Blood Count 9.0 4.4-10.8 10^3/uL Red Blood Count 5.26 H 4.0-5.20 10^6/uL Hemoglobin 13.7 12.2-16.2 g/dL Hematocrit 42.1 36.0-46.0 % Mean Corpuscular Volume 80.0 80.0-100.0 fL Mean Corpuscular Hemoglobin 26.0 L 28.0-32.0 pg Mean Corpuscular Hemoglobin Concent 32.5 32.0-36.0 g/dL Red Cell Distribution Width 20.9 H 11.8-14.3 % Platelet Count 309 140-450 10^3/uL Mean Platelet Volume 7.1 6.9-10.8 fL Neutrophils (%) (Auto) 66.2 37.0-80.0 % Lymphocytes (%) (Auto) 26.0 10.0-50.0 % Monocytes (%) (Auto) 7.0 0.0-12.0 % Eosinophils (%) (Auto) 0.3 0.0-7.0 % Basophils (%) (Auto) 0.5 0.0-2.0 % Neutrophils # (Auto) 6.0 1.6-8.6 10 ^3/uL Lymphocytes # (Auto) 2.3 0.4-5.4 10 ^3/uL Monocytes # (Auto) 0.6 0-1.3 10 ^3/uL Eosinophils # (Auto) 0 0-0.8 10 ^3/uL Basophils # (Auto) 0 0-0.2 10 ^3/uL Nucleated Red Blood Cells 0.0 % Sodium Level 140 136-145 mmol/L Potassium Level 3.9 3.5-5.1 mmol/L Chloride Level 106 98-107 mmol/L Carbon Dioxide Level 23 20-31 mmol/L Anion Gap 11 5-15 Blood Urea Nitrogen 15 9-23 mg/dL Creatinine 1.25 H 0.550-1.02 mg/dL Glomerular Filtration Rate Calc 46 >90 mL/min BUN/Creatinine Ratio 12.0 10.0-20.0 Serum Glucose 170 H 74-106 mg/dL Calcium Level 10.1 8.7-10.4 mg/dL Total Bilirubin 0.4 0.2-1.0 mg/dL Aspartate Amino Transferase (AST) 26 13-40 U/L Alanine Aminotransferase (ALT) 21 7-40 U/L Alkaline Phosphatase 93 46-116 U/L Total Protein 6.9 5.7-8.2 g/dL Albumin 4.7 3.2-4.8 g/dL Salicylates Level < 3.0 -30 mg/dL Acetaminophen Level < 2.0 L 10.0-20.0 UG/ML Plasma/Serum Blood Alcohol < 3.0 <10 mg/dL Current Medications Medications (Trade) Dose Ordered Sig/Albert Route Start Time Stop Time Status Last Admin Acetaminophen (Tylenol Tablet) 1,000 mg ONCE ONCE PO 11/05/24 21:30 11/05/24 21:31 DC 11/05/24 21:23 PATIENT: TEDDY BLACK ACCT: [id number] UNIT: [id number] : 1955 LOC: ER ROOM / BED: / AGE / SEX: 69 / F ADM STATUS: REG ER SERVICE 58 ORDERING PHYSICIAN: MURPHY WATTS MD PROCEDURE(s): HWOCT - HEAD WITHOUT CONTRAST REASON: slurred speech, left facial droop ORDER NUMBER(s): [id number], ACCESSION NUMBER(s): [id number] EXAM: CT HEAD WITHOUT CONTRAST INDICATION: slurred speech, left facial droop TECHNIQUE: CT of the head without intravenous contrast. Radiation Dose Information: CT Dose: CTDI volume is 25 mGy. Dose-length product is 2250 mGy*cm The dose indicators for CT are the volume Computed Tomography (CT) Dose Index (CTDIvol) and the Dose Length Product (DLP), and are measured in units of mGy and mGy-cm, respectively. These indicators are not patient dose, but values generated from the CT scanner acquisition factors. The report includes radiation exposure data for exposures received during this examination. COMPARISON: CT HEAD WITHOUT CONTRAST on DOS: 10/24/24, CT STROKE CTH on DOS: 10/22/24, CT HEAD WITHOUT CONTRAST on DOS: 07/01/24, CT HEAD WITHOUT CONTRAST on DOS: 08/16/23, HEAD WITHOUT CONTRAST on DOS: 01/09/19 FINDINGS: There is no evidence of acute intracranial hemorrhage, extra-axial collection, mass effect, midline shift, herniation or hydrocephalus. The ventricles, sulci and cisterns are age appropriate. The jaimes-white differentiation is intact. Patchy periventricular and subcortical white matter hypoattenuation is nonspecific but may be related to small vessel ischemic disease. The visualized paranasal sinuses and mastoid air cells are clear. The surrounding soft tissues and osseous structures are unremarkable. IMPRESSION: No acute intracranial abnormality. Time of 1ST Reevaluation: 19:44 Reevaluation 1ST: Unchanged Time of 2ND Reevaluation: 21:14 Reevaluation 2ND: Improved (Patient had developed some transient slurred speech that has resolved now. Patient is talking normally. CT of the head shows no acute pathology. Lab results are unremarkable. Patient is cleared medically at this time and we will initiate psychiatric consult) Patient Education/Counseling: Diagnosis, Treatment, Need For Follow Up Family Education/Counseling: No Family Present Departure 1 Departure Time of Disposition: 21:13 Impression: Primary Impression: Suicidal thoughts Additional Impression: Depression Disposition: [facility] Condition: Stable Discharged With: Self Critical Care Note Critical Care Time?: No Stability Stability form required: No Heart Score Heart Score: Heart Score Response (Comments) Value History N/A 0 EKG N/A 0 Age N/A 0 Risk Factors N/A 0 Troponin N/A 0 Total 0 I personally scribed for MURPHY WATTS MD ([email or web address]) on 11/05/24 at 19:19. Electronically submitted by Kurtis Swenson ([email or web address]). I personally scribed for MURPHY WATTS MD ([email or web address]) on 11/05/24 at 20:49. Electronically submitted by Kurtis Swenson ([email or web address]). MURPHY WATTS MD Nov 05, 2024 19:19
[2024-11-05 19:52] LABS: Hematocrit 42.1 % (36.0-46.0); Hemoglobin 13.7 g/dL (12.2-16.2); Mean Corpuscular Hemoglobin 26.0 pg (28.0-32.0); Mean Corpuscular Volume 80.0 fL (80.0-100.0); Nucleated Red Blood Cells % 0.0 %
[2024-11-05 20:04] LABS: Alanine Aminotransferase 21 U/L (7-40); Albumin 4.7 g/dL (3.2-4.8); Alkaline Phosphatase 93 U/L (46-116); Anion Gap 11 (5-15); BUN/Creatinine Ratio 12.0 (10.0-20.0); Bilirubin, Total 0.4 mg/dL (0.2-1.0); Blood Urea Nitrogen 15 mg/dL (9-23); Calcium 10.1 mg/dL (8.7-10.4); Carbon Dioxide 23 mmol/L (20-31); Chloride 106 mmol/L (98-107); Glucose 170 mg/dL (74-106); Potassium 3.9 mmol/L (3.5-5.1); Sodium 140 mmol/L (136-145); Total Protein 6.9 g/dL (5.7-8.2)
[2024-11-05 20:05] LABS: Acetaminophen < 2.0 UG/ML (10.0-20.0); Salicylate < 3.0 mg/dL (-30)
--- NOTE | 2024-11-05 20:48 | DVH ---
EXAM: CT HEAD WITHOUT CONTRAST INDICATION: slurred speech, left facial droop TECHNIQUE: CT of the head without intravenous contrast. Radiation Dose Information: CT Dose: CTDI volume is 25 mGy. Dose-length product is 2250 mGy*cm The dose indicators for CT are the volume Computed Tomography (CT) Dose Index (CTDIvol) and the Dose Length Product (DLP), and are measured in units of mGy and mGy-cm, respectively. These indicators are not patient dose, but values generated from the CT scanner acquisition factors. The report includes radiation exposure data for exposures received during this examination. COMPARISON: CT HEAD WITHOUT CONTRAST on DOS: 10/24/24, CT STROKE CTH on DOS: 10/22/24, CT HEAD WITHOUT CONTRAST on DOS: 07/01/24, CT HEAD WITHOUT CONTRAST on DOS: 08/16/23, HEAD WITHOUT CONTRAST on DOS: 01/09 FINDINGS: There is no evidence of acute intracranial hemorrhage, extra-axial collection, mass effect, midline s hift, herniation or hydrocephalus. The ventricles, sulci and cisterns are age appropriate. The jaimes-white differentiation is intact. Patchy periventricular and subcortical white matter hypoattenuation is nonspecific but may be related to small vessel ischemic disease. The visualized paranasal sinuses and mastoid air cells are clear. The surrounding soft tissues and osseous structures are unremarkable. IMPRESSION: No acute intracranial abnormality.
[2024-11-05] MEDS: ACETAMINOPHEN 325 MG TAB PO ONE (21:23)
[2024-11-06 07:42] VITALS: BP 124/78; PULSE 77; RESP 16; TEMP 97.9; O2SAT 99
--- NOTE | 2024-11-06 09:52 | DVHINCON2 ---
Date of Service if different f: Nov 06, 2024 Time of Service: 09:51 Consultation ([facility]) Labs Laboratory Tests Test 11/05/24 19:31 White Blood Count 9.0 10^3/uL (4.4-10.8) Red Blood Count 5.26 10^6/uL (4.0-5.20) Hemoglobin 13.7 g/dL (12.2-16.2) Hematocrit 42.1 % (36.0-46.0) Mean Corpuscular Volume 80.0 fL (80.0-100.0) Mean Corpuscular Hemoglobin 26.0 pg (28.0-32.0) Mean Corpuscular Hemoglobin Concent 32.5 g/dL (32.0-36.0) Red Cell Distribution Width 20.9 % (11.8-14.3) Platelet Count 309 10^3/uL (140-450) Mean Platelet Volume 7.1 fL (6.9-10.8) Neutrophils (%) (Auto) 66.2 % (37.0-80.0) Lymphocytes (%) (Auto) 26.0 % (10.0-50.0) Monocytes (%) (Auto) 7.0 % (0.0-12.0) Eosinophils (%) (Auto) 0.3 % (0.0-7.0) Basophils (%) (Auto) 0.5 % (0.0-2.0) Neutrophils # (Auto) 6.0 10 ^3/uL (1.6-8.6) Lymphocytes # (Auto) 2.3 10 ^3/uL (0.4-5.4) Monocytes # (Auto) 0.6 10 ^3/uL (0-1.3) Eosinophils # (Auto) 0 10 ^3/uL (0-0.8) Basophils # (Auto) 0 10 ^3/uL (0-0.2) Nucleated Red Blood Cells 0.0 % Sodium Level 140 mmol/L (136-145) Potassium Level 3.9 mmol/L (3.5-5.1) Chloride Level 106 mmol/L (98-107) Carbon Dioxide Level 23 mmol/L (20-31) Anion Gap 11 (5-15) Blood Urea Nitrogen 15 mg/dL (9-23) Creatinine 1.25 mg/dL (0.550-1.02) Glomerular Filtration Rate Calc 46 mL/min (>90) BUN/Creatinine Ratio 12.0 (10.0-20.0) Serum Glucose 170 mg/dL (74-106) Calcium Level 10.1 mg/dL (8.7-10.4) Total Bilirubin 0.4 mg/dL (0.2-1.0) Aspartate Amino Transf (AST/SGOT) 26 U/L (13-40) Alanine Aminotransferase (ALT/SGPT) 21 U/L (7-40) Alkaline Phosphatase 93 U/L (46-116) Total Protein 6.9 g/dL (5.7-8.2) Albumin 4.7 g/dL (3.2-4.8) Salicylates Level < 3.0 mg/dL (-30) Acetaminophen Level < 2.0 UG/ML (10.0-20.0) Plasma/Serum Blood Alcohol < 3.0 mg/dL (<10) Vitals Vital Signs Date Time Temp Pulse Resp B/P (MAP) Pulse Ox O2 Delivery O2 Flow Rate FiO2 11/06/24 07:42 97.9 77 16 124/78 (93) 99 97.9 11/05/24 21:11 Room Air PSYCHIATRY CONSULTATION INITIAL EVALUATION REASON FOR CONSULT: SI HPI: Pt gives her name, location, date, and reason for presenting. Pt got upset yesterday. She felt she needed to come to the ED to calm down. Her left her 2 days ago. He decided he was going to live in the street. Says prior, they were fighting because he was start taking off without warning, coming in and out of their home, was out in the streets. She does not know why. Then she felt she had it, told him this, then he left. Pt called the ambulance who brought her to the hospital. Pt was upset, but reports she feels better today. Pt did says she wanted to end it all, but she did not mean her life, she meant end her relationship with her . She does not want to deal with his game or whatever he is playing. Pt denies history of suicidal thoughts, no self-harm, no suicide attempts. She says I dont believe in that. She denies access to firearms. Pt says she will be safe if she leaves the hospital. She denies any plan, intention or desire to harm herself. On psych ROS, pt denies any current or prior symptoms of elevated mood or psychosis. PSYCHIATRIC HISTORY: DIAGNOSIS: None prior ADMISSIONS: None prior MEDICATION TRIALS: Took medication after her mother 15 years ago, cannot recall medication name. OUTPATIENT CARE: None prior THERAPY: None prior SI/SELF-INJURY/SUICIDE ATTEMPT: None prior SUBSTANCE USE: Denies any RELEVANT MEDICAL HISTORY: Prior back surgery, thinks she is on Oxycodone PRN. Has a pacemaker. SOCIAL HISTORY: Was to her since the 1970s. They have adult children who live out of state. Gets SSI. Retired. ALLERGIES: Iodine MENTAL STATUS EXAMINATION: The patient is a cooperative, appropriately groomed older adult woman. No abnormal behaviors or movements. She is alert and oriented to person, place, time, and situation. She demonstrates a full range of affect, mildly tearful at times when discussing recent relational distress, but also smiles occasionally, particularly when discussing her values and beliefs. Mood is described as better today. Speech is spontaneous, normal in rate and tone. Thought process is linear and goal-directed. Thought content is free of suicidal or homicidal ideation, psychotic features, or delusions. Insight and judgment are intact. DIFFERENTIAL DIAGNOSIS: Adjustment Disorder with Mixed Disturbance of Emotions and Conduct (F43.25) Unspecified Depressive Disorder (F32.A) Bereavement-related Reaction due to situational loss (Z63.4) ASSESSMENT: 69yo W, who presented to the ED after acute distress related to her husbands unexpected departure from their home. She initially used the phrase I wanted to end it all, but clarified she was referring to ending her relationship, not her life. She denies any history of suicidal ideation,suicide attempts, or self-harm behaviors and states firmly that she doesnt believe in that. There are no symptoms of psychosis or skyla. Her emotional distress appears situational and reactive to marital conflict. Her mood has improved since presentation, and she expresses motivation to return home safely. She is oriented, thoughtful, and insight-oriented, with clear denial of ongoing suicidal thoughts. Her judgment is intact, and she has protective beliefs and values. She is not psychiatrically unstable, and there is no evidence of imminent danger to self or others. Safety Assessment Suicidal Ideation: Denied. Prior ambiguous statement clarified and not ref lective of intent to . History of SI/SA: None. Homicidal Ideation: Denied. Psychosis or Skyla: None. Insight: Good. Recognizes her emotional response as temporary. Judgment: Intact. Risk Level: Low. No active psychiatric symptoms, no imminent risk. RECOMMENDATIONS: 1. Legal: 5150 not indicated. Patient does not meet criteria for involuntary hold. 2. Disposition: Discharge to home with outpatient psychiatric follow-up. 3. Medications: No immediate need for psychotropic medication. Can be reassessed outpatient if symptoms persist. 4. Medical Considerations: Monitor for pain management needs related to history of back surgery; confirm safe use of PRN oxycodone. 5. Other - Provide referrals for outpatient therapy for grief and emotional support. Recommend individual therapy and/or support groups (e.g., for older adults coping with life changes or marital disruption). - Provide crisis resources, such as: [address] Suicide & Crisis [address] & [facility] access line - Encourage follow-up with a primary care provider for coordination of behavioral health referral. KATE DIMAS MD Nov 06, 2024 09:52
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
[2024-11-06] MEDS: HYDROcodone-ACET 5/325MG TAB PO PRN (13:01)
[2024-11-06] MEDS: ATORVASTATIN 20 MG TAB PO ONE (13:38)
[2024-11-06] MEDS ORDERED: APIXABAN 5 MG TAB PO SCH (22:00)
== END 2024-11-06 15:15 ==
LOC: ER 18:58 → EDUNIT# 18:58 → EDBD 18:58 → ER 11-06 15:15
DX: R45.851 Suicidal ideations (principal); F32.A Depression, unspecified; F41.9 Anxiety disorder, unspecified; J45.909 Unspecified asthma, uncomplicated; I11.0 Hypertensive heart disease with heart failure; I50.9 Heart failure, unspecified; E11.9 Type 2 diabetes mellitus without complications; E78.5 Hyperlipidemia, unspecified; J44.89 Other specified chronic obstructive pulmonary disease; Z95.0 Presence of cardiac pacemaker; Z91.041 Radiographic dye allergy status; Z88.8 Allergy status to other drugs, medicaments and biological substances; Z90.710 Acquired absence of both cervix and uterus; Z91.51 Personal history of suicidal behavior; Z79.899 Other long term (current) drug therapy; Z79.85 Long-term (current) use of injectable non-insulin antidiabetic drugs; Z79.82 Long term (current) use of aspirin; Z79.51 Long term (current) use of inhaled steroids; Z79.1 Long term (current) use of non-steroidal anti-inflammatories (NSAID); Z79.01 Long term (current) use of anticoagulants
CPT/HCPCS: 36415; 70450; 80053; 80320; 80329; 82607; 85025

== ENCOUNTER 2024-12-21 11:45 | Emergency (ER) | payer MEDICARE, MEDICAID ==
[~2024-12-21] VITALS: Ht 172.7 cm; Wt 78.6 kg
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
[2024-12-21] MEDS: SODIUM CHLORIDE 0.9% 1,000 ML IV ONE (12:30)
--- NOTE | 2024-12-21 13:03 | DVH ---
EXAM: XY CHEST PORTABLE Indication: sob Technique: Single frontal view of the chest was obtained Comparison: XY CHEST XRAY 1 VIEW on DOS: 10/22/24, XY CHEST XRAY 1 VIEW on DOS: 06/30/24, XY CHEST PORT ABLE on DOS: 06/24/24, XY CHEST XRAY 1 VIEW on DOS: 03/06/24, XY CHEST PORTABLE on DOS: 02/12/24 FINDINGS: Lines and Tubes: Cardiac pacemaker projects over left chest wall. Lungs: No focal consolidation. Pleura: No effusion. No pneumothorax. Cardiomediastinal contours: Unremarkable Bones: No acute osseous abnormality. IMPRESSION: No acute cardiopulmonary disease.
--- NOTE | 2024-12-21 13:13 | DVH ---
CLINICAL INFORMATION: Pelvic pain. TECHNIQUE: Axial CT images of the abdomen and pelvis were obtained without IV contrast. Coronal and s agittal reformatted images were obtained, reviewed, and stored. Evaluation of the parenchymal organs is limited without IV contrast. Evaluation of the bowel and mesentery is limited without oral contras t. All CT scans at this medical facility are performed using dose modulation techniques as appropriat e to a performed exam including the following: Automated exposure control was utilized; adjustment of the MA and/or KV according to patient size; and use of iterative reconstruction technique. CTDIvol = 12.72 mGy DLP = 702.18 mGy-cm COMPARISON: CT CT AB PEL WO CON-NO ORAL OR IV on DOS: 10/14/24, CT CT AB PEL WO CON-NO ORAL OR IV on DO S: 10/06/24, XY KUB ABDOMEN SINGLE VIEW on DOS: 06/29/24 FINDINGS: Examination is limited due to motion artifact. Lung bases: Mild atelectasis in the lung bases. Liver: Grossly unremarkable given the limitations of the exam. Biliary: Distended gallbladder. No calcified gallstones visualized. Spleen: Unremarkable. Pancreas: Moderate atrophy. Adrenal glands: Unremarkable. No mass. Kidneys: Right kidney is absent. No hydronephrosis and no left renal or ureteral calculi. Aorta/Vascular: No aneurysm or significant calcification. Retroperitoneum: No lymphadenopathy visualized. Bowel/mesentery: Moderate gastric distention with ingested material. There is suture material at the distal aspect of the stomach. Nonspecific nondilated fluid-filled small bowel loops. Surgical anastom oses involving small bowel loops in the right hemiabdomen. The cecum and ileocecal junction are abnor amanda positioned in the central aspect of the upper abdomen. Appendix is not visualized. There are sc attered colonic diverticula without adjacent inflammatory changes to suggest diverticulitis. Pelvic organs: Uterus is surgically absent. Bladder: Unremarkable. No mass. Abdominal wall: No mass or hernia. Bones: No acute fracture or suspicious intraosseous lesion. Postsurgical changes of posterior spinal fusion at L4-S1. Surgical hardware appears intact. There is grade 2-3 anterolisthesis of L5 on S1 wi th solid appearing osseous fusion at L5-S1. IMPRESSION: 1. Motion limited study. 2. Nonspecific nondilated fluid-filled small bowel loops. Findings may be seen with ileus or enteriti s in the appropriate clinical setting. No small bowel obstruction. 3. Scattered colonic diverticula without adjacent inflammatory changes to suggest diverticulitis. 4. Moderate gastric distention. 5. Sequelae of postsurgical changes as described above. 6. Distended gallbladder with no calcified gallstones visualized. Correlate with clinical findings. If clinically indicated, ultrasound could be obtained to further characterize. 7. Additional findings as described above.
[2024-12-21 13:58] LABS: Hematocrit 37.9 % (36.0-46.0); Hemoglobin 12.6 g/dL (12.2-16.2); Mean Corpuscular Hemoglobin 27.2 pg (28.0-32.0); Mean Corpuscular Volume 82.1 fL (80.0-100.0); Nucleated Red Blood Cells % 0.0 %
[2024-12-21 14:12] LABS: Alanine Aminotransferase < 9 U/L (7-40); Albumin 4.3 g/dL (3.2-4.8); Alkaline Phosphatase 95 U/L (46-116); Anion Gap 10 (5-15); BUN/Creatinine Ratio 10.0 (10.0-20.0); Bilirubin, Total 0.3 mg/dL (0.2-1.0); Blood Urea Nitrogen 12 mg/dL (9-23); Calcium 9.1 mg/dL (8.7-10.4); Carbon Dioxide 24 mmol/L (20-31); Chloride 106 mmol/L (98-107); Glucose 107 mg/dL (74-106); Potassium 4.1 mmol/L (3.5-5.1); Sodium 140 mmol/L (136-145); Total Protein 6.9 g/dL (5.7-8.2)
[2024-12-21] MEDS: HYDROcodone-ACET 5/325MG TAB PO ONE (16:26)
[2024-12-21 19:35] VITALS: BP 143/70; PULSE 68; RESP 16; TEMP 97.9; O2SAT 97
== END 2024-12-21 22:22 | disposition left against medical advice (07) ==
LOC: ER 11:45
DX: K52.9 Noninfective gastroenteritis and colitis, unspecified (principal); K80.20 Calculus of gallbladder without cholecystitis without obstruction; M79.602 Pain in left arm; I11.0 Hypertensive heart disease with heart failure; I50.9 Heart failure, unspecified; E11.9 Type 2 diabetes mellitus without complications; E78.5 Hyperlipidemia, unspecified; F41.9 Anxiety disorder, unspecified; J44.89 Other specified chronic obstructive pulmonary disease; Z04.89 Encounter for examination and observation for other specified reasons; Z79.899 Other long term (current) drug therapy; Z90.710 Acquired absence of both cervix and uterus; Z91.041 Radiographic dye allergy status; Z95.0 Presence of cardiac pacemaker; Y08.89XA Assault by other specified means, initial encounter; Y93.89 Activity, other specified; Y92.89 Other specified places as the place of occurrence of the external cause; Y99.8 Other external cause status
CPT/HCPCS: 36415; 71045; 74176; 80053; 85025; 96360; 99284; J7030

== ENCOUNTER 2024-12-31 12:28 | Inpatient (IN) | payer MEDICARE, MEDICAID ==
[~2024-12-31] VITALS: Ht 172.7 cm; Wt 73.9 kg
[2024-12-31 13:01] VITALS: PULSE 67; RESP 20; O2SAT 97
[2024-12-31 13:07] LABS: Hematocrit 36.5 % (36.0-46.0); Hemoglobin 12.0 g/dL (12.2-16.2); Mean Corpuscular Hemoglobin 27.0 pg (28.0-32.0); Mean Corpuscular Volume 82.5 fL (80.0-100.0); Nucleated Red Blood Cells % 0.0 %
--- NOTE | 2024-12-31 13:08 | ED.PDOC ---
GI ASSESSMENT HPI Comments A 69 YEAR OLD FEMALE PRESENTS TO THE ED WITH COMPLAINT OF ABDOMINAL PAIN, MIDDLE BACK PAIN, AND N/V/D. PATIENT STATES SHE HAS BEEN EXPERIENCING GENERALIZED ABDOMINAL PAIN, MIDDLE BACK PAIN, NAUSEA, VOMITING, AND DIARRHEA FOR THE PAST 4 DAYS. PATIENT REPORTS SHE HAS ALSO BEEN EXPERIENCING PAINFUL URINATION FOR THE PAST 4 DAYS. PATIENT NOTES THAT SHE HAS A HISTORY OF A SMALL-BOWEL OBSTRUCTION IN THE PAST AND THE PAIN IS SAME BEFORE SBO. THE PAIN LEVEL IS 8/10. PATIENT DENIES FEVER, CHILLS, SHORTNESS OF BREATH, CHEST PAIN, ABDOMINAL PAIN, NAUSEA, VOMITING, HEADACHE, OR OTHER COMPLAINTS. NO OTHER SYMPTOMS OR MODIFYING FACTORS AT THIS TIME. PATIENT IS ALERT, ORIENTED X 4, AND HAS STEADY GAIT. Chief Complaint: Diarrhea Time Seen by MD: 12:35 Primary Care Provider: ? Reviewed Notes: Nurses Notes, Medications, Allergies Allergies: Coded Allergies: Iodinated Contrast Media (Verified Allergy, Unknown, 11/24/13) Home Meds Active Scripts Docusate Sodium (Colace) 100 Mg Cap, 1 CAP PO BID for 3 Days, #30 CAP Prov:VILLA FROST MD 04/24/24 Hydrocodone-Acetaminophen (Hydrocodone Bitartrate/AC 5-325 mg) 1 Tab Tab, 1 TAB PO Q12HP PRN for 2 Days, #4 TAB Prov:VILLA FROST MD 04/24/24 Elastic Bandages & Supports (ABDOMINAL BINDER/ELASTIC/) Elast Sm Mis, SM XX ONCE, #1 Prov:ESTUARDO LY MD 03/07/24 Psyllium (Metamucil Fiber) 51.7 % Jack, 51.7 % PO BID for 30 Days, #60 PACK Prov:ESTUARDO LY MD 03/07/24 Polyethylene Glycol 3350 (Miralax) 17 Gm Pow, 17 GM PO DAILY PRN for 30 Days, #30 POW Prov:ESTUARDO LY MD 03/07/24 Senna (Senna) 8.6 Mg Tab, 8.6 MG PO HS for 30 Days, #30 TAB Prov:ESTUARDO LY MD 03/07/24 Magnesium Citrate (Magnesium Citrate) 1.745 Gm/30 Ml Mariela, 150 ML PO DAILY for 2 Days, #1 BOTTLE 0 Refills Prov:HUBER ANAYA 05/08/23 Methocarbamol (Methocarbamol) 750 Mg Tab, 750 MG PO BID, #20 TAB Prov:YANXOCHILTLITO BRUCE 07/14/22 Ibuprofen (Ibuprofen) 800 Mg Tab, 1 TAB PO TID, #30 TAB Prov:CIRILO HEREDIA 07/14/22 Reported Medications Ferrous Sulfate (Ferosul) 325 Mg Tab, PO 10/22/24 Furosemide (Furosemide) 40 Mg Tab, 1 TAB PO DAILY 10/22/24 Escitalopram Oxalate (Lexapro) 20 Mg Tab, 1 TAB PO DAILY, TAB 03/02/24 Cetirizine Hcl (Zyrtec Allergy) 10 Mg Cap, 10 MG PO DAILY, CAP 03/02/24 Exenatide (Bydureon Bcise) 2 Mg/0.85 Ml Inj, 2 MG SC, INJ 03/02/24 Apixaban Base (ELIQUIS) 5 Mg Tab, 5 MG PO BID, TAB 03/02/24 Cholecalciferol (VITAMIN D3) 2,000 Unit Tab, 1 TAB PO DAILY, TAB 03/02/24 Cyanocobalamin (Vitamin B-12) 1,000 Mcg Tab, 1000 MCG PO DAILY, TAB 03/02/24 Fluticasone Propionate (Nasal) (Flonase Allergy Relief) 50 Mcg/Act Spr, 50 MCG NA DAILY, SPRAY 03/02/24 [Advair] No Conflict Check 09/22/13 Clopidogrel Bisulfate (Plavix) 75 Mg Tab, 75 MG PO, TAB 09/22/13 Simvastatin (Simvastatin) 20 Mg Tab, 40 MG PO DAILY for 30 Days 09/22/13 Levalbuterol Tartrate (Xopenex Hfa) Aer, 1 IN PRN 04/06/11 Exenatide (Byetta) 10 Mcg Inj, 10 MCG SC BIDAC 04/06/11 Albuterol (Albuterol) Pow 04/06/11 Enalapril Maleate (Enalapril Maleate) 10 Mg Tab, 10 MG PO DAILY 04/06/11 Gabapentin (Gabapentin) 400 Mg Cap, 400 MG PO TID 04/06/11 Hydrocodone-Acetaminophen ([place] 7.5/325MG) 1 Tab Tb, 7.5 MG PO TID 04/06/11 Information Source: Patient Mode of Arrival: Ambulatory Timing: Days Duration: Since onset, Days Prehospital treatment: None Quality: Aching, Cramping, Sharp Vomitus: Food Particles Stool: Loose, Watery Severity: Moderate Recent: None Recent Hx of: None Pain Location: Diffuse Modifying Factors: Nothing Associated sign and symptoms: Nausea, Vomiting, Diarrhea, Abdominal Pain Past Medical History PAST MEDICAL HISTORY: Asthma, CAD, COPD, DM, High Lipids, HTN Past Medical History (Other): SBO Surgical History: Hysterectomy, Pacemaker, PTCA LICENSING REGISTRATION EXAMINER History: No Pertinent LICENSING REGISTRATION EXAMINER History Family History Family History: Reviewed,noncontributory to illness Social History Smoker: Non-Smoker Alcohol: Denies ETOH Use Drugs: Denies Drug Use Lives In: Home Constitutional: denies: chills, diaphoresis, fatigue, fever, malaise, sweats, weakness, others EENTM: denies: blurred vision, double vision, ear bleeding, ear discharge, ear drainage, ear pain, ear ringing, eye pain, eye redness, hearing loss, mouth pain, mouth swelling, nasal discharge, nose bleeding, nose congestion, nose pain, photophobia, tearing, throat pain, throat swelling, voice changes, others Respiratory: denies: cough, hemoptysis, orthopnea, SOB at rest, shortness of breath, SOB with excertion, stridor, wheezing, others Cardiovascular: denies: chest pain, dizzy spells, diaphoresis, Dyspnea on exertion, edema, irregular heart beat, left arm pain, lightheadedness, palpitations, PND, syncope, others Gastrointestinal: reports: abdominal pain, diarrhea, nausea, vomiting; denies: abdomen distended, blood streaked bowels, constipated, dysphagia, difficulty swallowing, hematemesis, melena, poor appetite, poor fluid intake, rectal bleeding, rectal pain, others Genitourinary: reports: burning, dysuria; denies: abnormal vagina bleeding, dy spareunia, flank pain, frequency, hematuria, incontinence, pain, , vagina discharge, urgency, others Neurological: denies: dizziness, fainting, headache, left sided numbness, left sided weakness, numbness, paresthesia, pre-existing deficit, right sided numbness, right sided weakness, seizure, speech problems, tingling, tremors, weakness, others Musculoskeletal: reports: back pain; denies: gout, joint pain, joint swelling, muscle pain, muscle stiffness, neck pain, others Integumetry: denies: bruises, change in color, change in hair/nails, dryness, laceration, lesions, lumps, rash, wounds, others Allergic/Immunocompromised: denies: Difficulty Healing, Frequent Infections, Hives, Itching, others Hematologic/Lymphatic: denies: anemia, blood clots, easy bleeding, easy bruising, swollen glands, others Endocrine: denies: excessive hunger, excessive sweating, excessive thirst, excessive urination, flushing, intolerance to cold, intolerance to heat, unexplained weight gain, unexplained weight loss, others Psychiatric: denies: anxiety, bipolar disorder, depression, hopeless, panic disorder, schizophrenia, sleepless, suicidal, others All Other Systems: Reviewed and Negative Physical Exam General Appearance: Mild Distress HEENT: Normal ENT Inspection, PERRL/EOMI, Pharynx Normal, TMs Normal Neck: Full Range of Motion, Non-Tender, Normal, Normal Inspection Respiratory: Chest Non-Tender, Lungs Clear, No Accessory Muscle Use, No Respiratory Distress, Normal Breath Sounds Cardiovascular: No Edema, No JVD, No Murmur, No Gallop, Normal Peripheral Pulses, Regular Rate/Rhythm Breast Exam: Deferred Gastrointestinal: LLQ, No Organomegaly, No Pulsatile Mass, Normal Bowel Sounds, RLQ, Soft, Tenderness (MIDDLE TO LOWER ABD WITH GUARDING, NO REBOUND TENDERNESS. ) Genitalia: Deferred Pelvic: Normal External Exam, Tender Uterus Rectal: Deferred Extremities: No calf tenderness, Normal capillary refill, Normal inspection, Normal range of motion, Non-tender, No pedal edema Musculoskeletal : Apperance: Normal Neurologic: Alert, vat operator II-XII nml as Tested, No Motor Deficits, Normal Affect, Normal Mood, No Sensory Deficits Cerebellar Function: Normal Reflexes: Normal Skin: Dry, Normal Color, Warm Peripheral Pulses: 2+ carotid (R), 2+ carotid (L), 2+ dorsalis pedis (R), 2+ dorsalis pedis (L) Lymphatic: No Adenopathy Was a procedure done? Was a procedure done?: No GI differential Dx Differential Diagnosis: Appendicitis, Bowel Obstruction, Diverticular disease, Gastroenteritis, Inflammatory BD, Pancreatitis, UTI, Urolithiasis, Dehydration, Electrolyte Imbalance, Food Poisoning, Viral X-Ray, Labs, Meds, VS Vital Signs Date Time Temp Pulse Resp B/P (MAP) Pulse Ox O2 Delivery O2 Flow Rate FiO2 12/31/24 13:24 67 20 103/62 12/31/24 13:01 98.0 67 20 103/62 (76) 97 98.0 12/31/24 13:01 67 20 97 Room Air* 0 21 12/31/24 12:35 98.3 83 18 112/78 96 98.3 Lab Test 12/31/24 12:57 12/31/24 12:53 Range/Units Urine Color Yellow Yellow Urine Clarity Clear Clear Urine pH 5.5 5.0-9.0 Urine Specific [place] 1.015 1.001-1.035 Urine Protein Negative Negative Urine Ketones Negative Negative Urine Blood Negative Negative /uL Urine Nitrite Negative Negative Urine Bilirubin Negative Negative Urine Urobilinogen Normal Negative mg/dL Urine Leukocyte Esterase 2+ Negative /uL Urine RBC 3 0 - 4 /hpf Urine Microscopic WBC 4 0-5 /HPF Urine Squamous Epithelial Cells Few <5 /hpf Urine Bacteria None seen None Seen /hpf Urine Glucose Normal Normal mg/dL White Blood Count 6.5 4.4-10.8 10^3/uL Red Blood Count 4.42 4.0-5.20 10^6/uL Hemoglobin 12.0 L 12.2-16.2 g/dL Hematocrit 36.5 36.0-46.0 % Mean Corpuscular Volume 82.5 80.0-100.0 fL Mean Corpuscular Hemoglobin 27.0 L 28.0-32.0 pg Mean Corpuscular Hemoglobin Concent 32.8 32.0-36.0 g/dL Red Cell Distribution Width 16.3 H 11.8-14.3 % Platelet Count 236 140-450 10^3/uL Mean Platelet Volume 6.7 L 6.9-10.8 fL Neutrophils (%) (Auto) 75.1 37.0-80.0 % Lymphocytes (%) (Auto) 15.8 10.0-50.0 % Monocytes (%) (Auto) 6.2 0.0-12.0 % Eosinophils (%) (Auto) 2.2 0.0-7.0 % Basophils (%) (Auto) 0.7 0.0-2.0 % Neutrophils # (Auto) 4.9 1.6-8.6 10 ^3/uL Lymphocytes # (Auto) 1.0 0.4-5.4 10 ^3/uL Monocytes # (Auto) 0.4 0-1.3 10 ^3/uL Eosinophils # (Auto) 0.1 0-0.8 10 ^3/uL Basophils # (Auto) 0 0-0.2 10 ^3/uL Nucleated Red Blood Cells 0.0 % Sodium Level 139 136-145 mmol/L Potassium Level 4.0 3.5-5.1 mmol/L Chloride Level 106 98-107 mmol/L Carbon Dioxide Level 24 20-31 mmol/L Anion Gap 9 5-15 Blood Urea Nitrogen 10 9-23 mg/dL Creatinine 1.16 H 0.550-1.02 mg/dL Glomerular Filtration Rate Calc 51 >90 mL/min BUN/Creatinine Ratio 8.6 L 10.0-20.0 Serum Glucose 207 H 74-106 mg/dL Calcium Level 8.6 L 8.7-10.4 mg/dL Total Bilirubin 0.3 0.2-1.0 mg/dL Aspartate Amino Transferase (AST) 18 13-40 U/L Alanine Aminotransferase (ALT) < 9 7-40 U/L Alkaline Phosphatase 102 46-116 U/L Total Protein 6.4 5.7-8.2 g/dL Albumin 4.0 3.2-4.8 g/dL Lipase 31 12-53 U/L Current Medications Medications (Trade) Dose Ordered Sig/Albert Route Start Time Stop Time Status Last Admin Sodium Chloride 1,000 ml @ 1,000 mls/hr Q1H ONCE IV 12/31/24 13:00 12/31/24 13:59 DC 12/31/24 13:22 Ondansetron HCl (Zofran) 4 mg ONCE ONCE IV 12/31/24 13:00 12/31/24 13:01 DC 12/31/24 13:22 Morphine Sulfate 2 mg ONCE ONCE IV 12/31/24 13:00 12/31/24 13:01 DC 12/31/24 13:24 Indication: MIDDLE ABD PAIN, HX OF SBO Technique: CT axial images of the abdomen and pelvis are obtained without contrast. Coronal and sagittal reformats were obtained. Radiation Dose Information: CTDI volume is 18.28 mGy. Dose-length product is 3.92 mGy*cm Comparison: CT CT AB PEL WO CON-NO ORAL OR IV on DOS: 12/21/24 FINDINGS: There is limited interpretation of the abdomen and pelvis without administration of intravenous contrast. Lung bases demonstrate no pleural effusion. Adrenal glands unremarkable in shape. Splenic hypodense lesions measuring up to 8 mm. Pancreas unremarkable in shape. Distended gallbladder. Liver unremarkable in shape. Right nephrectomy. Left kidney demonstrates no hydronephrosis / nephroli thiasis. Moderate gastric distention, similar to previous examination. Postsurgical changes of the distal stomach. Small bowel loops moderately distended up to approximately 2.6 cm. Large bowel loops are relatively nondistended. Postsurgical changes small bowel in the right abdomen. Abdominal aortic atherosclerotic disease. Bladder partially distended. No free pelvic fluid. No inguinal lymphadenopathy. Posterior fixation of the L4 and L5 vertebral bodies. 4 mm retrolisthesis L3 upon L4. Decompressive laminectomy at L4, L5. Moderate thoracolumbar degenerative disc disease. Decompression laminectomy at L2. IMPRESSION: Limited evaluation without contrast. Gastric distention with narrowing at the distal stomach, similar to previous examination. Correlate for outlet obstruction, gastroparesis and other etiologies. This is similar to previous examination. Moderate distention small bowel loops , may represent ileus, enteritis. No definitive small bowel obstruction seen if further evaluation desired, small- bowel series can be obtained to further evaluate. Hydropic/ distended gallbladder. Other findings as described. ATED BY: AMBROSIO HAYES MD DICTATED DATE/TIME: 12/31/241409 SIGNED BY: AMBROSIO HAYES MD SIGNED DATE/TIME: 12/31/24 141 CC: X-Ray, Labs, Meds, VS Comment EXTERNAL MEDICAL RECORDS REVIEWED: [NONE] INDEPENDENT HISTORIANS: [NONE] SOCIAL DETERMINANTS OF HEALTH: [NONE] LABS ORDERED: CBC, CMP, LIPASE, UA, C DIFF TOXIN REVIEWED AND INTERPRETED RESULTS: LEUKOCYTES 2+ IMAGING ORDERED: CT ABD/PEL TREATMENTS ORDERED: NS 1 L IV, ZOFRAN 4 MG IV, MORPHINE 2 MG IV AND ROCEPHIN 1GM IVPB PROCEDURES PERFORMED: NONE CRITICAL CARE TIME: NONE I HAVE DISCUSSED THE PATIENT WITH THE ATTENDING PHYSICIAN DR. AVILES AND HE AGREES WITH THE PATIENT'S PLAN OF CARE. UPON MY PHYSICAL EXAMINATION, THE PATIENT HAD GUARDING BUT NO REBOUND TENDERNESS NOTED UPON PALPATION TO HER ABDOMEN. DUE TO THE PATIENT'S PERSISTENT PAIN DESPITE IV TREATMENT, MEDICAL HISTORY, AND HER CT SCAN RESULTS, I HAVE DETERMINED THE PATIENT NEEDS TO BE ADMITTED FOR FURTHER TREATMENT AND. THE ON- CALL ADMITTING PHYSICIAN WILL BE CONTACTED FOR ADMISSION OF THIS PATIENT. Images Reviewed?: Images reviewed and evaluated by me Time of 1ST Reevaluation: 15:44 Reevaluation 1ST: Unchanged Patient Education/Counseling: Diagnosis, Treatment Family Education/Counseling: Diagnosis, Treatment SEPSIS Sepsis Screen Date sepsis recognized/suspect: Dec 31, 2024 Time Sepsis recognized/suspect: 1238 Recent Procedure: No On Antibiotic Therapy: No Respiratory Rate >20: No Heart Rate >90: No Temp<36 C (96.8 F) or >38.3 C: No SBP <90 or MAP <65 mmHG: No New Acute Mental Status Change: No Is the patient on CPAP, BIPAP,: No Physician Orders Clostridium Difficile Toxin (12/31/24 12:35) Ct Ab Pel Wo Con-No Oral Or Iv (12/31/24 12:57) Heplock Iv (12/31/24 ) Urine Bacterial Culture (12/31/24 15:46) Ceftriaxone 1gm/50ml (Rocephin) (12/31/24 16:00) Vital Signs Date Time Temp Pulse Resp B/P (MAP) Pulse Ox O2 Delivery O2 Flow Rate FiO2 12/31/24 13:24 67 20 103/62 12/31/24 13:01 98.0 67 20 103/62 (76) 97 98.0 12/31/24 13:01 67 20 97 Room Air* 0 21 12/31/24 12:35 98.3 83 18 112/78 96 98.3 Laboratory Tests Test 12/31/24 12:53 White Blood Count 6.5 10^3/uL (4.4-10.8) Medications Medications Dose Ordered Sig/Albert Route Start Time Stop Time Status Last Admin Dose Admin Morphine Sulfate 2 mg ONCE ONCE IV 12/31/24 13:00 12/31/24 13:01 DC 12/31/24 13:24 Ondansetron HCl 4 mg ONCE ONCE IV 12/31/24 13:00 12/31/24 13:01 DC 12/31/24 13:22 Sodium Chloride 1,000 ml @ 1,000 mls/hr Q1H ONCE IV 12/31/24 13:00 12/31/24 13:59 DC 12/31/24 13:22 Departure 1 Departure Time of Disposition: 15:44 Impression: Primary Impression: Intractable abdominal pain Additional Impressions: Ileus UTI (urinary tract infection) Qualified Codes: N30.00 - Acute cystitis without hematuria Disposition: ADMITTED INPATIENT Condition: Serious Critical Care Note Critical Care Time?: No Stability Stability form required: Yes Stable for transfer: To designated facility Unstable for transfer: Requires medication, ED Physician Assesment, Possible rapid decline I personally scribed for CIRILO EHREDIA ([email or web address]) on 12/31/24 at 13:08. Electronically submitted by Jason Steiner ([employer]). I personally scribed for CIRILO HEREDIA ([email or web address]) on 12/31/24 at 14:21. Electronically submitted by Jason Steiner ([employer]). I personally scribed for CIRILO HEREDIA ([email or web address]) on 12/31/24 at 15:00. Electronically submitted by Jason Steiner ([employer]). I personally scribed for CIRILO HEREDIA ([email or web address]) on 12/31/24 at 15:47. Electronically submitted by Jason Steiner ([employer]). CIRILO HEREDIA Dec 31, 2024 13:08
[2024-12-31 13:22] LABS: Alanine Aminotransferase < 9 U/L (7-40); Albumin 4.0 g/dL (3.2-4.8); Alkaline Phosphatase 102 U/L (46-116); Anion Gap 9 (5-15); BUN/Creatinine Ratio 8.6 (10.0-20.0); Blood Urea Nitrogen 10 mg/dL (9-23); Calcium 8.6 mg/dL (8.7-10.4); Carbon Dioxide 24 mmol/L (20-31); Chloride 106 mmol/L (98-107); Glucose 207 mg/dL (74-106); Potassium 4.0 mmol/L (3.5-5.1); Sodium 139 mmol/L (136-145); Total Protein 6.4 g/dL (5.7-8.2)
[2024-12-31] MEDS: SODIUM CHLORIDE 0.9% 1,000 ML IV ONE ×2 (13:22→16:56)
[2024-12-31] MEDS: ONDANSETRON HCL 4 MG/2 ML VIAL IV ONE (13:22)
[2024-12-31 13:23] LABS: Bilirubin, Total 0.3 mg/dL (0.2-1.0)
[2024-12-31] MEDS: MORPHINE SULFATE INJ 2 MG/ml SYRG IV ONE (13:24)
[2024-12-31 14:10] LABS: Urine Protein, UAD Negative (Negative)
--- NOTE | 2024-12-31 14:10 | DVH ---
Indication: MIDDLE ABD PAIN, HX OF SBO Technique: CT axial images of the abdomen and pelvis are obtained without contrast. Coronal and sagit blaine reformats were obtained. Radiation Dose Information: CTDI volume is 18.28 mGy. Dose-length product is 3.92 mGy*cm Comparison: CT CT AB PEL WO CON-NO ORAL OR IV on DOS: 12/21/24 FINDINGS: There is limited interpretation of the abdomen and pelvis without administration of intravenous contr ast. Lung bases demonstrate no pleural effusion. Adrenal glands unremarkable in shape. Splenic hypodense lesions measuring up to 8 mm. Pancreas unremarkable in shape. Distended gallbladder. Liver unremarkable in shape. Right nephrectomy. Left kidney demonstrates no hydronephrosis / nephrolithiasis. Moderate gastric distention, similar to previous examination. Postsurgical changes of the distal sto mach. Small bowel loops moderately distended up to approximately 2.6 cm. Large bowel loops are relatively nondistended. Postsurgical changes small bowel in the right abdomen. Abdominal aortic atherosclerotic disease. Bladder partially distended. No free pelvic fluid. No ingu inal lymphadenopathy. Posterior fixation of the L4 and L5 vertebral bodies. 4 mm retrolisthesis L3 upon L4. Decompressive l aminectomy at L4, L5. Moderate thoracolumbar degenerative disc disease. Decompression laminectomy a t L2. IMPRESSION: Limited evaluation without contrast. Gastric distention with narrowing at the distal stomach, similar to previous examination. Correlate for outlet obstruction, gastroparesis and other etiologies. This is similar to previous examination. Moderate distention small bowel loops , may represent ileus, enteritis. No definitive small bowel obs truction seen if further evaluation desired, small-bowel series can be obtained to further evaluate. Hydropic/ distended gallbladder. Other findings as described.
[2024-12-31] MEDS ORDERED: DEXTROSE (50%) 50ML SYRG IV PRN (16:45)
[2024-12-31] MEDS: PANTOPRAZOLE 40 MG/10 ML VIAL INJ IV ONE (16:56)
[2024-12-31 17:05] LABS: INR 1.02 (0.9-1.15); Partial Thromboplastin Time 27.1 SEC (24.5-34.5); Prothrombin Time 10.8 sec (9.3-11.8)
[2024-12-31] MEDS: InsuLIN REG 1unit/0.01ml Soln (100units/ml) SC SCH (18:00)
[2024-12-31] MEDS: ACCU-CHEK COMFORT CURVE STRIP VI SCH (18:13)
--- NOTE | 2024-12-31 18:22 | DVHHP2 ---
History of Present Illness Reason for Visit: Abdominal pain History of Present Illness 69-year-old female presents for evaluation of abdominal pain. Patient endorses a four day history of sharp epigastric abdominal pain that has been constant for the past two days. She describes it as sharp/cramping with nausea and vomiting. She states that today she developed some diarrhea as well. No fever or chills. Past Medical History Asthma, CHF, COPD, CAD, diabetes mellitus, hypertension, dyslipidemia, small- bowel obstruction Past Surgical History Pacemaker, PTCA, hysterectomy, abdominal surgery Family History Noncontributory Smoke: No ALCOHOL: none Drugs: None Lives: with Family Review of Systems Review of Systems Review of systems are currently negative otherwise addressed in HPI. Allergies: Coded Allergies: Iodinated Contrast Media (Verified Allergy, Unknown, 11/24/13) Medications Current Medications Medications Dose Ordered Sig/Albert Route Start Time Stop Time Status Last Admin Dose Admin Pantoprazole Sodium 40 mg DAILY IV 01/01/25 10:00 Diagnostic Test (Pha) 1 strip Q6HR 12/31/24 18:00 12/31/24 18:13 1 STRIP Insulin Human Regular Q6HR SC 12/31/24 18:00 Dextrose 50 ml UD PRN IV 12/31/24 16:45 Ondansetron HCl 4 mg Q4HP PRN IV 12/31/24 16:45 Morphine Sulfate 2 mg Q4HPRN PRN IV 12/31/24 16:45 Exam Vital Signs Vital Signs Date Time Temp Pulse Resp B/P (MAP) Pulse Ox O2 Delivery O2 Flow Rate FiO2 12/31/24 13:24 67 20 103/62 12/31/24 13:01 98.0 97 98.0 12/31/24 13:01 Room Air* 0 21 Exam Gen: 69-year-old female in mild distress Skin: Warm, dry, normal color and texture, no rash. HEENT: Normocephalic atraumatic, mucous membranes moist and pink. Neck: Cervical and supraclavicular nodes normal without enlargement, trachea is midline, thyroid gland is normal without masses. Pulmonary: Clear to auscultation and percussion bilaterally. Cardiac: Regular rate and rhythm. No murmur Abdomen: Soft, sharp epigastric pain, nondistended, bowel sounds present all 4 quadrants, no guarding, no rigidity, no organomegaly. Extremities: No cyanosis, clubbing, no edema Neuro: Cranial nerves II through XII grossly intact, normal affect and speech, no focal motor deficits. Labs/Xrays ORDERING PHYSICIAN: CIRILO HEREDIA PROCEDURE(s): ABPL - CT AB PEL WO CON-NO ORAL OR IV REASON: MIDDLE ABD PAIN, HX OF SBO ORDER NUMBER(s): [id number], ACCESSION NUMBER(s): [id number] Indication: MIDDLE ABD PAIN, HX OF SBO Technique: CT axial images of the abdomen and pelvis are obtained without contrast. Coronal and sagittal reformats were obtained. Radiation Dose Information: CTDI volume is 18.28 mGy. Dose-length product is 3.92 mGy*cm Comparison: CT CT AB PEL WO CON-NO ORAL OR IV on DOS: 12/21/24 FINDINGS: There is limited interpretation of the abdomen and pelvis without administration of intravenous contrast. Lung bases demonstrate no pleural effusion. Adrenal glands unremarkable in shape. Splenic hypodense lesions measuring up to 8 mm. Pancreas unremarkable in shape. Distended gallbladder. Liver unremarkable in shape. Right nephrectomy. Left kidney demonstrates no hydronephrosis / nephrolithias is. Moderate gastric distention, similar to previous examination. Postsurgical changes of the distal stomach. Small bowel loops moderately distended up to approximately 2.6 cm. Large bowel loops are relatively nondistended. Postsurgical changes small bowel in the right abdomen. Abdominal aortic atherosclerotic disease. Bladder partially distended. No free pelvic fluid. No inguinal lymphadenopathy. Posterior fixation of the L4 and L5 vertebral bodies. 4 mm retrolisthesis L3 upon L4. Decompressive laminectomy at L4, L5. Moderate thoracolumbar degenerative disc disease. Decompression laminectomy at L2. IMPRESSION: Limited evaluation without contrast. Gastric distention with narrowing at the distal stomach, similar to previous examination. Correlate for outlet obstruction, gastroparesis and other etiologies. This is similar to previous examination. Moderate distention small bowel loops , may represent ileus, enteritis. No definitive small bowel obstruction seen if further evaluation desired, small- bowel series can be obtained to further evaluate. Hydropic/ distended gallbladder. Other findings as described. Labs Test 12/31/24 12:57 12/31/24 12:53 Range/Units Urine Color Yellow Yellow Urine Clarity Clear Clear Urine pH 5.5 5.0-9.0 Urine Specific [place] 1.015 1.001-1.035 Urine Protein Negative Negative Urine Ketones Negative Negative Urine Blood Negative Negative /uL Urine Nitrite Negative Negative Urine Bilirubin Negative Negative Urine Urobilinogen Normal Negative mg/dL Urine Leukocyte Esterase 2+ Negative /uL Urine RBC 3 0 - 4 /hpf Urine Microscopic WBC 4 0-5 /HPF Urine Squamous Epithelial Cells Few <5 /hpf Urine Bacteria None seen None Seen /hpf Urine Glucose Normal Normal mg/dL White Blood Count 6.5 4.4-10.8 10^3/uL Red Blood Count 4.42 4.0-5.20 10^6/uL Hemoglobin 12.0 L 12.2-16.2 g/dL Hematocrit 36.5 36.0-46.0 % Mean Corpuscular Volume 82.5 80.0-100.0 fL Mean Corpuscular Hemoglobin 27.0 L 28.0-32.0 pg Mean Corpuscular Hemoglobin Concent 32.8 32.0-36.0 g/dL Red Cell Distribution Width 16.3 H 11.8-14.3 % Platelet Count 236 140-450 10^3/uL Mean Platelet Volume 6.7 L 6.9-10.8 fL Neutrophils (%) (Auto) 75.1 37.0-80.0 % Lymphocytes (%) (Auto) 15.8 10.0-50.0 % Monocytes (%) (Auto) 6.2 0.0-12.0 % Eosinophils (%) (Auto) 2.2 0.0-7.0 % Basophils (%) (Auto) 0.7 0.0-2.0 % Neutrophils # (Auto) 4.9 1.6-8.6 10 ^3/uL Lymphocytes # (Auto) 1.0 0.4-5.4 10 ^3/uL Monocytes # (Auto) 0.4 0-1.3 10 ^3/uL Eosinophils # (Auto) 0.1 0-0.8 10 ^3/uL Basophils # (Auto) 0 0-0.2 10 ^3/uL Nucleated Red Blood Cells 0.0 % Prothrombin Time 10.8 9.3-11.8 sec Prothrombin Time INR 1.02 0.9-1.15 Activated Partial Thromboplast Time 27.1 24.5-34.5 SEC Sodium Level 139 136-145 mmol/L Potassium Level 4.0 3.5-5.1 mmol/L Chloride Level 106 98-107 mmol/L Carbon Dioxide Level 24 20-31 mmol/L Anion Gap 9 5-15 Blood Urea Nitrogen 10 9-23 mg/dL Creatinine 1.16 H 0.550-1.02 mg/dL Glomerular Filtration Rate Calc 51 >90 mL/min BUN/Creatinine Ratio 8.6 L 10.0-20.0 Serum Glucose 207 H 74-106 mg/dL Calcium Level 8.6 L 8.7-10.4 mg/dL Total Bilirubin 0.3 0.2-1.0 mg/dL Aspartate Amino Transferase (AST) 18 13-40 U/L Alanine Aminotransferase (ALT) < 9 7-40 U/L Alkaline Phosphatase 102 46-116 U/L Total Protein 6.4 5.7-8.2 g/dL Albumin 4.0 3.2-4.8 g/dL Lipase 31 12-53 U/L SEPSIS Sepsis Screen Date sepsis recognized/suspect: Dec 31, 2024 Time Sepsis recognized/suspect: 8 Recent Procedure: No On Antibiotic Therapy: No Respiratory Rate >20: No Heart Rate >90: No Temp<36 C (96.8 F) or >38.3 C: No SBP <90 or MAP <65 mmHG: No New Acute Mental Status Change: No Is the patient on CPAP, BIPAP,: No Physician Orders Clostridium Difficile Toxin (12/31/24 12:35) Ct Ab Pel Wo Con-No Oral Or Iv (12/31/24 12:57) Heplock Iv (12/31/24 ) Urine Bacterial Culture (12/31/24 15:46) * Surgical Consult (12/31/24 ) Sodium Chloride 0.9% (12/31/24 16:45) Pantoprazole (Protonix) (01/01/25 10:00) Glucose Blood (Accu-Chek Comfort Curve T (12/31/24 18:00) Insulin R (Human) (Insulin R) (12/31/24 18:00) Dextrose 50% Syringe (12/31/24 16:45) Admit (12/31/24 16:31) Ondansetron Hcl (Zofran) (12/31/24 16:45) Complete Blood Count (01/01/25 04:00) Comprehensive Metabolic Panel (01/01/25 04:00) Npo (Nothing By Mouth) Diet (12/31/24 Dinner) Condition: Stable (12/31/24 16:31) Bedrest With Bathroom Privileg (12/31/24 16:31) Morphine Sulfate Injection (12/31/24 16:45) Small Bowel Series-W Gastrogra (01/01/25 09:00) Ceftriaxone 1gm/50ml (Rocephin) (01/01/25 09:00) Vital Signs Date Time Temp Pulse Resp B/P (MAP) Pulse Ox O2 Delivery O2 Flow Rate FiO2 12/31/24 13:24 67 20 103/62 12/31/24 13:01 98.0 67 20 103/62 (76) 97 98.0 12/31/24 13:01 67 20 97 Room Air* 0 21 12/31/24 12:35 98.3 83 18 112/78 96 98.3 Laboratory Tests Test 12/31/24 12:53 White Blood Count 6.5 10^3/uL (4.4-10.8) Medications Medications Dose Ordered Sig/Albert Route Start Time Stop Time Status Last Admin Dose Admin Ceftriaxone Sodium 50 ml @ 100 mls/hr ONCE ONCE IV 12/31/24 16:00 12/31/24 16:29 DC 12/31/24 16:47 100 MLS/HR Diagnostic Test (Pha) 1 strip Q6HR 12/31/24 18:00 12/31/24 18:13 1 STRIP Morphine Sulfate 2 mg ONCE ONCE IV 12/31/24 13:00 12/31/24 13:01 DC 12/31/24 13:24 2 MG Ondansetron HCl 4 mg ONCE ONCE IV 12/31/24 13:00 12/31/24 13:01 DC 12/31/24 13:22 4 MG Pantoprazole Sodium 40 mg ONCE ONCE IV 12/31/24 16:45 12/31/24 16:46 DC 12/31/24 16:56 40 MG Sodium Chloride 1,000 ml @ 80 mls/hr [id number] ONCE IV 12/31/24 16:45 01/01/25 05:14 12/31/24 16:56 80 MLS/HR Sodium Chloride 1,000 ml @ 1,000 mls/hr Q1H ONCE IV 12/31/24 13:00 12/31/24 13:59 DC 12/31/24 13:22 1,000 MLS/HR Assessment/Plan Assessment/Plan Assessment Acute abdominal pain Rule out small-bowel obstruction Acute kidney injury Diabetes mellitus UTI Plan Admit the patient to Med surge to the hospitalist Surgical consultation Small-bowel follow-through pending Rocephin NPO Maintenance IV fluids Pain management Continue treatment per orders. Plan discussed with: Patient My Orders Orders - ADARSH FRANCIS Procedure Category Date Status Time * Surgical Consult CONS 12/31/24 Transmitted Sodium Chloride 0.9% PHA 12/31/24 In Process 16:45 Pantoprazole PHA 01/01/25 In Process (Protonix) 10:00 Glucose Blood PHA 12/31/24 In Process (Accu-Chek Comfort 18:00 Insulin R (Human) PHA 12/31/24 In Process (Insulin R) 18:00 Dextrose 50% Syringe PHA 12/31/24 In Process 16:45 Admit ADMIT 12/31/24 Transmitted 16:31 Ondansetron Hcl PHA 12/31/24 In Process (Zofran) 16:45 Complete Blood Count LAB 01/01/25 Verified 04:00 Comprehensive LAB 01/01/25 Verified Metabolic Panel 04:00 Npo (Nothing By DIET 12/31/24 Transmitted Mouth) Diet Dinner Condition: Stable GONZALES 12/31/24 In Process 16:31 Bedrest With Bathroom GONZALES 12/31/24 In Process Privileg 16:31 Morphine Sulfate PHA 12/31/24 In Process Injection 16:45 Small Bowel Series-W XY 01/01/25 Logged Gastrogra 09:00 Ceftriaxone 1gm/50ml PHA 01/01/25 Logged (Rocephin) 09:00 Date of Service: Dec 31, 2024 Billing Provider: ADARSH FRANCIS Common Visit Codes: [id number] INP/OBS CARE (HIGH) ADARSH FRANCIS Dec 31, 2024 18:22
[2024-12-31] MEDS: MORPHINE SULFATE INJ 2 MG/ml SYRG IV PRN (18:26)
[2024-12-31] MEDS: ONDANSETRON HCL 4 MG/2 ML VIAL IV PRN (18:27)
[2024-12-31] MEDS ORDERED: HYDROcodone-ACET 5/325MG TAB PO PRN (21:00)
[2024-12-31 23:35] VITALS: BP 143/77; PULSE 72; RESP 17; TEMP 97.8; O2SAT 100
[2025-01-01] VITALS (7 sets, daily range): BP systolic 110–141; BP diastolic 69–89; PULSE 61–80; RESP 16–18; TEMP 97.6–98.6; O2SAT 96–100
[2025-01-01 06:27] LABS: Hematocrit 34.5 % (36.0-46.0); Hemoglobin 11.4 g/dL (12.2-16.2); Mean Corpuscular Hemoglobin 27.2 pg (28.0-32.0); Mean Corpuscular Volume 82.4 fL (80.0-100.0); Nucleated Red Blood Cells % 0.0 %
[2025-01-01 06:48] LABS: Albumin 3.4 g/dL (3.2-4.8); Alkaline Phosphatase 81 U/L (46-116); Anion Gap 8 (5-15); BUN/Creatinine Ratio 6.2 (10.0-20.0); Carbon Dioxide 25 mmol/L (20-31); Glucose 97 mg/dL (74-106); Potassium 3.9 mmol/L (3.5-5.1); Sodium 143 mmol/L (136-145)
[2025-01-01 06:49] LABS: Bilirubin, Total 0.4 mg/dL (0.2-1.0)
[2025-01-01 06:53] LABS: Alanine Aminotransferase < 9 U/L (7-40); Blood Urea Nitrogen 6 mg/dL (9-23); Calcium 8.4 mg/dL (8.7-10.4); Chloride 110 mmol/L (98-107); Total Protein 5.4 g/dL (5.7-8.2)
[2025-01-01] MEDS: GASTROGRAFIN 120 ML SOL ONE (09:16)
[2025-01-01] MEDS: PANTOPRAZOLE 40 MG/10 ML VIAL INJ IV SCH (10:17)
--- NOTE | 2025-01-01 11:10 | DVH ---
Date: 01/01/2025 09:44 AM Examination: XY KUB ABDOMEN SINGLE VIEW History: R/O SBO Comparison: CT CT AB PEL WO CON-NO ORAL OR IV on DOS: 12/31/24, CT CT AB PEL WO CON-NO ORAL OR IV on D OS: 12/21/24, CT CT AB PEL WO CON-NO ORAL OR IV on DOS: 10/14/24, CT CT AB PEL WO CON-NO ORAL OR IV on DO S: 10/06/24, XY KUB ABDOMEN SINGLE VIEW on DOS: 06/29/24 TECHNIQUE: Frontal views of the abdomen was obtained. FINDINGS: Bowel gas pattern is unremarkable. The lung bases are unremarkable. No acute osseous abnormality identified. IMPRESSION: Nonobstructive bowel gas pattern. Large stool burden.
--- NOTE | 2025-01-01 11:49 | DVHINCON2 ---
Consultation - Surgical Date Seen: Jan 01, 2025 Referring Physician Reason for Consultation Possible small bowel obstruction History of Present Illness History of Present Illness Mrs. Baldwin is a 69-year-old female who presented to the ED with repeated complaints of nausea vomiting and abdominal pain that comes and goes every 3-4 days. Patient states that she is usually very constipated at baseline and has a bowel movement every 4 days and by the time that 4th day, she feels very bloated and that is when she has her emesis episodes. She has visited the ED and has been admitted multiple times for the same issue. Her last bowel movement was last night and the difference in was that it was bloody. Denies blood in the vomit. Usually her stools are very hard and small. She occasionally takes MiraLax at home but states that it really does not make a difference. She is also complaining of food getting stuck in her throat, burning epigastric pain and burning sensation going up her throat. Reports a 100 lb weight loss unintentionally in the last 6 months. Denies any personal family history of cancer. Patient has never had a upper or lower endoscopy. Past Medical/Surgical History Past Medical/Surgical History PMH: Asthma, CHF, COPD, CAD, diabetes mellitus, hypertension, dyslipidemia PSH: Pacemaker, PTCA, hysterectomy, ventral incisional hernia repair on June of 2024, patient had some sort of bypass surgery but she does not know her history (there is a gastrojejunal anastomosis and a jejunum jejunum anastomosis seen on CT) Family and Social History Family and Social History No personal or family history of cancer ETOH/T Ob/drugs denies Allergies and medications Allergies: Coded Allergies: Iodinated Contrast Media (Verified Allergy, Unknown, 11/24/13) Home Meds Active Scripts Docusate Sodium (Colace) 100 Mg Cap, 1 CAP PO BID for 3 Days, #30 CAP Prov:VILLA FROST MD 04/24/24 Hydrocodone-Acetaminophen (Hydrocodone Bitartrate/AC 5-325 mg) 1 Tab Tab, 1 TAB PO Q12HP PRN for 2 Days, #4 TAB Prov:VILLA FROST MD 04/24/24 Elastic Bandages & Supports (ABDOMINAL BINDER/ELASTIC/) Elast Sm Mis, SM XX ONCE, #1 Prov:ESTUARDO LY MD 03/07/24 Psyllium (Metamucil Fiber) 51.7 % Jack, 51.7 % PO BID for 30 Days, #60 PACK Prov:ESTUARDO LY MD 03/07/24 Polyethylene Glycol 3350 (Miralax) 17 Gm Pow, 17 GM PO DAILY PRN for 30 Days, #30 POW Prov:ESTUARDO LY MD 03/07/24 Senna (Senna) 8.6 Mg Tab, 8.6 MG PO HS for 30 Days, #30 TAB Prov:ESTUARDO LY MD 03/07/24 Magnesium Citrate (Magnesium Citrate) 1.745 Gm/30 Ml Mariela, 150 ML PO DAILY for 2 Days, #1 BOTTLE 0 Refills Prov:HUBER ANAYA 05/08/23 Methocarbamol (Methocarbamol) 750 Mg Tab, 750 MG PO BID, #20 TAB Prov:CIRILO HEREDIA 07/14/22 Ibuprofen (Ibuprofen) 800 Mg Tab, 1 TAB PO TID, #30 TAB Prov:CIRILO HEREDIA 07/14/22 Reported Medications Ferrous Sulfate (Ferosul) 325 Mg Tab, PO 10/22/24 Furosemide (Furosemide) 40 Mg Tab, 1 TAB PO DAILY 10/22/24 Escitalopram Oxalate (Lexapro) 20 Mg Tab, 1 TAB PO DAILY, TAB 03/02/24 Cetirizine Hcl (Zyrtec Allergy) 10 Mg Cap, 10 MG PO DAILY, CAP 03/02/24 Exenatide (Bydureon Bcise) 2 Mg/0.85 Ml Inj, 2 MG SC, INJ 03/02/24 Apixaban Base (ELIQUIS) 5 Mg Tab, 5 MG PO BID, TAB 03/02/24 Cholecalciferol (VITAMIN D3) 2,000 Unit Tab, 1 TAB PO DAILY, TAB 03/02/24 Cyanocobalamin (Vitamin B-12) 1,000 Mcg Tab, 1000 MCG PO DAILY, TAB 03/02/24 Fluticasone Propionate (Nasal) (Flonase Allergy Relief) 50 Mcg/Act Spr, 50 MCG NA DAILY, SPRAY 03/02/24 [Advair] No Conflict Check 09/22/13 Clopidogrel Bisulfate (Plavix) 75 Mg Tab, 75 MG PO, TAB 09/22/13 Simvastatin (Simvastatin) 20 Mg Tab, 40 MG PO DAILY for 30 Days 09/22/13 Levalbuterol Tartrate (Xopenex Hfa) Aer, 1 IN PRN 04/06/11 Exenatide (Byetta) 10 Mcg Inj, 10 MCG SC BIDAC 04/06/11 Albuterol (Albuterol) Pow 04/06/11 Enalapril Maleate (Enalapril Maleate) 10 Mg Tab, 10 MG PO DAILY 04/06/11 Gabapentin (Gabapentin) 400 Mg Cap, 400 MG PO TID 04/06/11 Hydrocodone-Acetaminophen ([place] 7.5/325MG) 1 Tab Tb, 7.5 MG PO TID 04/06/11 Review of systems Review of Systems: HEENT:Normal, CVS:Abnormal (See history), RESPIRATORY:Normal, GI:Abnormal (See HPI), :Normal, MSK:Normal, NEURO:Normal Examination Vital signs Vital Signs Date Time Temp Pulse Resp B/P (MAP) Pulse Ox O2 Delivery O2 Flow Rate FiO2 01/01/25 10:19 63 16 129/78 01/01/25 09:12 98.3 96 98.3 12/31/24 23:30 Nasal Cannula* 2 28 Medications Current Medications Medications (Trade) Dose Ordered Sig/Albert Route PRN Reason Start Time Stop Time Status Last Admin Pantoprazole Sodium (Protonix) 40 mg DAILY IV 01/01/25 10:00 01/01/25 10:17 Diagnostic Test (Pha) (Accu-Chek Comfort Curve T) 1 strip Q6HR 12/31/24 18:00 01/01/25 06:00 Insulin Human Regular (InsuLIN R) Q6HR SC 12/31/24 18:00 Dextrose 50 ml UD PRN IV Blood Sugar LESS THAN 60 12/31/24 16:45 Ondansetron HCl (Zofran) 4 mg Q4HP PRN IV NAUSEA / VOMITING 12/31/24 16:45 01/01/25 10:17 Morphine Sulfate 2 mg Q4HPRN PRN IV SEVERE PAIN (7-10 PAIN SCALE) 12/31/24 16:45 01/01/25 10:19 Ceftriaxone Sodium 50 ml @ 100 mls/hr DAILY@09 IV 01/01/25 09:00 01/01/25 10:17 Acetaminophen/ Hydrocodone Bitart ([place] 5/325MG Tab) 1 tab Q6HPRN PRN PO MODERATE PAIN (4-6 PAIN SCALE) 12/31/24 21:00 Laboratory Labs Test 01/01/25 05:48 01/01/25 05:19 12/31/24 12:57 12/31/24 12:53 Range/Units POC Glucose 99 70-106 mg/dl White Blood Count 5.9 4.4-10.8 10^3/uL Red Blood Count 4.19 4.0-5.20 10^6/uL Hemoglobin 11.4 L 12.2-16.2 g/dL Hematocrit 34.5 L 36.0-46.0 % Mean Corpuscular Volume 82.4 80.0-100.0 fL Mean Corpuscular Hemoglobin 27.2 L 28.0-32.0 pg Mean Corpuscular Hemoglobin Concent 33.0 32.0-36.0 g/dL Red Cell Distribution Width 16.1 H 11.8-14.3 % Platelet Count 226 140-450 10^3/uL Mean Platelet Volume 6.8 L 6.9-10.8 fL Neutrophils (%) (Auto) 60.9 37.0-80.0 % Lymphocytes (%) (Auto) 26.4 10.0-50.0 % Monocytes (%) (Auto) 8.3 0.0-12.0 % Eosinophils (%) (Auto) 3.5 0.0-7.0 % Basophils (%) (Auto) 0.9 0.0-2.0 % Neutrophils # (Auto) 3.6 1.6-8.6 10 ^3/uL Lymphocytes # (Auto) 1.6 0.4-5.4 10 ^3/uL Monocytes # (Auto) 0.5 0-1.3 10 ^3/uL Eosinophils # (Auto) 0.2 0-0.8 10 ^3/uL Basophils # (Auto) 0.1 0-0.2 10 ^3/uL Nucleated Red Blood Cells 0.0 % Sodium Level 143 136-145 mmol/L Potassium Level 3.9 3.5-5.1 mmol/L Chloride Level 110 H 98-107 mmol/L Carbon Dioxide Level 25 20-31 mmol/L Anion Gap 8 5-15 Blood Urea Nitrogen 6 L 9-23 mg/dL Creatinine 0.97 0.550-1.02 mg/dL Glomerular Filtration Rate Calc 63 >90 mL/min BUN/Creatinine Ratio 6.2 L 10.0-20.0 Serum Glucose 97 74-106 mg/dL Calcium Level 8.4 L 8.7-10.4 mg/dL Total Bilirubin 0.4 0.2-1.0 mg/dL Aspartate Amino Transferase (AST) 15 13-40 U/L Alanine Aminotransferase (ALT) < 9 7-40 U/L Alkaline Phosphatase 81 46-116 U/L Total Protein 5.4 L 5.7-8.2 g/dL Albumin 3.4 3.2-4.8 g/dL Urine Color Yellow Yellow Urine Clarity Clear Clear Urine pH 5.5 5.0-9.0 Urine Specific [place] 1.015 1.001-1.035 Urine Protein Negative Negative Urine Ketones Negative Negative Urine Blood Negative Negative /uL Urine Nitrite Negative Negative Urine Bilirubin Negative Negative Urine Urobilinogen Normal Negative mg/dL Urine Leukocyte Esterase 2+ Negative /uL Urine RBC 3 0 - 4 /hpf Urine Microscopic WBC 4 0-5 /HPF Urine Squamous Epithelial Cells Few <5 /hpf Urine Bacteria None seen None Seen /hpf Urine Glucose Normal Normal mg/dL Prothrombin Time 10.8 9.3-11.8 sec Prothrombin Time INR 1.02 0.9-1.15 Activated Partial Thromboplast Time 27.1 24.5-34.5 SEC Lipase 31 12-53 U/L Microbiology Date/Time Source Procedure Growth Status 12/31/24 12:57 Voided Urine Urine Culture - Preliminary Resulted Examination: GENERAL:Normal, ABDOMEN:Normal (Nondistended, midline scar well healed, soft, depressible, mild generalized tenderness, no rebound, no guarding) Problem List/Assessment/Plan Problems: (1) Abdominal pain (2) Hematochezia Assessment and Plan Mrs. Baldwin is a 69-year-old female who presented to the ED due to recurrent epigastric abdominal pain and burning, associated with nausea and vomiting. Patient runs constipated having bowel movements every 4th day and states by the time the 4th day comes that is when she gets nauseous and started vomiting also. I was consulted for possible small bowel obstruction. I reviewed the CT and there is no small bowel loop dilation, it is not concerning for a small-bowel obstruction. I did not notice gastric dilation which could be due to many possibilities. Additionally patient had some sort of bypass surgery that she does not recall where I saw a gastrojejunal anastomosis and a jejunum jejunum anastomosis, but is not the traditional gastric bypass given that the entire stomach is still connected to the small bowel. On the CT it does look like there is inflammatory changes around the gastrojejunal anastomosis and in the jejunum jejunum anastomosis. The jejunum jejunum anastomosis looks very inflamed, of masslike appearance. In the changes and the fact that the patient has never had a upper or lower endoscopy and coupled with a 100 lb weight loss in last 6 months, she will definitely benefit from GI consultation for possible endoscopies to look at the anastomosis sites evaluate the colon. Need to rule out on this patient: gastroparesis, marginal ulceration, gastric ulcers, anastomotic strictures at both anastomotic sites, GI motility issues, masses at anastomotic sites, colon masses. Recommend: 1. GI consultation for the above explanation 2. We will sign off at this moment please call with any questions or concerns Plan discussed with Plan discussed with: Patient, Spouse Visit Coding Surgery Date of Service if different f: Jan 01, 2025 Billing Provider: KATERIN WALLIS MD Surgery Visit Codes: [id number] - INP CONSULT <110 MIN KATERIN WALLIS MD Jan 01, 2025 11:49
--- NOTE | 2025-01-01 12:15 | DVHPN2 ---
Subjective The patient is seen and examined at bedside. No complaint today. Reviewed: Care Plan, H&P, Labs, Medications, Previous Orders, Radiology Changes from previous H/P or p: No Changes Objective Vitals Vital Signs Date Time Temp Pulse Resp B/P (MAP) Pulse Ox O2 Delivery O2 Flow Rate FiO2 01/01/25 10:19 63 16 129/78 01/01/25 09:12 98.3 96 98.3 12/31/24 23:30 Nasal Cannula* 2 28 Intake/Output Intake and Output 01/01/25 07:00 Intake Total 0 ml Output Total 0 ml Balance 0 ml Intake Oral 0 ml Output Urine Total 0 ml General Appearance: Alert, Cooperative, No acute distress HEENT: Atraumatic, PERRLA, EOMI, Mucous membr. moist/pink Lungs: Clear to auscultation Abdomen: Normal bowel sounds, Soft, No tenderness Neuro: Cranial nerves 3-12 NL Psych/Mental Status: Mental status NL Medications Current Medications Medications Dose Ordered Sig/Albert Route Start Time Stop Time Status Last Admin Dose Admin Pantoprazole Sodium 40 mg DAILY IV 01/01/25 10:00 01/01/25 10:17 40 MG Diagnostic Test (Pha) 1 strip Q6HR 12/31/24 18:00 01/01/25 06:00 1 STRIP Insulin Human Regular Q6HR SC 12/31/24 18:00 Dextrose 50 ml UD PRN IV 12/31/24 16:45 Ondansetron HCl 4 mg Q4HP PRN IV 12/31/24 16:45 01/01/25 10:17 4 MG Morphine Sulfate 2 mg Q4HPRN PRN IV 12/31/24 16:45 01/01/25 10:19 2 MG Ceftriaxone Sodium 50 ml @ 100 mls/hr DAILY@09 IV 01/01/25 09:00 01/01/25 10:17 100 MLS/HR Acetaminophen/ Hydrocodone Bitart 1 tab Q6HPRN PRN PO 12/31/24 21:00 Laboratory Results Laboratory Tests 01/01/25 05:19 Chemistry Test 12/31/24 12:53 01/01/25 05:19 Albumin 4.0 g/dL (3.2-4.8) 3.4 g/dL (3.2-4.8) Calcium Level 8.6 mg/dL (8.7-10.4) L 8.4 mg/dL (8.7-10.4) L Total Protein 6.4 g/dL (5.7-8.2) 5.4 g/dL (5.7-8.2) L Coagulation Test 12/31/24 12:53 Prothrombin Time 10.8 sec (9.3-11.8) Prothrombin Time INR 1.02 (0.9-1.15) Activated Partial Thromboplast Time 27.1 SEC (24.5-34.5) Lipid panel Test 12/31/24 12:53 Lipase 31 U/L (12-53) LFT Test 12/31/24 12:53 01/01/25 05:19 Alanine Aminotransferase (ALT) < 9 U/L (7-40) < 9 U/L (7-40) Alkaline Phosphatase 102 U/L (46-116) 81 U/L (46-116) Aspartate Amino Transferase (AST) 18 U/L (13-40) 15 U/L (13-40) Total Bilirubin 0.3 mg/dL (0.2-1.0) 0.4 mg/dL (0.2-1.0) Urinalysis Test 12/31/24 12:57 Urine Color Yellow (Yellow) Urine Clarity Clear (Clear) Urine pH 5.5 (5.0-9.0) Urine Specific [place] 1.015 (1.001-1.035) Urine Protein Negative (Negative) Urine Ketones Negative (Negative) Urine Blood Negative /uL (Negative) Urine Nitrite Negative (Negative) Urine Bilirubin Negative (Negative) Urine Urobilinogen Normal mg/dL (Negative) Urine Leukocyte Esterase 2+ /uL (Negative) Urine RBC 3 /hpf (0 - 4) Urine Microscopic WBC 4 /HPF (0-5) Urine Squamous Epithelial Cells Few /hpf (<5) Urine Bacteria None seen /hpf (None Seen) Urine Glucose Normal mg/dL (Normal) Microbiology Microbiology Date/Time Source Procedure Growth Status 12/31/24 12:57 Voided Urine Urine Culture - Preliminary Resulted Labs and/or images reviewed: Labs reviewed by me Assessment/Plan Assessment/Plan Acute abdominal pain Rule out small-bowel obstruction Acute kidney injury Diabetes mellitus UTI Constipation Continuing current management. Continuing with sliding scale insulin. Continuing with IV antibiotic. We will monitor kidney function. Lactulose PRN This medical document was created using an electronic medical record system with [employer] direct computerized dictation system. Although this document has been carefully reviewed, there may still be some phonetic and typographical errors. These areas are purely typographical due to imperfections of the software programs, and do not reflect any compromise in the patient's medical care. Plan discussed with: Patient Date of Service: Jan 01, 2025 Billing Provider: SOHAM HASKINS MD Common Visit Codes: [id number] INP/OBS CARE(HIGH) SOHAM HASKINS MD Jan 01, 2025 12:15
[2025-01-02] VITALS (7 sets, daily range): BP systolic 112–154; BP diastolic 69–85; PULSE 20–73; RESP 16–58; TEMP 98.1–99.3; O2SAT 97–100
--- NOTE | 2025-01-02 14:59 | DVHPN2 ---
Subjective The patient is seen and examined at bedside. No complaint today. Reviewed: Care Plan, H&P, Labs, Medications, Previous Orders, Radiology Changes from previous H/P or p: No Changes Objective Vitals Vital Signs Date Time Temp Pulse Resp B/P (MAP) Pulse Ox O2 Delivery O2 Flow Rate FiO2 01/02/25 13:00 99.2 20 58 135/76 (95) 100 99.2 01/02/25 08:00 Room Air* 0 21 Intake/Output Intake and Output 01/02/25 07:00 Intake Total 50 ml Balance 50 ml Intake Oral 0 ml IV Total 50 ml # Voids 1 General Appearance: Alert, Cooperative, No acute distress HEENT: Atraumatic, PERRLA, EOMI, Mucous membr. moist/pink Lungs: Clear to auscultation Abdomen: Normal bowel sounds, Soft, No tenderness Neuro: Cranial nerves 3-12 NL Psych/Mental Status: Mental status NL Medications Current Medications Medications Dose Ordered Sig/Albert Route Start Time Stop Time Status Last Admin Dose Admin Pantoprazole Sodium 40 mg DAILY IV 01/01/25 10:00 01/02/25 11:20 40 MG Diagnostic Test (Pha) 1 strip Q6HR 12/31/24 18:00 01/02/25 11:21 1 STRIP Insulin Human Regular Q6HR SC 12/31/24 18:00 Dextrose 50 ml UD PRN IV 12/31/24 16:45 Ondansetron HCl 4 mg Q4HP PRN IV 12/31/24 16:45 01/01/25 14:45 4 MG Morphine Sulfate 2 mg Q4HPRN PRN IV 12/31/24 16:45 01/02/25 11:21 2 MG Ceftriaxone Sodium 50 ml @ 100 mls/hr DAILY@09 IV 01/01/25 09:00 01/02/25 11:20 100 MLS/HR Acetaminophen/ Hydrocodone Bitart 1 tab Q6HPRN PRN PO 12/31/24 21:00 Laboratory Results Laboratory Tests 01/01/25 05:19 Urinalysis Test 12/31/24 12:57 Urine Color Yellow (Yellow) Urine Clarity Clear (Clear) Urine pH 5.5 (5.0-9.0) Urine Specific [place] 1.015 (1.001-1.035) Urine Protein Negative (Negative) Urine Ketones Negative (Negative) Urine Blood Negative /uL (Negative) Urine Nitrite Negative (Negative) Urine Bilirubin Negative (Negative) Urine Urobilinogen Normal mg/dL (Negative) Urine Leukocyte Esterase 2+ /uL (Negative) Urine RBC 3 /hpf (0 - 4) Urine Microscopic WBC 4 /HPF (0-5) Urine Squamous Epithelial Cells Few /hpf (<5) Urine Bacteria None seen /hpf (None Seen) Urine Glucose Normal mg/dL (Normal) Microbiology Microbiology Date/Time Source Procedure Growth Status 12/31/24 12:57 Voided Urine Urine Culture - Final Complete Assessment/Plan Assessment/Plan Acute abdominal pain Rule out small-bowel obstruction Acute kidney injury Diabetes mellitus UTI Constipation Continuing current management. Continuing with sliding scale insulin. Continuing with IV antibiotic. We will monitor kidney function. Lactulose PRN This medical document was created using an electronic medical record system with [employer] direct computerized dictation system. Although this document has been carefully reviewed, there may still be some phonetic and typographical errors. These areas are purely typographical due to imperfections of the software programs, and do not reflect any compromise in the patient's medical care. Plan discussed with: Patient Date of Service: Jan 02, 2025 Billing Provider: SOHAM HASKINS MD Common Visit Codes: [id number] INP/OBS CARE(HIGH) SOHAM HASKINS MD Jan 02, 2025 14:59
[2025-01-03 05:00] VITALS: BP 103/62; PULSE 62; RESP 17; TEMP 98.3; O2SAT 96
[2025-01-03 09:00] VITALS: BP 124/84; PULSE 62; RESP 20; TEMP 99.2; O2SAT 97
--- NOTE | 2025-01-03 12:31 | DVHPN2 ---
Subjective The patient is seen and examined at bedside. Still have severe abdominal pain. The patient is only on clear liquid diet and can hardly tolerate it because of the pain. Reviewed: Care Plan, H&P, Labs, Medications, Previous Orders, Radiology Changes from previous H/P or p: No Changes Objective Vitals Vital Signs Date Time Temp Pulse Resp B/P (MAP) Pulse Ox O2 Delivery O2 Flow Rate FiO2 01/03/25 11:10 67 20 137/89 01/03/25 09:00 99.2 97 99.2 01/02/25 20:00 Room Air* 0 21 Intake/Output Intake and Output 01/03/25 07:00 Intake Total 1050 ml Output Total 650 ml Balance 400 ml Intake Oral 1000 ml IV Total 50 ml Output Urine Total 650 ml # Voids 2 General Appearance: Alert, Cooperative, No acute distress HEENT: Atraumatic, PERRLA, EOMI, Mucous membr. moist/pink Lungs: Clear to auscultation Abdomen: Normal bowel sounds, Soft, No tenderness Neuro: Cranial nerves 3-12 NL Psych/Mental Status: Mental status NL Medications Current Medications Medications Dose Ordered Sig/Albert Route Start Time Stop Time Status Last Admin Dose Admin Pantoprazole Sodium 40 mg DAILY IV 01/01/25 10:00 01/03/25 10:36 40 MG Diagnostic Test (Pha) 1 strip Q6HR 12/31/24 18:00 01/03/25 12:23 1 STRIP Insulin Human Regular Q6HR SC 12/31/24 18:00 01/03/25 06:10 2 UNITS Dextrose 50 ml UD PRN IV 12/31/24 16:45 Ondansetron HCl 4 mg Q4HP PRN IV 12/31/24 16:45 01/01/25 14:45 4 MG Morphine Sulfate 2 mg Q4HPRN PRN IV 12/31/24 16:45 01/03/25 10:40 2 MG Ceftriaxone Sodium 50 ml @ 100 mls/hr DAILY@09 IV 01/01/25 09:00 01/03/25 10:36 100 MLS/HR Acetaminophen/ Hydrocodone Bitart 1 tab Q6HPRN PRN PO 12/31/24 21:00 Laboratory Results Laboratory Tests 01/01/25 05:19 Urinalysis Test 12/31/24 12:57 Urine Color Yellow (Yellow) Urine Clarity Clear (Clear) Urine pH 5.5 (5.0-9.0) Urine Specific [place] 1.015 (1.001-1.035) Urine Protein Negative (Negative) Urine Ketones Negative (Negative) Urine Blood Negative /uL (Negative) Urine Nitrite Negative (Negative) Urine Bilirubin Negative (Negative) Urine Urobilinogen Normal mg/dL (Negative) Urine Leukocyte Esterase 2+ /uL (Negative) Urine RBC 3 /hpf (0 - 4) Urine Microscopic WBC 4 /HPF (0-5) Urine Squamous Epithelial Cells Few /hpf (<5) Urine Bacteria None seen /hpf (None Seen) Urine Glucose Normal mg/dL (Normal) Microbiology Microbiology Date/Time Source Procedure Growth Status 12/31/24 12:57 Voided Urine Urine Culture - Final Complete Labs and/or images reviewed: Labs reviewed by me Assessment/Plan Assessment/Plan Acute abdominal pain Rule out small-bowel obstruction Acute kidney injury Diabetes mellitus UTI Constipation History of a gastric surgery with a possible jejunal anastomosis Continuing current management. Continuing with sliding scale insulin. Continuing with IV antibiotic. We will monitor kidney function. Lactulose PRN Surgeon see the patient and recommend GI specialist consulted. GI has see the patient and she will do a EGD tomorrow to rule out recurrent peptic ulcer disease which patient has in the past. Also per GI specialist,there were some inflammatory changes specially at the jejunal general jejunal anastomosis which is the site at which the endoscope was likely not going to be able to be advanced This medical document was created using an electronic medical record system with [employer] system. Although this document has been carefully reviewed, there may still be some phonetic and typographical errors. These areas are purely typographical due to imperfections of the software programs, and do not reflect any compromise in the patient's medical care. This medical document was created using an electronic medical record system with [employer] dictation system. Although this document has been carefully reviewed, there may still be some phonetic and typographical errors. These areas are purely typographical due to imperfections of the software programs, and do not reflect any compromise in the patient's medical care. Plan discussed with: Patient My Orders Orders - SOHAM HASKINS MD Procedure Category Date Status Time Clear Liq Diet DIET 01/02/25 Transmitted Dinner Date of Service: Jan 03, 2025 Billing Provider: SOHAM HASKINS MD Common Visit Codes: [id number] INP/OBS CARE(HIGH) SOHAM HASKINS MD Jan 03, 2025 12:31
[2025-01-03 12:46] VITALS: BP 137/89; PULSE 67; RESP 20; TEMP 99.6; O2SAT 98
[2025-01-03 16:51] VITALS: BP 127/82; PULSE 61; RESP 20; TEMP 98.9; O2SAT 100
[2025-01-03 21:00] VITALS: BP 121/78; PULSE 65; RESP 18; TEMP 98.1; O2SAT 99
--- NOTE | 2025-01-03 21:44 | DVHINCON2 ---
Date of service: Jan 03, [address] Watkins Reason for Consultation Epigastric pain and gastric distension History of Present Illness 69-year-old female presents for evaluation of abdominal pain. Patient endorses a four day history of sharp epigastric abdominal pain that has been constant for the past two days. She describes it as sharp/cramping with nausea and vomiting. She states that today she developed some diarrhea as well. No fever or chills. Patient has a had a prior history of a gastric surgery with a possible jejunal anastomosis There were some inflammatory changes specially at the jejunal general jejunal anastomosis which is the site at which the endoscope was likely not going to be able to be advanced Past Medical History Past Medical History Asthma, CHF, COPD, CAD, diabetes mellitus, hypertension, dyslipidemia, small- bowel obstruction Past Surgical History Past Surgical History Pacemaker, PTCA, hysterectomy, abdominal surgery Last: 1124 showed tortuous colon Last EGD in 2013 showed gastritis Family History: Family history: Cardiovascular disease G8 MOTHER G8 FATHER Family history: Diabetes mellitus G8 MOTHER G8 FATHER Social History Family History Noncontributory Smoke: No ALCOHOL: none Drugs: None Lives: with Family Allergies: Coded Allergies: Iodinated Contrast Media (Verified Allergy, Unknown, 11/24/13) Home Meds Active Scripts Docusate Sodium (Colace) 100 Mg Cap, 1 CAP PO BID for 3 Days, #30 CAP Prov:VILLA FROST MD 04/24/24 Hydrocodone-Acetaminophen (Hydrocodone Bitartrate/AC 5-325 mg) 1 Tab Tab, 1 TAB PO Q12HP PRN for 2 Days, #4 TAB Prov:VILLA FROST MD 04/24/24 Elastic Bandages & Supports (ABDOMINAL BINDER/ELASTIC/) Elast Sm Mis, SM XX ONCE, #1 Prov:ESTUARDO LY MD 03/07/24 Psyllium (Metamucil Fiber) 51.7 % Jack, 51.7 % PO BID for 30 Days, #60 PACK Prov:ESTUARDO LY MD 03/07/24 Polyethylene Glycol 3350 (Miralax) 17 Gm Pow, 17 GM PO DAILY PRN for 30 Days, #30 POW Prov:ESTUARDO LY MD 03/07/24 Senna (Senna) 8.6 Mg Tab, 8.6 MG PO HS for 30 Days, #30 TAB Prov:ESTUARDO LY MD 03/07/24 Magnesium Citrate (Magnesium Citrate) 1.745 Gm/30 Ml Mariela, 150 ML PO DAILY for 2 Days, #1 BOTTLE 0 Refills Prov:HUBER ANAYA 05/08/23 Methocarbamol (Methocarbamol) 750 Mg Tab, 750 MG PO BID, #20 TAB Prov:CIRILO HEREDIA 07/14/22 Ibuprofen (Ibuprofen) 800 Mg Tab, 1 TAB PO TID, #30 TAB Prov:CIRILO HEREDIA 07/14/22 Reported Medications Ferrous Sulfate (Ferosul) 325 Mg Tab, PO 10/22/24 Furosemide (Furosemide) 40 Mg Tab, 1 TAB PO DAILY 10/22/24 Escitalopram Oxalate (Lexapro) 20 Mg Tab, 1 TAB PO DAILY, TAB 03/02/24 Cetirizine Hcl (Zyrtec Allergy) 10 Mg Cap, 10 MG PO DAILY, CAP 03/02/24 Exenatide (Bydureon Bcise) 2 Mg/0.85 Ml Inj, 2 MG SC, INJ 03/02/24 Apixaban Base (ELIQUIS) 5 Mg Tab, 5 MG PO BID, TAB 03/02/24 Cholecalciferol (VITAMIN D3) 2,000 Unit Tab, 1 TAB PO DAILY, TAB 03/02/24 Cyanocobalamin (Vitamin B-12) 1,000 Mcg Tab, 1000 MCG PO DAILY, TAB 03/02/24 Fluticasone Propionate (Nasal) (Flonase Allergy Relief) 50 Mcg/Act Spr, 50 MCG NA DAILY, SPRAY 03/02/24 [Advair] No Conflict Check 09/22/13 Clopidogrel Bisulfate (Plavix) 75 Mg Tab, 75 MG PO, TAB 09/22/13 Simvastatin (Simvastatin) 20 Mg Tab, 40 MG PO DAILY for 30 Days 09/22/13 Levalbuterol Tartrate (Xopenex Hfa) Aer, 1 IN PRN 04/06/11 Exenatide (Byetta) 10 Mcg Inj, 10 MCG SC BIDAC 04/06/11 Albuterol (Albuterol) Pow 04/06/11 Enalapril Maleate (Enalapril Maleate) 10 Mg Tab, 10 MG PO DAILY 04/06/11 Gabapentin (Gabapentin) 400 Mg Cap, 400 MG PO TID 04/06/11 Hydrocodone-Acetaminophen ([place] 7.5/325MG) 1 Tab Tb, 7.5 MG PO TID 04/06/11 Vital Signs Vital Signs Date Time Temp Pulse Resp B/P (MAP) Pulse Ox O2 Delivery O2 Flow Rate FiO2 01/03/25 21:00 98.1 65 18 121/78 (92) 99 98.1 01/03/25 08:00 Room Air* 0 21 Physical Exam Gen: 69-year-old female in mild distress Skin: Warm, dry, normal color and texture, no rash. HEENT: Normocephalic atraumatic, mucous membranes moist and pink. Neck: Cervical and supraclavicular nodes normal without enlargement, trachea is midline, thyroid gland is normal without masses. Pulmonary: Clear to auscultation and percussion bilaterally. Cardiac: Regular rate and rhythm. No murmur Abdomen: Soft, sharp epigastric pain, nondistended, bowel sounds present all 4 quadrants, no guarding, no rigidity, no organomegaly. Extremities: No cyanosis, clubbing, no edema Neuro: Cranial nerves II through XII grossly intact, normal affect and speech, no focal motor deficits. Labs/Diagnostic Data Labs Test 01/03/25 17:59 01/01/25 05:19 12/31/24 12:57 12/31/24 12:53 Range/Units POC Glucose 122 H 70-106 mg/dl White Blood Count 5.9 4.4-10.8 10^3/uL Red Blood Count 4.19 4.0-5.20 10^6/uL Hemoglobin 11.4 L 12.2-16.2 g/dL Hematocrit 34.5 L 36.0-46.0 % Mean Corpuscular Volume 82.4 80.0-100.0 fL Mean Corpuscular Hemoglobin 27.2 L 28.0-32.0 pg Mean Corpuscular Hemoglobin Concent 33.0 32.0-36.0 g/dL Red Cell Distribution Width 16.1 H 11.8-14.3 % Platelet Count 226 140-450 10^3/uL Mean Platelet Volume 6.8 L 6.9-10.8 fL Neutrophils (%) (Auto) 60.9 37.0-80.0 % Lymphocytes (%) (Auto) 26.4 10.0-50.0 % Monocytes (%) (Auto) 8.3 0.0-12.0 % Eosinophils (%) (Auto) 3.5 0.0-7.0 % Basophils (%) (Auto) 0.9 0.0-2.0 % Neutrophils # (Auto) 3.6 1.6-8.6 10 ^3/uL Lymphocytes # (Auto) 1.6 0.4-5.4 10 ^3/uL Monocytes # (Auto) 0.5 0-1.3 10 ^3/uL Eosinophils # (Auto) 0.2 0-0.8 10 ^3/uL Basophils # (Auto) 0.1 0-0.2 10 ^3/uL Nucleated Red Blood Cells 0.0 % Sodium Level 143 136-145 mmol/L Potassium Level 3.9 3.5-5.1 mmol/L Chloride Level 110 H 98-107 mmol/L Carbon Dioxide Level 25 20-31 mmol/L Anion Gap 8 5-15 Blood Urea Nitrogen 6 L 9-23 mg/dL Creatinine 0.97 0.550-1.02 mg/dL Glomerular Filtration Rate Calc 63 >90 mL/min BUN/Creatinine Ratio 6.2 L 10.0-20.0 Serum Glucose 97 74-106 mg/dL Calcium Level 8.4 L 8.7-10.4 mg/dL Total Bilirubin 0.4 0.2-1.0 mg/dL Aspartate Amino Transferase (AST) 15 13-40 U/L Alanine Aminotransferase (ALT) < 9 7-40 U/L Alkaline Phosphatase 81 46-116 U/L Total Protein 5.4 L 5.7-8.2 g/dL Albumin 3.4 3.2-4.8 g/dL Urine Color Yellow Yellow Urine Clarity Clear Clear Urine pH 5.5 5.0-9.0 Urine Specific [place] 1.015 1.001-1.035 Urine Protein Negative Negative Urine Ketones Negative Negative Urine Blood Negative Negative /uL Urine Nitrite Negative Negative Urine Bilirubin Negative Negative Urine Urobilinogen Normal Negative mg/dL Urine Leukocyte Esterase 2+ Negative /uL Urine RBC 3 0 - 4 /hpf Urine Microscopic WBC 4 0-5 /HPF Urine Squamous Epithelial Cells Few <5 /hpf Urine Bacteria None seen None Seen /hpf Urine Glucose Normal Normal mg/dL Prothrombin Time 10.8 9.3-11.8 sec Prothrombin Time INR 1.02 0.9-1.15 Activated Partial Thromboplast Time 27.1 24.5-34.5 SEC Lipase 31 12-53 U/L Microbiology Date/Time Source Procedure Growth Status 12/31/24 12:57 Voided Urine Urine Culture - Final Complete CT SCAN ABD PELVIS IMPRESSION: Limited evaluation without contrast. Gastric distention with narrowing at the distal stomach, similar to previous examination. Correlate for outlet obstruction, gastroparesis and other etio logies. This is similar to previous examination. Moderate distention small bowel loops , may represent ileus, enteritis. No de finitive small bowel obstruction seen if further evaluation desired, small-bowel series can be obtained to further evaluate. Hydropic/ distended gallbladder. Other findings as described. Problems(with codes): (1) Abdominal pain (2) Intractable abdominal pain (3) Ileus (4) Enteritis (5) Acute abdominal pain (6) Depression Plan/Recommendation Plan Continue Protonix 40 mg IV q.12 hours Clear liquid diet Schedule him for an endoscopy to rule out peptic ulcer disease rule out GERD on 01/04/2025 Review previous records as the patient's name is familiar may have done previous procedures on her Plan discussed with: Patient NNEKA NEW MD Jan 03, 2025 21:44
[2025-01-03] MEDS: PANTOPRAZOLE 40 MG/10 ML VIAL INJ IV SCH (22:00)
[2025-01-04 01:00] VITALS: BP 121/75; PULSE 51; RESP 16; TEMP 96.4; O2SAT 100
[2025-01-04 05:00] VITALS: BP 130/65; PULSE 64; RESP 17; TEMP 97.4; O2SAT 99
--- NOTE | 2025-01-04 05:40 | DVH ---
CHEST RADIOGRAPH Indication: PRE OP Technique: Single frontal view of the chest was obtained COMPARISON: XY CHEST PORTABLE on DOS: 12/21/24, XY CHEST XRAY 1 VIEW on DOS: 10/22/24, XY CHEST XRAY 1 V IEW on DOS: 06/30/24, XY CHEST PORTABLE on DOS: 06/24/24, XY CHEST XRAY 1 VIEW on DOS: 03/06/24 FINDINGS: Lines and Tubes: Left chest pacemaker Lungs: Clear Pleura: No effusion. No pneumothorax. Cardiomediastinal contours: Unremarkable Bones: Unremarkable IMPRESSION: No acute disease.
[2025-01-04 06:43] LABS: Hematocrit 37.2 % (36.0-46.0); Hemoglobin 12.8 g/dL (12.2-16.2); Mean Corpuscular Hemoglobin 28.4 pg (28.0-32.0); Mean Corpuscular Volume 82.4 fL (80.0-100.0); Nucleated Red Blood Cells % 0.0 %
[2025-01-04 06:48] LABS: Chloride 104 mmol/L (98-107); Potassium 3.8 mmol/L (3.5-5.1); Sodium 141 mmol/L (136-145)
[2025-01-04 06:49] LABS: Anion Gap 10 (5-15); Calcium 9.1 mg/dL (8.7-10.4); Carbon Dioxide 27 mmol/L (20-31)
[2025-01-04 06:54] LABS: BUN/Creatinine Ratio 5.2 (10.0-20.0); Blood Urea Nitrogen < 5 mg/dL (9-23); Glucose 101 mg/dL (74-106)
--- NOTE | 2025-01-04 06:57 | ECG ---
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
[2025-01-04 07:03] LABS: INR 1.08 (0.9-1.15); Partial Thromboplastin Time 23.1 SEC (24.5-34.5); Prothrombin Time 11.4 sec (9.3-11.8)
[2025-01-04 09:00] VITALS: BP 125/85; PULSE 110; RESP 19; TEMP 97.9; O2SAT 98
[2025-01-04] MEDS ORDERED: fentaNYL CITRATE 100 MCG/2 ML VL ONE (11:14)
[2025-01-04] MEDS ORDERED: KETAMINE 50mg/ML 1ml syringe ONE (11:14)
[2025-01-04] MEDS ORDERED: MIDAZOLAM HCL 2MG/2ML 2ml VIAL (1mg/ml) ONE (11:15)
[2025-01-04] MEDS ORDERED: ONDANSETRON HCL 4 MG/2 ML VIAL ONE (11:15)
[2025-01-04] MEDS ORDERED: SODIUM CHLORIDE LOCK 10 ML ONE (11:15)
[2025-01-04] MEDS ORDERED: PROPOFOL 10 MG/ML 20 ML IV ONE (11:15)
[2025-01-04] MEDS: LIDOCAINE VISCOUS 2% 15ML UD ONE (11:45)
--- NOTE | 2025-01-04 12:21 | DVHOP2 ---
Operative Report DATE OF OPERATION: 01/04/25 PROCEDURE: Upper Endoscopy with biopsy. PREOPERATIVE INDICATION: The patient is a 69 -year-old female undergoing endoscopy for epigastric pain and gastric distention POSTOPERATIVE DIAGNOSES: 1. 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 Mild fixation at the GE junction area and also at the Billroth II gastrojejunostomy site however there was no evidence of obstruction and otherwise normal examination up to the efferent and afferent loop of the gastrojejunostomy 3. Mild gastritis of the gastric remnant; no evidence of gastroparesis or retained gastric food contents 4. 0.5 cm sliding-type hiatal hernia with minimal grade a erosive esophagitis PROCEDURE PERFORMED BY: Nneka Moraes GI NURSE: Johanne SCOPE: Olympus videoendoscope. ASA CLASS: 3 PREOPERATIVE MEDICATIONS: Mac sedation, Dr. Mckee PROCEDURE IN DETAIL: After obtaining an informed consent, the patient was placed on left lateral decubitus position. The patient was then sedated with the above medications. A bite block was placed between her teeth. The endoscope was then passed through the oropharynx, into the esophagus, and through the stomach into efferent and afferent loop of the gastrojejunostomy the area of the distal body of the stomach There was mild fixation of the GE junction and the gastrojejunostomy area likely due to scar tissue There was no evidence of obstruction and both the efferent and afferent loops were easily intubated Patient had evidence of gastritis and superficial multiple ulcers on the gastric side of the gastrojejunal anastomosis Small bowel and gastric biopsies were obtained. On retroflexion the fundus and cardia were normal. The endoscope was then withdrawn into the distal esophagus where the patient had a 0.5 cm sliding-type hiatal hernia Minimal grade a erosive esophagitis and some GE junction biopsies were obtained. The remaining distal and proximal esophagus and oropharynx were unremarkable The endoscope was then withdrawn. The patient tolerated the procedure well without difficulty. COMPLICATIONS : None SPECIMENS: Small-bowel Biopsies Gastric biopsies GE junction biopsies DISPOSITION: Transfer back to the floor Stable PLAN: 1. Await for biopsy result 2. Will place pt on Protonix 40 mg bid IV 3. Carafate suspension 1 g p.o. 4 times a day 4. Start with pureed diet advance to soft mechanical 5. Avoid aspirin NSAIDs smoking alcohol 6. Outpatient follow up with me in 4-6 weeks to review results discuss further management and consider outpatient elective colonoscopy NNEKA MORAES MD Jan 04, 2025 12:21
--- NOTE | 2025-01-04 16:06 | DVHPN2 ---
Subjective Feeling slightly better after EGD; continues to complain of abdominal pain Reviewed: Care Plan, H&P, Labs, Medications, Previous Orders, Radiology, Other (Consultations) Changes from previous H/P or p: Changes Objective Vitals Vital Signs Date Time Temp Pulse Resp B/P (MAP) Pulse Ox O2 Delivery O2 Flow Rate FiO2 01/04/25 12:34 60 11 125/72 (89) 97 01/04/25 12:04 Room Air 01/04/25 12:04 97.8 97.8 01/04/25 08:00 0 21 Intake/Output Intake and Output 01/04/25 07:00 Intake Total 894 ml Output Total 450 ml Balance 444 ml Intake Oral 894 ml Output Urine Total 450 ml # Voids 1 General Appearance: Alert, Oriented X3, Cooperative, No acute distress HEENT: Atraumatic, Mucous membr. moist/pink Neck: Other (Midline scar due to previous tracheostomy placement) Lungs: Clear to auscultation, Normal air movement Abdomen: Normal bowel sounds, Soft, Other (Mild diffuse tenderness; abdominal scars) Extremities: No edema Neuro: Normal speech, Cranial nerves 3-12 NL Psych/Mental Status: Mental status NL, Mood NL Medications Current Medications Medications Dose Ordered Sig/Albert Route Start Time Stop Time Status Last Admin Dose Admin Diagnostic Test (Pha) 1 strip Q6HR 12/31/24 18:00 01/04/25 11:49 1 STRIP Insulin Human Regular Q6HR SC 12/31/24 18:00 01/03/25 06:10 2 UNITS Dextrose 50 ml UD PRN IV 12/31/24 16:45 Ondansetron HCl 4 mg Q4HP PRN IV 12/31/24 16:45 01/01/25 14:45 4 MG Morphine Sulfate 2 mg Q4HPRN PRN IV 12/31/24 16:45 01/04/25 09:56 2 MG Ceftriaxone Sodium 50 ml @ 100 mls/hr DAILY@09 IV 01/01/25 09:00 01/04/25 09:48 100 MLS/HR Acetaminophen/ Hydrocodone Bitart 1 tab Q6HPRN PRN PO 12/31/24 21:00 Pantoprazole Sodium 40 mg BID IV 01/03/25 22:00 01/04/25 09:47 40 MG Sucralfate 1 gm QID@0600,1130,1700,2200 PO 01/04/25 17:00 Laboratory Results Laboratory Tests 01/04/25 04:35 Chemistry Test 01/04/25 04:35 Calcium Level 9.1 mg/dL (8.7-10.4) Coagulation Test 01/04/25 04:35 Prothrombin Time 11.4 sec (9.3-11.8) Prothrombin Time INR 1.08 (0.9-1.15) Activated Partial Thromboplast Time 23.1 SEC (24.5-34.5) L Urinalysis Test 12/31/24 12:57 Urine Color Yellow (Yellow) Urine Clarity Clear (Clear) Urine pH 5.5 (5.0-9.0) Urine Specific [place] 1.015 (1.001-1.035) Urine Protein Negative (Negative) Urine Ketones Negative (Negative) Urine Blood Negative /uL (Negative) Urine Nitrite Negative (Negative) Urine Bilirubin Negative (Negative) Urine Urobilinogen Normal mg/dL (Negative) Urine Leukocyte Esterase 2+ /uL (Negative) Urine RBC 3 /hpf (0 - 4) Urine Microscopic WBC 4 /HPF (0-5) Urine Squamous Epithelial Cells Few /hpf (<5) Urine Bacteria None seen /hpf (None Seen) Urine Glucose Normal mg/dL (Normal) Microbiology Microbiology Date/Time Source Procedure Growth Status 12/31/24 12:57 Voided Urine Urine Culture - Final Complete Labs and/or images reviewed: Labs reviewed by me, Image(s) reviewed by me Assessment/Plan Assessment/Plan Covering: Acute epigastric pain status post EGD on January 04, 2025 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 side of the gastrojejunal anastomosis Mild fixation at the GE junction area and also at the Billroth II gastrojejunostomy site however there was no evidence of obstruction and otherwise normal examination up to the efferent and afferent loop of the gastrojejunostomy Mild gastritis of the gastric remnant; no evidence of gastroparesis or retained gastric food contents 0.5 cm sliding-type hiatal hernia with minimal grade a erosive esophagitis GERTRUDIS; most likely vasomotor nephropathy Suspected acute cystitis Diabetes mellitus type 2 with A1c of 6.5% in October 2024 History of gastric bypass as above Overweight Continue insulin management and adjust according to blood glucose monitoring Continue IV pantoprazole and sucralfate Reviewed the available imaging studies and lab work Avoid nephrotoxic agents Continue IV fluids To advance diet as tolerated and as per GI Counseled the patient on the importance of adopting healthy lifestyle with diet and exercise in order to lose weight Continue pain management as indicated Continue IV ceftriaxone for suspected acute cystitis GI is following; will need to follow up with GI as outpatient for biopsy results from EGD Continue monitoring Goals of care discussed with the patient for 20 minutes; full code Late Entry. This medical document was created using an electronic medical record system with computerized dictation system. Although this document has been carefully reviewed, there might still be some phonetic and typographical errors. These areas are purely typographical due to imperfections of the software programs, and do not reflect any compromise in the patient's medical care. Plan discussed with: Patient, Other (Nurse) Date of Service: Jan 04, 2025 Billing Provider: AURORA CHANG MD Common Visit Codes: [id number] INP/OBS CARE(HIGH) Secondary Visit Codes: [id number] CARE PLAN 30 MINUTES (20 minutes) AURORA CHANG MD Jan 04, 2025 16:06
[2025-01-04 16:40] VITALS: BP 128/70; PULSE 61; RESP 18; TEMP 98.5; O2SAT 99
[2025-01-04] MEDS: SUCRALFATE 1 GM/10 ML ORAL SUSP PO SCH (18:02)
[2025-01-04 21:00] VITALS: BP 131/90; PULSE 60; RESP 18; TEMP 98; O2SAT 97
[2025-01-04] MEDS: ARTIFICIAL TEARS 15ml EACHEYE PRN (22:27)
[2025-01-05] VITALS (7 sets, daily range): BP systolic 102–142; BP diastolic 63–92; PULSE 57–108; RESP 14–19; TEMP 98.1–98.8; O2SAT 96–98
[2025-01-05 07:29] LABS: Anion Gap 9 (5-15); Calcium 9.0 mg/dL (8.7-10.4); Carbon Dioxide 26 mmol/L (20-31); Chloride 104 mmol/L (98-107); Potassium 4.0 mmol/L (3.5-5.1); Sodium 139 mmol/L (136-145)
[2025-01-05 07:34] LABS: Hematocrit 35.9 % (36.0-46.0); Hemoglobin 12.0 g/dL (12.2-16.2); Mean Corpuscular Hemoglobin 27.4 pg (28.0-32.0); Mean Corpuscular Volume 82.2 fL (80.0-100.0); Nucleated Red Blood Cells % 0.1 %
[2025-01-05 07:35] LABS: BUN/Creatinine Ratio 5.2 (10.0-20.0); Blood Urea Nitrogen < 5 mg/dL (9-23); Glucose 113 mg/dL (74-106)
--- NOTE | 2025-01-05 16:22 | DVHPN2 ---
Progress Note Date Seen: Jan 05, 2025 Resident Creating Document: CATHIE COX RESIDENT Medical Necessity Reason Pt with a Central, PICC or Fol: No Subjective Review of Systems Patient seen and examined at bedside Notes having nausea but no vomiting Last BM 12/31/2024 Tolerating diet Does note some right upper quadrant pain S/p endoscopy on 01/04/2025 Objective vital signs Vital Sign Date Time Temp Pulse Resp B/P (MAP) Pulse Ox O2 Delivery O2 Flow Rate FiO2 01/05/25 13:04 108 18 142/92 01/05/25 13:00 98.8 98 98.8 01/05/25 08:00 Room Air* 0 21 Total Intake and Output 01/04/25 01/04/25 01/05/25 15:00 23:00 07:00 Intake Total 150 ml 0 ml 150 ml Balance 150 ml 0 ml 150 ml medications Current Medications Medications Dose Ordered Sig/Albert Route Start Time Stop Time Status Last Admin Dose Admin Diagnostic Test (Pha) 1 strip Q6HR 12/31/24 18:00 01/05/25 12:11 1 STRIP Insulin Human Regular Q6HR SC 12/31/24 18:00 01/03/25 06:10 2 UNITS Dextrose 50 ml UD PRN IV 12/31/24 16:45 Ondansetron HCl 4 mg Q4HP PRN IV 12/31/24 16:45 01/01/25 14:45 4 MG Morphine Sulfate 2 mg Q4HPRN PRN IV 12/31/24 16:45 01/05/25 13:04 2 MG Ceftriaxone Sodium 50 ml @ 100 mls/hr DAILY@09 IV 01/01/25 09:00 01/05/25 10:08 100 MLS/HR Acetaminophen/ Hydrocodone Bitart 1 tab Q6HPRN PRN PO 12/31/24 21:00 Pantoprazole Sodium 40 mg BID IV 01/03/25 22:00 01/05/25 10:08 40 MG Sucralfate 1 gm QID@0600,1130,1700,2200 PO 01/04/25 17:00 01/05/25 11:30 1 GM Artificial Tears 1 drop Q8HR PRN EACHEYE 01/04/25 17:15 01/04/25 22:27 1 DROP Examination General Appearance: Cooperative. Well developed. Well nourished. NAD Pulmonary/Respiratory: Equal bilateral air entry Cardiovascular/Chest: Regular rate and rhythm. No murmurs. No JVD. Abdominal Exam: Hyperactive bowel sounds. Soft. normal abdomen, no visible veins, Nontender. No hepatospenomegaly. No masses Neuro/Mental Status: A&O x3. Coherent. Thoughts/Psych: Normal thought pattern. Appropriate mood and affect. Good judgement and insight Skin Exam: Normal inspection. Normal color. Warm. Dry laboratory and microbiology Laboratory Tests 01/05/25 05:55 Test 01/05/25 05:55 Range/Units Serum Glucose 113 H 74-106 mg/dL Microbiology Date/Time Source Procedure Growth Status 12/31/24 12:57 Voided Urine Urine Culture - Final Complete Labs and/or images reviewed: Labs reviewed by me, Image(s) reviewed by me Problem List/Assessment/Plan Problem List/Assessment/Plan Acute intractable abdominal pain, now improving Possible ileus? vs constipation s/p 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 side of the gastrojejunal anastomosis Mild gastritis of the gastric remnant Ruled out gastroparesis Hiatal hernia Erosive esophagitis Plan: S/p EGD on 01/04/2025 Patient completed colonoscopy in February 2024 No further GI workup indicated at this time pending biopsy result IV Protonix 40 mg b.i.d. Carafate 1 g p.o. q.i.d. Pureed diet Advance diet as tolerated Discussed with patient to avoid aspirin, NSAIDs, smoking in the alkaline Outpatient follow up with GI in 4-6 weeks Thank you so much for the opportunity to consult on your patient. GI team will follow the patient. In case of any questions or concerns please feel free to reach out. Plan discussed with Dr. Moraes Plan discussed with: Patient, Other (MICHELLE Del Toro) Dietary Evaluation Review Comments: 1) If patient remains NPO > 7 days, consider EN/TPN to meet at least 75% of estimated daily needs 2) Consult speech therapist for swallow evaluation 3) Advance to 60g CCHO cardiac diet when medically feasible, pending ST approval 4) Follow-up with gastroenterology 5) Continue to monitor I&O, labs, and skin integrity Expected Outcomes/Goals: 1) patient to receive nutritional support within 7 days of NPO status 2) GI symptoms to resolve 3) diet to advance 4) f/u in 3-5 days CATHIE COX RESIDENT Jan 05, 2025 16:22
--- NOTE | 2025-01-05 16:57 | DVHPN2 ---
Subjective Patient is alert awake oriented x3. Comfortable in bed. No complaints. Reviewed: Care Plan, H&P, Labs, Medications, Previous Orders, Radiology, Other (Consultations) Changes from previous H/P or p: No Changes Objective Vitals Vital Signs Date Time Temp Pulse Resp B/P (MAP) Pulse Ox O2 Delivery O2 Flow Rate FiO2 01/05/25 16:42 98.3 59 16 119/76 (90) 98 98.3 01/05/25 08:00 Room Air* 0 21 Intake/Output Intake and Output 01/05/25 07:00 Intake Total 300 ml Balance 300 ml Intake Oral 150 ml IV Total 150 ml # Voids 3 General Appearance: Alert, Oriented X3, Cooperative, No acute distress HEENT: Atraumatic, Mucous membr. moist/pink Neck: Other (Midline scar due to previous tracheostomy placement) Lungs: Clear to auscultation, Normal air movement Abdomen: Normal bowel sounds, Soft, Other (Mild diffuse tenderness; abdominal scars) Extremities: No edema Neuro: Normal speech, Cranial nerves 3-12 NL Psych/Mental Status: Mental status NL, Mood NL Medications Current Medications Medications Dose Ordered Sig/Albert Route Start Time Stop Time Status Last Admin Dose Admin Diagnostic Test (Pha) 1 strip Q6HR 12/31/24 18:00 01/05/25 12:11 1 STRIP Insulin Human Regular Q6HR SC 12/31/24 18:00 01/03/25 06:10 2 UNITS Dextrose 50 ml UD PRN IV 12/31/24 16:45 Ondansetron HCl 4 mg Q4HP PRN IV 12/31/24 16:45 01/01/25 14:45 4 MG Morphine Sulfate 2 mg Q4HPRN PRN IV 12/31/24 16:45 01/05/25 13:04 2 MG Ceftriaxone Sodium 50 ml @ 100 mls/hr DAILY@09 IV 01/01/25 09:00 01/05/25 10:08 100 MLS/HR Acetaminophen/ Hydrocodone Bitart 1 tab Q6HPRN PRN PO 12/31/24 21:00 Pantoprazole Sodium 40 mg BID IV 01/03/25 22:00 01/05/25 10:08 40 MG Sucralfate 1 gm QID@0600,1130,1700,2200 PO 01/04/25 17:00 01/05/25 11:30 1 GM Artificial Tears 1 drop Q8HR PRN EACHEYE 01/04/25 17:15 01/04/25 22:27 1 DROP Laboratory Results Laboratory Tests 01/05/25 05:55 Chemistry Test 01/05/25 05:55 Calcium Level 9.0 mg/dL (8.7-10.4) Urinalysis Test 12/31/24 12:57 Urine Color Yellow (Yellow) Urine Clarity Clear (Clear) Urine pH 5.5 (5.0-9.0) Urine Specific [place] 1.015 (1.001-1.035) Urine Protein Negative (Negative) Urine Ketones Negative (Negative) Urine Blood Negative /uL (Negative) Urine Nitrite Negative (Negative) Urine Bilirubin Negative (Negative) Urine Urobilinogen Normal mg/dL (Negative) Urine Leukocyte Esterase 2+ /uL (Negative) Urine RBC 3 /hpf (0 - 4) Urine Microscopic WBC 4 /HPF (0-5) Urine Squamous Epithelial Cells Few /hpf (<5) Urine Bacteria None seen /hpf (None Seen) Urine Glucose Normal mg/dL (Normal) Microbiology Microbiology Date/Time Source Procedure Growth Status 12/31/24 12:57 Voided Urine Urine Culture - Final Complete Assessment/Plan Assessment/Plan Acute epigastric pain status post EGD on January 04, 2025 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 side of the gastrojejunal anastomosis Mild fixation at the GE junction area and also at the Billroth II gastrojejunostomy site however there was no evidence of obstruction and otherwise normal examination up to the efferent and afferent loop of the gastrojejunostomy Mild gastritis of the gastric remnant; no evidence of gastroparesis or retained gastric food contents 0.5 cm sliding-type hiatal hernia with minimal grade a erosive esophagitis GERTRUDIS; most likely vasomotor nephropathy Suspected acute cystitis Diabetes mellitus type 2 with A1c of 6.5% in October 2024 History of gastric bypass as above Overweight Continue insulin management and adjust according to blood glucose monitoring Continue IV pantoprazole and sucralfate Reviewed the available imaging studies and lab work Avoid nephrotoxic agents Continue IV fluids To advance diet as tolerated and as per GI Counseled the patient on the importance of adopting healthy lifestyle with diet and exercise in order to lose weight Continue pain management as indicated Continue IV ceftriaxone for suspected acute cystitis GI is following; will need to follow up with GI as outpatient for biopsy results from EGD Continue monitoring She is clinically stable. Tolerating diet. We will advance as she tolerates. Says and no bowel movement for last two days therefore we will start her on lactulose. I will change Protonix to p.o.. If she remains stable consider discharge home tomorrow. Discussed with the patient regarding care plan Plan discussed with: Patient My Orders Orders - JAIME MCGUIRE MD Procedure Category Date Status Time Pantoprazole Tablet PHA 01/05/25 Transmitted (Protonix Tablet) 17:00 Lactulose Oral PHA 01/05/25 Transmitted 22:00 Pt Request For Service PT 01/05/25 Logged 16:54 Date of Service: Jan 05, 2025 Billing Provider: JAIME MCGUIRE MD Common Visit Codes: [id number] INP/OBS CARE(MOD) JAIME MCGUIRE MD Jan 05, 2025 16:57
[2025-01-05] MEDS: PANTOPRAZOLE 40 MG TAB PO SCH (18:00)
[2025-01-05] MEDS: LACTULOSE 20Gm/30ML SOLN PO SCH (22:00)
[2025-01-06 01:00] VITALS: BP 112/62; PULSE 69; RESP 17; TEMP 98.1; O2SAT 96
[2025-01-06 05:00] VITALS: BP 111/65; PULSE 65; RESP 17; TEMP 98; O2SAT 100
[2025-01-06] MEDS ORDERED: PANT40TA57 PO (14:31)
[2025-01-06] MEDS ORDERED: LACT10SO3 PO (14:31)
--- NOTE | 2025-01-06 14:33 | DVHDS2 ---
Discharge Summary Date of Admission Dec 31, 2024 at 16:31 Date of Discharge: Jan 06, 2025 Labs/Diagnostic Data: Laboratory Results Test 01/06/25 12:21 01/05/25 05:55 01/04/25 04:35 01/01/25 05:19 POC Glucose 182 mg/dl (70-106) White Blood Count 5.8 10^3/uL (4.4-10.8) Red Blood Count 4.37 10^6/uL (4.0-5.20) Hemoglobin 12.0 g/dL (12.2-16.2) Hematocrit 35.9 % (36.0-46.0) Mean Corpuscular Volume 82.2 fL (80.0-100.0) Mean Corpuscular Hemoglobin 27.4 pg (28.0-32.0) Mean Corpuscular Hemoglobin Concent 33.4 g/dL (32.0-36.0) Red Cell Distribution Width 15.6 % (11.8-14.3) Platelet Count 243 10^3/uL (140-450) Mean Platelet Volume 6.7 fL (6.9-10.8) Neutrophils (%) (Auto) 54.3 % (37.0-80.0) Lymphocytes (%) (Auto) 33.8 % (10.0-50.0) Monocytes (%) (Auto) 9.0 % (0.0-12.0) Eosinophils (%) (Auto) 2.2 % (0.0-7.0) Basophils (%) (Auto) 0.7 % (0.0-2.0) Neutrophils # (Auto) 3.1 10 ^3/uL (1.6-8.6) Lymphocytes # (Auto) 2.0 10 ^3/uL (0.4-5.4) Monocytes # (Auto) 0.5 10 ^3/uL (0-1.3) Eosinophils # (Auto) 0.1 10 ^3/uL (0-0.8) Basophils # (Auto) 0 10 ^3/uL (0-0.2) Nucleated Red Blood Cells 0.1 % Sodium Level 139 mmol/L (136-145) Potassium Level 4.0 mmol/L (3.5-5.1) Chloride Level 104 mmol/L (98-107) Carbon Dioxide Level 26 mmol/L (20-31) Anion Gap 9 (5-15) Blood Urea Nitrogen < 5 mg/dL (9-23) Creatinine 0.96 mg/dL (0.550-1.02) Glomerular Filtration Rate Calc 64 mL/min (>90) BUN/Creatinine Ratio 5.2 (10.0-20.0) Serum Glucose 113 mg/dL (74-106) Calcium Level 9.0 mg/dL (8.7-10.4) Prothrombin Time 11.4 sec (9.3-11.8) Prothrombin Time INR 1.08 (0.9-1.15) Activated Partial Thromboplast Time 23.1 SEC (24.5-34.5) Total Bilirubin 0.4 mg/dL (0.2-1.0) Aspartate Amino Transferase (AST) 15 U/L (13-40) Alanine Aminotransferase (ALT) < 9 U/L (7-40) Alkaline Phosphatase 81 U/L (46-116) Total Protein 5.4 g/dL (5.7-8.2) Albumin 3.4 g/dL (3.2-4.8) Test 12/31/24 12:57 12/31/24 12:53 Urine Color Yellow (Yellow) Urine Clarity Clear (Clear) Urine pH 5.5 (5.0-9.0) Urine Specific [place] 1.015 (1.001-1.035) Urine Protein Negative (Negative) Urine Ketones Negative (Negative) Urine Blood Negative /uL (Negative) Urine Nitrite Negative (Negative) Urine Bilirubin Negative (Negative) Urine Urobilinogen Normal mg/dL (Negative) Urine Leukocyte Esterase 2+ /uL (Negative) Urine RBC 3 /hpf (0 - 4) Urine Microscopic WBC 4 /HPF (0-5) Urine Squamous Epithelial Cells Few /hpf (<5) Urine Bacteria None seen /hpf (None Seen) Urine Glucose Normal mg/dL (Normal) Lipase 31 U/L (12-53) Other Laboratory Tests 01/05/25 05:55 Final Diagnosis/Problems List Acute epigastric pain status post EGD on January 04, 2025 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 side of the gastrojejunal anastomosis Mild fixation at the GE junction area and also at the Billroth II gastrojejunostomy site however there was no evidence of obstruction and otherwise normal examination up to the efferent and afferent loop of the gastrojejunostomy Mild gastritis of the gastric remnant; no evidence of gastroparesis or retained gastric food contents 0.5 cm sliding-type hiatal hernia with minimal grade a erosive esophagitis GERTRUDIS; most likely vasomotor nephropathy Suspected acute cystitis Diabetes mellitus type 2 with A1c of 6.5% in October 2024 History of gastric bypass as above Overweight Discharge Disposition: Home Discharge Instruct/Medications Diet: Consistent carbohydrate, Cardiac 2g Na,low cholest Activity: No Restrictions, As Tolerated Follow Up/Referral: PCP next week for abdominal pain and referal to GI doctor Medications: as prescribed and home medications Scheduled Apixaban Base (Eliquis), 5 MG PO BID, (Reported) Cetirizine Hcl (Zyrtec Allergy), 10 MG PO DAILY, (Reported) Cholecalciferol (Vitamin D3), 1 TAB PO DAILY, (Reported) Cyanocobalamin (Vitamin B-12), 1,000 MCG PO DAILY, (Reported) Docusate Sodium (Colace), 1 CAP PO BID Enalapril Maleate (Enalapril Maleate), 10 MG PO DAILY, (Reported) Escitalopram Oxalate (Lexapro), 1 TAB PO DAILY, (Reported) Exenatide (Byetta), 10 MCG SC BIDAC, (Reported) Fluticasone Propionate (Nasal) (Flonase Allergy Relief), 50 MCG NA DAILY, (Reported) Furosemide (Furosemide), 1 TAB PO DAILY, (Reported) Gabapentin (Gabapentin), 400 MG PO TID, (Reported) Hydrocodone-Acetaminophen ([place] 7.5/325MG), 7.5 MG PO TID, (Reported) Ibuprofen (Ibuprofen), 1 TAB PO TID Lactulose (Lactulose), 20 GM PO BID Levalbuterol Tartrate (Xopenex Hfa), 1 IN PRN, (Reported) Magnesium Citrate (Magnesium Citrate), 150 ML PO DAILY Methocarbamol (Methocarbamol), 750 MG PO BID Pantoprazole Sodium Sesquihydr (Pantoprazole Sodium Dr), 40 MG PO BID Psyllium (Metamucil Fiber), 51.7 % PO BID Senna (Senna), 8.6 MG PO HS Simvastatin (Simvastatin), 40 MG PO DAILY, (Reported) Scheduled PRN Hydrocodone-Acetaminophen (Hydrocodone Bitartrate/AC 5-325 mg), 1 TAB PO Q12HP PRN Polyethylene Glycol 3350 (Miralax), 17 GM PO DAILY PRN Miscellaneous Medications Albuterol (Albuterol), (Reported) Clopidogrel Bisulfate (Plavix), 75 MG PO, (Reported) Exenatide (Bydureon Bcise), 2 MG SC, (Reported) Ferrous Sulfate (Ferosul), PO, (Reported) [Advair], (Reported) Durable Medical Equipment Elastic Bandages & Supports (Abdominal Binder/Elastic/), SM XX ONCE, (DME) Discharge Statement: "Patient was advised to return to the ER or call 911 if any headaches, dizziness, shortness of breath, chest pain, abdominal pain, bleeding, fevers, or worsening of medical condition. Patient was counseled about treatment plan, medications, possible side effects, patientverbalized understanding. All questions were answered to the best of my ability. 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 side of the gastrojejunal anastomosis Mild fixation at the GE junction area and also at the Billroth II gastrojejunostomy site however there was no evidence of obstruction and otherwise normal examination up to the efferent and afferent loop of the gastrojejunostomy Mild gastritis of the gastric remnant; no evidence of gastroparesis or retained gastric food contents 0.5 cm sliding-type hiatal hernia with minimal grade a erosive esophagitis GERTRUDIS; most likely vasomotor nephropathy Suspected acute cystitis Diabetes mellitus type 2 with A1c of 6.5% in October 2024 History of gastric bypass as above Overweight JAIME MCGUIRE MD Jan 06, 2025 14:33
[2025-01-06 15:29] VITALS: BP 130/64; PULSE 94; RESP 17
--- NOTE | 2025-01-06 16:42 | DVHPN2 ---
Progress Note Date Seen: Jan 06, 2025 Resident Creating Document: CATHIE COX RESIDENT Medical Necessity Reason Pt with a Central, PICC or Fol: No Subjective Review of Systems Patient seen and examined at bedside Last bowel movement 12/31/2024 S/p tap water enema Denies any nausea or vomiting Tolerating diet, finishing 50-70% of her meals Passing gas Objective vital signs Vital Sign Date Time Temp Pulse Resp B/P (MAP) Pulse Ox O2 Delivery O2 Flow Rate FiO2 01/06/25 15:29 94 17 130/64 01/06/25 08:00 Room Air* 0 21 01/06/25 05:00 98.0 100 98.0 Total Intake and Output 01/05/25 01/05/25 01/06/25 15:00 23:00 07:00 Intake Total 720 ml 400 ml Balance 720 ml 400 ml medications Current Medications Medications Dose Ordered Sig/Albert Route Start Time Stop Time Status Last Admin Dose Admin Diagnostic Test (Pha) 1 strip Q6HR 12/31/24 18:00 01/06/25 13:02 1 STRIP Insulin Human Regular Q6HR SC 12/31/24 18:00 01/06/25 13:03 3 UNITS Dextrose 50 ml UD PRN IV 12/31/24 16:45 Ondansetron HCl 4 mg Q4HP PRN IV 12/31/24 16:45 01/01/25 14:45 4 MG Morphine Sulfate 2 mg Q4HPRN PRN IV 12/31/24 16:45 01/06/25 15:29 2 MG Acetaminophen/ Hydrocodone Bitart 1 tab Q6HPRN PRN PO 12/31/24 21:00 Sucralfate 1 gm QID@0600,1130,1700,2200 PO 01/04/25 17:00 01/06/25 11:33 1 GM Artificial Tears 1 drop Q8HR PRN EACHEYE 01/04/25 17:15 01/05/25 18:24 1 DROP Pantoprazole Sodium 40 mg BID@0600,1700 PO 01/05/25 17:00 01/06/25 06:25 40 MG Lactulose 30 ml BID PO 01/05/25 22:00 01/06/25 08:55 30 ML Examination General Appearance: Cooperative. Well developed. Well nourished. NAD Pulmonary/Respiratory: Equal bilateral air entry Cardiovascular/Chest: Regular rate and rhythm. No murmurs. No JVD. Abdominal Exam: Hyperactive bowel sounds. Soft. no visible veins, mild generalized tenderness to palpation No hepatospenomegaly. No masses Neuro/Mental Status: A&O x3. Coherent. Thoughts/Psych: Normal thought pattern. Appropriate mood and affect. Good judgement and insight Skin Exam: Normal inspection. Normal color. Warm. Dry laboratory and microbiology Laboratory Tests 01/05/25 05:55 Test 01/05/25 05:55 Range/Units Serum Glucose 113 H 74-106 mg/dL Microbiology Date/Time Source Procedure Growth Status 12/31/24 12:57 Voided Urine Urine Culture - Final Complete Labs and/or images reviewed: Labs reviewed by me, Image(s) reviewed by me Problem List/Assessment/Plan Problem List/Assessment/Plan Acute intractable abdominal pain, now improving Possible ileus? vs constipation s/p 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 side of the gastrojejunal anastomosis Mild gastritis of the gastric remnant Ruled out gastroparesis Hiatal hernia Erosive esophagitis Plan: Patient has previously been known to have a tortuous redundant right-sided colon causing chronic constipation Encourage ambulation q.4 hours or as much as tolerated Maintained on bowel regimen S/p EGD on 01/04/2025 Patient completed colonoscopy in February 2024 No further GI workup indicated at this time pending biopsy result IV Protonix 40 mg b.i.d. Carafate 1 g p.o. q.i.d. Pureed diet Advance diet as tolerated Discussed with patient to avoid aspirin, NSAIDs, smoking in the alkaline Outpatient follow up with GI in 4-6 weeks Thank you so much for the opportunity to consult on your patient. GI team will follow the patient. In case of any questions or concerns please feel free to reach out. Plan discussed with Dr. Moraes Plan discussed with: Patient, Other (RN) Dietary Evaluation Review Comments: 1) If patient remains NPO > 7 days, consider EN/TPN to meet at least 75% of estimated daily needs 2) Consult speech therapist for swallow evaluation 3) Advance to 60g CCHO cardiac diet when medically feasible, pending ST approval 4) Follow-up with gastroenterology 5) Continue to monitor I&O, labs, and skin integrity Expected Outcomes/Goals: 1) patient to receive nutritional support within 7 days of NPO status 2) GI symptoms to resolve 3) diet to advance 4) f/u in 3-5 days CATHIE COX RESIDENT Jan 06, 2025 16:42
== END 2025-01-06 16:57 | disposition home health service (06) | DRG 380 ==
LOC: ER 12:34 → OVERFLOW 16:31 → WEST WING 23:24
PROVIDERS: ADMIT Hospitalist; ATTEND Hospitalist
PROC: 0DB88ZX Excision of Small Intestine, Via Natural or Artificial Opening Endoscopic, Diagnostic (ICD-10-PCS; 2025-01-04)
PROC: 0DB68ZX Excision of Stomach, Via Natural or Artificial Opening Endoscopic, Diagnostic (ICD-10-PCS; 2025-01-04)
PROC: 0DB48ZX Excision of Esophagogastric Junction, Via Natural or Artificial Opening Endoscopic, Diagnostic (ICD-10-PCS; principal; 2025-01-04 11:50)
DX: K22.10 Ulcer of esophagus without bleeding (principal); N17.0 Acute kidney failure with tubular necrosis; N30.00 Acute cystitis without hematuria; K25.9 Gastric ulcer, unspecified as acute or chronic, without hemorrhage or perforation; K29.70 Gastritis, unspecified, without bleeding; K44.9 Diaphragmatic hernia without obstruction or gangrene; E11.9 Type 2 diabetes mellitus without complications; E66.3 Overweight; Z68.26 Body mass index [BMI] 26.0-26.9, adult; E78.5 Hyperlipidemia, unspecified; K59.00 Constipation, unspecified; F32.A Depression, unspecified; I11.0 Hypertensive heart disease with heart failure; I25.10 Atherosclerotic heart disease of native coronary artery without angina pectoris; I50.9 Heart failure, unspecified; J44.89 Other specified chronic obstructive pulmonary disease; Z82.49 Family history of ischemic heart disease and other diseases of the circulatory system; Z83.3 Family history of diabetes mellitus; Z90.710 Acquired absence of both cervix and uterus; Z91.041 Radiographic dye allergy status; Z98.84 Bariatric surgery status; Z79.899 Other long term (current) drug therapy
CPT/HCPCS: 36415; 43239; 71045; 74018; 74176; 80048; 80053; 81001; 82962; 83690; 85025; 85610; 85730; 86850; 86900; 86901; 87086; 93005; 96361; 96374; 96375; 97163; G0378; J1815; J2250; J2405; J2470; J2704

== ENCOUNTER 2025-01-11 14:02 | Emergency (ER) | payer MEDICARE, MEDICAID ==
[~2025-01-11] VITALS: Ht 172.7 cm; Wt 78.6 kg
[~2025-01-11 14:02] MED LIST changes: -ADVAIR; -ALBUPOW26; -CYAN100088 PO; -IBUP-1456 PO; +LACT10SO3 PO; -METH-1182 PO; -NOR7.5T PO; +PANT40TA57 PO; -PSYL58.632 PO; -SENN-105 PO
[2025-01-11] MEDS: NEOMYCIN-BACITRACIN-POLYM UNITDOSE PKG TOP OINT TOP ONE (15:52)
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
[2025-01-11 16:01] VITALS: BP 100/67; PULSE 60; RESP 16; TEMP 98.7; O2SAT 98
== END 2025-01-11 16:11 | disposition home or self-care (01) ==
LOC: ER 14:02
DX: S61.402A Unspecified open wound of left hand, initial encounter (principal); Z95.0 Presence of cardiac pacemaker; Z90.710 Acquired absence of both cervix and uterus; Z79.899 Other long term (current) drug therapy; I10 Essential (primary) hypertension; E11.9 Type 2 diabetes mellitus without complications; V89.2XXA Person injured in unspecified motor-vehicle accident, traffic, initial encounter; Y93.89 Activity, other specified; Y92.410 Unspecified street and highway as the place of occurrence of the external cause; Y99.8 Other external cause status

== ENCOUNTER 2025-01-31 12:49 | Inpatient (IN) | payer MEDICARE, MEDICAID ==
[~2025-01-31] VITALS: Ht 157.5 cm; Wt 82.9 kg
--- NOTE | 2025-01-31 13:33 | ED.PDOC ---
HPI (NEURO) HPI Comments 70 y.o female presents to the ED for a chief complaint of bilateral arm numbness associated with tingling sensation to the left side of her face and exertional dizziness that started this morning. Patient reports symptoms started on set spontaneously. She denies any confusions, has equal cable former and is ambulatory without assistance. She denies vision changes, slurred speech, chest pain, SOB. Chief Complaint: Face pain Time Seen by MD: 13:02 Primary Care Provider: ? Reviewed Notes: Nurses Notes, Medications, Allergies Information Source: Patient Mode of Arrival: Ambulatory Severity: Moderate Timing: Hours Duration: Since onset Weakness Location: Facial Numbness Location: (R) Arm, (L) Arm Onset: At rest Circumstances: Spontaneous Symptoms: None History of: DM, Hypertension Associated Signs and Symptoms: None Past Medical History PAST MEDICAL HISTORY: Asthma, CAD, COPD, DM, High Lipids, HTN Surgical History: Hysterectomy, Pacemaker, PTCA NURSE STAFF INDUSTRIAL History: No Pertinent NURSE STAFF INDUSTRIAL History Family History Family History: Reviewed,noncontributory to illness Social History Smoker: Non-Smoker Alcohol: Denies ETOH Use Drugs: Denies Drug Use Lives In: Home Constitutional: denies: chills, diaphoresis, fatigue, fever, malaise, sweats, weakness, others EENTM: denies: blurred vision, double vision, ear bleeding, ear discharge, ear drainage, ear pain, ear ringing, eye pain, eye redness, hearing loss, mouth pain, mouth swelling, nasal discharge, nose bleeding, nose congestion, nose pain, photophobia, tearing, throat pain, throat swelling, voice changes, others Respiratory: denies: cough, hemoptysis, orthopnea, SOB at rest, shortness of breath, SOB with excertion, stridor, wheezing, others Gastrointestinal: denies: abdomen distended, abdominal pain, blood streaked bowels, constipated, diarrhea, dysphagia, difficulty swallowing, hematemesis, melena, nausea, poor appetite, poor fluid intake, rectal bleeding, rectal pain, vomiting, others Genitourinary: denies: abnormal vagina bleeding, burning, dyspareunia, dysuria, flank pain, frequency, hematuria, incontinence, pain, , vagina discharge, urgency, others Neurological: reports: dizziness, numbness, tingling; denies: fainting, headache, left sided numbness, left sided weakness, paresthesia, pre-existing deficit, right sided numbness, right sided weakness, seizure, speech problems, tremors, weakness, others Musculoskeletal: denies: back pain, gout, joint pain, joint swelling, muscle pain, muscle stiffness, neck pain, others Integumetry: denies: bruises, change in color, change in hair/nails, dryness, laceration, lesions, lumps, rash, wounds, others Allergic/Immunocompromised: denies: Difficulty Healing, Frequent Infections, Hives, Itching, others Hematologic/Lymphatic: denies: anemia, blood clots, easy bleeding, easy bruising, swollen glands, others Endocrine: denies: excessive hunger, excessive sweating, excessive thirst, excessive urination, flushing, intolerance to cold, intolerance to heat, unexplained weight gain, unexplained weight loss, others Psychiatric: denies: anxiety, bipolar disorder, depression, hopeless, panic disorder, schizophrenia, sleepless, suicidal, others All Other Systems: Reviewed and Negative Physical Exam General Appearance: Moderate Distress HEENT: Normal ENT Inspection, Pharynx Normal, TMs Normal Neck: Full Range of Motion, Non-Tender, Normal, Normal Inspection Respiratory: Chest Non-Tender, Lungs Clear, No Accessory Muscle Use, No Respiratory Distress, Normal Breath Sounds Cardiovascular: No Edema, No JVD, No Murmur, No Gallop, Normal Peripheral Pulses, Regular Rate/Rhythm Breast Exam: Deferred Gastrointestinal: No Organomegaly, Non Tender, No Pulsatile Mass, Normal Bowel Sounds, Soft Genitalia: Deferred Pelvic: Deferred Rectal: Deferred Extremities: No calf tenderness, Normal capillary refill, Normal inspection, Normal range of motion, Non-tender, No pedal edema Musculoskeletal : Apperance: Normal Neurologic: Alert, loss prevention lead II-XII nml as Tested, No Motor Deficits, Normal Affect, Normal Mood, No Sensory Deficits Cerebellar Function: NOT DONE Reflexes: NOT DONE Skin: Dry, Normal Color, Warm Peripheral Pulses: 3+ Radial (R), 3+ Radial (L) Lymphatic: No Adenopathy Was a procedure done? Was a procedure done?: No Differential Diagnosis (SZ) Seizure: Psychogenic Seizure, Closed Head Injury, CVA/TIA CVA: Turner's Palsy, CVA, TIA General Weakness: Dysrhythmia, Electrolyte imbalance X-Ray, Labs, Meds, VS Vital Signs Date Time Temp Pulse Resp B/P (MAP) Pulse Ox O2 Delivery O2 Flow Rate FiO2 01/31/25 13:00 65 01/31/25 12:52 97.4 70 16 148/81 98 97.4 Lab Test 01/31/25 13:24 01/31/25 13:02 Range/Units White Blood Count 5.6 4.4-10.8 10^3/uL Red Blood Count 4.50 4.0-5.20 10^6/uL Hemoglobin 12.2 12.2-16.2 g/dL Hematocrit 37.5 36.0-46.0 % Mean Corpuscular Volume 83.3 80.0-100.0 fL Mean Corpuscular Hemoglobin 27.1 L 28.0-32.0 pg Mean Corpuscular Hemoglobin Concent 32.6 32.0-36.0 g/dL Red Cell Distribution Width 16.8 H 11.8-14.3 % Platelet Count 260 140-450 10^3/uL Mean Platelet Volume 6.6 L 6.9-10.8 fL Neutrophils (%) (Auto) 56.5 37.0-80.0 % Lymphocytes (%) (Auto) 32.9 10.0-50.0 % Monocytes (%) (Auto) 8.1 0.0-12.0 % Eosinophils (%) (Auto) 1.7 0.0-7.0 % Basophils (%) (Auto) 0.8 0.0-2.0 % Neutrophils # (Auto) 3.2 1.6-8.6 10 ^3/uL Lymphocytes # (Auto) 1.8 0.4-5.4 10 ^3/uL Monocytes # (Auto) 0.5 0-1.3 10 ^3/uL Eosinophils # (Auto) 0.1 0-0.8 10 ^3/uL Basophils # (Auto) 0 0-0.2 10 ^3/uL Nucleated Red Blood Cells 0.0 % Sodium Level 141 136-145 mmol/L Potassium Level 4.1 3.5-5.1 mmol/L Chloride Level 106 98-107 mmol/L Carbon Dioxide Level 24 20-31 mmol/L Anion Gap 11 5-15 Blood Urea Nitrogen 15 9-23 mg/dL Creatinine 1.22 H 0.550-1.02 mg/dL Glomerular Filtration Rate Calc 47 >90 mL/min BUN/Creatinine Ratio 12.3 10.0-20.0 Serum Glucose 118 H 74-106 mg/dL Calcium Level 8.7 8.7-10.4 mg/dL Troponin I High Sensitivity 6 </=34 ng/L POC Glucose 148 H 70-106 mg/dl Patient alert. Complaining of arm weakness. Vitals stable. Answering questions. Able to ambulate. Has history for neurological. Possibly will need MRI. CT of the head reviewed does not show any acute changes. WBC within normal limits. Hemoglobin within normal limits. Explained to the patient she will be admitted for further studies. Continue to monitor. Time of 1ST Reevaluation: 13:29 Reevaluation 1ST: Unchanged Patient Education/Counseling: Diagnosis, Treatment, Prognosis Family Education/Counseling: No Family Present Departure 1 Departure Time of Disposition: 14:21 Impression: Primary Impression: TIA (transient ischemic attack) Additional Impression: HTN (hypertension) Qualified Codes: I10 - Essential (primary) hypertension Disposition: ADMITTED INPATIENT Admit to: Med Surg Condition: Guarded Critical Care Note Critical Care Time?: No Stability Stability form required: No I personally scribed for JAMES BUENROSTRO MD ([email or web address]) on 01/31/25 at 13:32. Electronically submitted by Roseline Padron ([facility]). JAMES BUENROSTRO MD Jan 31, 2025 13:32
[2025-01-31 13:40] LABS: Hematocrit 37.5 % (36.0-46.0); Hemoglobin 12.2 g/dL (12.2-16.2); Mean Corpuscular Hemoglobin 27.1 pg (28.0-32.0); Mean Corpuscular Volume 83.3 fL (80.0-100.0); Nucleated Red Blood Cells % 0.0 %
[2025-01-31 13:47] LABS: Chloride 106 mmol/L (98-107); Potassium 4.1 mmol/L (3.5-5.1); Sodium 141 mmol/L (136-145)
[2025-01-31 13:48] LABS: Anion Gap 11 (5-15); Carbon Dioxide 24 mmol/L (20-31)
[2025-01-31 13:50] LABS: Calcium 8.7 mg/dL (8.7-10.4)
[2025-01-31 13:53] LABS: BUN/Creatinine Ratio 12.3 (10.0-20.0); Blood Urea Nitrogen 15 mg/dL (9-23)
[2025-01-31 13:55] LABS: Glucose 118 mg/dL (74-106)
--- NOTE | 2025-01-31 14:41 | DVH ---
CHEST RADIOGRAPH Indication: sob Technique: Single frontal view of the chest was obtained Comparison: XY CHEST PORTABLE on DOS: 01/04/25, XY CHEST PORTABLE on DOS: 12/21/24, XY CHEST XRAY 1 VIEW on DOS: 10/22/24 FINDINGS: Lines and Tubes: Pacemaker in place with pulse generator over the left chest unchanged from 5. Lungs: Bibasilar areas of atelectasis or developing airspace disease. Air-fluid level below the left diaphragm most likely from gas distended stomach if however pneumoperitoneum is of clinical concern r ecommend CT abdomen pelvis. Pleura: No effusion. No pneumothorax. Cardiomediastinal contours: Unremarkable Bones: No acute osseous abnormality. IMPRESSION: 1. Pacemaker in place with pulse generator over left chest unchanged from 01/04/2025. 2. Postop changes lower cervical spine. 3. Increased interstitial markings of the lung bases may represent atelectasis or developing airspace disease. Findings were not present on chest x-ray of 2024
--- NOTE | 2025-01-31 14:42 | DVH ---
CLINICAL HISTORY: tia TECHNIQUE: Helical imaging carried out from skull base to vertex without intravenous contrast. This e xam was performed according to our departmental dose optimization program. Up-to-date CT equipment an d radiation dose reduction techniques are utilized as appropriate. 57.96 CTDIVol: 57.96 mGy DLP: 1136.09 mGy-cm WID: COMPARISON: CT HEAD WITHOUT CONTRAST on DOS: 11/05/24 FINDINGS: Mild cerebral volume loss with concordant prominence of the subarachnoid spaces and ventricles. Mild patchy low attenuation in the cerebral white matter consistent with nonspecific white matter disease. There is no midline shift or mass effect. The ja[place] white matter interfaces are maintained. The basal cisterns are patent. There is no evidence of acute intracranial hemorrhage or extra-axial fluid esau ection. There are are small bilateral mastoid air cell effusions. There is frothy secretions and muco kelby thickening of the right sphenoid sinus with chronic appearing sclerosis of the right sphenoid sin [place]. IMPRESSION: 1. No acute intracranial abnormality. 2. Mild cerebral volume loss and mild chronic microvascular ischemic change. 3. Chronic right sphenoid sinusitis with frothy secretions, correlate clinically for acute symptoms o f sinusitis.
[2025-01-31 16:01] LABS: Urine Protein, UAD Negative (Negative)
[2025-01-31 16:15] VITALS: PULSE 64; RESP 17; O2SAT 100
[2025-01-31] MEDS: HYDROmorphone HCL 2 MG/ML VL/or syr IV ONE (16:19)
[2025-01-31] MEDS: ONDANSETRON HCL 4 MG/2 ML VIAL IV ONE (16:19)
[2025-01-31] MEDS ORDERED: ACETAMINOPHEN 325 MG TAB PO PRN (21:15)
[2025-01-31] MEDS ORDERED: ONDANSETRON HCL 4 MG/2 ML VIAL IV PRN (21:15)
[2025-01-31] MEDS ORDERED: DEXTROSE (50%) 50ML SYRG IV PRN (21:30)
[2025-01-31] MEDS: ACCU-CHEK COMFORT CURVE STRIP VI SCH (22:00)
[2025-01-31] MEDS: InsuLIN REG 1unit/0.01ml Soln (100units/ml) SC SCH (22:00)
[2025-01-31] MEDS: SODIUM CHLOR 0.9% PF (SALINE LOCK) 10ML VIAL/SYR IV SCH (22:00)
[2025-01-31] MEDS ORDERED: PANTOPRAZOLE 40 MG TAB PO SCH (22:00)
[2025-01-31 22:54] LABS: Amphetamine Screen, Urine Neg (NEGATIVE); Barbiturate Scree,Urine Neg (NEGATIVE); Benzodiazephine Screen, Urine Neg (NEGATIVE); Opiate Scree,Urine Neg (NEGATIVE); Phencyclidine Screen, Urine Neg (NEGATIVE)
[2025-01-31 22:55] LABS: Cannabinoid Screen, Urine Neg (NEGATIVE); Cocaine Screen, Urine Neg (NEGATIVE)
[2025-01-31] MEDS: HYDROcodone-ACET 5/325MG TAB PO PRN (23:21)
[2025-01-31 23:53] LABS: INR 0.99 (0.9-1.15); Partial Thromboplastin Time 25.5 SEC (24.5-34.5); Prothrombin Time 10.5 sec (9.3-11.8)
[2025-01-31 23:58] LABS: Alanine Aminotransferase 10 U/L (7-40); Albumin 4.5 g/dL (3.2-4.8); Alkaline Phosphatase 94 U/L (46-116); Bilirubin, Total 0.3 mg/dL (0.2-1.0); Total Protein 7.1 g/dL (5.7-8.2)
[2025-02-01 00:05] LABS: Bilirubin, Direct < 0.1 mg/dL (<0.3)
--- NOTE | 2025-02-01 01:14 | DVHHPRES ---
History of Present Illness Resident Creating Document: BRAYAN GRAHAM History of Present Illness Patient is a 70-year-old female with past medical history of VKH disease, asthma, CAD, COPD, DM, HLD, HTN, presented to [facility] ED with complaint of bilateral arm numbness, tingling sensation on the left side of her face. She reports that a similar episode began spontaneously 2 days ago, on Saturday, when she woke up with numbness and sharp pain on the left side of her face, which radiated to her left leg. That episode was associated with a headache and muscle spasms in both hands. She also experienced tingling, frequent lip biting, and discomfort in her cheeks during that time. On evalua tion in the ED, patient is afebrile, vitals are stable. Initial labs show, creatinine 1.22 and serum glucose 118. Head CT shows Mild cerebral volume loss and mild chronic microvascular ischemic change. Patient is admitted for further evaluation and management. Past Medical History VKH disease, asthma, CAD, COPD, DM, HLD, HTN Past Surgical History Hysterectomy, Pacemaker, PTCA FIELD IN[employer] Family History: None Smoke: No ALCOHOL: none Drugs: None Lives: with Family Review of Systems Review of Systems Eyes: No Pain, No Vision change, No Conjunctivae inflammation, No Eyelid inflammation, No Other, No Redness ENT: No Ear pain, No Ear discharge, No Nose pain, No Nose discharge, No Nose congestion, No Mouth pain, No Mouth swelling, No Throat pain, No Throat swelling, No Other Cardiovascular: No Chest Pain, No Palpitations, No Orthopnea, No Paroxysmal No Dyspnea, No Edema, No Lt Headedness, No Other Respiratory: No Cough, No Dry, No Shortness of breath, No SOB with exertion, No Wheezing, No Hemoptysis, No Pleuritic Pain, No Sputum, No Other Gastrointestinal: No Nausea, No Vomiting, Abdominal Pain, No Diarrhea, No Constipation, No Melena, No Hematochezia, No Other Genitourinary: No Dysuria, No Frequency, No Incontinence, No Hematuria, No Retention, No Other Musculoskeletal: No other, No neck pain, No shoulder pain, No arm pain, No back pain, No hand pain, No leg pain, No foot pain Skin: No Rash, No Lesions, No Jaundice, No Bruising, No Other Neurological: Dizziness, numbness, tingling, vertigo Allergies: Coded Allergies: Iodinated Contrast Media (Verified Allergy, Unknown, 11/24/13) Medications Current Medications Medications Dose Ordered Sig/Albert Route Start Time Stop Time Status Last Admin Dose Admin Sodium Chloride 10 ml Q8HR IV 01/31/25 22:00 Acetaminophen/ Hydrocodone Bitart 1 tab Q4HP PRN PO 01/31/25 21:15 01/31/25 23:21 1 TAB Ondansetron HCl 4 mg Q4HP PRN IV 01/31/25 21:15 Acetaminophen 650 mg Q6HP PRN PO 01/31/25 21:15 Aspirin 81 mg DAILY PO 02/01/25 10:00 Atorvastatin Calcium 40 mg HS PO 01/31/25 22:00 Clopidogrel Bisulfate 75 mg DAILY PO 02/01/25 10:00 Diagnostic Test (Pha) 1 strip ACHS 01/31/25 22:00 Insulin Human Regular ACHS SC 01/31/25 22:00 Dextrose 50 ml UD PRN IV 01/31/25 21:30 Enalapril Maleate 10 mg DAILY PO 02/01/25 10:00 Gabapentin 400 mg TID PO 01/31/25 22:00 Acetaminophen/ Hydrocodone Bitart 1 tab Q12HP PRN PO 01/31/25 21:45 Pantoprazole Sodium 40 mg BID PO 01/31/25 22:00 Citalopram Hydrobromide 40 mg DAILY PO 02/01/25 10:00 Exam Vital Signs Vital Signs Date Time Temp Pulse Resp B/P (MAP) Pulse Ox O2 Delivery O2 Flow Rate FiO2 01/31/25 19:06 98.0 73 20 128/77 (94) 100 98.0 01/31/25 16:15 Room Air* 0 21 Exam General Appearance: Cooperative. Well developed. Well nourished. NAD Head Exam: Normal inspection Neck Exam: Normal inspection. Non-tender. Normal alignment Pulmonary/Respiratory: Chest non-tender. Clear bilateral breath sounds, no crackles, no wheezing. Cardiovascular/Chest: Regular rate and rhythm. No murmurs. No JVD. Peripheral Pulses: 2+ Radial (R). 2+ Radial (L). 2+ Pedal (R). 2+ Pedal (L) Abdominal Exam: RUQ Abdominal Pain, Normal bowel sounds. Soft. normal abdomen, no visible veins, Nontender. No hepatospenomegaly. No masses. Vertical surgical scar Ankle Exam: Negative ankle edema Lower extremities: Negative lower extremity edema Neuro/Mental Status: A&O x4. Coherent. Thoughts/Psych: Normal thought pattern. Appropriate mood and affect. Good judgement and insight Skin Exam: Normal inspection. Normal color. Warm. Dry Labs/Xrays Labs Test 01/31/25 23:04 01/31/25 15:38 01/31/25 13:24 01/31/25 13:02 Range/Units Prothrombin Time 10.5 9.3-11.8 sec Prothrombin Time INR 0.99 0.9-1.15 Activated Partial Thromboplast Time 25.5 24.5-34.5 SEC Total Bilirubin 0.3 0.2-1.0 mg/dL Direct Bilirubin < 0.1 <0.3 mg/dL Aspartate Amino Transferase (AST) 17 13-40 U/L Alanine Aminotransferase (ALT) 10 7-40 U/L Alkaline Phosphatase 94 46-116 U/L Total Protein 7.1 5.7-8.2 g/dL Albumin 4.5 3.2-4.8 g/dL Urine Color Colorless Yellow Urine Clarity Clear Clear Urine pH 5.5 5.0-9.0 Urine Specific [place] 1.005 1.001-1.035 Urine Protein Negative Negative Urine Ketones Negative Negative Urine Blood Negative Negative /uL Urine Nitrite Negative Negative Urine Bilirubin Negative Negative Urine Urobilinogen Normal Negative mg/dL Urine Leukocyte Esterase Trace Negative /uL Urine RBC 1 0 - 4 /hpf Urine Microscopic WBC 3 0-5 /HPF Urine Squamous Epithelial Cells Few <5 /hpf Urine Bacteria None seen None Seen /hpf Urine Glucose Normal Normal mg/dL Urine Opiates Screen Neg NEGATIVE Urine Fentanyl Screen Neg NEGATIVE Urine Barbiturates Screen Neg NEGATIVE Urine Phencyclidine Screen Neg NEGATIVE Urine Amphetamines Screen Neg NEGATIVE Urine Benzodiazepines Screen Neg NEGATIVE Urine Cocaine Screen Neg NEGATIVE Urine Cannabinoids Screen Neg NEGATIVE White Blood Count 5.6 4.4-10.8 10^3/uL Red Blood Count 4.50 4.0-5.20 10^6/uL Hemoglobin 12.2 12.2-16.2 g/dL Hematocrit 37.5 36.0-46.0 % Mean Corpuscular Volume 83.3 80.0-100.0 fL Mean Corpuscular Hemoglobin 27.1 L 28.0-32.0 pg Mean Corpuscular Hemoglobin Concent 32.6 32.0-36.0 g/dL Red Cell Distribution Width 16.8 H 11.8-14.3 % Platelet Count 260 140-450 10^3/uL Mean Platelet Volume 6.6 L 6.9-10.8 fL Neutrophils (%) (Auto) 56.5 37.0-80.0 % Lymphocytes (%) (Auto) 32.9 10.0-50.0 % Monocytes (%) (Auto) 8.1 0.0-12.0 % Eosinophils (%) (Auto) 1.7 0.0-7.0 % Basophils (%) (Auto) 0.8 0.0-2.0 % Neutrophils # (Auto) 3.2 1.6-8.6 10 ^3/uL Lymphocytes # (Auto) 1.8 0.4-5.4 10 ^3/uL Monocytes # (Auto) 0.5 0-1.3 10 ^3/uL Eosinophils # (Auto) 0.1 0-0.8 10 ^3/uL Basophils # (Auto) 0 0-0.2 10 ^3/uL Nucleated Red Blood Cells 0.0 % Sodium Level 141 136-145 mmol/L Potassium Level 4.1 3.5-5.1 mmol/L Chloride Level 106 98-107 mmol/L Carbon Dioxide Level 24 20-31 mmol/L Anion Gap 11 5-15 Blood Urea Nitrogen 15 9-23 mg/dL Creatinine 1.22 H 0.550-1.02 mg/dL Glomerular Filtration Rate Calc 47 >90 mL/min BUN/Creatinine Ratio 12.3 10.0-20.0 Serum Glucose 118 H 74-106 mg/dL Calcium Level 8.7 8.7-10.4 mg/dL Troponin I High Sensitivity 6 </=34 ng/L B-Type Natriuretic Peptide 63.15 0-100 pg/mL Thyroid Stimulating Hormone (TSH) 1.61 0.55-4.78 uIU/mL POC Glucose 148 H 70-106 mg/dl SEPSIS Sepsis Screen Date sepsis recognized/suspect: Jan 31, 2025 Time Sepsis recognized/suspect: 1614 Recent Procedure: No On Antibiotic Therapy: No Respiratory Rate >20: No Heart Rate >90: No Temp<36 C (96.8 F) or >38.3 C: No SBP <90 or MAP <65 mmHG: No New Acute Mental Status Change: No Is the patient on CPAP, BIPAP,: No Physician Orders Admit (01/31/25 21:04) Allergies (01/31/25 21:04) Code Status (01/31/25 21:04) Sodium Chloride Lock (Saline Lock Ns) (01/31/25 22:00) Hydrocodone-Acet 5/325mg Tab ([place] /32 (01/31/25 21:15) Ondansetron Hcl (Zofran) (01/31/25 21:15) Complete Blood Count (02/01/25 04:00) Comprehensive Metabolic Panel (02/01/25 04:00) Cardiac Diet-2gna,Lofat,Lochol (02/01/25 Breakfast) Pt Request For Service (01/31/25 21:04) Echo 2d Mode Cardiac Dop (01/31/25 21:04) Carotid Duplx W Color Dop (01/31/25 21:04) Condition: Fair (01/31/25 21:04) Acetaminophen Tablet (Tylenol Tablet) (01/31/25 21:15) Notify Md Of Changes From Base (01/31/25 21:04) Brain Head Wo Contrast (01/31/25 21:30) Aspirin Tablet (02/01/25 10:00) Atorvastatin (Lipitor) (01/31/25 22:00) Clopidogrel Bisulfate (Plavix) (02/01/25 10:00) Accurate Weight In Kg (01/31/25 ) Glucose Blood (Accu-Chek Comfort Curve T (01/31/25 22:00) Insulin R (Human) (Insulin R) (01/31/25 22:00) Dextrose 50% Syringe (01/31/25 21:30) Enalapril Tablet (Vasotec Tablet) (02/01/25 10:00) Gabapentin Capsule (Neurontin Capsule) (01/31/25 22:00) Hydrocodone-Acet 5/325mg Tab ([place] 5/32 (01/31/25 21:45) Pantoprazole Tablet (Protonix Tablet) (01/31/25 22:00) Citalopram Tablet (Celexa Tablet) (02/01/25 10:00) Vital Signs Date Time Temp Pulse Resp B/P (MAP) Pulse Ox O2 Delivery O2 Flow Rate FiO2 01/31/25 19:06 98.0 73 20 128/77 (94) 100 98.0 Laboratory Tests Test 01/31/25 13:24 White Blood Count 5.6 10^3/uL (4.4-10.8) Medications Medications Dose Ordered Sig/Albert Route Start Time Stop Time Status Last Admin Dose Admin Acetaminophen/ Hydrocodone Bitart 1 tab Q4HP PRN PO 01/31/25 21:15 01/31/25 23:21 1 TAB Hydromorphone HCl 1 mg ONCE ONCE IV 01/31/25 16:00 01/31/25 16:01 DC 01/31/25 16:19 1 MG Ondansetron HCl 4 mg ONCE ONCE IV 01/31/25 16:00 01/31/25 16:01 DC 01/31/25 16:19 4 MG Assessment/Plan Assessment/Plan Transient ischemic Attack carotid duplex pending Echocardiogram pending ABCD2 score 4 History of CAD, not in exacerbation aspirin 81 mg p.o. daily Plavix 40 mg q. Zofran 4 mg IV q.4 PRN pain controlled with [place] 5/ 325 mg q.4 p.r.n. HTN, uncontrolled Hyperlipidemia Atorvastatin 40 mg p.o. HS Enalapril 10 mg p.o. daily History of asthma History of COPD, not in exacerbation monitor Diabetes mellitus type 2 A1c Acc-check mild scale insulin started UD prophylaxis: protonix 40mg Goals of care: Full code, discussed for >16 minutes on 02/01/25 Plan discussed with patient Plan discussed with Dr. Malave Plan discussed with: Patient (RN) My Orders Orders - BRAYAN GRAHAM RESIDENT Procedure Category Date Status Time Admit ADMIT 01/31/25 Transmitted 21:04 Allergies GONZALES 01/31/25 In Process 21:04 Code Status CODE 01/31/25 Transmitted 21:04 Sodium Chloride Lock PHA 01/31/25 In Process (Saline Lock Ns) 22:00 Hydrocodone-Acet PHA 01/31/25 In Process 5/325mg Tab ([place] 21:15 Ondansetron Hcl PHA 01/31/25 In Process (Zofran) 21:15 Complete Blood Count LAB 02/01/25 Logged 04:00 Comprehensive LAB 02/01/25 Logged Metabolic Panel 04:00 Cardiac DIET 02/01/25 Transmitted Diet-2gna,Lofat,Lochol Breakfast Pt Request For Service PT 01/31/25 Logged 21:04 Echo 2d Mode Cardiac US 01/31/25 Logged DOP 21:04 Carotid Duplx W Color US 01/31/25 Logged DOP 21:04 Condition: Fair GONZALES 01/31/25 In Process 21:04 Acetaminophen Tablet PHA 01/31/25 In Process (Tylenol Tablet) 21:15 Notify Of Changes GONZALES 01/31/25 In Process From Base 21:04 Date of Service: Feb 01, 2025 Billing Provider: ANTHONY MALAVE MD,[facility] RESIDENT Feb 01, 2025 01:14
[2025-02-01] MEDS: GABAPENTIN 400 MG CAP PO SCH (04:26)
[2025-02-01] MEDS: ATORVASTATIN 20 MG TAB PO SCH (04:26)
[2025-02-01 05:26] LABS: Hematocrit 38.3 % (36.0-46.0); Hemoglobin 12.5 g/dL (12.2-16.2); Mean Corpuscular Hemoglobin 27.2 pg (28.0-32.0); Mean Corpuscular Volume 83.2 fL (80.0-100.0); Nucleated Red Blood Cells % 0.0 %
[2025-02-01 05:47] LABS: Alanine Aminotransferase 11 U/L (7-40); Albumin 4.4 g/dL (3.2-4.8); Alkaline Phosphatase 88 U/L (46-116); Anion Gap 9 (5-15); BUN/Creatinine Ratio 13.9 (10.0-20.0); Blood Urea Nitrogen 15 mg/dL (9-23); Calcium 9.3 mg/dL (8.7-10.4); Carbon Dioxide 25 mmol/L (20-31); Chloride 103 mmol/L (98-107); Potassium 4.2 mmol/L (3.5-5.1); Sodium 137 mmol/L (136-145); Total Protein 7.2 g/dL (5.7-8.2)
[2025-02-01 05:53] LABS: Bilirubin, Total 0.3 mg/dL (0.2-1.0); Glucose 118 mg/dL (74-106)
[2025-02-01] MEDS: FUROSEMIDE 20 MG/2 ML VIAL IV ONE (07:28)
--- NOTE | 2025-02-01 09:32 | DVH ---
Carotid Duplex Date: 02/01/2025 08:38 AM Clinical History: dizziness Comparison: US CAROTID DUPLX W COLOR DOP on DOS: 10/23/24, CT STROKE CTH on DOS: 10/22/24, US ECHO 2D M ODE CARDIAC DOP on DOS: 06/25/24, US ECHO 2D MODE CARDIAC DOP on DOS: 02/14/24 Technique: Duplex Doppler evaluation of the extracranial carotid and vertebral arteries including col or Doppler and spectral/pulsed waveform analysis was performed. Findings: RIGHT SIDE: The peak systolic velocities are 65 cm/s in the distal CCA and 100 cm/s in the proximal ICA.The ICA/C CA ratio is less than 2. The external carotid artery is patent with peak systolic velocity of 57 cm/s proximally. There is appropriate antegrade flow in the right vertebral artery. LEFT SIDE: The peak systolic velocities are 76 cm/s in the distal CCA and 114 cm/s in the proximal ICA.. The ICA /CCA ratio is 1.5. The external carotid artery is patent with peak systolic velocity of 71 cm/s proximally. There is appropriate antegrade flow in the left vertebral artery. IMPRESSION: No hemodynamically significant stenosis noted in the right carotid system. No hemodynamically significant stenosis noted in the left carotid system. Reference: Radiology 2003; 229:340-346
[2025-02-01] MEDS ORDERED: ENOXAPARIN SOD 40 MG/0.4 ML SYRINGE SC SCH (10:00)
[2025-02-01] MEDS ORDERED: PATIENTS OWN MEDICATION (Escitalopram Oxalate (Lexapro) 1 TAB) PO SCH (10:00)
[2025-02-01] MEDS: ENOXAPARIN SOD 40 MG/0.4 ML SYRINGE SC ONE (11:19)
[2025-02-01] MEDS: CITALOPRAM HYDROBR 20 MG TAB PO SCH (11:19)
[2025-02-01] MEDS: CLOPIDOGREL BISULFATE 75 MG TAB PO SCH (11:20)
[2025-02-01] MEDS: PANTOPRAZOLE 40 MG TAB PO SCH (11:20)
[2025-02-01] MEDS: ENALAPRIL MALEATE 10 MG TAB PO SCH (11:20)
[2025-02-01 12:30] VITALS: BP 126/64; PULSE 79; RESP 20; TEMP 98.5; O2SAT 100
--- NOTE | 2025-02-01 13:32 | ECG ---
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
--- NOTE | 2025-02-01 13:34 | DVHSR ---
APPROVED REPORT EXAM: Two-dimensional and M-mode echocardiogram with Doppler and color Doppler. Blood Pressure: 139/76 mmHg INDICATION puml edema DIMENSIONS LVDd4.8 (3.8-5.7cm)LA (2D)3.9 (1.9-4.0cm)Aortic Root3.2 (2.0-3.7cm) LVDs3.2 (2.5-4.0cm)LA (MM) (1.9-4.0cm)Aortic Cusp Exc1.7 (1.5-2.0cm) EF (%) 65.0 (55-70%)Rt. Atrium (1.9-4.0cm)Asc. Aorta3.5 cm IVSd0.7 (0.7-1.1cm)RV (D) (1.8-2.4cm) PWd0.6 (0.7-1.1cm) Mitral Valve MitralMitral Stenosis E wave0.64m/sMV Mean GR.mmHg A wave0.79m/sMV Peak GR.65mmHg E/A ratio0.82D MVAcm2 DECEL [id number] 1/2 Timems Aortic Valve Aortic ValveAortic Stenosis V11.03m/Ras Mean GR.4mmHg V21.24m/Ras Peak GR.6mmHg LVOT Diameter1.9 (1.8-2.4cm)Doppler AVA2.35cm2 AI P 1/2 Mbyn675.82ms Pulmonic Valve V20.88m/s Tricuspid Valve TR Velocity2.40m/s [id number] Conclusion lvef 60% normal RV function mildd to moderate aortic regurg moderate tricuspid regurg pacing lead across TV into RV no severe valve abnormalities noted
[2025-02-01 13:38] LABS: Triglycerides 266 mg/dL (< 150)
[2025-02-01 13:40] LABS: Cholesterol 186 mg/dL (< 200); HDL Cholesterol 57 mg/dL (40-59)
[2025-02-01 17:00] VITALS: BP 81/43; PULSE 62; RESP 16; TEMP 97.5; O2SAT 98
[2025-02-01 18:25] VITALS: BP 107/78; PULSE 64; RESP 20; TEMP 97.8; O2SAT 100
[2025-02-01 20:00] VITALS: PULSE 60; RESP 18; O2SAT 99
--- NOTE | 2025-02-01 20:58 | DVHPNRES ---
Progress Note Date Seen: Feb 01, 2025 Resident Creating Document: ERIC GASTON RESIDENT Medical Necessity Reason Pt with a Central, PICC or Fol: No Subjective Review of Systems Aeljandra Pastrana Is a 70-year-old female with past medical history of V[place]t [place] Harach disease, asthma, CAD, COPD, DM2, dyslipidemia and HTN. The patient presented to ED with chief complaint of 1 day of left sided face, arm and leg numbness and tingling sensation, associated with dizziness diminished strength on the left upper and lower extremities. On further questioning, the patient reports a similar episode began spontaneously 2 days ago, that resolved on his own. Yesterdays epidode did not resolved, this prompted her visit to the ED. The patient denies loss of counciousness, headache, fever, chest pain, abdominal pain, or other symptoms. In the ED, labs showed: creatinine 1.22 and serum glucose 118. Head CT shows Mild cerebral volume loss and mild chronic microvascular ischemic change. Patient was admitted for further evaluation and management. Past Medical History was reviwed VKH disease, asthma, CAD, COPD, DM, HLD, HTN. Past Surgical History: Hysterectomy, Pacemaker, PTCA. Family History: no contributory. The patient lives with family. Denies usage of alcohol, drugs or smoking. Admission course: Today, 02/01/25 the patient was evaluated, VS: BP:139/76mmhg, HR: 75bpm. CBC and CMP are unremarkable. Head MRI was ordered and report still pending. Lipid panel was ordered and showed: triglycerides: 266, Cholesterol: 186, LDL: 97, HDL: 57. ECHo was also ordered and reports: EF 60% RSVP 32. Patient will be closely monitored. Review of Systems Eyes: No Pain, No Vision change, No Conjunctivae inflammation, No Eyelid inflammation, No Other, No Redness ENT: No Ear pain, No Ear discharge, No Nose pain, No Nose discharge, No Nose congestion, No Mouth pain, No Mouth swelling, No Throat pain, No Throat swelling, No Other Cardiovascular: No Chest Pain, No Palpitations, No Orthopnea, No Paroxysmal No Dyspnea, No Edema, No Lt Headedness, No Other Respiratory: No Cough, No Dry, No Shortness of breath, No SOB with exertion, No Wheezing, No Hemoptysis, No Pleuritic Pain, No Sputum, No Other Gastrointestinal: No Nausea, No Vomiting, No Abdominal Pain, No Diarrhea, No Constipation, No Melena, No Hematochezia, No Other Genitourinary: No Dysuria, No Frequency, No Incontinence, No Hematuria, No Retention, No Other Musculoskeletal: Diminish strength on left arm and leg. No other, No neck pain, No shoulder pain, No arm pain, No back pain, No hand pain, No leg pain, No foot pain Skin: No Rash, No Lesions, No Jaundice, No Bruising, No Other Neurological: Dizziness. Numbness and tingling on left side of face, arm and leg. Allergies: Iodinated Contrast Media Objective vital signs Vital Sign Date Time Temp Pulse Resp B/P (MAP) Pulse Ox O2 Delivery O2 Flow Rate FiO2 02/01/25 18:25 97.8 64 20 107/78 (88) 100 97.8 01/31/25 16:15 Room Air* 0 21 medications Current Medications Medications Dose Ordered Sig/Albert Route Start Time Stop Time Status Last Admin Dose Admin Sodium Chloride 10 ml Q8HR IV 01/31/25 22:00 02/01/25 14:00 10 ML Acetaminophen/ Hydrocodone Bitart 1 tab Q4HP PRN PO 01/31/25 21:15 02/01/25 16:34 1 TAB Ondansetron HCl 4 mg Q4HP PRN IV 01/31/25 21:15 Acetaminophen 650 mg Q6HP PRN PO 01/31/25 21:15 Aspirin 81 mg DAILY PO 02/01/25 10:00 02/01/25 11:19 81 MG Atorvastatin Calcium 40 mg HS PO 01/31/25 22:00 02/01/25 04:26 40 MG Clopidogrel Bisulfate 75 mg DAILY PO 02/01/25 10:00 02/01/25 11:20 75 MG Diagnostic Test (Pha) 1 strip ACHS 01/31/25 22:00 02/01/25 16:37 1 STRIP Insulin Human Regular ACHS SC 01/31/25 22:00 02/01/25 16:54 2 UNITS Dextrose 50 ml UD PRN IV 01/31/25 21:30 Enalapril Maleate 10 mg DAILY PO 02/01/25 10:00 02/01/25 11:20 10 MG Gabapentin 400 mg TID PO 01/31/25 22:00 02/01/25 16:33 400 MG Acetaminophen/ Hydrocodone Bitart 1 tab Q12HP PRN PO 01/31/25 21:45 Citalopram Hydrobromide 40 mg DAILY PO 02/01/25 10:00 02/01/25 11:19 40 MG Pantoprazole Sodium 40 mg DAILY PO 02/01/25 10:00 02/01/25 11:20 40 MG Enoxaparin Sodium 40 mg DAILY SC 02/02/25 10:00 Examination General Appearance: Alert, oriented x3, Cooperative. Non in acute distress. Head Exam: Normal inspection, eyes are protuberant. Diminish vision on left eye due to VKH condition. Neck Exam: Normal inspection. Non-tender. Normal alignment Pulmonary/Respiratory: Chest non-tender. Clear bilateral breath sounds, no crackles, no wheezing. Cardiovascular/Chest: Regular rate and rhythm. No murmurs. No JVD. Peripheral Pulses: 2+ Radial (R). 2+ Radial (L). 2+ Pedal (R). 2+ Pedal (L) Abdominal Exam: no abdominal pain Normal bowel sounds. Soft. normal abdomen, no visible veins, Nontender. No hepatospenomegaly. No masses. Lower extremities: Negative lower extremity edema Neuro/Mental Status: A&O x4. Coherent. Strength diminish on left arm and leg compared to right side. Cranial pairs preserved. Thoughts/Psych: Normal thought pattern. Appropriate mood and affect. Good judgement and insight Skin Exam: Normal inspection. Normal color. Warm. Dry laboratory and microbiology Laboratory Tests 02/01/25 04:40 Test 02/01/25 04:40 Range/Units Serum Glucose 118 H 74-106 mg/dL Problem List/Assessment/Plan Problem List/Assessment/Plan #Acute CVA #TIA Echocardiogram: Ejection fraction 60% RSVP 32 ABCD2 score 6 aspirin 81 mg p.o. daily Plavix 75mg daily Enoxaparin 40mg SC Pending Brain MRI ECHO showed LVEF 60% mild aortic and tricuspid regurgitation Carotid US showed no hemodinamic stenosis Essential hypertension Enalapril 10 mg p.o. daily Monitor BP closely Hyperlipidemia Ordered Lipid panel showed hypertriglyceridemia Atorvastatin 40 mg p.o. qd History of asthma, not in exacerbation History of COPD, not in exacerbation Monitor Diabetes mellitus type 2 HbA1C: 6.7% Accu-check Mild scale insulin started UD prophylaxis: protonix 40mg po. Goals of care discussed with the patient for >35 minutes PCP: Shahida Yañez. Plan discussed with attending: Dr. Malave Plan discussed with patient, the patient agrees with the plan. Plan discussed with: Patient My Orders My Orders Orders - ERIC GASTON Procedure Category Date Status Time Enoxaparin Sodium PHA 02/02/25 In Process (Lovenox) 10:00 Date of Service: Feb 01, 2025 Billing Provider: ANTHONY MALAVE MD Common Visit Codes: [id number] INP/OBS CARE(HIGH) ERIC GASTON RESIDENT Feb 01, 2025 20:58 EVER BORDEN Feb 01, 2025 21:58 ANTHONY MALAVE MD Feb 02, 2025 11:51
[2025-02-01 21:00] VITALS: BP 109/64; PULSE 60; RESP 18; TEMP 98.3; O2SAT 99
[2025-02-02] VITALS (9 sets, daily range): BP systolic 89–117; BP diastolic 50–68; PULSE 59–79; RESP 16–20; TEMP 97.6–98.6; O2SAT 95–100
[2025-02-02 07:43] LABS: Alanine Aminotransferase 10 U/L (7-40); Albumin 4.2 g/dL (3.2-4.8); Alkaline Phosphatase 93 U/L (46-116); Anion Gap 8 (5-15); BUN/Creatinine Ratio 14.6 (10.0-20.0); Bilirubin, Total 0.6 mg/dL (0.2-1.0); Blood Urea Nitrogen 15 mg/dL (9-23); Calcium 9.0 mg/dL (8.7-10.4); Carbon Dioxide 25 mmol/L (20-31); Chloride 102 mmol/L (98-107); Potassium 4.7 mmol/L (3.5-5.1); Total Protein 6.6 g/dL (5.7-8.2)
[2025-02-02 07:45] LABS: Glucose 121 mg/dL (74-106); Sodium 135 mmol/L (136-145)
--- NOTE | 2025-02-02 09:29 | DVHPNRES ---
Progress Note Date Seen: Feb 02, 2025 Resident Creating Document: ERIC GASTON RESIDENT Medical Necessity Reason Pt with a Central, PICC or Fol: No Subjective Review of Systems Alejandra Pastrana Is a 70-year-old female with past medical history of Vogt Koganagi Harach disease, asthma, CAD, pacemaker (for bradycardia), COPD, DM2, dyslipidemia and HTN. The patient presented to ED with chief complaint of 1 day of left sided face, arm and leg numbness and tingling sensation, associated with dizziness diminished strength on the left upper and lower extremities. On further questioning, the patient reports a similar episode began spontaneously 2 days ago, that resolved on his own. Yesterdays epidode did not resolved, this prompted her visit to the ED. The patient denies loss of counciousness, headache, fever, chest pain, abdominal pain, or other symptoms. In the ED, labs showed: creatinine 1.22 and serum glucose 118. Head CT shows Mild cerebral volume loss and mild chronic microvascular ischemic change. Patient was admitted for further evaluation and management. Past Medical History was reviwed VKH disease, asthma, CAD, COPD, DM, HLD, HTN. Past Surgical History: Hysterectomy, Pacemaker, PTCA. Family History: no contributory. The patient lives with family. Denies usage of alcohol, drugs or smoking. Admission course: On 02/01/25, the patient was evaluated, VS: BP:139/76mmhg, HR: 75bpm. CBC and CMP are unremarkable. Head MRI was ordered and report still pending. Lipid panel was ordered and showed: triglycerides: 266, Cholesterol: 186, LDL: 97, HDL: 57. ECHo was also ordered and reports: EF 60% RSVP 32. Today, the patient was evaluated at bed side: VS: BP:102/57mmhg, HR:64bpm. NS 250ml bolus was ordered and enalapril 10mg po was placed o hold. CBC and CMP are unremarkable. Head MRI was cancelled due to the patient has a pacemaker. CT head and neck angio will not be performed due to patient's allergy to Iodine contrast. A neurology consult was placed. We will continue monitoring this patient. Review of Systems Eyes: No Pain, No Vision change, No Conjunctivae inflammation, No Eyelid inflammation, No Other, No Redness ENT: No Ear pain, No Ear discharge, No Nose pain, No Nose discharge, No Nose congestion, No Mouth pain, No Mouth swelling, No Throat pain, No Throat swelling, No Other Cardiovascular: No Chest Pain, No Palpitations, No Orthopnea, No Paroxysmal No Dyspnea, No Edema, No Lt Headedness, No Other Respiratory: No Cough, No Dry, No Shortness of breath, No SOB with exertion, No Wheezing, No Hemoptysis, No Pleuritic Pain, No Sputum, No Other Gastrointestinal: No Nausea, No Vomiting, No Abdominal Pain, No Diarrhea, No Constipation, No Melena, No Hematochezia, No Other Genitourinary: No Dysuria, No Frequency, No Incontinence, No Hematuria, No Retention, No Other Musculoskeletal: Diminish strength on left arm and leg. No other, No neck pain, No shoulder pain, No arm pain, No back pain, No hand pain, No leg pain, No foot pain Skin: No Rash, No Lesions, No Jaundice, No Bruising, No Other Neurological: Dizziness. Numbness and tingling on left side of face, arm and leg. Allergies: Iodinated Contrast Media Objective vital signs Vital Sign Date Time Temp Pulse Resp B/P (MAP) Pulse Ox O2 Delivery O2 Flow Rate FiO2 02/02/25 08:00 64 17 98 Room Air* 0 21 02/02/25 06:30 96/59 (71) 02/02/25 05:00 98.6 98.6 Total Intake and Output 02/01/25 02/01/25 02/02/25 15:00 23:00 07:00 Intake Total 50 ml 150 ml Balance 50 ml 150 ml medications Current Medications Medications Dose Ordered Sig/Albert Route Start Time Stop Time Status Last Admin Dose Admin Sodium Chloride 10 ml Q8HR IV 01/31/25 22:00 02/02/25 06:18 10 ML Acetaminophen/ Hydrocodone Bitart 1 tab Q4HP PRN PO 01/31/25 21:15 02/01/25 16:34 1 TAB Ondansetron HCl 4 mg Q4HP PRN IV 01/31/25 21:15 Acetaminophen 650 mg Q6HP PRN PO 01/31/25 21:15 Aspirin 81 mg DAILY PO 02/01/25 10:00 02/01/25 11:19 81 MG Atorvastatin Calcium 40 mg HS PO 01/31/25 22:00 02/01/25 22:08 40 MG Clopidogrel Bisulfate 75 mg DAILY PO 02/01/25 10:00 02/01/25 11:20 75 MG Diagnostic Test (Pha) 1 strip ACHS 01/31/25 22:00 02/02/25 06:17 1 STRIP Insulin Human Regular ACHS SC 01/31/25 22:00 02/01/25 22:11 2 UNITS Dextrose 50 ml UD PRN IV 01/31/25 21:30 Enalapril Maleate 10 mg DAILY PO 02/01/25 10:00 02/01/25 11:20 10 MG Gabapentin 400 mg TID PO 01/31/25 22:00 02/02/25 06:17 400 MG Acetaminophen/ Hydrocodone Bitart 1 tab Q12HP PRN PO 01/31/25 21:45 Citalopram Hydrobromide 40 mg DAILY PO 02/01/25 10:00 02/01/25 11:19 40 MG Pantoprazole Sodium 40 mg DAILY PO 02/01/25 10:00 02/01/25 11:20 40 MG Enoxaparin Sodium 40 mg DAILY SC 02/02/25 10:00 laboratory and microbiology Laboratory Tests 02/02/25 07:11 02/01/25 04:40 Test 02/02/25 07:11 Range/Units Serum Glucose 121 H 74-106 mg/dL Problem List/Assessment/Plan Problem List/Assessment/Plan #Acute CVA #TIA Echocardiogram: Ejection fraction 60% RSVP 32 ABCD2 score 6, Need for DAPT Aspirin 81 mg p.o. daily Enoxaparin 40mg SC Zofran 4 mg IV q.4 PRN ECHO: EF:60% RSVP 32 Neurology consult #Essential hypertension Enalapril 10 mg p.o. daily: on hold due to low BP today. #Hyperlipidemia Lipid panel: Triglycerides: 266, Cholesterol: 186, LDL: 97, HDL: 57 Atorvastatin 40 mg p.o. qd #History of asthma, not in exacerbation #History of COPD, not in exacerbation Monitor #Diabetes mellitus type 2 HbA1C: 6.7% Accu-check Mild scale insulin started UD prophylaxis: protonix 40mg po. Goals of care discussed with the patient for >35 minutes PCP: Shahida Yañez. Plan discussed with attending: Dr. Malave Plan discussed with patient, the patient agrees with the current plan. Plan discussed with: Patient My Orders My Orders Orders - ERIC GASTON Procedure Category Date Status Time Enoxaparin Sodium PHA 02/02/25 In Process (Lovenox) 10:[address] Ct Angio Neck Contrast CT 02/02/25 Logged 08:59 Date of Service: Feb 02, 2025 Billing Provider: ANTHONY MALAVE MD Common Visit Codes: [id number] INP/OBS CARE(HIGH) ERIC GASTON RESIDENT Feb 02, 2025 09:29
[2025-02-02] MEDS: IOHEXOL 300 MG/ML 100ML BOTTLE IJ ONE (09:30)
[2025-02-02] MEDS: ENOXAPARIN SOD 40 MG/0.4 ML SYRINGE SC SCH (09:41)
[2025-02-02] MEDS: SODIUM CHLORIDE 0.9% 1,000 ML IV SCH (11:15)
[2025-02-02] MEDS: HYDROcodone-ACET 5/325MG TAB PO PRN (12:04)
[2025-02-03] VITALS (7 sets, daily range): BP systolic 91–112; BP diastolic 52–75; PULSE 60–67; RESP 15–18; TEMP 97.7–98.4; O2SAT 93–98
[2025-02-03 06:24] LABS: Hematocrit 33.7 % (36.0-46.0); Hemoglobin 11.0 g/dL (12.2-16.2); Mean Corpuscular Hemoglobin 27.1 pg (28.0-32.0); Mean Corpuscular Volume 83.4 fL (80.0-100.0); Nucleated Red Blood Cells % 0.0 %
[2025-02-03 06:39] LABS: Anion Gap 9 (5-15); Carbon Dioxide 22 mmol/L (20-31); Potassium 4.3 mmol/L (3.5-5.1); Sodium 141 mmol/L (136-145)
[2025-02-03 06:45] LABS: BUN/Creatinine Ratio 13.0 (10.0-20.0); Blood Urea Nitrogen 12 mg/dL (9-23); Glucose 101 mg/dL (74-106)
[2025-02-03 06:50] LABS: Calcium 8.4 mg/dL (8.7-10.4); Chloride 110 mmol/L (98-107)
[2025-02-03] MEDS: ACETAMINOPHEN 325 MG TAB PO PRN (08:57)
--- NOTE | 2025-02-03 18:43 | DVHPNRES ---
Progress Note Date Seen: Feb 03, 2025 Resident Creating Document: ERIC GASTON RESIDENT Medical Necessity Reason Pt with a Central, PICC or Fol: No Subjective Review of Systems Alejandra Pastrana Is a 70-year-old female with past medical history of Vogt Kogan[place] Harach disease, asthma, CAD, pacemaker (for bradycardia), COPD, DM2, dyslipidemia and HTN. The patient presented to ED with chief complaint of 1 day of left sided face, arm and leg numbness and tingling sensation, associated with dizziness and diminished strength on the left upper and lower extremities. On further questioning, the patient reports a similar episode began spontaneously 2 days ago, that resolved on his own. Yesterdays, the episode did not resolved, this prompted her visit to the ED. The patient denies loss of counciousness, headache, fever, chest pain, abdominal pain, or other symptoms. In the ED, labs showed: creatinine 1.22 and serum glucose 118. Head CT shows Mild cerebral volume loss and mild chronic microvascular ischemic change. Patient was admitted for further evaluation and management. Past Medical History was reviwed VKH disease, asthma, CAD, COPD, DM, HLD, HTN. Past Surgical History: Hysterectomy, Pacemaker, PTCA. Family History: no contributory. The patient lives with family. Denies usage of alcohol, drugs or smoking. Admission course: On 02/01/25, the patient was evaluated, VS: BP:139/76mmhg, HR: 75bpm. CBC and CMP are unremarkable. Head MRI was ordered and report still pending. Lipid panel was ordered and showed: triglycerides: 266, Cholesterol: 186, LDL: 97, HDL: 57. ECHo was also ordered and reports: EF 60% RSVP 32. Today, the patient was evaluated at bed side: VS: BP:102/57mmhg, HR:64bpm. NS 250ml bolus was ordered and enalapril 10mg po was placed o hold. CBC and CMP are unremarkable. Head MRI was cancelled due to the patient has a pacemaker. CT head and neck angio will not be performed due to patient's allergy to Iodine contrast. A neurology consult was placed. Today, the patient was re-evaluated at bedside, VS BP: 101/75mmHg, HR: 66bpm. Labs HB: 11.0mg/dl. The patient reports feeling better, no new complaints. The patient has reject going to SNF, she reports her is her healthcare architect and that her preference is to go home after discharge. I explained the benefits of going to SNF for rehabilitation and care, the patient agreed to understanding but still wants to go home. 4 wheel walker was ordered. The neurology consult is pending. We will continue following this patient. Review of Systems Eyes: No Pain, No Vision change, No Conjunctivae inflammation, No Eyelid inflammation, No Other, No Redness ENT: No Ear pain, No Ear discharge, No Nose pain, No Nose discharge, No Nose congestion, No Mouth pain, No Mouth swelling, No Throat pain, No Throat swelling, No Other Cardiovascular: No Chest Pain, No Palpitations, No Orthopnea, No Paroxysmal No Dyspnea, No Edema, No Lt Headedness, No Other Respiratory: No Cough, No Dry, No Shortness of breath, No SOB with exertion, No Wheezing, No Hemoptysis, No Pleuritic Pain, No Sputum, No Other Gastrointestinal: No Nausea, No Vomiting, No Abdominal Pain, No Diarrhea, No Constipation, No Melena, No Hematochezia, No Other Genitourinary: No Dysuria, No Frequency, No Incontinence, No Hematuria, No Retention, No Other Musculoskeletal: Diminish strength on left arm and leg. No other, No neck pain, No shoulder pain, No arm pain, No back pain, No hand pain, No leg pain, No foot pain Skin: No Rash, No Lesions, No Jaundice, No Bruising, No Other Neurological: Dizziness. Numbness and tingling on left side of face, arm and leg. Allergies: Iodinated Contrast Media Objective vital signs Vital Sign Date Time Temp Pulse Resp B/P (MAP) Pulse Ox O2 Delivery O2 Flow Rate FiO2 02/03/25 17:09 97.9 61 18 112/73 (86) 96 97.9 02/03/25 08:00 Room Air* 0 21 Total Intake and Output 02/02/25 02/02/25 02/03/25 15:00 23:00 07:00 Intake Total 890 ml 875 ml Output Total 1 ml 1 ml Balance 889 ml 874 ml medications Current Medications Medications Dose Ordered Sig/Albert Route Start Time Stop Time Status Last Admin Dose Admin Sodium Chloride 10 ml Q8HR IV 01/31/25 22:00 02/03/25 14:00 10 ML Ondansetron HCl 4 mg Q4HP PRN IV 01/31/25 21:15 Aspirin 81 mg DAILY PO 02/01/25 10:00 02/03/25 08:56 81 MG Atorvastatin Calcium 40 mg HS PO 01/31/25 22:00 02/02/25 21:41 40 MG Clopidogrel Bisulfate 75 mg DAILY PO 02/01/25 10:00 02/03/25 08:57 75 MG Diagnostic Test (Pha) 1 strip ACHS 01/31/25 22:00 02/03/25 17:00 1 STRIP Insulin Human Regular ACHS SC 01/31/25 22:00 02/03/25 18:11 2 UNITS Dextrose 50 ml UD PRN IV 01/31/25 21:30 Gabapentin 400 mg TID PO 01/31/25 22:00 02/03/25 14:55 400 MG Acetaminophen/ Hydrocodone Bitart 1 tab Q12HP PRN PO 01/31/25 21:45 02/03/25 06:30 1 TAB Citalopram Hydrobromide 40 mg DAILY PO 02/01/25 10:00 02/03/25 08:56 40 MG Pantoprazole Sodium 40 mg DAILY PO 02/01/25 10:00 02/03/25 08:56 40 MG Enoxaparin Sodium 40 mg DAILY SC 02/02/25 10:00 02/03/25 08:56 40 MG Acetaminophen 650 mg Q6HP PRN PO 02/02/25 11:30 02/03/25 08:57 650 MG Examination Physical examination: General Appearance: No in distress, alert, Oriented X3, Cooperative. HEENT: Atraumatic, PERRLA, EOMI, Mucous membrane moist/pink Respiratory: Bilateral vesicular breath sound with rales on right lower lobe Cardiovascular: Regular rate, Normal S1, Normal S2, No murmurs, no chest wall tenderness Abdominal: Normal bowel sounds, Soft, No tenderness, No hepatospenomegaly, No masses Extremities: Reduced strength, 3/5 and sensitivity 2/5 on left arm and leg. No clubbing, No cyanosis, No edema, Normal pulses, No tenderness/swelling Skin: No rashes, No breakdown, No significant lesion Neuro: Left mild facial paralysis on the face. Psych/Mental Status: preserved. laboratory and microbiology Laboratory Tests 02/03/25 04:34 Test 02/03/25 04:34 Range/Units Serum Glucose 101 74-106 mg/dL Problem List/Assessment/Plan Problem List/Assessment/Plan #Acute CVA Echocardiogram: Ejection fraction 60% RSVP 32 ABCD2 score 6, Need for DAPT Aspirin 81 mg p.o. daily Plavix 75mg po bid. Neurology consult #Hypertensive heart disease with diastolic/systolic Enalapril 10 mg p.o. daily: on hold due to low BP today. #Hyperlipidemia Lipid panel: Triglycerides: 266, Cholesterol: 186, LDL: 97, HDL: 57 Atorvastatin 40 mg p.o. every day #Asthma, not in exacerbation #COPD, not in exacerbation Monitor. #Diabetes mellitus type 2, with hyperglycemia. HbA1C: 6.7% Accu-check Mild scale insulin started UD prophylaxis: protonix 40mg po DVT prophylaxis Enoxaparin 40mg SC daily Goals of care discussed with the patient for >35 minutes PCP: Shahida Yañez. Plan discussed with attending: Dr. Malave Plan discussed with patient, the patient agrees with the current plan. Plan discussed with: Patient My Orders My Orders Orders - ERIC GASTON RESIDENT Procedure Category Date Status Time * Neurology Consult CONS 02/03/25 Transmitted 14:38 Date of Service: Feb 03, 2025 Billing Provider: ANTHONY MALAVE MD Common Visit Codes: [id number] INP/OBS CARE(HIGH) ERIC GASTON RESIDENT Feb 03, 2025 18:42 ANTHONY MALAVE MD Feb 04, 2025 09:20
--- NOTE | 2025-02-03 23:16 | DVHINCON2 ---
Date of service: Feb 03, [address] Burton Reason for Consultation CVA/left-sided defect History of Present Illness Ms. Baldwin is a 70-year-old right-handed female with a past medical history of diabetes, coronary artery disease, and overweight. She came to the hospital on 02/01/25 with a chief complaint of bilateral arm paresthesia. At that time, she is alert, fully oriented, he provided the following history I saw her in 08/2011 for new onset short-living headache, 09/23/13 for headache, 10/05/2015 for stroke, 10/23/2024 for left-sided twitching, weakness, 11/06/2024 for slurred speech, right facial droop When he woke up in the morning on 01/31/25, he had numbness in bilateral face with a left-sided more affected, numbness and weakness in both upper extremities with left-sided more affected, he also had chest pain and headache. He reports his problem are better, but the weakness in the paresthesia still persist in the face and the arms. He denies confusion, blurry vision, slurred speech, shortness breath On 10/23/24, 11/05/2024, 02/03/2025 he confirmed her home medication included Eliquis (prescribed by Dr. Pari Fonseca) she did not know the indication, she did not remember having heart trouble/AFib, blood clot in the leg or lungs UDS, 01/31/2025: Negative CBC, 11/05/2024: Unremarkable, 01/31/2025: Unremarkable BUN/CR, 11/05/2024: 15/1.25, 02/02/2025: 15/1.03 GFR, 11/05/2024: 46, 11/02/2024: 58 HGB A1c, 10/22/2024: 6.5 TG/HDL/LDL/HDL, 10/23/2024: 122/126/50/54, 02/01/2025: 2 66/186/97/57 Vitamin B12, 02/13/2024: 335 10/23/2024: 199, 11/06/2024: 230 Folic acid, 10/23/2024: 12.67 TSH, 10/22/2024: 1.04, 01/31/25: 1.61 FT4, 10/22/2024: 1.39 Echocardiogram, 02/01/2025: lvef 60% normal RV function mildd to moderate aortic regurg moderate tricuspid regurg pacing lead across TV into RV no severe valve abnormalities noted Carotid doctor, 10/23/2024: No hemodynamically significant stenosis. Carotid Doppler, 02/01/2025: No hemodynamically significant stenosis noted in the right carotid system. No hemodynamically significant stenosis noted in the left carotid system. CT head, 10/05/15: No intracranial hemorrhage, mass effect or midline shift. CT head, 10/06/15: Unremarkable CT brain without IV contrast CT head, 10/22/2024: No evidence of acute intracranial hemorrhage, mass effect or hydrocephalus CT head, 10/23/2024: No acute intracranial abnormality CT head, 11/05/2024: No acute intracranial abnormality CT head, 01/31/2025: 1. No acute intracranial abnormality. 2. Mild cerebral volume loss and mild chronic microvascular ischemic change. 3. Chronic right sphenoid sinusitis with frothy secretions, correlate clinically for acute symptoms of sinusitis. Past Medical History Coronary artery disease, heart attack, diabetes, dyslipidemia, hypertension, asthma, COPD, chronic renal disease Past Surgical History Pacemaker implantation (in 2009 or earlier), , knee surgery. Family History: Family history: Cardiovascular disease G8 MOTHER G8 FATHER Family history: Diabetes mellitus G8 MOTHER G8 FATHER Family History Father had coronary artery disease and his CABG at the age of 50. Diabetes and dyslipidemia also run in the family. Social History The patient is a nonsmoker. She denies history of alcohol or recreational substance abuse Allergies: Coded Allergies: Iodinated Contrast Media (Verified Allergy, Unknown, 11/24/13) Home Meds Active Scripts Lactulose (Lactulose) 10 Gm/15 Ml Mariela, 20 GM PO BID, #240 ML Prov:JAIME MCGUIRE MD 01/06/25 Pantoprazole Sodium Sesquihydr (Pantoprazole Sodium Dr) 40 Mg Tab, 40 MG PO BID, #60 TAB Prov:JAIME MCGUIRE MD 01/06/25 Docusate Sodium (Colace) 100 Mg Cap, 1 CAP PO BID for 3 Days, #30 CAP Prov:VILLA FROST MD 04/24/24 Hydrocodone-Acetaminophen (Hydrocodone Bitartrate/AC 5-325 mg) 1 Tab Tab, 1 TAB PO Q12HP PRN for 2 Days, #4 TAB Prov:VILLA FROST MD 04/24/24 Elastic Bandages & Supports (ABDOMINAL BINDER/ELASTIC/) Elast Sm Mis, SM XX ONCE, #1 Prov:ESTUARDO LY MD 03/07/24 Polyethylene Glycol 3350 (Miralax) 17 Gm Pow, 17 GM PO DAILY PRN for 30 Days, #30 POW Prov:ESTUARDO LY MD 03/07/24 Magnesium Citrate (Magnesium Citrate) 1.745 Gm/30 Ml Mariela, 150 ML PO DAILY for 2 Days, #1 BOTTLE 0 Refills Prov:HUBER ANAYA 05/08/23 Reported Medications Ferrous Sulfate (Ferosul) 325 Mg Tab, PO 10/22/24 Furosemide (Furosemide) 40 Mg Tab, 1 TAB PO DAILY 10/22/24 Escitalopram Oxalate (Lexapro) 20 Mg Tab, 1 TAB PO DAILY, TAB 03/02/24 Cetirizine Hcl (Zyrtec Allergy) 10 Mg Cap, 10 MG PO DAILY, CAP 03/02/24 Exenatide (Bydureon Bcise) 2 Mg/0.85 Ml Inj, 2 MG SC, INJ 03/02/24 Apixaban Base (ELIQUIS) 5 Mg Tab, 5 MG PO BID, TAB 03/02/24 Cholecalciferol (VITAMIN D3) 2,000 Unit Tab, 1 TAB PO DAILY, TAB 03/02/24 Fluticasone Propionate (Nasal) (Flonase Allergy Relief) 50 Mcg/Act Spr, 50 MCG NA DAILY, SPRAY 03/02/24 Clopidogrel Bisulfate (Plavix) 75 Mg Tab, 75 MG PO, TAB 09/22/13 Simvastatin (Simvastatin) 20 Mg Tab, 40 MG PO DAILY for 30 Days 09/22/13 Levalbuterol Tartrate (Xopenex Hfa) Aer, 1 IN PRN 04/06/11 Exenatide (Byetta) 10 Mcg Inj, 10 MCG SC BIDAC 04/06/11 Enalapril Maleate (Enalapril Maleate) 10 Mg Tab, 10 MG PO DAILY 04/06/11 Gabapentin (Gabapentin) 400 Mg Cap, 400 MG PO TID 04/06/11 Review of Systems As above mentioned, the other systems are negative Vital Signs Vital Signs Date Time Temp Pulse Resp B/P (MAP) Pulse Ox O2 Delivery O2 Flow Rate FiO2 02/03/25 21:00 98.4 60 15 91/52 (65) 98 98.4 02/03/25 20:00 Room Air* 0 21 Physical Exam GENERAL EXAM: General: the patient is well developed and nourished. No acute distress. HEENT: Normocephalic, neck is supple, no carotid bruits. No mass. RESPIRATORY: Normal respiratory effort with symmetrical lung expansion. Lungs clear to auscultation. CARDIOVASCULAR: Regular rate and rhythm with no murmurs. S1, S2. ABDOMEN: Soft, nontender, normal bowel sound NEUROLOGICAL: MENTAL STATUS: Awake and alert. Oriented to person, place, time and general circumstances. Able to give personal history. SPEECH, LANGUAGE, HIGHER CORTICAL FUNCTION: no aphasia or dysathria. CRANIAL NERVES: #2: Intact visual nicolas to confrontation. The optic discs were sharp. #3,4,6: Pupils are equal, round and reactive. EOMs full and conjugate. #5: Diminished to pinprick and light touch in the left face. Mandibular strength intact. #7: Facial muscles symmetrical and strength intact. #8: Hearing grossly normal to voice. #9,10: Uvula and soft palate rise in the midline. Swallow and voice are normal. #11: Trapezius and sternomastoid strength intact bilaterally. #12: Tongue midline. No fasciculations or atrophy. SENSATION: Diminished pinprick and light touch in the left arm MOTOR: Normal tone in the upper and lower extremity. Normal muscle bulk. No fasciculations. No abnormal movements or posturing. Muscle strength of the major groups in the upper extremities is 4-5/5, slightly weaker in the left upper extremity. Muscle strength of the major groups in the lower extremities is 4- 5/5. REFLEXES: Deep tendon reflexes are symmetrical. No pathological reflexes. CEREBELLAR/COORDINATION: Finger to nose is normal bilaterally. GAIT/STATION: deferred Labs/Diagnostic Data Labs Test 02/03/25 21:14 02/03/25 04:34 02/02/25 07:11 02/01/25 04:40 Range/Units POC Glucose 93 70-106 mg/dl White Blood Count 5.3 4.4-10.8 10^3/uL Red Blood Count 4.05 4.0-5.20 10^6/uL Hemoglobin 11.0 L 12.2-16.2 g/dL Hematocrit 33.7 #L 36.0-46.0 % Mean Corpuscular Volume 83.4 80.0-100.0 fL Mean Corpuscular Hemoglobin 27.1 L 28.0-32.0 pg Mean Corpuscular Hemoglobin Concent 32.5 32.0-36.0 g/dL Red Cell Distribution Width 16.5 H 11.8-14.3 % Platelet Count 229 140-450 10^3/uL Mean Platelet Volume 6.9 6.9-10.8 fL Neutrophils (%) (Auto) 62.2 37.0-80.0 % Lymphocytes (%) (Auto) 27.8 10.0-50.0 % Monocytes (%) (Auto) 8.0 0.0-12.0 % Eosinophils (%) (Auto) 1.4 0.0-7.0 % Basophils (%) (Auto) 0.6 0.0-2.0 % Neutrophils # (Auto) 3.3 1.6-8.6 10 ^3/uL Lymphocytes # (Auto) 1.5 0.4-5.4 10 ^3/uL Monocytes # (Auto) 0.4 0-1.3 10 ^3/uL Eosinophils # (Auto) 0.1 0-0.8 10 ^3/uL Basophils # (Auto) 0 0-0.2 10 ^3/uL Nucleated Red Blood Cells 0.0 % Sodium Level 141 # 136-145 mmol/L Potassium Level 4.3 3.5-5.1 mmol/L Chloride Level 110 H 98-107 mmol/L Carbon Dioxide Level 22 20-31 mmol/L Anion Gap 9 5-15 Blood Urea Nitrogen 12 9-23 mg/dL Creatinine 0.92 0.550-1.02 mg/dL Glomerular Filtration Rate Calc 67 >90 mL/min BUN/Creatinine Ratio 13.0 10.0-20.0 Serum Glucose 101 74-106 mg/dL Calcium Level 8.4 L 8.7-10.4 mg/dL Total Bilirubin 0.6 0.2-1.0 mg/dL Aspartate Amino Transferase (AST) 24 13-40 U/L Alanine Aminotransferase (ALT) 10 7-40 U/L Alkaline Phosphatase 93 46-116 U/L Total Protein 6.6 5.7-8.2 g/dL Albumin 4.2 3.2-4.8 g/dL Hemoglobin A1c 6.7 H <5.7 % A1C Triglycerides Level 266 H < 150 mg/dL Cholesterol Level 186 < 200 mg/dL LDL Cholesterol 97 < 100 mg/dL HDL Cholesterol 57 40-59 mg/dL Test 01/31/25 23:04 01/31/25 15:38 01/31/25 13:24 Range/Units Prothrombin Time 10.5 9.3-11.8 sec Prothrombin Time INR 0.99 0.9-1.15 Activated Partial Thromboplast Time 25.5 24.5-34.5 SEC Direct Bilirubin < 0.1 <0.3 mg/dL Urine Color Colorless Yellow Urine Clarity Clear Clear Urine pH 5.5 5.0-9.0 Urine Specific [place] 1.005 1.001-1.035 Urine Protein Negative Negative Urine Ketones Negative Negative Urine Blood Negative Negative /uL Urine Nitrite Negative Negative Urine Bilirubin Negative Negative Urine Urobilinogen Normal Negative mg/dL Urine Leukocyte Esterase Trace Negative /uL Urine RBC 1 0 - 4 /hpf Urine Microscopic WBC 3 0-5 /HPF Urine Squamous Epithelial Cells Few <5 /hpf Urine Bacteria None seen None Seen /hpf Urine Glucose Normal Normal mg/dL Urine Opiates Screen Neg NEGATIVE Urine Fentanyl Screen Neg NEGATIVE Urine Barbiturates Screen Neg NEGATIVE Urine Phencyclidine Screen Neg NEGATIVE Urine Amphetamines Screen Neg NEGATIVE Urine Benzodiazepines Screen Neg NEGATIVE Urine Cocaine Screen Neg NEGATIVE Urine Cannabinoids Screen Neg NEGATIVE Troponin I High Sensitivity 6 </=34 ng/L B-Type Natriuretic Peptide 63.15 0-100 pg/mL Thyroid Stimulating Hormone (TSH) 1.61 0.55-4.78 uIU/mL Assessment Acute paresthesia in bilateral face and upper extremity, bilateral upper extremity weakness Etiology unclear Not typical, but need to rule out stroke On Eliquis Vitamin B12 deficiency Anxiety Plan/Recommendation Monitoring, Supportive treatment Telemetry Follow up CT head Vitamin B12 supplementation Lipitor 40 mg daily (zocor 40mg Qdat home) Lovenox 80 mg subQ b.i.d, resume Eliquis on discharge. Discussed aspirin Discontinued Plavix More recommendation per clinical course Progress: Poor This medical document was created using an electronic medical record system with [employer] system. Although this document has been carefully reviewed, there may still be some phonetic and typographical errors. These areas are purely typographical due to imperfections of the software programs, and do not reflect any compromise in the patient's medical care. Plan discussed with: Patient, Other RADHA JAY MD Feb 03, 2025 23:16
[2025-02-04 01:00] VITALS: BP 116/91; PULSE 78; RESP 16; TEMP 98.7; O2SAT 97
[2025-02-04] MEDS: ENOXAPARIN SOD 80 MG/0.8ML SYRINGE SC SCH (01:21)
[2025-02-04 05:00] VITALS: BP 101/58; PULSE 63; RESP 16; TEMP 98.2; O2SAT 95
[2025-02-04 07:05] LABS: Hematocrit 33.8 % (36.0-46.0); Hemoglobin 11.0 g/dL (12.2-16.2); Mean Corpuscular Hemoglobin 27.1 pg (28.0-32.0); Mean Corpuscular Volume 83.2 fL (80.0-100.0); Nucleated Red Blood Cells % 0.1 %
[2025-02-04 07:13] LABS: Anion Gap 11 (5-15); Potassium 4.0 mmol/L (3.5-5.1); Sodium 139 mmol/L (136-145)
[2025-02-04 07:19] LABS: BUN/Creatinine Ratio 10.1 (10.0-20.0); Blood Urea Nitrogen 9 mg/dL (9-23); Glucose 97 mg/dL (74-106)
[2025-02-04 07:34] LABS: Calcium 8.6 mg/dL (8.7-10.4); Carbon Dioxide 20 mmol/L (20-31); Chloride 108 mmol/L (98-107)
[2025-02-04 08:00] VITALS: PULSE 60
[2025-02-04 08:46] LABS: COVID19 ANTIGEN SOFIA FIA NEGATIVE (NEGATIVE)
[2025-02-04 08:50] VITALS: BP 108/64; PULSE 63; RESP 16; TEMP 98.4; O2SAT 97
--- NOTE | 2025-02-04 08:55 | DVH ---
EXAM: CT HEAD WITHOUT CONTRAST INDICATION: Stroke TECHNIQUE: CT of the head without intravenous contrast. Radiation Dose Information: CT Dose: CTDI volume is 55.74 mGy. Dose-length product is 893.6 mGy*cm The dose indicators for CT are the volume Computed Tomography (CT) Dose Index (CTDIvol) and the Dose Length Product (DLP), and are measured in units of mGy and mGy-cm, respectively. These indicators are not patient dose, but values generated from the CT scanner acquisition factors. The report includes radiation exposure data for exposures received during this examination. COMPARISON: CT HEAD WITHOUT CONTRAST on DOS: 01/31/25, CT HEAD WITHOUT CONTRAST on DOS: 11/05/24, CT H EAD WITHOUT CONTRAST on DOS: 10/24/24, CT STROKE CTH on DOS: 10/22/24, CT HEAD WITHOUT CONTRAST on DOS: 07/01/24 FINDINGS: There is no evidence of acute intracranial hemorrhage, extra-axial collection, mass effect, midline s hift, herniation or hydrocephalus. The ventricles, sulci and cisterns are age appropriate. The jaimes-white differentiation is intact. Patchy periventricular and subcortical white matter hypoattenuation is nonspecific but may be related to small vessel ischemic disease. The visualized paranasal sinuses and mastoid air cells are clear. The surrounding soft tissues and osseous structures are unremarkable. IMPRESSION: No acute intracranial abnormality.
[2025-02-04] MEDS: APIXABAN 5 MG TAB PO SCH (09:51)
--- NOTE | 2025-02-04 10:21 | DVHPN2 ---
Progress Note - Dictate Date Seen: Feb 04, 2025 Medical Necessity Reason Pt with a Central, PICC or Fol: No Subjective Ms. Baldwin is a 70-year-old right-handed female with a past medical history of diabetes, coronary artery disease, and overweight. She came to the hospital on 02/01/25 with a chief complaint of bilateral arm paresthesia. I saw her in 08/2011 for new onset short-living headache, 09/23/13 for headache, 10/05/2015 for stroke, 10/23/2024 for left-sided twitching, weakness, 11/06/2024 for slurred speech, right facial droop I have seen examined the patient, I have talked to her nurse, she is doing fine, no new complaints, but the left-sided weaker She thinks something is wrong with her UDS, 01/31/2025: Negative CBC, 11/05/2024: Unremarkable, 01/31/2025: Unremarkable BUN/CR, 11/05/2024: 15/1.25, 02/02/2025: 15/1.03 GFR, 11/05/2024: 46, 11/02/2024: 58 HGB A1c, 10/22/2024: 6.5 TG/HDL/LDL/HDL, 10/23/2024: 122/126/50/54, 02/01/2025: 2 66/186/97/57 Vitamin B12, 02/13/2024: 335 10/23/2024: 199, 11/06/2024: 230 Folic acid, 10/23/2024: 12.67 TSH, 10/22/2024: 1.04, 01/31/25: 1.61 FT4, 10/22/2024: 1.39 Echocardiogram, 02/01/2025: lvef 60% normal RV function mildd to moderate aortic regurg moderate tricuspid regurg pacing lead across TV into RV no severe valve abnormalities noted Carotid doctor, 10/23/2024: No hemodynamically significant stenosis. Carotid Doppler, 02/01/2025: No hemodynamically significant stenosis noted in the right carotid system. No hemodynamically significant stenosis noted in the left carotid system. CT head, 10/05/15: No intracranial hemorrhage, mass effect or midline shift. CT head, 10/06/15: Unremarkable CT brain without IV contrast CT head, 10/22/2024: No evidence of acute intracranial hemorrhage, mass effect or hydrocephalus CT head, 10/23/2024: No acute intracranial abnormality CT head, 11/05/2024: No acute intracranial abnormality CT head, 01/31/2025: 1. No acute intracranial abnormality. 2. Mild cerebral volume loss and mild chronic microvascular ischemic change. 3. Chronic right sphenoid sinusitis with frothy secretions, correlate clinically for acute symptoms of sinusitis Ct head, 02/04/2025: No acute intracranial abnormality. vital signs Vital Sign Date Time Temp Pulse Resp B/P (MAP) Pulse Ox O2 Delivery O2 Flow Rate FiO2 02/04/25 08:50 98.4 63 16 108/64 (79) 97 98.4 02/03/25 20:00 Room Air* 0 21 Total Intake and Output 02/03/25 02/03/25 02/04/25 15:00 23:00 07:00 Intake Total 840 ml 500 ml Output Total 2 ml Balance 838 ml 500 ml medications Current Medications Medications Dose Ordered Sig/Albert Route Start Time Stop Time Status Last Admin Dose Admin Sodium Chloride 10 ml Q8HR IV 01/31/25 22:00 02/04/25 06:19 10 ML Ondansetron HCl 4 mg Q4HP PRN IV 01/31/25 21:15 Aspirin 81 mg DAILY PO 02/01/25 10:00 02/04/25 09:51 81 MG Diagnostic Test (Pha) 1 strip ACHS 01/31/25 22:00 02/04/25 06:19 1 STRIP Insulin Human Regular ACHS SC 01/31/25 22:00 02/03/25 18:11 2 UNITS Dextrose 50 ml UD PRN IV 01/31/25 21:30 Gabapentin 400 mg TID PO 01/31/25 22:00 02/04/25 06:19 400 MG Acetaminophen/ Hydrocodone Bitart 1 tab Q12HP PRN PO 01/31/25 21:45 02/04/25 00:43 1 TAB Citalopram Hydrobromide 40 mg DAILY PO 02/01/25 10:00 02/04/25 09:51 40 MG Pantoprazole Sodium 40 mg DAILY PO 02/01/25 10:00 02/04/25 09:51 40 MG Acetaminophen 650 mg Q6HP PRN PO 02/02/25 11:30 02/04/25 03:16 650 MG Apixaban 5 mg BID PO 02/04/25 10:00 02/04/25 09:51 5 MG Atorvastatin Calcium 40 mg HS PO 02/04/25 22:00 objective General: the patient is well developed and nourished. No acute distress. MENTAL STATUS: Awake and alert. Oriented to person, place, time and general circumstances. Able to give personal history. SPEECH, LANGUAGE, HIGHER CORTICAL FUNCTION: no aphasia or dysathria. CRANIAL NERVES: Pupils are equal, round and reactive. EOMs full and conjugate. D iminished to pinprick and light touch in the left face. Mandibular strength intact. Facial muscles symmetrical and strength intact. Tongue midline. No fasciculations or atrophy. SENSATION: Diminished pinprick and light touch in the left arm MOTOR: Normal tone in the upper and lower extremity. Normal muscle bulk. No fasciculations. No abnormal movements or posturing. Muscle strength feels weaker in the left arm than leg REFLEXES: Deep tendon reflexes are symmetrical. No pathological reflexes. CEREBELLAR/COORDINATION: Finger to nose is normal bilaterally. GAIT/STATION: deferred laboratory and microbiology Laboratory Tests 02/04/25 05:31 Test 02/04/25 05:31 Range/Units Serum Glucose 97 74-106 mg/dL Problem List Acute paresthesia in bilateral face and upper extremity, bilateral upper extremity weakness Etiology unclear Not typical, but need to rule out stroke On Eliquis Vitamin B12 deficiency Anxiety Assessment/Plan Monitoring, Supportive treatment Telemetry Follow up CT head Vitamin B12 supplementation Lipitor 40 mg daily (zocor 40mg Qdat home) Lovenox 80 mg subQ b.i.d, resume Eliquis on discharge. Discussed aspirin Discontinued Plavix More recommendation per clinical course This medical document was created using an electronic medical record system with [employer] dictation system. Although this document has been carefully reviewed, there may still be some phonetic and typographical errors. These areas are purely typographical due to imperfections of the software programs, and do not reflect any compromise in the patient's medical care. Prognosis poor Plan discussed with: Patient, Other RADHA JAY MD Feb 04, 2025 10:21
[2025-02-04] MEDS ORDERED: ATOR40TA52 PO (11:01)
[2025-02-04 13:13] VITALS: BP 105/61; PULSE 62; TEMP 98.2; O2SAT 97
[2025-02-04] MEDS ORDERED: ATORVASTATIN 20 MG TAB PO SCH (22:00)
--- NOTE | 2025-02-04 23:25 | DVHDSRES ---
Discharge Summary Date of Admission Resident Creating Document: ERIC GASTON RESIDENT Jan 31, 2025 at 21:04 Date of Discharge: Feb 04, 2025 Admitting Diagnosis #Possible acute on chronic CVA with infarct o hemorrhage #Possible acute TIA/Trans Cerebral Ischemia #Hypertensive urgency #Diabetes Mellitus type 2 with hyperglycemia #Asthma, with no exacerbation Wounds: No wounds on admission Labs/Diagnostic Data: Laboratory Results Test 02/04/25 11:40 02/04/25 07:49 02/04/25 05:31 02/02/25 07:11 POC Glucose 126 mg/dl (70-106) Influenza Type A Antigen Negative (Negative) Influenza Type B Antigen Negative (Negative) SARS-CoV-2 Antigen (Rapid) Negative (NEGATIVE) White Blood Count 6.0 10^3/uL (4.4-10.8) Red Blood Count 4.07 10^6/uL (4.0-5.20) Hemoglobin 11.0 g/dL (12.2-16.2) Hematocrit 33.8 % (36.0-46.0) Mean Corpuscular Volume 83.2 fL (80.0-100.0) Mean Corpuscular Hemoglobin 27.1 pg (28.0-32.0) Mean Corpuscular Hemoglobin Concent 32.6 g/dL (32.0-36.0) Red Cell Distribution Width 16.8 % (11.8-14.3) Platelet Count 237 10^3/uL (140-450) Mean Platelet Volume 7.1 fL (6.9-10.8) Neutrophils (%) (Auto) 56.8 % (37.0-80.0) Lymphocytes (%) (Auto) 29.9 % (10.0-50.0) Monocytes (%) (Auto) 10.1 % (0.0-12.0) Eosinophils (%) (Auto) 2.3 % (0.0-7.0) Basophils (%) (Auto) 0.9 % (0.0-2.0) Neutrophils # (Auto) 3.4 10 ^3/uL (1.6-8.6) Lymphocytes # (Auto) 1.8 10 ^3/uL (0.4-5.4) Monocytes # (Auto) 0.6 10 ^3/uL (0-1.3) Eosinophils # (Auto) 0.1 10 ^3/uL (0-0.8) Basophils # (Auto) 0.1 10 ^3/uL (0-0.2) Nucleated Red Blood Cells 0.1 % Sodium Level 139 mmol/L (136-145) Potassium Level 4.0 mmol/L (3.5-5.1) Chloride Level 108 mmol/L (98-107) Carbon Dioxide Level 20 mmol/L (20-31) Anion Gap 11 (5-15) Blood Urea Nitrogen 9 mg/dL (9-23) Creatinine 0.89 mg/dL (0.550-1.02) Glomerular Filtration Rate Calc 69 mL/min (>90) BUN/Creatinine Ratio 10.1 (10.0-20.0) Serum Glucose 97 mg/dL (74-106) Calcium Level 8.6 mg/dL (8.7-10.4) Total Bilirubin 0.6 mg/dL (0.2-1.0) Aspartate Amino Transferase (AST) 24 U/L (13-40) Alanine Aminotransferase (ALT) 10 U/L (7-40) Alkaline Phosphatase 93 U/L (46-116) Total Protein 6.6 g/dL (5.7-8.2) Albumin 4.2 g/dL (3.2-4.8) Test 02/01/25 04:40 01/31/25 23:04 01/31/25 15:38 01/31/25 13:24 Hemoglobin A1c 6.7 % A1C (<5.7) Triglycerides Level 266 mg/dL (< 150) Cholesterol Level 186 mg/dL (< 200) LDL Cholesterol 97 mg/dL (< 100) HDL Cholesterol 57 mg/dL (40-59) Prothrombin Time 10.5 sec (9.3-11.8) Prothrombin Time INR 0.99 (0.9-1.15) Activated Partial Thromboplast Time 25.5 SEC (24.5-34.5) Direct Bilirubin < 0.1 mg/dL (<0.3) Urine Color Colorless (Yellow) Urine Clarity Clear (Clear) Urine pH 5.5 (5.0-9.0) Urine Specific [place] 1.005 (1.001-1.035) Urine Protein Negative (Negative) Urine Ketones Negative (Negative) Urine Blood Negative /uL (Negative) Urine Nitrite Negative (Negative) Urine Bilirubin Negative (Negative) Urine Urobilinogen Normal mg/dL (Negative) Urine Leukocyte Esterase Trace /uL (Negative) Urine RBC 1 /hpf (0 - 4) Urine Microscopic WBC 3 /HPF (0-5) Urine Squamous Epithelial Cells Few /hpf (<5) Urine Bacteria None seen /hpf (None Seen) Urine Glucose Normal mg/dL (Normal) Urine Opiates Screen Neg (NEGATIVE) Urine Fentanyl Screen Neg (NEGATIVE) Urine Barbiturates Screen Neg (NEGATIVE) Urine Phencyclidine Screen Neg (NEGATIVE) Urine Amphetamines Screen Neg (NEGATIVE) Urine Benzodiazepines Screen Neg (NEGATIVE) Urine Cocaine Screen Neg (NEGATIVE) Urine Cannabinoids Screen Neg (NEGATIVE) Troponin I High Sensitivity 6 ng/L (</=34) B-Type Natriuretic Peptide 63.15 pg/mL (0-100) Thyroid Stimulating Hormone (TSH) 1.61 uIU/mL (0.55-4.78) Other Laboratory Tests 02/04/25 05:31 Brief Hx & Hospital Course: Alejandra Pastrana Is a 70-year-old female with past medical history of [place] Harach disease, asthma, CAD, pacemaker (for bradycardia), COPD, DM2, dyslipidemia and HTN. The patient presented to ED with chief complaint of 1 day of left sided face, arm and leg numbness and tingling sensation, associated with dizziness and diminished strength on the left upper and lower extremities. On further questioning, the patient reports a similar episode began spontaneously 2 days ago, that resolved on his own. Yesterdays, the episode did not resolved, this prompted her visit to the ED. The patient denies loss of counciousness, headache, fever, chest pain, abdominal pain, or other symptoms. In the ED, labs showed: creatinine 1.22 and serum glucose 118. Head CT shows Mild cerebral volume loss and mild chronic microvascular ischemic change. Patient was admitted for further evaluation and management. Past Medical History was reviewed: VKH disease, asthma, CAD, COPD, DM, HLD, HTN. Past Surgical History: Hysterectomy, Pacemaker, PTCA. Family History: no contributory. The patient lives with family. Denies usage of alcohol, drugs or smoking. Admission course: On 02/01/25, the patient was evaluated, VS: BP:139/76mmhg, HR: 75bpm. CBC and CMP are unremarkable. Head MRI was ordered and report still pending. Lipid panel was ordered and showed: triglycerides: 266, Cholesterol: 186, LDL: 97, HDL: 57. ECHo was also ordered and reports: EF 60% RSVP 32. Today, the patient was evaluated at bed side: VS: BP:102/57mmhg, HR:64bpm. NS 250ml bolus was ordered and enalapril 10mg po was placed o hold. CBC and CMP are unremarkable. Head MRI was cancelled due to the patient has a pacemaker. CT head and neck angio will not be performed due to patient's allergy to Iodine contrast. A neurology consult was placed. Today, the patient was re-evaluated at bedside, VS BP: 101/75mmHg, HR: 66bpm. Labs HB: 11.0mg/dl. The patient reports feeling better, no new complaints. The patient has reject going to SNF, she reports her is her nanny caregiver and that her preference is to go home after discharge. I explained the benefits of going to SNF for rehabilitation and care, the patient agreed to understanding but still wants to go home. 4 wheel walker was ordered. The neurology consult is pending. We will continue following this patient. On 02/04/25, the patient was re-assessed. The patient reports feeling better, Vs, Labs and chart was reviewed. Neurology consult was performed, new head CT scan w/o contrast was requested by neurology, this reported: There is no evidence of acute intracranial hemorrhage, extra-axial collection, mass effect, midline shift, herniation or hydrocephalus. The ventricles, sulci and cisterns are age appropriate.The jaimes-white differentiation is intact. Patchy periventricular and subcortical white matter hypoattenuation is nonspecific but may be related to small vessel ischemic disease. The visualized paranasal sinuses and mastoid air cells are clear. The surrounding soft tissues and osseous structures are unremarkable. No acute intracranial abnormality. Due to a clinical improvement the patient is being discharge today. The patient will f/u with PCP and neurology as an out patient in 1 week. Review of Systems Eyes: No Pain, No Vision change, No Conjunctivae inflammation, No Eyelid inflammation, No Other, No Redness ENT: No Ear pain, No Ear discharge, No Nose pain, No Nose discharge, No Nose congestion, No Mouth pain, No Mouth swelling, No Throat pain, No Throat swelling, No Other Cardiovascular: No Chest Pain, No Palpitations, No Orthopnea, No Paroxysmal No Dyspnea, No Edema, No Lt Headedness, No Other Respiratory: No Cough, No Dry, No Shortness of breath, No SOB with exertion, No Wheezing, No Hemoptysis, No Pleuritic Pain, No Sputum, No Other Gastrointestinal: No Nausea, No Vomiting, No Abdominal Pain, No Diarrhea, No Constipation, No Melena, No Hematochezia, No Other Genitourinary: No Dysuria, No Frequency, No Incontinence, No Hematuria, No Retention, No Other Musculoskeletal: Diminish strength on left arm and leg. No other, No neck pain, No shoulder pain, No arm pain, No back pain, No hand pain, No leg pain, No foot pain Skin: No Rash, No Lesions, No Jaundice, No Bruising, No Other Neurological: Dizziness. Numbness and tingling on left side of face, arm and leg. Allergies: Iodinated Contrast Media. Physical examination: General Appearance: No in distress, alert, Oriented X3, Cooperative. HEENT: Atraumatic, PERRLA, EOMI, Mucous membrane moist/pink Respiratory: Bilateral vesicular breath sound with rales on right lower lobe Cardiovascular: Regular rate, Normal S1, Normal S2, No murmurs, no chest wall tenderness Abdominal: Normal bowel sounds, Soft, No tenderness, No hepatospenomegaly, No masses Extremities: Reduced strength, 3/5 and sensitivity 2/5 on left arm and leg. No clubbing, No cyanosis, No edema, Normal pulses, No tenderness/swelling Skin: No rashes, No breakdown, No significant lesion Neuro: Left mild facial paralysis on the face. Psych/Mental Status: preserved. Consults/Reason for consult Neurology, Dr. Lee: Evaluation and management of CVA Operations or Procedures CHEST RADIOGRAPH Indication: sob Technique: Single frontal view of the chest was obtained Comparison: XY CHEST PORTABLE on DOS: 01/04/25, XY CHEST PORTABLE on DOS: 12/21/24, XY CHEST XRAY 1 VIEW on DOS: 10/22/24 FINDINGS: Lines and Tubes: Pacemaker in place with pulse generator over the left chest unchanged from 01/04/2025. Lungs: Bibasilar areas of atelectasis or developing airspace disease. Air-fluid level below the left diaphragm most likely from gas distended stomach if however pneumoperitoneum is of clinical concern recommend CT abdomen pelvis. Pleura: No effusion. No pneumothorax. Cardiomediastinal contours: Unremarkable Bones: No acute osseous abnormality. IMPRESSION: 1. Pacemaker in place with pulse generator over left chest unchanged from 01/04/2025. 2. Postop changes lower cervical spine. 3. Increased interstitial markings of the lung bases may represent atelectasis or developing airspace disease. Findings were not present on chest x-ray of 2024 EDURE(s): HWOCT - HEAD WITHOUT CONTRAST REASON: tia ORDER NUMBER(s): [id number], ACCESSION NUMBER(s): [id number] CLINICAL HISTORY: tia TECHNIQUE: Helical imaging carried out from skull base to vertex without intravenous contrast. This exam was performed according to our departmental dose optimization program. Up-to-date CT equipment and radiation dose reduction techniques are utilized as appropriate. 57.96 CTDIVol: 57.96 mGy DLP: 1136.09 mGy-cm WID: COMPARISON: CT HEAD WITHOUT CONTRAST on DOS: 11/05/24 FINDINGS: Mild cerebral volume loss with concordant prominence of the subarachnoid spaces and ventricles. Mild patchy low attenuation in the cerebral white matter consistent with nonspecific white matter disease. There is no midline shift or mass effect. The jaimes white matter interfaces are maintained. The basal cisterns are patent. There is no evidence of acute intracranial hemorrhage or extra-axial fluid collection. There are are small bilateral mastoid air cell effusions. There is frothy secretions and mucosal thickening of the right sphenoid sinus with chronic appearing sclerosis of the right sphenoid sinus burn[place]. IMPRESSION: 1. No acute intracranial abnormality. 2. Mild cerebral volume loss and mild chronic microvascular ischemic change. 3. Chronic right sphenoid sinusitis with frothy secretions, correlate clinically for acute symptoms of sinusitis. EDURE(s): CARCL - CAROTID DUPLX W COLOR DOP REASON: dizziness ORDER NUMBER(s): [id number], ACCESSION NUMBER(s): [id number] Carotid Duplex Date: 02/01/2025 08:38 AM Clinical History: dizziness Comparison: US CAROTID DUPLX W COLOR DOP on DOS: 10/23/24, CT STROKE CTH on DOS: 10/22/24, US ECHO 2D MODE CARDIAC DOP on DOS: 06/25/24, US ECHO 2D MODE CARDIAC DOP on DOS: 02/14/24 Technique: Duplex Doppler evaluation of the extracranial carotid and vertebral arteries including color Doppler and spectral/pulsed waveform analysis was performed. Findings: RIGHT SIDE: The peak systolic velocities are 65 cm/s in the distal CCA and 100 cm/s in the proximal ICA.The ICA/CCA ratio is less than 2. The external carotid artery is patent with peak systolic velocity of 57 cm/s proximally. There is appropriate antegrade flow in the right vertebral artery. LEFT SIDE: The peak systolic velocities are 76 cm/s in the distal CCA and 114 cm/s in the proximal ICA.. The ICA/CCA ratio is 1.5. The external carotid artery is patent with peak systolic velocity of 71 cm/s proximally. There is appropriate antegrade flow in the left vertebral artery. IMPRESSION: No hemodynamically significant stenosis noted in the right carotid system. No hemodynamically significant stenosis noted in the left carotid system. Reference: Radiology 2003; [id number] : CT HEAD WITHOUT CONTRAST INDICATION: Stroke TECHNIQUE: CT of the head without intravenous contrast. Radiation Dose Information: CT Dose: CTDI volume is 55.74 mGy. Dose-length product is 893.6 mGy*cm The dose indicators for CT are the volume Computed Tomography (CT) Dose Index (CTDIvol) and the Dose Length Product (DLP), and are measured in units of mGy and mGy-cm, respectively. These indicators are not patient dose, but values generated from the CT scanner acquisition factors. The report includes radiation exposure data for exposures received during this examination. COMPARISON: CT HEAD WITHOUT CONTRAST on DOS: 01/31/25, CT HEAD WITHOUT CONTRAST on DOS: 11/05/24, CT HEAD WITHOUT CONTRAST on DOS: 10/24/24, CT STROKE CTH on DOS: 10/22/24, CT HEAD WITHOUT CONTRAST on DOS: 07/01/24 FINDINGS: There is no evidence of acute intracranial hemorrhage, extra-axial collection, mass effect, midline shift, herniation or hydrocephalus. The ventricles, sulci and cisterns are age appropriate. The jaimes-white differentiation is intact. Patchy periventricular and subcortical white matter hypoattenuation is nonspecific but may be related to small vessel ischemic disease. The visualized paranasal sinuses and mastoid air cells are clear. The surrounding soft tissues and osseous structures are unremarkable. IMPRESSION: No acute intracranial abnormality. Condition at Discharge: Stable Final Diagnosis/Problems List #Acute on chronic CVA with infarct or hemorrage #Hypertensive urgency #Diabetes Mellitus type 2 with hyperglycemia #CKD Stage 2 #Asthma, with no exacerbation #Anemia, rule out acute vs chronic Discharge Disposition: Home SNF Discharge Will this Physician continue t: No Discharge Instruct/Medications Diet: Cardiac 2g Na,low cholest Activity: No Restrictions, As Tolerated Follow Up/Referral: F/U with pcp in one week F/U with neurologist in 1 week F/U with PT Medications: Atorvastatin 40mg po at night Apixan 5mg po qd Clopridrogel 75mg po qd Stop: aspirin and simvastatin Scheduled Apixaban Base (Eliquis), 5 MG PO BID, (Reported) Atorvastatin Calcium (Atorvastatin Calcium), 1 TAB PO DAILY Cholecalciferol (Vitamin D3), 1 TAB PO DAILY, (Reported) Docusate Sodium (Colace), 1 CAP PO BID Enalapril Maleate (Enalapril Maleate), 10 MG PO DAILY, (Reported) Escitalopram Oxalate (Lexapro), 1 TAB PO DAILY, (Reported) Fluticasone Propionate (Nasal) (Flonase Allergy Relief), 50 MCG NA DAILY, (Reported) Gabapentin (Gabapentin), 400 MG PO TID, (Reported) Levalbuterol Tartrate (Xopenex Hfa), 1 IN PRN, (Reported) Miscellaneous Medications Clopidogrel Bisulfate (Plavix), 75 MG PO, (Reported) Ferrous Sulfate (Ferosul), PO, (Reported) Discontinued Medications Cetirizine Hcl (Zyrtec Allergy), 10 MG PO DAILY, (Reported) Exenatide (Byetta), 10 MCG SC BIDAC, (Reported) Exenatide (Bydureon Bcise), 2 MG SC, (Reported) Furosemide (Furosemide), 1 TAB PO DAILY, (Reported) Hydrocodone-Acetaminophen (Hydrocodone Bitartrate/AC 5-325 mg), 1 TAB PO Q12HP PRN Lactulose (Lactulose), 20 GM PO BID Magnesium Citrate (Magnesium Citrate), 150 ML PO DAILY Pantoprazole Sodium Sesquihydr (Pantoprazole Sodium Dr), 40 MG PO BID Polyethylene Glycol 3350 (Miralax), 17 GM PO DAILY PRN Simvastatin (Simvastatin), 40 MG PO DAILY, (Reported) Durable Medical Equipment Elastic Bandages & Supports (Abdominal Binder/Elastic/), SM XX ONCE, (DME) Discharge Statement: "Patient was advised to return to the ER or call 911 if any headaches, dizziness, shortness of breath, chest pain, abdominal pain, bleeding, fevers, or worsening of medical condition. Patient was counseled about treatment plan, medications, possible side effects, patientverbalized understanding. All questions were answered to the best of my ability. This discharge took greater then 30 minutes in planning, reviewing documentation, counseling the patient, and discussing with other team members." Discharge Care Plan Instructions Take Rx medications, Notify MD of any issues, Keep list of meds w/ you, Do not drink ETOH/smoke, Call 911 in an emergency, F/U w/ PCP ASSESSMENT ASSESSMENT Assessment #CVA with infarct #Hypertensive urgency #Diabetes Mellitus type 2 with hyperglycemia #CKD Stage 2 #Asthma, no in exacerbation #Chronic Anemia Date of Service: Feb 04, 2025 Billing Provider: ANTHONY YAO MD Common Visit Codes: 89383-BCD/OBS DISCH DAY >30min ERIC GASTON RESIDENT Feb 04, 2025 23:25
== END 2025-02-04 15:10 | disposition home or self-care (01) | DRG 65 ==
LOC: ER 12:49 → OVERFLOW 21:04 → TELE-WESTW 02-01 17:35 → WEST WING 02-02 21:33 → TELE-WESTW 02-04 02:34
PROVIDERS: ADMIT Internal Medicine; ATTEND Internal Medicine
DX: I63.9 Cerebral infarction, unspecified (principal); I62.9 Nontraumatic intracranial hemorrhage, unspecified; I16.0 Hypertensive urgency; E11.65 Type 2 diabetes mellitus with hyperglycemia; E11.22 Type 2 diabetes mellitus with diabetic chronic kidney disease; D64.9 Anemia, unspecified; I07.1 Rheumatic tricuspid insufficiency; I12.9 Hypertensive chronic kidney disease with stage 1 through stage 4 chronic kidney disease, or unspecified chronic kidney disease; J44.89 Other specified chronic obstructive pulmonary disease; E53.8 Deficiency of other specified B group vitamins; E78.5 Hyperlipidemia, unspecified; F41.9 Anxiety disorder, unspecified; I25.10 Atherosclerotic heart disease of native coronary artery without angina pectoris; N18.2 Chronic kidney disease, stage 2 (mild); Z79.899 Other long term (current) drug therapy; Z82.49 Family history of ischemic heart disease and other diseases of the circulatory system; Z95.0 Presence of cardiac pacemaker; Z90.710 Acquired absence of both cervix and uterus; Z86.73 Personal history of transient ischemic attack (TIA), and cerebral infarction without residual deficits; Z83.3 Family history of diabetes mellitus; I25.2 Old myocardial infarction
CPT/HCPCS: 36415; 70450; 71045; 80048; 80053; 80061; 80076; 80307; 81001; 82962; 83036; 83880; 84443; 84484; 85025; 85610; 85730; 87426; 87804; 93005; 93306; 93886; 96374; 96375; 97163; G0378; J1815; J2405